=== PATIENT | female | born 1950 | race African-American/Black ===

== ENCOUNTER 2019-10-05 16:01 | Inpatient (IN) | payer OTHER ==
--- NOTE | 2019-10-05 16:32 | PDOC ---
Attending Attestation - Resident Resident Name: Alfreda Pan - HPI HPI: 10/05/19 18:56 pt presents to the ED complaining of a three day history of blood streaked stool. Denies lightheadness, chest pain or shortness of breath, nausea vomiting or abodminal pain. Patient is on ASA and eliquis--last dose was last night. - Physicial Exam PE: 10/05/19 18:58 Agree with resident exam. PAtient is alert and oriented and in no acute distress. Lungs + scattered wheezes b/l. Abdomen soft, non tender,non distended without guarding or rebound. - Medical Decision Making 10/05/19 18:59 Pt presents to the ED complaining of blood streaked stool. Guiac positive on rectal exam. Hgb is 9.5 with unknown baseline. Will admit to medicine for serial hgb.
--- NOTE | 2019-10-05 16:48 | PDOC ---
History of Present Illness - General Chief Complaint: Bleeding from Anus Stated Complaint: HEMATOCHEZIA Time Seen by Provider: 10/05/19 16:47 - History of Present Illness Initial Comments: HPI: 69yo F with PMH of GERD, hypothyroidism, DM, HTN, DVT of RLE on eliquis, COPD on 2L O2 as needed, GERD coming from [facility] presenting with melena and hematochezia x 1 day. Patient states this has never happened before. She had two or three loose bowel movements today that were black mixed with bright red clots. Last colonoscopy was about two years ago which showed polyps. Denies eating anything red. Reports a cough productive of yellow sputum and congestion. No fevers, chills, chest pain, or shortness of breath. PCP: Dr. Triplett ROS: Constitutional: no fever, no chills HEENT: no throat pain, no dysphagia Cardiovascular: no chest pain, no palpitations Respiratory: +cough, no shortness of breath Gastrointestinal: no abdominal pain, +melena Genitourinary: no dysuria, no hematuria Musculoskeletal: no myalgia, no arthralgia Skin: no rash, no itching Neurologic: no headache, no weakness PE: General: Awake, alert, and fully oriented, in no acute distress Head: No signs of trauma Eyes: EOMI, sclera anicteric ENT: Moist mucus membranes Neck: Normal ROM, supple Lungs: Lungs with rales that cleared with coughing, Normal breath sounds Cardio: Regular rhythm, S1 and S2 present Abdomen: Soft, nontender. No guarding, no rebound, no masses. Healed vertical surgical scar present. Extremities: Normal range of motion, Distal pulses present SKIN: Warm, Dry, normal turgor Neurologic: Cranial nerves II through XII grossly intact. Normal speech Rectal: Black stool mixed with blood is on patient's diaper. The skin is without erythema or induration. No external hemorrhoids, fissures, skin tags, warts, or discharge. Sphincter tone normal. There are no masses palpated on digital exam. ED Course/MDM: DDX including but not limited to GI bleed (upper vs lower), epistaxis, iron supplements, beets VS significant for tachycardia Labs, EKG, CXR NPO 10/05/19 16:48 Per [facility] paperwork: GERD, hypothyroidism, HTN, DVT of RLE on on Eliquis/ASA, COPD on 2L O2 as needed , DM BP 121/64m HR 83, RR 18, Temp 97.5, Sat 98 Anaya Chavez, niece, Who to call at the [facility] to get Questions answered: Lidia Shelton, RN [phone] 10/05/19 16:55 CBC WBC 8.7 K/mm3 (4.0-10.0) 10/05/19 17:29 RBC 3.61 M/mm3 (3.60-5.2) 10/05/19 17:29 Hgb 9.5 GM/dL (10.7-15.3) L 10/05/19 17:29 Hct 29.7 % (32.4-45.2) L 10/05/19 17:29 MCV 82.2 fl (80-96) 10/05/19 17:29 MCH 26.2 pg (25.7-33.7) 10/05/19 17:29 MCHC 31.9 g/dl (32.0-36.0) L 10/05/19 17:29 RDW 15.2 % (11.6-15.6) 10/05/19 17:29 Plt Count 261 K/MM3 (134-434) 10/05/19 17:29 MPV 9.5 fl (7.5-11.1) 10/05/19 17:29 Absolute Neuts (auto) 5.8 K/mm3 (1.5-8.0) 10/05/19 17:29 Neutrophils % 66.5 % (42.8-82.8) 10/05/19 17:29 Lymphocytes % 19.2 % (8-40) 10/05/19 17:29 Monocytes % 10.3 % (3.8-10.2) H 10/05/19 17:29 Eosinophils % 2.8 % (0-4.5) 10/05/19 17:29 Basophils % 1.2 % (0-2.0) 10/05/19 17:29 Nucleated RBC % 0 % (0-0) 10/05/19 17:29 No leukocytosis Hgb low at 9.5, unknown baseline CMP Sodium 140 mmol/L (136-145) 10/05/19 17:29 Potassium 4.7 mmol/L (3.5-5.1) 10/05/19 17:29 Chloride 103 mmol/L (98-107) 10/05/19 17:29 Carbon Dioxide 30 mmol/L (21-32) 10/05/19 17:29 Anion Gap 7 MMOL/L (8-16) L 10/05/19 17:29 BUN 51.5 mg/dL (7-18) H 10/05/19 17:29 Creatinine 1.4 mg/dL (0.55-1.3) H 10/05/19 17:29 Est GFR (CKD-EPI)AfAm 44.01 10/05/19 17:29 Est GFR (CKD-EPI)NonAf 37.97 10/05/19 17:29 Random Glucose 150 mg/dL (74-106) H 10/05/19 17:29 Calcium 8.2 mg/dL (8.5-10.1) L 10/05/19 17:29 Total Bilirubin 0.2 mg/dL (0.2-1) 10/05/19 17:29 AST 16 U/L (15-37) 10/05/19 17:29 ALT 20 U/L (13-61) 10/05/19 17:29 Alkaline Phosphatase 49 U/L (45-117) 10/05/19 17:29 Total Protein 6.7 g/dl (6.4-8.2) 10/05/19 17:29 Albumin 2.9 g/dl (3.4-5.0) L 10/05/19 17:29 BUN elevated Cr elevated No transaminitis FOBT positive EKG: rate 100, QTc 420, NSR Pending CXR 10/05/19 18:26 Patient signed out to Dr. Beatty 10/05/19 19:20 Past History - Past Medical History Allergies/Adverse Reactions: Allergies Allergy/AdvReac Type Severity Reaction Status Date / Time No Known Allergies Allergy Verified 10/05/19 16:22 Home Medications: Ambulatory Orders Amlodipine Besylate [Norvasc -] 5 mg PO DAILY 10/05/19 Apixaban [Eliquis -] 5 mg PO BID 10/05/19 Aspirin 81 mg PO DAILY 10/05/19 Bisacodyl [Dulcolax -] 5 mg PO HS 10/05/19 Clotrimazole/Betamet Diprop [Lotrisone Cream (Large Tube) -] 1 applic TP DAILY 10/05/19 Docusate Sodium [Colace -] 100 mg PO BID 10/05/19 Ergocalciferol [Vitamin D2] 50,000 unit PO Q7D@1000 10/05/19 Ferrous Sulfate [Feosol] 325 mg PO DAILY 10/05/19 Ipratropium/Albuterol Sulfate [Iprat-Albut 0.5-3(2.5) mg/3 ml] 3 ml IH QID PRN 10/05/19 Levothyroxine [Synthroid -] 125 mcg PO DAILY 10/05/19 Methocarbamol [Robaxin -] 500 mg PO DAILY 10/05/19 Multivitamin [Multiple Vitamins] 1 each PO DAILY 10/05/19 Naloxegol Oxalate [Movantik] 25 mg PO DAILY 10/05/19 Omeprazole 20 mg PO DAILY 10/05/19 Pantoprazole Sodium [Protonix -] 40 mg PO BID 10/05/19 metFORMIN HCL [Metformin HCl] 500 mg PO BID 10/05/19 - Psycho Social/Smoking Cessation Hx Smoking History: Unknown if ever smoked *Physical Exam - Vital Signs Last Vital Signs Temp Pulse Resp BP Pulse Ox 97.5 F L 99 H 16 113/61 95 10/05/19 16:20 10/05/19 16:20 10/05/19 16:20 10/05/19 16:20 10/05/19 16:20 ED Treatment Course - LABORATORY CBC & Chemistry Diagram: 10/05/19 17:29 10/05/19 17:29 Discharge - Discharge Information Problems reviewed: Yes Clinical Impression/Diagnosis: GI bleed Qualifiers: GI bleed type/associated pathology: melena Qualified Code(s): K92.1 - Melena Condition: Guarded - Admission Yes - Follow up/Referral Referrals: Pam Triplett MD [Primary Care Provider] - - Patient Discharge Instructions - Post Discharge Activity
[2019-10-05 17:48] LABS: BASO % 1.2 % (0-2.0); EOS % 2.8 % (0-4.5); HEMATOCRIT 29.7 % (32.4-45.2); HEMOGLOBIN 9.5 GM/dL (10.7-15.3); LYMPH % 19.2 % (8-40); MCH 26.2 pg (25.7-33.7); MCHC 31.9 g/dl (32.0-36.0); MEAN CELL VOLUME 82.2 fl (80-96); MEAN PLT VOLUME 9.5 fl (7.5-11.1); MONO % 10.3 % (3.8-10.2); NEUT % 66.5 % (42.8-82.8); PLATELET COUNT 261 K/MM3 (134-434); RBC 3.61 M/mm3 (3.60-5.2); RDW 15.2 % (11.6-15.6); WHITE BLOOD COUNT 8.7 K/mm3 (4.0-10.0)
[2019-10-05 18:01] LABS: INR 1.26 (0.83-1.09); PROTHROMBIN TIME (PATIENT) 14.9 SEC (9.7-13.0)
[2019-10-05 18:04] LABS: ACTIVATED PTT 34.9 SECONDS (25.2-36.5)
[2019-10-05 18:20] LABS: ALBUMIN 2.9 g/dl (3.4-5.0); BILIRUBIN,TOTAL 0.2 mg/dL (0.2-1); BLOOD UREA NITROGEN 51.5 mg/dL (7-18); CALCIUM 8.2 mg/dL (8.5-10.1); CREATININE 1.4 mg/dL (0.55-1.3); POTASSIUM 4.7 mmol/L (3.5-5.1); TOT PROT 6.7 g/dl (6.4-8.2)
[2019-10-05] MEDS ORDERED: LACTATED RINGERS SOLUTION 1000 ML INFUS.BAG IV ONE (19:36)
[2019-10-05] MEDS ORDERED: PANTOPRAZOLE SODIUM 40 MG VIAL IVPUSH ONE (19:36)
[2019-10-05] MEDS ORDERED: PANTOPRAZOLE SODIUM 40 MG/100 ML BAG IVPB ONE (19:58)
--- NOTE | 2019-10-05 23:03 | HP ---
Admitting History and Physical - Primary Care Physician PCP: Dr. haas - Admission Chief Complaint: three days of bloody streaked stool History of Present Illness: 69 yo F with PMH of GERD, hypothyroidism, DM, HTN, DVT of RLE on eliquis, COPD on 2L O2 as needed coming from [facility] with melena and hematochezia x 1 day. Patient states this has never happened before. She had two or three loose bowel movements today that were black mixed with bright red clots. Last colonoscopy was about two years ago which showed polyps. Denies eating anything red. Reports a cough productive of yellow sputum and congestion. No fevers, chills, chest pain, or shortness of breath. History Source: Patient Limitations to Obtaining History: No Limitations - Past Medical History Cardiovascular: Yes: Deep Vein Thrombosis, HTN Pulmonary: Yes: COPD Gastrointestinal: Yes: GERD Endocrine: Yes: Diabetes Mellitus, Hypothyroidism - Past Surgical History Past Surgical History: Yes: None - Smoking History Smoking history: Former smoker Have you smoked in the past 12 months: Yes If you are a former smoker, when did you quit?: 1 year - Alcohol/Substance Use Hx Alcohol Use: No History of Substance Use: reports: None - Social History Usual Living Arrangement: Yes: Alone ADL: Support Services History of Recent Travel: No Home Medications - Allergies Allergies/Adverse Reactions: Allergies Allergy/AdvReac Type Severity Reaction Status Date / Time No Known Allergies Allergy Verified 10/05/19 16:22 - Home Medications Home Medications: Ambulatory Orders Amlodipine Besylate [Norvasc -] 5 mg PO DAILY 10/05/19 Apixaban [Eliquis -] 5 mg PO BID 10/05/19 Aspirin 81 mg PO DAILY 10/05/19 Bisacodyl [Dulcolax -] 5 mg PO HS 10/05/19 Clotrimazole/Betamet Diprop [Lotrisone Cream (Large Tube) -] 1 applic TP DAILY 10/05/19 Docusate Sodium [Colace -] 100 mg PO BID 10/05/19 Ergocalciferol [Vitamin D2] 50,000 unit PO Q7D@1000 10/05/19 Ferrous Sulfate [Feosol] 325 mg PO DAILY 10/05/19 Ipratropium/Albuterol Sulfate [Iprat-Albut 0.5-3(2.5) mg/3 ml] 3 ml IH QID PRN 10/05/19 Levothyroxine [Synthroid -] 125 mcg PO DAILY 10/05/19 Methocarbamol [Robaxin -] 500 mg PO DAILY 10/05/19 Multivitamin [Multiple Vitamins] 1 each PO DAILY 10/05/19 Naloxegol Oxalate [Movantik] 25 mg PO DAILY 10/05/19 Omeprazole 20 mg PO DAILY 10/05/19 Pantoprazole Sodium [Protonix -] 40 mg PO BID 10/05/19 metFORMIN HCL [Metformin HCl] 500 mg PO BID 10/05/19 Family Medical History Family Hx Diabetes: Mother Review of Systems - Review of Systems Constitutional: reports: No Symptoms Eyes: reports: No Symptoms, Floaters HENT: reports: No Symptoms Neck: reports: No Symptoms Cardiovascular: reports: No Symptoms Respiratory: reports: Cough Gastrointestinal: reports: Melena, Rectal Bleeding Genitourinary: reports: No Symptoms Musculoskeletal: reports: No Symptoms Integumentary: reports: No Symptoms Neurological: reports: No Symptoms Endocrine: reports: No Symptoms Hematology/Lymphatic: reports: No Symptoms Psychiatric: reports: No Symptoms Physical Examination Vital Signs: Vital Signs Temperature 99.2 F 10/05/19 20:13 Pulse Rate 97 H 10/05/19 20:13 Respiratory Rate 25 H 10/05/19 20:13 Blood Pressure 136/56 L 10/05/19 20:13 O2 Sat by Pulse Oximetry (%) 96 10/05/19 20:13 Constitutional: Yes: No Distress, Calm Eyes: Yes: Conjunctiva Clear, EOM Intact HENT: Yes: Atraumatic, Normocephalic Neck: Yes: Supple, Trachea Midline Cardiovascular: Yes: Regular Rate and Rhythm Respiratory: Yes: Regular, CTA Bilaterally Gastrointestinal: Yes: Normal Bowel Sounds, Soft, Other (slight blood on patient diaper) Musculoskeletal: Yes: WNL Edema: No Peripheral Pulses WNL: Yes Integumentary: Yes: WNL Neurological: Yes: Alert, Oriented Labs: CBC, BMP 10/05/19 17:29 10/05/19 17:29 Imaging - Results Chest X-ray: Report Reviewed (no acute infiltrate) EKG: Report Reviewed ( EKG: rate 100, QTc 420, NSR) Other: Report Reviewed (occult blood positive) Problem List - Problems (1) GI bleed Code(s): K92.2 - GASTROINTESTINAL HEMORRHAGE, UNSPECIFIED Qualifiers: GI bleed type/associated pathology: melena Qualified Code(s): K92.1 - Melena (2) HTN (hypertension) Code(s): I10 - ESSENTIAL (PRIMARY) HYPERTENSION (3) Diabetes Code(s): E11.9 - TYPE 2 DIABETES MELLITUS WITHOUT COMPLICATIONS (4) GERD (gastroesophageal reflux disease) Code(s): K21.9 - GASTRO-ESOPHAGEAL REFLUX DISEASE WITHOUT ESOPHAGITIS (5) Hypothyroidism Code(s): E03.9 - HYPOTHYROIDISM, UNSPECIFIED (6) DVT (deep venous thrombosis) Code(s): I82.409 - ACUTE EMBOLISM AND THOMBOS UNSP DEEP VN UNSP LOWER EXTREMITY (7) COPD (chronic obstructive pulmonary disease) Code(s): J44.9 - CHRONIC OBSTRUCTIVE PULMONARY DISEASE, UNSPECIFIED (8) Constipation Code(s): K59.00 - CONSTIPATION, UNSPECIFIED Assessment/Plan 69 yo F with PMH of GERD, hypothyroidism, DM, HTN, DVT of RLE on eliquis, COPD on 2L O2 as needed coming from [facility] with melena and hematochezia x 1 day. Patient states this has never happened before. # R/O GI bleed - hgb: 9.5, baseline not known - occult positive - In ED: given 40 IV push protonix - follow up cbc series, H/H trend - NPO - continue with PPI IV push daily - follow up GI - transfuse is hgb less than 7 #ELIZABETH - Bun/cr: 51.1/1.4 - in ED given : 1 LR - monitor renal function - avoid nephro toxins #HTN -Amlodipine Besylate 5 mg PO DAILY - monitor BP # H/o DVT - HOLD AC - place SCDs # DM - monitor FSBS BID AC - coverage with novolog sliding scale BID AC - follow up hgA1c # COPD - continue with home nebs # Hypothyroidism - Levothyroxine 125 mcg PO DAILY # constipation - cont with home meds FEN: NPO, monitor lytes VTE: SCDs, hold AC Dispo: Med-surg Visit type - Emergency Visit Emergency Visit: Yes ED Registration Date: 10/05/19 Care time: The patient presented to the Emergency Department on the above date and was hospitalized for further evaluation of their emergent condition. - New Patient This patient is new to me today: Yes Date on this admission: 10/05/19 - Critical Care Critical Care patient: No
[2019-10-05] MEDS ORDERED: ALBUTEROL SO4 2.5/IPRATROPIUM 0.5 INH SOL 3 ML VIAL.NEB. NEB PRN (23:16)
[2019-10-06] MEDS ORDERED: LEVOTHYROXINE NA 125 MCG TABLET (FP) PO SCH (07:00)
[2019-10-06 08:41] LABS: ALBUMIN 2.8 g/dl (3.4-5.0); BILIRUBIN,TOTAL 0.2 mg/dL (0.2-1); BLOOD UREA NITROGEN 51.8 mg/dL (7-18); CALCIUM 8.2 mg/dL (8.5-10.1); CREATININE 1.2 mg/dL (0.55-1.3); POTASSIUM 4.3 mmol/L (3.5-5.1); TOT PROT 6.6 g/dl (6.4-8.2)
--- NOTE | 2019-10-06 09:45 | EKG ---
Test Reason : Blood Pressure : / mmHG Vent. Rate : 100 BPM Atrial Rate : 100 BPM P-R Int : 142 ms QRS Dur : 080 ms QT Int : 326 ms P-R-T Axes : 039 029 062 degrees QTc Int : 420 ms NORMAL SINUS RHYTHM NONSPECIFIC ST ABNORMALITY ABNORMAL ECG NO PREVIOUS ECGS AVAILABLE Confirmed by MD Bruce, Markus ([id number]) on 10/06/2019 9:45:06 AM Referred By: Confirmed By:Markus Barrera MD
[2019-10-06] MEDS ORDERED: amLODIPine BESYLATE 5 MG TABLET (FP) PO SCH (10:00)
[2019-10-06] MEDS ORDERED: PANTOPRAZOLE SODIUM 40 MG VIAL IVPUSH SCH (10:00)
[2019-10-06] MEDS ORDERED: PATIENT'S OWN MEDICATION (NON-FORMULARY) (Naloxegol Oxalate [Movantik] 25 MG) PO SCH (10:00)
[2019-10-06] MEDS: INSULIN (NOVOLOG) ASPART 100 UNITS/ML 10ML VIAL SQ SCH ×2 (11:07→21:33)
--- NOTE | 2019-10-06 11:23 | PN ---
Progress Note, Physician Chief Complaint: GI Bleed History of Present Illness: NAD in bed denies any N/V/D/or further bleeding - Current Medication List Current Medications: Active Medications Albuterol/Ipratropium (Duoneb -) 1 amp NEB RQID PRN PRN Reason: SHORT OF BREATH/WHEEZING Amlodipine Besylate (Norvasc -) 5 mg PO DAILY [facility] Last Admin: 10/06/19 10:57 Dose: 5 mg Bisacodyl (Dulcolax -) 5 mg PO HS [facility] Insulin Aspart (Novolog Vial) 1 units SQ BID [facility]; Protocol Last Admin: 10/06/19 11:07 Dose: Not Given Levothyroxine Sodium (Synthroid -) 125 mcg PO DAILY@0700 [facility] Last Admin: 10/06/19 06:22 Dose: 125 mcg Non-Formulary Medication (Naloxegol Oxalate [Movantik]) 25 mg PO DAILY [facility] Pantoprazole Sodium (Protonix Iv) 40 mg IVPUSH DAILY [facility] Last Admin: 10/06/19 10:57 Dose: 40 mg - Objective Vital Signs: Vital Signs Temperature 98.6 F 10/06/19 06:00 Pulse Rate 107 H 10/06/19 06:00 Respiratory Rate 20 10/06/19 06:00 Blood Pressure 131/72 10/06/19 06:00 O2 Sat by Pulse Oximetry (%) 98 10/05/19 21:50 Constitutional: Yes: Well Nourished, No Distress, Calm, Obese Cardiovascular: Yes: Regular Rate and Rhythm Respiratory: Yes: Regular Gastrointestinal: Yes: Normal Bowel Sounds, Soft, Abdomen, Obese Genitourinary: Yes: WNL Musculoskeletal: Yes: WNL Extremities: Yes: WNL Edema: No Peripheral Pulses WNL: Yes Neurological: Yes: Alert, Oriented Psychiatric: Yes: Alert, Oriented Labs: CBC, BMP 10/05/19 17:29 10/06/19 07:12 INR, PTT INR 1.26 (0.83-1.09) H 10/05/19 17:29 Problem List - Problems (1) Anemia Assessment/Plan: -GI consult -Guaiac positive -PPI -Resume diet for now until further eval by GI -Trend CBC -Hold eliquis Problems reviewed: Yes Code(s): D64.9 - ANEMIA, UNSPECIFIED (2) Diabetes Assessment/Plan: -A1c at 6.5 -BGM AC HS -ISS -Diabetic/low sodium diet Problems reviewed: Yes Code(s): E11.9 - TYPE 2 DIABETES MELLITUS WITHOUT COMPLICATIONS (3) GI bleed Assessment/Plan: -GI consult -Guaiac positive -PPI -Resume diet for now until further eval by GI -Monitor trend -repeat CBC today -Hold Eliquis Problems reviewed: Yes Code(s): K92.2 - GASTROINTESTINAL HEMORRHAGE, UNSPECIFIED Qualifiers: GI bleed type/associated pathology: melena Qualified Code(s): K92.1 - Melena Assessment/Plan see problem list
[2019-10-06] MEDS ORDERED: MULTIVITAMINS (DAILY MVI) TABLET (FP) PO SCH (11:30)
[2019-10-06] MEDS ORDERED: METHOCARBAMOL 500 MG TABLET PO SCH (11:30)
[2019-10-06 12:46] LABS: BASO % 0.6 % (0-2.0); HEMATOCRIT 28.8 % (32.4-45.2); HEMOGLOBIN 9.1 GM/dL (10.7-15.3); LYMPH % 16.3 % (8-40); MCH 26.3 pg (25.7-33.7); MCHC 31.6 g/dl (32.0-36.0); MEAN CELL VOLUME 83.3 fl (80-96); MEAN PLT VOLUME 8.9 fl (7.5-11.1); MONO % 8.5 % (3.8-10.2); NEUT % 72.6 % (42.8-82.8); PLATELET COUNT 230 K/MM3 (134-434); RBC 3.45 M/mm3 (3.60-5.2)
[2019-10-06 13:24] LABS: IRON SERUM 18 ug/dL (50-175); TOTAL IRON BINDING CAPACITY 209 ug/dL (250-450)
[2019-10-06] MEDS ORDERED: metFORMIN HCL 500 MG TABLET (FP) PO SCH (16:30)
[2019-10-06] MEDS ORDERED: IRON SUCROSE INJECTION 300 MG in SODIUM CHLORIDE 235 ML IVPB ONE ×2 (18:17→22:55)
[2019-10-06] MEDS ORDERED: PANTOPRAZOLE SODIUM 40 MG VIAL IVPUSH ONE ×2 (19:19→22:55)
[2019-10-06] MEDS ORDERED: PANTOPRAZOLE SODIUM 80 MG in SODIUM CHLORIDE 100 ML IVPB SCH (19:30)
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
[2019-10-06] MEDS ORDERED: PIPERACILLIN/TAZOB 2.25 GM 2.25 GM in DEXTROSE 5%-WATER - 50 ML IVPB SCH (21:00)
[2019-10-06 21:41] LABS: HEMATOCRIT 26.7 % (32.4-45.2); HEMOGLOBIN 8.4 GM/dL (10.7-15.3); MCH 26.3 pg (25.7-33.7); MCHC 31.5 g/dl (32.0-36.0); MEAN CELL VOLUME 83.4 fl (80-96); MEAN PLT VOLUME 8.6 fl (7.5-11.1); PLATELET COUNT 216 K/MM3 (134-434); RDW 14.9 % (11.6-15.6); WHITE BLOOD COUNT 9.2 K/mm3 (4.0-10.0)
[2019-10-06] MEDS ORDERED: BISACODYL 5 MG TABLET.DR (FP) PO SCH (22:00)
[2019-10-06] MEDS ORDERED: DOCUSATE SODIUM 100 MG CAPSULE (FP) PO SCH (22:00)
[2019-10-06] MEDS ORDERED: ALBUTEROL SO4 2.5/IPRATROPIUM 0.5 INH SOL 3 ML VIAL.NEB. NEB PRN (22:55)
[2019-10-07] MEDS: PANTOPRAZOLE SODIUM 80 MG in SODIUM CHLORIDE 100 ML IVPB SCH ×3 (00:21→15:56)
[2019-10-07] MEDS ORDERED: PIPERACILLIN/TAZOBACTAM 2.25 GM VIAL IVPB ONE ×3 (02:30→14:58)
[2019-10-07] MEDS ORDERED: DEXTROSE 5%-WATER - 50 ML IVPB ONE ×3 (02:31→14:59)
[2019-10-07] MEDS: PIPERACILLIN/TAZOB 2.25 GM 2.25 GM in DEXTROSE 5%-WATER - 50 ML IVPB SCH ×4 (02:40→16:22)
[2019-10-07] MEDS ORDERED: TRIMETHOBENZAMIDE HCL 200MG/2ML INJ IM ONE (06:09)
[2019-10-07 06:58] LABS: BASO % 0.4 % (0-2.0); EOS % 3.8 % (0-4.5); HEMATOCRIT 25.4 % (32.4-45.2); HEMOGLOBIN 8.1 GM/dL (10.7-15.3); MCH 26.5 pg (25.7-33.7); MCHC 31.9 g/dl (32.0-36.0); MEAN CELL VOLUME 83.1 fl (80-96); MEAN PLT VOLUME 8.9 fl (7.5-11.1); MONO % 8.8 % (3.8-10.2); PLATELET COUNT 213 K/MM3 (134-434); RBC 3.06 M/mm3 (3.60-5.2); RDW 14.8 % (11.6-15.6); WHITE BLOOD COUNT 9.6 K/mm3 (4.0-10.0)
[2019-10-07] MEDS: LEVOTHYROXINE NA 125 MCG TABLET (FP) PO SCH (07:00)
[2019-10-07] MEDS: metFORMIN HCL 500 MG TABLET (FP) PO SCH ×2 (07:00→16:44)
[2019-10-07] MEDS: INSULIN SLIDING SCALE (NOVOLOG) 1 VIAL SQ SCH ×2 (07:00→16:49)
[2019-10-07] MEDS: DOCUSATE SODIUM 100 MG CAPSULE (FP) PO SCH ×2 (09:42→21:27)
[2019-10-07] MEDS: MULTIVITAMINS (DAILY MVI) TABLET (FP) PO SCH (09:43)
[2019-10-07] MEDS: IRON POLYSACCHARIDES 150 MG CAPSULE PO SCH (09:44)
[2019-10-07] MEDS ORDERED: IRON POLYSACCHARIDES 150 MG CAPSULE PO SCH (10:00)
[2019-10-07] MEDS ORDERED: FERROUS SO4 325 MG TABLET (FP) PO SCH (10:00)
[2019-10-07] MEDS ORDERED: METHOCARBAMOL 500 MG TABLET PO SCH (10:00)
--- NOTE | 2019-10-07 10:33 | PN ---
Progress Note, Physician Chief Complaint: AWAKE ALERT EVENTS AND NOTES REVIEWED PATIENT WITH LOW GRADE FEVER AND CXR LLQ INFILTRATE - Current Medication List Current Medications: Active Medications Albuterol/Ipratropium (Duoneb -) 1 amp NEB RQID PRN PRN Reason: SHORT OF BREATH/WHEEZING Amlodipine Besylate (Norvasc -) 5 mg PO DAILY [facility] Bisacodyl (Dulcolax -) 5 mg PO HS [facility] Docusate Sodium (Colace -) 100 mg PO BID [facility] Last Admin: 10/07/19 09:42 Dose: Not Given Piperacillin Sod/Tazobactam (Sod 2.25 gm/ Dextrose) 50 mls @ 100 mls/hr IVPB Q6H-IV [facility] Stop: 10/07/19 15:29 Last Admin: 10/07/19 08:33 Dose: 100 mls/hr Pantoprazole Sodium 80 mg/ (Sodium Chloride) 100 mls @ 10 mls/hr IVPB Q10H [facility] Last Admin: 10/07/19 06:51 Dose: Not Given Piperacillin Sod/Tazobactam (Sod 2.25 gm/ Dextrose) 50 mls @ 100 mls/hr IVPB Q6H-IV [facility]; Protocol Iron Sucrose 300 mg/ Sodium (Chloride) 250 mls @ 250 mls/hr IVPB ONCE ONE Stop: 10/07/19 11:31 Insulin Aspart (Novolog Vial Sliding Scale -) 1 vial SQ BIDAC [facility]; Protocol Last Admin: 10/07/19 07:00 Dose: Not Given Levothyroxine Sodium (Synthroid -) 125 mcg PO DAILY@0700 [facility] Last Admin: 10/07/19 07:00 Dose: 125 mcg Metformin HCl (Glucophage -) 500 mg PO BIDAC [facility] Last Admin: 10/07/19 07:00 Dose: Not Given Methocarbamol (Robaxin -) 500 mg PO DAILY [facility] Multivitamins/Minerals/Vitamin C (Tab-A-Vit -) 1 tab PO DAILY [facility] Last Admin: 10/07/19 09:43 Dose: Not Given Polysaccharide Iron Complex (Niferex-150 -) 150 mg PO DAILY [facility] Last Admin: 10/07/19 09:44 Dose: Not Given - Objective Vital Signs: Vital Signs Temperature 99.5 F 10/07/19 08:30 Pulse Rate 104 H 10/07/19 08:30 Respiratory Rate 18 10/07/19 08:30 Blood Pressure 127/58 L 10/07/19 08:30 O2 Sat by Pulse Oximetry (%) 100 10/06/19 21:00 Constitutional: Yes: Mild Distress Cardiovascular: Yes: Pulse Irregular Respiratory: Yes: Diminished Gastrointestinal: Yes: Soft Genitourinary: Yes: Incontinence Edema: Yes Edema: LLE: Trace, RLE: Trace Peripheral Pulses WNL: Yes Neurological: Yes: Pre-Existing Deficit Psychiatric: Yes: WNL Labs: CBC, BMP 10/07/19 05:45 10/06/19 07:12 INR, PTT INR 1.26 (0.83-1.09) H 10/05/19 17:29 Problem List - Problems (1) Pulmonary infiltrate in left lung on chest x-ray Code(s): R91.8 - OTHER NONSPECIFIC ABNORMAL FINDING OF LUNG FIELD (2) ELIZABETH (acute kidney injury) Code(s): N17.9 - ACUTE KIDNEY FAILURE, UNSPECIFIED (3) Anemia Code(s): D64.9 - ANEMIA, UNSPECIFIED (4) COPD (chronic obstructive pulmonary disease) Code(s): J44.9 - CHRONIC OBSTRUCTIVE PULMONARY DISEASE, UNSPECIFIED (5) Diabetes Code(s): E11.9 - TYPE 2 DIABETES MELLITUS WITHOUT COMPLICATIONS (6) GERD (gastroesophageal reflux disease) Code(s): K21.9 - GASTRO-ESOPHAGEAL REFLUX DISEASE WITHOUT ESOPHAGITIS (7) GI bleed Code(s): K92.2 - GASTROINTESTINAL HEMORRHAGE, UNSPECIFIED Qualifiers: GI bleed type/associated pathology: melena Qualified Code(s): K92.1 - Melena (8) Melena Code(s): K92.1 - MELENA Assessment/Plan EGD FOR GI BLEED MEDICALLY CLEARED PPI/TRANSFUSE NEEDED PULMONARY/ID WORKUP CHECK CULTURES LABS REVIEWED NPO DVT PROPHYLAXIS
[2019-10-07] MEDS: amLODIPine BESYLATE 5 MG TABLET (FP) PO SCH (10:51)
[2019-10-07] MEDS: IRON SUCROSE INJECTION 300 MG in SODIUM CHLORIDE 250 ML IVPB ONE ×2 (11:42→16:40)
[2019-10-07] MEDS ORDERED: TETRACAINE/BENZOCAINE/BUTAMBEN 20 GM SPR TP ONE (12:37)
[2019-10-07] MEDS ORDERED: MIDAZOLAM HCL 2 MG/2 ML SINGLE DOSE VIAL ONE (12:38)
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
--- NOTE | 2019-10-07 13:04 | PN ---
Progress Note (short form) - Note Progress Note: EGD performed today revealing patchy gastric erythema otherwise unremarkable. No obvious ulcers seen. No old or new blood. Due to tenuous respiratory status, gastric biopsies were not taken. See scanned endoscopy report for details. Recommendations: -Resume clear liquid diet -PPI daily -Would recommend colonoscopy to further evaluate as no obvious source of bleeding was found on this exam. Due to developing right sided pneumonia would recommend treatment and further optimization before pursuing -If a/c deemed indicated from cardiac/primary standpoint would recommend heparin gtt in the interim (that could be held 4-6 hours pre-procedure) in preparation for possible colonoscopy Please call GI if questions/concerns in the interim
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
[2019-10-07] MEDS: ACETAMINOPHEN 325 MG TABLET (FP) PO PRN ×2 (15:17→21:27)
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
--- NOTE | 2019-10-07 18:00 | PN ---
Progress Note (short form) - Note Progress Note: ID consult dictated imp/reccd pneumonia gi bleed zosyn/zith suspect pneumonia preceded the endoscopoy zosyn/zithromax cultures urinary antigen Problem List - Problems (1) Pneumonia Code(s): J18.9 - PNEUMONIA, UNSPECIFIED ORGANISM (2) GI bleed Code(s): K92.2 - GASTROINTESTINAL HEMORRHAGE, UNSPECIFIED Qualifiers: GI bleed type/associated pathology: melena Qualified Code(s): K92.1 - Melena
[2019-10-07] MEDS ORDERED: PIPERACILLIN/TAZOBACTAM 4.5 GM VIAL IVPB ONE (18:36)
[2019-10-07] MEDS ORDERED: DEXTROSE 5%-WATER 100 ML IVPB ONE (18:37)
[2019-10-07] MEDS: PIPERACILLIN/TAZOB 4.5 GM 4.5 GM in DEXTROSE 5%-WATER 100 ML IVPB SCH (18:40)
[2019-10-07] MEDS: AZITHROMYCIN IVPB 500 MG/250 ML BAG IVPB SCH (19:26)
[2019-10-07] MEDS: ALBUTEROL SO4 2.5/IPRATROPIUM 0.5 INH SOL 3 ML VIAL.NEB. NEB SCH (20:45)
[2019-10-07] MEDS: BISACODYL 5 MG TABLET.DR (FP) PO SCH (21:27)
[2019-10-08] MEDS ORDERED: PIPERACILLIN/TAZOBACTAM 4.5 GM VIAL IVPB ONE ×3 (01:03→17:10)
[2019-10-08] MEDS ORDERED: DEXTROSE 5%-WATER 100 ML IVPB ONE ×3 (01:03→17:10)
[2019-10-08] MEDS: PIPERACILLIN/TAZOB 4.5 GM 4.5 GM in DEXTROSE 5%-WATER 100 ML IVPB SCH ×3 (01:40→18:53)
[2019-10-08 02:28] LABS: EPI CELLS 2.7 /HPF (0-5/HPF); HYALINE CASTS 2 /lpf (0-8); URINE APPEARANCE CLOUDY; URINE BACTERIA 0.7 /hpf (NEGATIVE); URINE BILIRUBIN NEGATIVE (NEGATIVE); URINE COLOR YELLOW; URINE GLUCOSE (UA) NEGATIVE (NEGATIVE); URINE KETONE NEGATIVE (NEGATIVE); URINE LEUK ESTERASE NEGATIVE (NEGATIVE); URINE NITRITE NEGATIVE (NEGATIVE); URINE PROTEIN 1+ (NEGATIVE); URINE UROBILINOGEN 0.2 mg/dL (0.2-1.0); URINE WBC 8 /hpf (0-5)
[2019-10-08 03:27] LABS: URINE RBC 91 /hpf (0-4)
[2019-10-08] MEDS: metFORMIN HCL 500 MG TABLET (FP) PO SCH ×2 (06:47→17:34)
[2019-10-08] MEDS: LEVOTHYROXINE NA 125 MCG TABLET (FP) PO SCH (06:47)
[2019-10-08] MEDS: INSULIN SLIDING SCALE (NOVOLOG) 1 VIAL SQ SCH ×2 (06:47→17:40)
[2019-10-08] MEDS: ACETAMINOPHEN 325 MG TABLET (FP) PO PRN (06:47)
[2019-10-08 07:10] LABS: HEMATOCRIT 25.1 % (32.4-45.2); MCH 26.4 pg (25.7-33.7); MCHC 31.9 g/dl (32.0-36.0); MEAN CELL VOLUME 82.7 fl (80-96); MEAN PLT VOLUME 8.8 fl (7.5-11.1); PLATELET COUNT 226 K/MM3 (134-434); RBC 3.03 M/mm3 (3.60-5.2); RDW 14.7 % (11.6-15.6); WHITE BLOOD COUNT 9.9 K/mm3 (4.0-10.0)
[2019-10-08 07:36] LABS: ALBUMIN 2.8 g/dl (3.4-5.0); BILIRUBIN,TOTAL 0.2 mg/dL (0.2-1); BLOOD UREA NITROGEN 34.5 mg/dL (7-18); CALCIUM 8.1 mg/dL (8.5-10.1); CREATININE 1.4 mg/dL (0.55-1.3); TOT PROT 6.4 g/dl (6.4-8.2)
[2019-10-08] MEDS: ALBUTEROL SO4 2.5/IPRATROPIUM 0.5 INH SOL 3 ML VIAL.NEB. NEB SCH ×4 (08:23→21:25)
[2019-10-08] MEDS: MULTIVITAMINS (DAILY MVI) TABLET (FP) PO SCH (09:48)
[2019-10-08] MEDS: PANTOPRAZOLE SODIUM 40 MG VIAL IVPUSH SCH (09:48)
[2019-10-08] MEDS: DOCUSATE SODIUM 100 MG CAPSULE (FP) PO SCH ×2 (09:48→21:39)
[2019-10-08] MEDS: IRON POLYSACCHARIDES 150 MG CAPSULE PO SCH (09:50)
[2019-10-08] MEDS ORDERED: PT OWN MED DRAWER 7, Y5N ONE (09:50)
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
[2019-10-08] MEDS: amLODIPine BESYLATE 5 MG TABLET (FP) PO SCH (13:15)
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
--- NOTE | 2019-10-08 15:14 | PN ---
Progress Note, Physician History of Present Illness: Pt seen and examined at bedside. She is awake and alert. She denies shortness of breath. - Current Medication List Current Medications: Active Medications Acetaminophen (Tylenol -) 650 mg PO Q6H PRN PRN Reason: FEVER Last Admin: 10/08/19 06:47 Dose: 650 mg Albuterol/Ipratropium (Duoneb -) 1 amp NEB RQID [facility] Last Admin: 10/08/19 12:33 Dose: 1 amp Amlodipine Besylate (Norvasc -) 5 mg PO DAILY [facility] Last Admin: 10/08/19 13:15 Dose: Not Given Bisacodyl (Dulcolax -) 5 mg PO HS [facility] Last Admin: 10/07/19 21:27 Dose: 5 mg Docusate Sodium (Colace -) 100 mg PO BID [facility] Last Admin: 10/08/19 09:48 Dose: 100 mg Piperacillin Sod/Tazobactam (Sod 4.5 gm/ Dextrose) 100 mls @ 200 mls/hr IVPB Q8H-IV [facility]; Protocol Last Admin: 10/08/19 09:48 Dose: 200 mls/hr Azithromycin (Zithromax 500mg Ivpb (Pre-Docked)) 500 mg in 250 mls @ 250 mls/ hr IVPB Q24H [facility] Last Admin: 10/07/19 19:26 Dose: 250 mls/hr Insulin Aspart (Novolog Vial Sliding Scale -) 1 vial SQ BIDAC [facility]; Protocol Last Admin: 10/08/19 06:47 Dose: Not Given Levothyroxine Sodium (Synthroid -) 125 mcg PO DAILY@0700 [facility] Last Admin: 10/08/19 06:47 Dose: 125 mcg Metformin HCl (Glucophage -) 500 mg PO BIDAC [facility] Last Admin: 10/08/19 06:47 Dose: 500 mg Multivitamins/Minerals/Vitamin C (Tab-A-Vit -) 1 tab PO DAILY [facility] Last Admin: 10/08/19 09:48 Dose: 1 tab Pantoprazole Sodium (Protonix Iv) 40 mg IVPUSH DAILY [facility] Last Admin: 10/08/19 09:48 Dose: 40 mg Polysaccharide Iron Complex (Niferex-150 -) 150 mg PO DAILY [facility] Last Admin: 10/08/19 09:50 Dose: 150 mg - Objective Vital Signs: Vital Signs Temperature 99.2 F 10/08/19 13:00 Pulse Rate 91 H 10/08/19 13:00 Respiratory Rate 18 10/08/19 13:00 Blood Pressure 116/50 L 10/08/19 13:00 O2 Sat by Pulse Oximetry (%) 94 L 10/08/19 10:00 Constitutional: Yes: Calm Eyes: Yes: Conjunctiva Clear HENT: Yes: Atraumatic Cardiovascular: Yes: S1, S2 Respiratory: Yes: CTA Bilaterally Gastrointestinal: Yes: Soft Genitourinary: Yes: WNL Musculoskeletal: Yes: WNL Extremities: Yes: WNL Edema: Yes Edema: LLE: Trace, RLE: Trace Integumentary: Yes: WNL Neurological: Yes: Oriented Psychiatric: Yes: Oriented Labs: CBC, BMP 10/08/19 05:47 10/08/19 05:47 INR, PTT INR 1.26 (0.83-1.09) H 10/05/19 17:29 Problem List - Problems (1) Azotemia Code(s): R79.89 - OTHER SPECIFIED ABNORMAL FINDINGS OF BLOOD CHEMISTRY (2) Anemia Code(s): D64.9 - ANEMIA, UNSPECIFIED (3) COPD (chronic obstructive pulmonary disease) Code(s): J44.9 - CHRONIC OBSTRUCTIVE PULMONARY DISEASE, UNSPECIFIED Assessment/Plan Current Medications Generic Name Dose Route Start Last Admin Trade Name Freq PRN Reason Stop Dose Admin Acetaminophen 650 mg 10/07/19 15:04 10/08/19 06:47 Tylenol - PO 650 mg Q6H PRN Administration FEVER Albuterol/Ipratropium 1 amp 10/07/19 20:00 10/08/19 12:33 Duoneb - NEB 1 amp RQID EVELYN Administration Amlodipine Besylate 5 mg 10/07/19 10:00 10/08/19 13:15 Norvasc - PO Not Given DAILY [facility]N Bisacodyl 5 mg 10/07/19 22:00 10/07/19 21:27 Dulcolax - PO 5 mg HS EVELNY Administration Docusate Sodium 100 mg 10/07/19 10:00 10/08/19 09:48 Colace - PO 100 mg BID EVELYN Administration Piperacillin Sod/Tazobactam 100 mls @ 200 mls/hr 10/07/19 18:00 10/08/19 09: 48 Sod 4.5 gm/ Dextrose IVPB 200 mls/hr Q8H-IV [facility]N Administration Protocol Azithromycin 500 mg in 250 mls @ 250 mls/hr 10/07/19 16:15 10/07/19 19:26 Zithromax 500mg Ivpb (Pre-Docked) IVPB 250 mls/hr Q24H [facility] Administration Insulin Aspart 1 vial 10/07/19 07:00 10/08/19 06:47 Novolog Vial Sliding Scale - SQ Not Given BIDAC [facility] Protocol Levothyroxine Sodium 125 mcg 10/07/19 07:00 10/08/19 06:47 Synthroid - PO 125 mcg DAILY@0700 EVELYN Administration Metformin HCl 500 mg 10/07/19 07:00 10/08/19 06:47 Glucophage - PO 500 mg BIDAC EVELYN Administration Multivitamins/Minerals/Vitamin C 1 tab 10/07/19 10:00 10/08/19 09:48 Tab-A-Vit - PO 1 tab DAILY [facility] Administration Pantoprazole Sodium 40 mg 10/08/19 10:00 10/08/19 09:48 Protonix Iv IVPUSH 40 mg DAILY [facility]N Administration Polysaccharide Iron Complex 150 mg 10/07/19 10:00 10/08/19 09:50 Niferex-150 - PO 150 mg DAILY [facility]N Administration Impression 1. azotemia 2. 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 gi bleed with melena 4. dvt on eliquis 5. dm 6. 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
[2019-10-08] MEDS: AZITHROMYCIN IVPB 500 MG/250 ML BAG IVPB SCH (17:34)
--- NOTE | 2019-10-08 17:46 | PN ---
Progress Note (short form) - Note Progress Note: feels improved oob in chair less cough no fever black stools Vital Signs Period Temp Pulse Resp BP Sys/Mendez Pulse Ox Last 24 Hr 98.1 F-100.0 F 88-100 16-18 104-139/50-79 92-94 cor-rrr lungs decreased bs at bases abd soft,nt ext no edema CBC, BMP 10/08/19 05:47 10/08/19 05:47 Microbiology 10/07/19 14:30 Blood - Peripheral Venous Blood Culture - Preliminary NO GROWTH OBTAINED AFTER 24 HOURS, INCUBATION TO CONTINUE FOR 4 DAYS. 10/07/19 14:45 Blood - Peripheral Venous Blood Culture - Preliminary NO GROWTH OBTAINED AFTER 24 HOURS, INCUBATION TO CONTINUE FOR 4 DAYS. 10/08/19 06:10 Sputum - Expectorated Gram Stain - Final 10/08/19 06:10 Urine - Urine Clean Catch Legionella Antigen - Final 10/08/19 06:10 Urine - Urine Clean Catch Streptococcus pneumoniae Antigen ( M - Final chest ct with bibasilar pneumonia a/p suspect pneumonia preceded the endoscopy zosyn/zithromax to continue cultures urinary antigen
[2019-10-08] MEDS: BISACODYL 5 MG TABLET.DR (FP) PO SCH (21:39)
[2019-10-09] MEDS ORDERED: DEXTROSE 5%-WATER 100 ML IVPB ONE ×3 (01:08→16:46)
[2019-10-09] MEDS ORDERED: PIPERACILLIN/TAZOBACTAM 4.5 GM VIAL IVPB ONE ×3 (01:08→16:46)
[2019-10-09] MEDS: PIPERACILLIN/TAZOB 4.5 GM 4.5 GM in DEXTROSE 5%-WATER 100 ML IVPB SCH ×3 (01:21→17:12)
[2019-10-09] MEDS: LEVOTHYROXINE NA 125 MCG TABLET (FP) PO SCH (06:21)
[2019-10-09] MEDS: metFORMIN HCL 500 MG TABLET (FP) PO SCH ×2 (06:21→15:40)
[2019-10-09] MEDS: INSULIN SLIDING SCALE (NOVOLOG) 1 VIAL SQ SCH ×2 (06:21→16:40)
--- NOTE | 2019-10-09 08:23 | PN ---
Progress Note, Physician Chief Complaint: ASLEEP COMFORTABLE NO EVENTS OVERNIGHT - Current Medication List Current Medications: Active Medications Acetaminophen (Tylenol -) 650 mg PO Q6H PRN PRN Reason: FEVER Last Admin: 10/08/19 06:47 Dose: 650 mg Albuterol/Ipratropium (Duoneb -) 1 amp NEB RQID [facility] Last Admin: 10/08/19 21:25 Dose: 1 amp Bisacodyl (Dulcolax -) 5 mg PO HS [facility] Last Admin: 10/08/19 21:39 Dose: 5 mg Docusate Sodium (Colace -) 100 mg PO BID [facility] Last Admin: 10/08/19 21:39 Dose: 100 mg Piperacillin Sod/Tazobactam (Sod 4.5 gm/ Dextrose) 100 mls @ 200 mls/hr IVPB Q8H-IV [facility]; Protocol Last Admin: 10/09/19 01:21 Dose: 200 mls/hr Azithromycin (Zithromax 500mg Ivpb (Pre-Docked)) 500 mg in 250 mls @ 250 mls/ hr IVPB Q24H [facility] Last Admin: 10/08/19 17:34 Dose: 250 mls/hr Insulin Aspart (Novolog Vial Sliding Scale -) 1 vial SQ BIDAC [facility]; Protocol Last Admin: 10/09/19 06:21 Dose: Not Given Levothyroxine Sodium (Synthroid -) 125 mcg PO DAILY@0700 [facility] Last Admin: 10/09/19 06:21 Dose: 125 mcg Metformin HCl (Glucophage -) 500 mg PO BIDAC [facility] Last Admin: 10/09/19 06:21 Dose: 500 mg Multivitamins/Minerals/Vitamin C (Tab-A-Vit -) 1 tab PO DAILY [facility] Last Admin: 10/08/19 09:48 Dose: 1 tab Pantoprazole Sodium (Protonix Iv) 40 mg IVPUSH DAILY [facility] Last Admin: 10/08/19 09:48 Dose: 40 mg Polysaccharide Iron Complex (Niferex-150 -) 150 mg PO DAILY [facility] Last Admin: 10/08/19 09:50 Dose: 150 mg - Objective Vital Signs: Vital Signs Temperature 98.8 F 10/09/19 06:00 Pulse Rate 92 H 10/09/19 06:00 Respiratory Rate 18 10/09/19 06:00 Blood Pressure 132/75 10/09/19 06:00 O2 Sat by Pulse Oximetry (%) 94 L 10/08/19 21:00 Constitutional: Yes: No Distress Cardiovascular: Yes: Regular Rate and Rhythm Respiratory: Yes: Diminished, On Nasal O2 Gastrointestinal: Yes: Soft, Abdomen, Obese Genitourinary: Yes: Incontinence Musculoskeletal: Yes: Muscle Weakness Edema: No Labs: CBC, BMP 10/08/19 05:47 10/08/19 05:47 INR, PTT INR 1.26 (0.83-1.09) H 10/05/19 17:29 Problem List - Problems (1) Pulmonary infiltrate in left lung on chest x-ray Code(s): R91.8 - OTHER NONSPECIFIC ABNORMAL FINDING OF LUNG FIELD (2) ELIZABETH (acute kidney injury) Code(s): N17.9 - ACUTE KIDNEY FAILURE, UNSPECIFIED (3) Anemia Code(s): D64.9 - ANEMIA, UNSPECIFIED (4) COPD (chronic obstructive pulmonary disease) Code(s): J44.9 - CHRONIC OBSTRUCTIVE PULMONARY DISEASE, UNSPECIFIED (5) Diabetes Code(s): E11.9 - TYPE 2 DIABETES MELLITUS WITHOUT COMPLICATIONS (6) GERD (gastroesophageal reflux disease) Code(s): K21.9 - GASTRO-ESOPHAGEAL REFLUX DISEASE WITHOUT ESOPHAGITIS (7) GI bleed Code(s): K92.2 - GASTROINTESTINAL HEMORRHAGE, UNSPECIFIED Qualifiers: GI bleed type/associated pathology: melena Qualified Code(s): K92.1 - Melena (8) Melena Code(s): K92.1 - MELENA Assessment/Plan COLONOSCOPY FOR GI BLEED MEDICALLY CLEARED PPI/TRANSFUSE NEEDED PULMONARY/ID WORKUP PULMONARY INFILTRATE NEBS/02 SUPPORT CHECK CULTURES CHECK CULTURES LABS REVIEWED START DIET TOLERATED LOVENOX STARTED 100MG BID FOR DVT TREATMENT MONITOR CBC IN MORNING STOP LOVENOX IF GI BLEED RETURNS 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
[2019-10-09] MEDS: ALBUTEROL SO4 2.5/IPRATROPIUM 0.5 INH SOL 3 ML VIAL.NEB. NEB SCH ×4 (08:31→21:10)
[2019-10-09] MEDS ORDERED: PT OWN MED DRAWER 7, Y5N ONE (09:52)
[2019-10-09] MEDS: PANTOPRAZOLE SODIUM 40 MG VIAL IVPUSH SCH (10:00)
[2019-10-09] MEDS: IRON POLYSACCHARIDES 150 MG CAPSULE PO SCH (10:00)
[2019-10-09] MEDS: MULTIVITAMINS (DAILY MVI) TABLET (FP) PO SCH (10:00)
[2019-10-09] MEDS: DOCUSATE SODIUM 100 MG CAPSULE (FP) PO SCH ×2 (10:00→21:07)
--- NOTE | 2019-10-09 10:29 | PN.GI ---
GI Progress Note Subjective: No overt bleeding reported Being treated for bilateral PNA R>L fevers improved - Objective Vital Signs: Vital Signs Temperature 98.8 F 10/09/19 06:00 Pulse Rate 92 H 10/09/19 06:00 Respiratory Rate 18 10/09/19 06:00 Blood Pressure 132/75 10/09/19 06:00 O2 Sat by Pulse Oximetry (%) 94 L 10/08/19 21:00 Constitutional: Calm Eyes: No: Sclera Icterus Cardiovascular: Yes: Regular Rate and Rhythm Respiratory: Yes: Rhonchi (bases bilaterally R>L) ...Auscultate: Yes: Normoactive Bowel Sounds ...Palpate: Yes: Soft. No: Hepatomegaly, Splenomegaly, Tenderness Edema: No (No LE edema) Neurological: Yes: Alert Labs: CBC, BMP 10/08/19 05:47 10/08/19 05:47 INR, PTT INR 1.26 (0.83-1.09) H 10/05/19 17:29 Problem List - Problems (1) Melena Assessment/Plan: No overt bleeding today Colonoscopy once PNA treated and medically optimized If needs A/C given h/o DVT, would anticoagulate and monitor for bleeding/ decrease in H/H Code(s): K92.1 - MELENA
[2019-10-09] MEDS: ENOXAPARIN NA (PORCINE) 100 MG/1 ML DISP.SYRIN SQ SCH ×2 (11:55→21:07)
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
--- NOTE | 2019-10-09 15:25 | PN ---
Progress Note, Physician History of Present Illness: Pt seen and examined at bedside. She is awake and appears comfortable. - Current Medication List Current Medications: Active Medications Acetaminophen (Tylenol -) 650 mg PO Q6H PRN PRN Reason: FEVER Last Admin: 10/08/19 06:47 Dose: 650 mg Albuterol/Ipratropium (Duoneb -) 1 amp NEB RQID [facility] Last Admin: 10/09/19 11:36 Dose: 1 amp Bisacodyl (Dulcolax -) 5 mg PO HS [facility] Last Admin: 10/08/19 21:39 Dose: 5 mg Docusate Sodium (Colace -) 100 mg PO BID [facility] Last Admin: 10/09/19 10:00 Dose: 100 mg Enoxaparin Sodium (Lovenox -) 100 mg SQ BID [facility] Last Admin: 10/09/19 11:55 Dose: 100 mg Piperacillin Sod/Tazobactam (Sod 4.5 gm/ Dextrose) 100 mls @ 200 mls/hr IVPB Q8H-IV [facility]; Protocol Last Admin: 10/09/19 09:59 Dose: 200 mls/hr Azithromycin (Zithromax 500mg Ivpb (Pre-Docked)) 500 mg in 250 mls @ 250 mls/ hr IVPB Q24H [facility] Last Admin: 10/08/19 17:34 Dose: 250 mls/hr Insulin Aspart (Novolog Vial Sliding Scale -) 1 vial SQ BIDAC [facility]; Protocol Last Admin: 10/09/19 06:21 Dose: Not Given Levothyroxine Sodium (Synthroid -) 125 mcg PO DAILY@0700 [facility] Last Admin: 10/09/19 06:21 Dose: 125 mcg Metformin HCl (Glucophage -) 500 mg PO BIDAC [facility] Last Admin: 10/09/19 06:21 Dose: 500 mg Multivitamins/Minerals/Vitamin C (Tab-A-Vit -) 1 tab PO DAILY [facility] Last Admin: 10/09/19 10:00 Dose: 1 tab Pantoprazole Sodium (Protonix Iv) 40 mg IVPUSH DAILY [facility] Last Admin: 10/09/19 10:00 Dose: 40 mg Polysaccharide Iron Complex (Niferex-150 -) 150 mg PO DAILY [facility] Last Admin: 10/09/19 10:00 Dose: 150 mg - Objective Vital Signs: Vital Signs Temperature 99.2 F 10/09/19 13:45 Pulse Rate 93 H 10/09/19 13:45 Respiratory Rate 18 10/09/19 13:45 Blood Pressure 126/59 L 10/09/19 13:45 O2 Sat by Pulse Oximetry (%) 100 10/09/19 09:00 Constitutional: Yes: Calm Eyes: Yes: Conjunctiva Clear HENT: Yes: Atraumatic Neck: Yes: Supple Cardiovascular: Yes: S1, S2 Gastrointestinal: Yes: Soft Genitourinary: Yes: WNL Musculoskeletal: Yes: WNL Edema: No Neurological: Yes: Oriented Psychiatric: Yes: Oriented Labs: CBC, BMP 10/08/19 05:47 10/08/19 05:47 INR, PTT INR 1.26 (0.83-1.09) H 10/05/19 17:29 Problem List - Problems (1) Azotemia Code(s): R79.89 - OTHER SPECIFIED ABNORMAL FINDINGS OF BLOOD CHEMISTRY (2) Anemia Code(s): D64.9 - ANEMIA, UNSPECIFIED (3) COPD (chronic obstructive pulmonary disease) Code(s): J44.9 - CHRONIC OBSTRUCTIVE PULMONARY DISEASE, UNSPECIFIED Assessment/Plan Current Medications Generic Name Dose Route Start Last Admin Trade Name Freq PRN Reason Stop Dose Admin Acetaminophen 650 mg 10/07/19 15:04 10/08/19 06:47 Tylenol - PO 650 mg Q6H PRN Administration FEVER Albuterol/Ipratropium 1 amp 10/07/19 20:00 10/09/19 11:36 Duoneb - NEB 1 amp RQID [facility] Administration Bisacodyl 5 mg 10/07/19 22:00 10/08/19 21:39 Dulcolax - PO 5 mg HS [facility] Administration Docusate Sodium 100 mg 10/07/19 10:00 10/09/19 10:00 Colace - PO 100 mg BID [facility] Administration Enoxaparin Sodium 100 mg 10/09/19 11:45 10/09/19 11:55 Lovenox - SQ 100 mg BID [facility] Administration Piperacillin Sod/Tazobactam 100 mls @ 200 mls/hr 10/07/19 18:00 10/09/19 09: 59 Sod 4.5 gm/ Dextrose IVPB 200 mls/hr Q8H-IV [facility] Administration Protocol Azithromycin 500 mg in 250 mls @ 250 mls/hr 10/07/19 16:15 10/08/19 17:34 Zithromax 500mg Ivpb (Pre-Docked) IVPB 250 mls/hr Q24H [facility] Administration Insulin Aspart 1 vial 10/07/19 07:00 10/09/19 06:21 Novolog Vial Sliding Scale - SQ Not Given BIDAC [facility] Protocol Levothyroxine Sodium 125 mcg 10/07/19 07:00 10/09/19 06:21 Synthroid - PO 125 mcg DAILY@0700 [facility] Administration Metformin HCl 500 mg 10/07/19 07:00 10/09/19 06:21 Glucophage - PO 500 mg BIDAC [facility] Administration Multivitamins/Minerals/Vitamin C 1 tab 10/07/19 10:00 10/09/19 10:00 Tab-A-Vit - PO 1 tab DAILY [facility] Administration Pantoprazole Sodium 40 mg 10/08/19 10:00 10/09/19 10:00 Protonix Iv IVPUSH 40 mg DAILY [facility] Administration Polysaccharide Iron Complex 150 mg 10/07/19 10:00 10/09/19 10:00 Niferex-150 - PO 150 mg DAILY [facility] Administration Impression 1. azotemia 2. larissa unclear baseline [employer] 3. gi bleed with melena 4. dvt on eliquis 5. dm 6. htn Plan - bp is improving - repeat labs in am - keep amlodipine on hold for now - follow renal ultrasound - ua reviewed, there is some proteinuria - avoid nsaids - will need to check baseline [facility] [employer]
[2019-10-09] MEDS: AZITHROMYCIN IVPB 500 MG/250 ML BAG IVPB SCH (15:40)
[2019-10-09] MEDS: BISACODYL 5 MG TABLET.DR (FP) PO SCH (21:07)
[2019-10-10] MEDS ORDERED: PIPERACILLIN/TAZOBACTAM 4.5 GM VIAL IVPB ONE ×3 (02:04→16:41)
[2019-10-10] MEDS ORDERED: DEXTROSE 5%-WATER 100 ML IVPB ONE ×3 (02:04→16:41)
[2019-10-10] MEDS: PIPERACILLIN/TAZOB 4.5 GM 4.5 GM in DEXTROSE 5%-WATER 100 ML IVPB SCH ×3 (02:09→18:41)
[2019-10-10] MEDS: ACETAMINOPHEN 325 MG TABLET (FP) PO PRN (02:10)
[2019-10-10] MEDS: INSULIN SLIDING SCALE (NOVOLOG) 1 VIAL SQ SCH ×2 (06:12→16:36)
[2019-10-10 06:24] LABS: MCH 26.5 pg (25.7-33.7); MCHC 31.9 g/dl (32.0-36.0); MEAN PLT VOLUME 8.6 fl (7.5-11.1); PLATELET COUNT 257 K/MM3 (134-434); RBC 3.01 M/mm3 (3.60-5.2); RDW 14.2 % (11.6-15.6); WHITE BLOOD COUNT 8.3 K/mm3 (4.0-10.0)
[2019-10-10] MEDS: LEVOTHYROXINE NA 125 MCG TABLET (FP) PO SCH (06:36)
[2019-10-10] MEDS: metFORMIN HCL 500 MG TABLET (FP) PO SCH ×2 (06:36→16:26)
[2019-10-10 06:45] LABS: BLOOD UREA NITROGEN 13.8 mg/dL (7-18); CALCIUM 8.5 mg/dL (8.5-10.1); CREATININE 1.3 mg/dL (0.55-1.3); POTASSIUM 3.9 mmol/L (3.5-5.1)
[2019-10-10] MEDS: ALBUTEROL SO4 2.5/IPRATROPIUM 0.5 INH SOL 3 ML VIAL.NEB. NEB SCH ×4 (07:47→20:35)
[2019-10-10] MEDS ORDERED: PT OWN MED DRAWER 7, Y5N ONE (10:00)
[2019-10-10] MEDS: DOCUSATE SODIUM 100 MG CAPSULE (FP) PO SCH ×2 (10:06→21:52)
[2019-10-10] MEDS: PANTOPRAZOLE SODIUM 40 MG VIAL IVPUSH SCH (10:06)
[2019-10-10] MEDS: MULTIVITAMINS (DAILY MVI) TABLET (FP) PO SCH (10:06)
[2019-10-10] MEDS: IRON POLYSACCHARIDES 150 MG CAPSULE PO SCH (10:06)
[2019-10-10] MEDS: ENOXAPARIN NA (PORCINE) 100 MG/1 ML DISP.SYRIN SQ SCH ×2 (10:07→21:54)
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
--- NOTE | 2019-10-10 13:10 | PN ---
Progress Note, Physician Chief Complaint: GI Bleed History of Present Illness: NAD in bed denies any N/V/D/or further bleeding Being treated for Pneumonia EGD-showed patchy gastric erythema otherwise unremarkable - Current Medication List Current Medications: Active Medications Acetaminophen (Tylenol -) 650 mg PO Q6H PRN PRN Reason: FEVER Last Admin: 10/10/19 02:10 Dose: 650 mg Albuterol/Ipratropium (Duoneb -) 1 amp NEB RQID [facility] Last Admin: 10/10/19 11:45 Dose: 1 amp Bisacodyl (Dulcolax -) 5 mg PO HS [facility] Last Admin: 10/09/19 21:07 Dose: 5 mg Docusate Sodium (Colace -) 100 mg PO BID [facility] Last Admin: 10/10/19 10:06 Dose: 100 mg Enoxaparin Sodium (Lovenox -) 100 mg SQ BID [facility] Last Admin: 10/10/19 10:07 Dose: 100 mg Piperacillin Sod/Tazobactam (Sod 4.5 gm/ Dextrose) 100 mls @ 200 mls/hr IVPB Q8H-IV [facility]; Protocol Last Admin: 10/10/19 10:07 Dose: 200 mls/hr Azithromycin (Zithromax 500mg Ivpb (Pre-Docked)) 500 mg in 250 mls @ 250 mls/ hr IVPB Q24H [facility] Last Admin: 10/09/19 15:40 Dose: 250 mls/hr Insulin Aspart (Novolog Vial Sliding Scale -) 1 vial SQ BIDAC [facility]; Protocol Last Admin: 10/10/19 06:12 Dose: Not Given Levothyroxine Sodium (Synthroid -) 125 mcg PO DAILY@0700 [facility] Last Admin: 10/10/19 06:36 Dose: 125 mcg Metformin HCl (Glucophage -) 500 mg PO BIDAC [facility] Last Admin: 10/10/19 06:36 Dose: 500 mg Multivitamins/Minerals/Vitamin C (Tab-A-Vit -) 1 tab PO DAILY [facility] Last Admin: 10/10/19 10:06 Dose: 1 tab Pantoprazole Sodium (Protonix Iv) 40 mg IVPUSH DAILY [facility] Last Admin: 10/10/19 10:06 Dose: 40 mg Polysaccharide Iron Complex (Niferex-150 -) 150 mg PO DAILY [facility] Last Admin: 10/10/19 10:06 Dose: 150 mg - Objective Vital Signs: Vital Signs Temperature 98.8 F 10/10/19 08:54 Pulse Rate 85 10/10/19 08:54 Respiratory Rate 18 10/10/19 08:54 Blood Pressure 128/62 10/10/19 08:54 O2 Sat by Pulse Oximetry (%) 99 10/10/19 09:00 Constitutional: Yes: Well Nourished, No Distress, Calm Cardiovascular: Yes: Regular Rate and Rhythm Respiratory: Yes: On Nasal O2, Wheezes (inspiratory, diffuse) Gastrointestinal: Yes: Normal Bowel Sounds, Soft, Abdomen, Obese Genitourinary: Yes: WNL Musculoskeletal: Yes: Muscle Weakness Extremities: Yes: WNL Edema: No Peripheral Pulses WNL: Yes Neurological: Yes: Alert, Oriented Psychiatric: Yes: Alert, Oriented Labs: CBC, BMP 10/10/19 05:50 10/10/19 05:50 INR, PTT INR 1.26 (0.83-1.09) H 10/05/19 17:29 Problem List - Problems (1) Anemia Assessment/Plan: -GI consult -Guaiac positive -PPI -Resume diet for now until further eval by GI -H/H stable -Hold eliquis Problems reviewed: Yes Code(s): D64.9 - ANEMIA, UNSPECIFIED (2) Diabetes Assessment/Plan: -A1c at 6.5 -BGM AC HS -ISS -Diabetic/low sodium diet Problems reviewed: Yes Code(s): E11.9 - TYPE 2 DIABETES MELLITUS WITHOUT COMPLICATIONS (3) GI bleed Assessment/Plan: -GI consult -Guaiac positive -PPI -Resume diet for now until further eval by GI -Monitor trend -s/p EGD-patchy gastric erythema otherwise unremarkable -Hold Eliquis Problems reviewed: Yes Code(s): K92.2 - GASTROINTESTINAL HEMORRHAGE, UNSPECIFIED Qualifiers: GI bleed type/associated pathology: melena Qualified Code(s): K92.1 - Melena Assessment/Plan see problem list
[2019-10-10] MEDS: AZITHROMYCIN IVPB 500 MG/250 ML BAG IVPB SCH (16:26)
--- NOTE | 2019-10-10 20:57 | PN ---
Progress Note (short form) - Note Progress Note: 1. 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 gi bleed with melena 4. dvt on eliquis 5. dm 6. htn Current Medications Acetaminophen (Tylenol -) 650 mg PO Q6H PRN PRN Reason: FEVER Last Admin: 10/10/19 02:10 Dose: 650 mg Albuterol/Ipratropium (Duoneb -) 1 amp NEB RQID [facility] Last Admin: 10/10/19 15:40 Dose: 1 amp Bisacodyl (Dulcolax -) 5 mg PO HS [facility] Last Admin: 10/09/19 21:07 Dose: 5 mg Docusate Sodium (Colace -) 100 mg PO BID [facility] Last Admin: 10/10/19 10:06 Dose: 100 mg Enoxaparin Sodium (Lovenox -) 100 mg SQ BID [facility] Last Admin: 10/10/19 10:07 Dose: 100 mg Piperacillin Sod/Tazobactam (Sod 4.5 gm/ Dextrose) 100 mls @ 200 mls/hr IVPB Q8H-IV [facility]; Protocol Last Admin: 10/10/19 18:41 Dose: 200 mls/hr Azithromycin (Zithromax 500mg Ivpb (Pre-Docked)) 500 mg in 250 mls @ 250 mls/ hr IVPB Q24H [facility] Last Admin: 10/10/19 16:26 Dose: 250 mls/hr Insulin Aspart (Novolog Vial Sliding Scale -) 1 vial SQ BIDAC [facility]; Protocol Last Admin: 10/10/19 16:36 Dose: Not Given Levothyroxine Sodium (Synthroid -) 125 mcg PO DAILY@0700 [facility] Last Admin: 10/10/19 06:36 Dose: 125 mcg Metformin HCl (Glucophage -) 500 mg PO BIDAC [facility] Last Admin: 10/10/19 16:26 Dose: 500 mg Multivitamins/Minerals/Vitamin C (Tab-A-Vit -) 1 tab PO DAILY [facility] Last Admin: 10/10/19 10:06 Dose: 1 tab Pantoprazole Sodium (Protonix Iv) 40 mg IVPUSH DAILY [facility] Last Admin: 10/10/19 10:06 Dose: 40 mg Polysaccharide Iron Complex (Niferex-150 -) 150 mg PO DAILY [facility] Last Admin: 10/10/19 10:06 Dose: 150 mg Last Vital Signs Temp Pulse Resp BP Pulse Ox 98.2 F 90 18 126/54 L 99 10/10/19 18:00 10/10/19 18:00 10/10/19 18:00 10/10/19 18:00 10/10/19 09:00 Lungs clear Heart reg Abd soft CBC, BMP 10/10/19 05:50 10/10/19 05:50
[2019-10-10] MEDS: BISACODYL 5 MG TABLET.DR (FP) PO SCH (21:52)
[2019-10-11] MEDS ORDERED: PIPERACILLIN/TAZOBACTAM 4.5 GM VIAL IVPB ONE ×3 (01:42→17:41)
[2019-10-11] MEDS ORDERED: DEXTROSE 5%-WATER 100 ML IVPB ONE ×3 (01:42→17:41)
[2019-10-11] MEDS: PIPERACILLIN/TAZOB 4.5 GM 4.5 GM in DEXTROSE 5%-WATER 100 ML IVPB SCH ×3 (01:57→17:53)
[2019-10-11] MEDS: metFORMIN HCL 500 MG TABLET (FP) PO SCH ×2 (06:41→17:57)
[2019-10-11] MEDS: LEVOTHYROXINE NA 125 MCG TABLET (FP) PO SCH (06:41)
[2019-10-11] MEDS: INSULIN SLIDING SCALE (NOVOLOG) 1 VIAL SQ SCH ×2 (06:42→17:57)
[2019-10-11] MEDS: ALBUTEROL SO4 2.5/IPRATROPIUM 0.5 INH SOL 3 ML VIAL.NEB. NEB SCH ×4 (07:40→20:02)
--- NOTE | 2019-10-11 09:42 | PN ---
Progress Note, Physician Chief Complaint: GI Bleed History of Present Illness: NAD in bed denies any N/V/D/or further bleeding Being treated for Pneumonia EGD-showed patchy gastric erythema otherwise unremarkable Episode of melena/hematochezia overnight On lovenox BID - Current Medication List Current Medications: Active Medications Acetaminophen (Tylenol -) 650 mg PO Q6H PRN PRN Reason: FEVER Last Admin: 10/10/19 02:10 Dose: 650 mg Albuterol/Ipratropium (Duoneb -) 1 amp NEB RQID [facility] Last Admin: 10/11/19 07:40 Dose: 1 amp Bisacodyl (Dulcolax -) 5 mg PO HS [facility] Last Admin: 10/10/19 21:52 Dose: 5 mg Docusate Sodium (Colace -) 100 mg PO BID [facility] Last Admin: 10/10/19 21:52 Dose: 100 mg Enoxaparin Sodium (Lovenox -) 100 mg SQ BID [facility] Last Admin: 10/10/19 21:54 Dose: 100 mg Piperacillin Sod/Tazobactam (Sod 4.5 gm/ Dextrose) 100 mls @ 200 mls/hr IVPB Q8H-IV [facility]; Protocol Last Admin: 10/11/19 01:57 Dose: 200 mls/hr Azithromycin (Zithromax 500mg Ivpb (Pre-Docked)) 500 mg in 250 mls @ 250 mls/ hr IVPB Q24H [facility] Last Admin: 10/10/19 16:26 Dose: 250 mls/hr Insulin Aspart (Novolog Vial Sliding Scale -) 1 vial SQ BIDAC [facility]; Protocol Last Admin: 10/11/19 06:42 Dose: Not Given Levothyroxine Sodium (Synthroid -) 125 mcg PO DAILY@0700 [facility] Last Admin: 10/11/19 06:41 Dose: 125 mcg Metformin HCl (Glucophage -) 500 mg PO BIDAC [facility] Last Admin: 10/11/19 06:41 Dose: Not Given Multivitamins/Minerals/Vitamin C (Tab-A-Vit -) 1 tab PO DAILY [facility] Last Admin: 10/10/19 10:06 Dose: 1 tab Pantoprazole Sodium (Protonix Iv) 40 mg IVPUSH DAILY [facility] Last Admin: 10/10/19 10:06 Dose: 40 mg Polysaccharide Iron Complex (Niferex-150 -) 150 mg PO DAILY [facility] Last Admin: 10/10/19 10:06 Dose: 150 mg - Objective Vital Signs: Vital Signs Temperature 98.1 F 10/11/19 06:00 Pulse Rate 94 H 10/11/19 06:00 Respiratory Rate 18 10/11/19 06:00 Blood Pressure 149/67 10/11/19 06:00 O2 Sat by Pulse Oximetry (%) 97 10/10/19 21:00 Constitutional: Yes: Well Nourished, No Distress, Calm Cardiovascular: Yes: Regular Rate and Rhythm Respiratory: Yes: Regular Gastrointestinal: Yes: Normal Bowel Sounds, Soft, Abdomen, Obese Genitourinary: Yes: WNL Musculoskeletal: Yes: Muscle Weakness Extremities: Yes: WNL Edema: No Peripheral Pulses WNL: Yes Neurological: Yes: Alert, Oriented Psychiatric: Yes: Alert, Oriented Labs: CBC, BMP 10/10/19 05:50 10/10/19 05:50 INR, PTT INR 1.26 (0.83-1.09) H 10/05/19 17:29 Problem List - Problems (1) Anemia Assessment/Plan: -GI consult -Guaiac positive -PPI drip -Repeat CBC -Eliquis on hold -d/c Lovenox Problems reviewed: Yes Code(s): D64.9 - ANEMIA, UNSPECIFIED (2) Diabetes Assessment/Plan: -A1c at 6.5 -BGM AC HS -ISS -Diabetic/low sodium diet Problems reviewed: Yes Code(s): E11.9 - TYPE 2 DIABETES MELLITUS WITHOUT COMPLICATIONS (3) GI bleed Assessment/Plan: -GI consult -Guaiac positive -PPI drip -Monitor trend -s/p EGD-patchy gastric erythema otherwise unremarkable -Hold Eliquis -D/C Lovenox -Repeat CBC Problems reviewed: Yes Code(s): K92.2 - GASTROINTESTINAL HEMORRHAGE, UNSPECIFIED Qualifiers: GI bleed type/associated pathology: melena Qualified Code(s): K92.1 - Melena Assessment/Plan see problem list
[2019-10-11] MEDS: PANTOPRAZOLE SODIUM 40 MG VIAL IVPUSH SCH (10:15)
[2019-10-11] MEDS: ENOXAPARIN NA (PORCINE) 100 MG/1 ML DISP.SYRIN SQ SCH (10:17)
[2019-10-11] MEDS: IRON POLYSACCHARIDES 150 MG CAPSULE PO SCH (10:18)
[2019-10-11] MEDS: DOCUSATE SODIUM 100 MG CAPSULE (FP) PO SCH ×2 (10:18→22:44)
[2019-10-11] MEDS: MULTIVITAMINS (DAILY MVI) TABLET (FP) PO SCH (10:18)
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
--- NOTE | 2019-10-11 16:39 | PN.GI ---
GI Progress Note Subjective: GI Note ( covering Dr Matamoros) ; Just a few minutes ago Maggy had a large burgundy colored BM. She denies pain. She is receiving lovenox. Recent EGD revealed no source of melena. - Objective Vital Signs: Vital Signs Temperature 98.8 F 10/11/19 16:36 Pulse Rate 89 10/11/19 16:36 Respiratory Rate 18 10/11/19 16:36 Blood Pressure 120/61 10/11/19 16:36 O2 Sat by Pulse Oximetry (%) 98 10/11/19 09:00 Constitutional: Calm ...Auscultate: Yes: Normoactive Bowel Sounds ...Palpate: Yes: Soft, Other (nontender) Labs: CBC, BMP 10/10/19 05:50 10/10/19 05:50 INR, PTT INR 1.26 (0.83-1.09) H 10/05/19 17:29 Assessment/Plan Assessment: - Given hematochezia and the recent negative EGD the bleeding is lower GI in origin. A colonoscopy was planned when her pulmonary status would allow. Suspect a diverticular hemorrhage but this could be bleeding vascular ectasias, ischemic colitis, stercoral ulcer ...... Plan: -- Stat CBC and T&C -- NPO -- NS -- Stat CTA -- Transfuse as needed -- Will ultimately need colonoscopy -- General surgery consult advised - communicated with Melvi Goldberg NP -- Lovenox stopped Problem List - Problems (1) Hematochezia Code(s): K92.1 - MELENA (2) COPD (chronic obstructive pulmonary disease) Code(s): J44.9 - CHRONIC OBSTRUCTIVE PULMONARY DISEASE, UNSPECIFIED (3) Diabetes Code(s): E11.9 - TYPE 2 DIABETES MELLITUS WITHOUT COMPLICATIONS (4) GI bleed Code(s): K92.2 - GASTROINTESTINAL HEMORRHAGE, UNSPECIFIED Qualifiers: GI bleed type/associated pathology: melena Qualified Code(s): K92.1 - Melena (5) HTN (hypertension) Code(s): I10 - ESSENTIAL (PRIMARY) HYPERTENSION (6) Hypothyroidism Code(s): E03.9 - HYPOTHYROIDISM, UNSPECIFIED (7) Melena Code(s): K92.1 - MELENA
[2019-10-11] MEDS ORDERED: PHYTONADIONE 10 MG/1 ML AMP IVPB ONE (16:51)
[2019-10-11] MEDS: SODIUM CHLORIDE 1,000 ML IV SCH (17:52)
[2019-10-11 18:11] LABS: EOS % 3.4 % (0-4.5); HEMATOCRIT 22.6 % (32.4-45.2); LYMPH % 18.9 % (8-40); MCH 25.6 pg (25.7-33.7); MCHC 30.8 g/dl (32.0-36.0); MEAN CELL VOLUME 83.2 fl (80-96); MEAN PLT VOLUME 7.9 fl (7.5-11.1); MONO % 6.6 % (3.8-10.2); NEUT % 70.1 % (42.8-82.8); PLATELET COUNT 318 K/MM3 (134-434); RBC 2.71 M/mm3 (3.60-5.2); RDW 14.5 % (11.6-15.6); WHITE BLOOD COUNT 9.4 K/mm3 (4.0-10.0)
[2019-10-11 18:13] LABS: HEMOGLOBIN 6.9 GM/dL (10.7-15.3)
[2019-10-11] MEDS: AZITHROMYCIN IVPB 500 MG/250 ML BAG IVPB SCH (19:03)
[2019-10-11] MEDS ORDERED: ACETAMINOPHEN 1000 MG/100 ML VIAL (NON FORMULARY) IVPB PRN (20:53)
--- NOTE | 2019-10-11 20:58 | PN ---
Progress Note (short form) - Note Progress Note: 1. azotemia 2. larissa unclear baseline [employer] 3. gi bleed with melena 4. dvt on eliquis 5. dm 6. htn Current Medications Acetaminophen (Tylenol -) 650 mg PO Q6H PRN PRN Reason: FEVER Last Admin: 10/10/19 02:10 Dose: 650 mg Acetaminophen (Ofirmev Injection -) 1,000 mg IVPB Q6H PRN PRN Reason: PAIN Bisacodyl (Dulcolax -) 5 mg PO HS [facility] Last Admin: 10/10/19 21:52 Dose: 5 mg Docusate Sodium (Colace -) 100 mg PO BID [facility] Last Admin: 10/11/19 10:18 Dose: 100 mg Piperacillin Sod/Tazobactam (Sod 4.5 gm/ Dextrose) 100 mls @ 200 mls/hr IVPB Q8H-IV [facility]; Protocol Last Admin: 10/11/19 17:53 Dose: 200 mls/hr Azithromycin (Zithromax 500mg Ivpb (Pre-Docked)) 500 mg in 250 mls @ 250 mls/ hr IVPB Q24H [facility] Last Admin: 10/11/19 19:03 Dose: 250 mls/hr Sodium Chloride (Normal Saline -) 1,000 mls @ 100 mls/hr IV [facility] Last Admin: 10/11/19 17:52 Dose: 100 mls/hr Pantoprazole Sodium 80 mg/ (Sodium Chloride) 100 mls @ 10 mls/hr IVPB Q10H [facility] Insulin Aspart (Novolog Vial Sliding Scale -) 1 vial SQ BIDAC [facility]; Protocol Last Admin: 10/11/19 17:57 Dose: Not Given Levothyroxine Sodium (Synthroid -) 125 mcg PO DAILY@0700 [facility] Last Admin: 10/11/19 06:41 Dose: 125 mcg Levothyroxine Sodium (Synthroid Injection -) 90 mcg IVPUSH DAILY [facility] Metformin HCl (Glucophage -) 500 mg PO BIDAC [facility] Last Admin: 10/11/19 17:57 Dose: Not Given Multivitamins/Minerals/Vitamin C (Tab-A-Vit -) 1 tab PO DAILY [facility] Last Admin: 10/11/19 10:18 Dose: 1 tab Protamine Sulfate (Protamine Sulfate) 50 mg IVPB ONCE ONE Stop: 10/11/19 20:42 Last Vital Signs Temp Pulse Resp BP Pulse Ox 98.8 F 87 18 124/73 98 10/11/19 19:27 10/11/19 19:27 10/11/19 19:27 10/11/19 19:27 10/11/19 09:00 Lungs clear Heart reg Abd soft CBC, BMP 10/11/19 17:54 10/10/19 05:50 CBC, BMP 10/10/19 05:50 10/10/19 05:50 s/p azotemia anemia met alkalosis Plan- w/u anemia follow bmp
[2019-10-11] MEDS ORDERED: PROTAMINE SULFATE 50 MG/5 ML VIAL IVPB ONE (22:15)
[2019-10-11] MEDS: PANTOPRAZOLE SODIUM 80 MG in SODIUM CHLORIDE 100 ML IVPB SCH (23:39)
[2019-10-12] MEDS ORDERED: PIPERACILLIN/TAZOBACTAM 4.5 GM VIAL IVPB ONE ×3 (02:08→18:37)
[2019-10-12] MEDS ORDERED: DEXTROSE 5%-WATER 100 ML IVPB ONE ×3 (02:09→18:37)
[2019-10-12] MEDS: PIPERACILLIN/TAZOB 4.5 GM 4.5 GM in DEXTROSE 5%-WATER 100 ML IVPB SCH ×3 (02:22→18:43)
[2019-10-12] MEDS ORDERED: PT OWN MED DRAWER 7, Y5N ONE ×3 (05:58→09:39)
[2019-10-12] MEDS: INSULIN SLIDING SCALE (NOVOLOG) 1 VIAL SQ SCH ×2 (06:02→16:35)
[2019-10-12 06:24] LABS: BASO % 0.8 % (0-2.0); EOS % 3.6 % (0-4.5); HEMATOCRIT 25.4 % (32.4-45.2); HEMOGLOBIN 8.2 GM/dL (10.7-15.3); LYMPH % 15.7 % (8-40); MCH 26.9 pg (25.7-33.7); MCHC 32.4 g/dl (32.0-36.0); MEAN PLT VOLUME 8.1 fl (7.5-11.1); MONO % 7.3 % (3.8-10.2); NEUT % 72.6 % (42.8-82.8); PLATELET COUNT 321 K/MM3 (134-434); RBC 3.06 M/mm3 (3.60-5.2); RDW 14.6 % (11.6-15.6); WHITE BLOOD COUNT 10.6 K/mm3 (4.0-10.0)
[2019-10-12 06:49] LABS: INR 1.14 (0.83-1.09); PROTHROMBIN TIME (PATIENT) 13.5 SEC (9.7-13.0)
[2019-10-12 06:52] LABS: ALBUMIN 2.6 g/dl (3.4-5.0); BILIRUBIN,TOTAL 0.3 mg/dL (0.2-1); BLOOD UREA NITROGEN 11.1 mg/dL (7-18); CALCIUM 7.8 mg/dL (8.5-10.1); CREATININE 1.2 mg/dL (0.55-1.3); POTASSIUM 4.1 mmol/L (3.5-5.1); TOT PROT 6.1 g/dl (6.4-8.2)
--- NOTE | 2019-10-12 08:37 | PN ---
Progress Note, Physician Chief Complaint: AWAKE ALERT AWAITING FOR ABD CTA RESULTS DENIES FEVER OR PAIN - Current Medication List Current Medications: Active Medications Acetaminophen (Tylenol -) 650 mg PO Q6H PRN PRN Reason: FEVER Last Admin: 10/10/19 02:10 Dose: 650 mg Acetaminophen (Ofirmev Injection -) 1,000 mg IVPB Q6H PRN PRN Reason: FEVER/PAIN Bisacodyl (Dulcolax -) 5 mg PO HS [facility] Last Admin: 10/10/19 21:52 Dose: 5 mg Docusate Sodium (Colace -) 100 mg PO BID [facility] Last Admin: 10/11/19 22:44 Dose: 100 mg Piperacillin Sod/Tazobactam (Sod 4.5 gm/ Dextrose) 100 mls @ 200 mls/hr IVPB Q8H-IV [facility]; Protocol Last Admin: 10/12/19 02:22 Dose: 200 mls/hr Azithromycin (Zithromax 500mg Ivpb (Pre-Docked)) 500 mg in 250 mls @ 250 mls/ hr IVPB Q24H [facility] Last Admin: 10/11/19 19:03 Dose: 250 mls/hr Sodium Chloride (Normal Saline -) 1,000 mls @ 100 mls/hr [facility] Last Admin: 10/11/19 17:52 Dose: 100 mls/hr Pantoprazole Sodium 80 mg/ (Sodium Chloride) 100 mls @ 10 mls/hr IVPB Q10H [facility] Last Admin: 10/11/19 23:39 Dose: 10 mls/hr Insulin Aspart (Novolog Vial Sliding Scale -) 1 vial SQ BIDAC [facility]; Protocol Last Admin: 10/12/19 06:02 Dose: Not Given Levothyroxine Sodium (Synthroid -) 125 mcg PO DAILY@0700 [facility] Last Admin: 10/11/19 06:41 Dose: 125 mcg Levothyroxine Sodium (Synthroid Injection -) 90 mcg IVPUSH DAILY [facility] Metformin HCl (Glucophage -) 500 mg PO BIDAC [facility] Last Admin: 10/11/19 17:57 Dose: Not Given Multivitamins/Minerals/Vitamin C (Tab-A-Vit -) 1 tab PO DAILY [facility] Last Admin: 10/11/19 10:18 Dose: 1 tab - Objective Vital Signs: Vital Signs Temperature 98.2 F 10/12/19 06:13 Pulse Rate 86 10/12/19 06:13 Respiratory Rate 18 10/12/19 06:13 Blood Pressure 148/69 10/12/19 06:13 O2 Sat by Pulse Oximetry (%) 98 10/12/19 01:07 Constitutional: Yes: Mild Distress Cardiovascular: Yes: Regular Rate and Rhythm Respiratory: Yes: Diminished Gastrointestinal: Yes: Soft, Abdomen, Obese Genitourinary: Yes: Incontinence Musculoskeletal: Yes: Muscle Weakness Edema: No Neurological: Yes: Pre-Existing Deficit Labs: CBC, BMP 10/12/19 05:40 10/12/19 05:40 INR, PTT INR 1.14 (0.83-1.09) H 10/12/19 05:40 Problem List - Problems (1) Pulmonary infiltrate in left lung on chest x-ray Code(s): R91.8 - OTHER NONSPECIFIC ABNORMAL FINDING OF LUNG FIELD (2) ELIZABETH (acute kidney injury) Code(s): N17.9 - ACUTE KIDNEY FAILURE, UNSPECIFIED (3) Anemia Code(s): D64.9 - ANEMIA, UNSPECIFIED (4) COPD (chronic obstructive pulmonary disease) Code(s): J44.9 - CHRONIC OBSTRUCTIVE PULMONARY DISEASE, UNSPECIFIED (5) Diabetes Code(s): E11.9 - TYPE 2 DIABETES MELLITUS WITHOUT COMPLICATIONS (6) GERD (gastroesophageal reflux disease) Code(s): K21.9 - GASTRO-ESOPHAGEAL REFLUX DISEASE WITHOUT ESOPHAGITIS (7) GI bleed Code(s): K92.2 - GASTROINTESTINAL HEMORRHAGE, UNSPECIFIED Qualifiers: GI bleed type/associated pathology: melena Qualified Code(s): K92.1 - Melena (8) Melena Code(s): K92.1 - MELENA Assessment/Plan COMPLETED 9 MONTHS DVT TX, STOP AC CHECK DUPLEX VENOUS LOWER EXTREMITY TODAY TREAT PNA IV ABX/NEB/INCENTIVE NELLA/02NC COLONOSCOPY END OF THE WEEK WHEN MEDICALLY STABLE PT EVAL OOB TO CHAIR
[2019-10-12] MEDS: LEVOTHYROXINE SODIUM 100 MCG VIAL IVPUSH SCH (09:53)
[2019-10-12] MEDS: DOCUSATE SODIUM 100 MG CAPSULE (FP) PO SCH ×2 (09:53→21:40)
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
--- NOTE | 2019-10-12 13:35 | PN ---
Progress Note, Physician History of Present Illness: Pt seen and examined at bedside. She is awake and alert. She denies shortness of breath. - Current Medication List Current Medications: Active Medications Acetaminophen (Tylenol -) 650 mg PO Q6H PRN PRN Reason: FEVER Last Admin: 10/10/19 02:10 Dose: 650 mg Acetaminophen (Ofirmev Injection -) 1,000 mg IVPB Q6H PRN PRN Reason: FEVER/PAIN Bisacodyl (Dulcolax -) 5 mg PO HS [facility] Last Admin: 10/10/19 21:52 Dose: 5 mg Docusate Sodium (Colace -) 100 mg PO BID [facility] Last Admin: 10/12/19 09:53 Dose: 100 mg Piperacillin Sod/Tazobactam (Sod 4.5 gm/ Dextrose) 100 mls @ 200 mls/hr IVPB Q8H-IV [facility]; Protocol Last Admin: 10/12/19 09:52 Dose: 200 mls/hr Azithromycin (Zithromax 500mg Ivpb (Pre-Docked)) 500 mg in 250 mls @ 250 mls/ hr IVPB Q24H [facility] Last Admin: 10/11/19 19:03 Dose: 250 mls/hr Sodium Chloride (Normal Saline -) 1,000 mls @ 100 mls/hr IV ASDIR [facility] Last Admin: 10/11/19 17:52 Dose: 100 mls/hr Pantoprazole Sodium 80 mg/ (Sodium Chloride) 100 mls @ 10 mls/hr IVPB Q10H [facility] Last Admin: 10/11/19 23:39 Dose: 10 mls/hr Insulin Aspart (Novolog Vial Sliding Scale -) 1 vial SQ BIDAC [facility]; Protocol Last Admin: 10/12/19 06:02 Dose: Not Given Levothyroxine Sodium (Synthroid -) 125 mcg PO DAILY@0700 [facility] Last Admin: 10/11/19 06:41 Dose: 125 mcg Levothyroxine Sodium (Synthroid Injection -) 90 mcg IVPUSH DAILY [facility] Last Admin: 10/12/19 09:53 Dose: 90 mcg Metformin HCl (Glucophage -) 500 mg PO BIDAC [facility] Last Admin: 10/11/19 17:57 Dose: Not Given Multivitamins/Minerals/Vitamin C (Tab-A-Vit -) 1 tab PO DAILY [facility] Last Admin: 10/11/19 10:18 Dose: 1 tab - Objective Vital Signs: Vital Signs Temperature 98.2 F 10/12/19 06:13 Pulse Rate 86 10/12/19 06:13 Respiratory Rate 18 10/12/19 06:13 Blood Pressure 148/69 10/12/19 06:13 O2 Sat by Pulse Oximetry (%) 98 10/12/19 01:07 Constitutional: Yes: Calm Eyes: Yes: Conjunctiva Clear HENT: Yes: Atraumatic Neck: Yes: Supple Cardiovascular: Yes: S1, S2 Respiratory: Yes: CTA Bilaterally Gastrointestinal: Yes: Soft, Abdomen, Obese Genitourinary: Yes: WNL Musculoskeletal: Yes: WNL Edema: No Neurological: Yes: Oriented Psychiatric: Yes: Oriented Labs: CBC, BMP 10/12/19 05:40 10/12/19 05:40 INR, PTT INR 1.14 (0.83-1.09) H 10/12/19 05:40 Problem List - Problems (1) Azotemia Code(s): R79.89 - OTHER SPECIFIED ABNORMAL FINDINGS OF BLOOD CHEMISTRY (2) Anemia Code(s): D64.9 - ANEMIA, UNSPECIFIED (3) COPD (chronic obstructive pulmonary disease) Code(s): J44.9 - CHRONIC OBSTRUCTIVE PULMONARY DISEASE, UNSPECIFIED Assessment/Plan Current Medications Generic Name Dose Route Start Last Admin Trade Name Freq PRN Reason Stop Dose Admin Acetaminophen 650 mg 10/07/19 15:04 10/10/19 02:10 Tylenol - PO 650 mg Q6H PRN Administration FEVER Acetaminophen 1,000 mg 10/11/19 20:53 Ofirmev Injection - IVPB Q6H PRN FEVER/PAIN Bisacodyl 5 mg 10/07/19 22:00 10/10/19 21:52 Dulcolax - PO 5 mg HS EVELYN Administration Docusate Sodium 100 mg 10/07/19 10:00 10/12/19 09:53 Colace - PO 100 mg BID EVELYN Administration Piperacillin Sod/Tazobactam 100 mls @ 200 mls/hr 10/07/19 18:00 10/12/19 09: 52 Sod 4.5 gm/ Dextrose IVPB 200 mls/hr Q8H-IV EVELYN Administration Protocol Azithromycin 500 mg in 250 mls @ 250 mls/hr 10/07/19 16:15 10/11/19 19:03 Zithromax 500mg Ivpb (Pre-Docked) IVPB 250 mls/hr Q24H EVELYN Administration Sodium Chloride 1,000 mls @ 100 mls/hr 10/11/19 16:45 10/11/19 17:52 Normal Saline - IV 100 mls/hr ASDIR EVELYN Administration Pantoprazole Sodium 80 mg/ 100 mls @ 10 mls/hr 10/11/19 20:30 10/11/19 23:39 Sodium Chloride IVPB 10 mls/hr Q10H EVELYN Administration 8 MG/HR Insulin Aspart 1 vial 10/07/19 07:00 10/12/19 06:02 Novolog Vial Sliding Scale - SQ Not Given BIDAC EVELYN Protocol Levothyroxine Sodium 125 mcg 10/07/19 07:00 10/11/19 06:41 Synthroid - PO 125 mcg DAILY@0700 EVELYN Administration Levothyroxine Sodium 90 mcg 10/12/19 10:00 10/12/19 09:53 Synthroid Injection - IVPUSH 90 mcg DAILY EVELYN Administration Metformin HCl 500 mg 10/07/19 07:00 10/11/19 17:57 Glucophage - PO Not Given BIDAC EVELYN Multivitamins/Minerals/Vitamin C 1 tab 10/07/19 10:00 10/11/19 10:18 Tab-A-Vit - PO 1 tab DAILY EVELYN Administration Impression 1. 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 gi bleed with melena 4. dvt on eliquis 5. dm 6. htn Plan - renal function had improved - follow cta - cont fluids for now - repeat labs in am - follow renal ultrasound - ua reviewed, there is some proteinuria, will need outpt workup and follow up - avoid nsaids
--- NOTE | 2019-10-12 14:01 | PN ---
Progress Note (short form) - Note Progress Note: GI follow up Per RN, no bleeding overnight or today. Patient also denies bm overnight or today. Discussed CTA w Dr. Gallegos, no evidence of active bleeding Received PRBC overnight Denies abdominal pain Vital Signs Temp 98.2 F 10/12/19 06:13 Pulse 86 10/12/19 06:13 Resp 18 10/12/19 06:13 BP 148/69 10/12/19 06:13 Pulse Ox 98 10/12/19 01:07 NAD Soft NT ND obese CBC, BMP 10/12/19 05:40 10/12/19 05:40 Impression - likely lower GI bleeding. CTA negative. Defer to primary team re risk/benefit of resuming heparin gtt - no absolute GI contraindication but would closely monitor PTTs and CBC. Will need colonoscopy - timing TBD
[2019-10-12] MEDS: AZITHROMYCIN IVPB 500 MG/250 ML BAG IVPB SCH (16:27)
--- NOTE | 2019-10-12 16:28 | CONSULT ---
- Consultation REQUESTING PROVIDER: CONSULT REQUEST: We have been asked to surgically evaluate this patient for LGIB. PCP:Pam Triplett HISTORY OF PRESENT ILLNESS: ROSA who is a 69 y/o A/A female w/ LGI bleeding which developed while a inpatient. She has been seen end evaluated by GI; she currently has no c/o's and has not had any more bloody BM's. PMHx: HTN/AF/COPD/thyroid disease/NIDDM/GERD PSHx: Home Medications Medication Instructions Recorded Amlodipine Besylate [Norvasc -] 5 mg PO DAILY 10/05/19 Apixaban [Eliquis -] 5 mg PO BID 10/05/19 Aspirin 81 mg PO DAILY 10/05/19 Bisacodyl [Dulcolax -] 5 mg PO HS 10/05/19 Clotrimazole/Betamet Diprop 1 applic TP DAILY 10/05/19 [Lotrisone Cream (Large Tube) -] Docusate Sodium [Colace -] 100 mg PO BID 10/05/19 Ergocalciferol [Vitamin D2] 50,000 unit PO Q7D@1000 10/05/19 Ferrous Sulfate [Feosol] 325 mg PO DAILY 10/05/19 Ipratropium/Albuterol Sulfate 3 ml IH QID PRN 10/05/19 [Iprat-Albut 0.5-3(2.5) mg/3 ml] Levothyroxine [Synthroid -] 125 mcg PO DAILY 10/05/19 Methocarbamol [Robaxin -] 500 mg PO DAILY 10/05/19 Multivitamin [Multiple Vitamins] 1 each PO DAILY 10/05/19 Naloxegol Oxalate [Movantik] 25 mg PO DAILY 10/05/19 Omeprazole 20 mg PO DAILY 10/05/19 Pantoprazole Sodium [Protonix -] 40 mg PO BID 10/05/19 metFORMIN HCL [Metformin HCl] 500 mg PO BID 10/05/19 Allergies Allergy/AdvReac Type Severity Reaction Status Date / Time No Known Allergies Allergy Verified 10/05/19 16:22 REVIEW OF SYSTEMS: CONSTITUTIONAL: Absent: fever, chills, diaphoresis, generalized weakness, malaise, loss of appetite, weight change CARDIOVASCULAR: Absent: chest pain, syncope, palpitations, irregular heart rate, lightheadedness , peripheral edema RESPIRATORY: Absent: cough, shortness of breath, dyspnea with exertion, wheezing, stridor, hemoptysis GASTROINTESTINAL: Present: abdominal pain, abdominal distension, nausea, vomiting, diarrhea, constipation, melena, hematochezia GENITOURINARY: Absent: dysuria, frequency, urgency, hesitancy, hematuria, flank pain, genital pain MUSCULOSKELETAL: Absent: myalgia, arthralgia, joint swelling, back pain, neck pain SKIN: Absent: rash, itching, pallor HEMATOLOGIC/IMMUNOLOGIC: Absent: easy bleeding, easy bruising, lymphadenopathy NEUROLOGIC: Absent: headache, focal weakness, paresthesias, dizziness, unsteady gait, seizure, mental status changes, bladder or bowel incontinence PSYCHIATRIC: Absent: anxiety, depression, suicidal or homicidal ideation, hallucinations. PHYSICAL EXAM: GENERAL: Awake, alert, and fully oriented, in no acute distress. HEAD: Normal with no signs of trauma. EYES: PERRL, sclera anicteric, conjunctiva clear. NECK: Normal ROM, supple without lymphadenopathy, JVD, or masses. ABDOMEN: Soft, nontender, not distended, normoactive bowel sounds, no guarding, no rebound, no masses. No organomegaly. MUSCULOSKELETAL: Normal ROM at all joints. No bony deformities or tenderness. No CVA tenderness. UPPER EXTREMITIES: 2+ pulses, warm, well-perfused. No cyanosis. Cap refill <2 seconds. No peripheral edema. LOWER EXTREMITIES: 2+ pulses, warm, well-perfused. No calf tenderness. No peripheral edema. NEUROLOGICAL: Normal speech, gait not observed. PSYCH: Cooperative. Good eye contact. Appropriate mood and affect. SKIN: Warm, dry, normal turgor, no rashes or lesions noted. Vital Signs Temperature 9.3 F L 10/12/19 14:07 Pulse Rate 98 H 10/12/19 14:07 Respiratory Rate 18 10/12/19 14:07 Blood Pressure 136/77 10/12/19 14:07 O2 Sat by Pulse Oximetry (%) 97 10/12/19 09:00 Lab Results WBC 10.6 K/mm3 (4.0-10.0) H 10/12/19 05:40 RBC 3.06 M/mm3 (3.60-5.2) L 10/12/19 05:40 Hgb 8.2 GM/dL (10.7-15.3) L 10/12/19 05:40 Hct 25.4 % (32.4-45.2) L 10/12/19 05:40 MCV 83.0 fl (80-96) 10/12/19 05:40 MCHC 32.4 g/dl (32.0-36.0) 10/12/19 05:40 RDW 14.6 % (11.6-15.6) 10/12/19 05:40 Plt Count 321 K/MM3 (134-434) 10/12/19 05:40 Sodium 142 mmol/L (136-145) 10/12/19 05:40 Potassium 4.1 mmol/L (3.5-5.1) 10/12/19 05:40 Chloride 106 mmol/L (98-107) 10/12/19 05:40 Carbon Dioxide 33 mmol/L (21-32) H 10/12/19 05:40 Anion Gap 4 MMOL/L (8-16) L 10/12/19 05:40 BUN 11.1 mg/dL (7-18) 10/12/19 05:40 Creatinine 1.2 mg/dL (0.55-1.3) 10/12/19 05:40 Random Glucose 92 mg/dL (74-106) 10/12/19 05:40 Calcium 7.8 mg/dL (8.5-10.1) L 10/12/19 05:40 Blood Type A POSITIVE 10/11/19 17:54 Antibody Screen Negative 10/11/19 17:54 INR 1.14 (0.83-1.09) H 10/12/19 05:40 W/U to date reviewed including all imaging and Consultants. IMP: NO evidence of active GI bleeding at this time PLAN: As per GI and primary care team; surgical f/u as needed. Mario Mi MD FACS
[2019-10-12] MEDS: SODIUM CHLORIDE 1,000 ML IV SCH (16:34)
[2019-10-12] MEDS: PANTOPRAZOLE SODIUM 80 MG in SODIUM CHLORIDE 100 ML IVPB SCH ×2 (20:53)
[2019-10-13] MEDS ORDERED: PIPERACILLIN/TAZOBACTAM 4.5 GM VIAL IVPB ONE ×3 (01:11→17:19)
[2019-10-13] MEDS ORDERED: DEXTROSE 5%-WATER 100 ML IVPB ONE ×3 (01:11→17:19)
[2019-10-13] MEDS: PIPERACILLIN/TAZOB 4.5 GM 4.5 GM in DEXTROSE 5%-WATER 100 ML IVPB SCH ×3 (01:16→17:21)
[2019-10-13] MEDS: PANTOPRAZOLE SODIUM 80 MG in SODIUM CHLORIDE 100 ML IVPB SCH ×3 (04:55→22:06)
[2019-10-13] MEDS: INSULIN SLIDING SCALE (NOVOLOG) 1 VIAL SQ SCH ×2 (06:03→16:53)
[2019-10-13] MEDS: SODIUM CHLORIDE 1,000 ML IV SCH (06:43)
[2019-10-13 06:46] LABS: HEMATOCRIT 23.9 % (32.4-45.2); HEMOGLOBIN 7.9 GM/dL (10.7-15.3); MCH 27.4 pg (25.7-33.7); MCHC 32.8 g/dl (32.0-36.0); MEAN CELL VOLUME 83.4 fl (80-96); MEAN PLT VOLUME 8.1 fl (7.5-11.1); PLATELET COUNT 327 K/MM3 (134-434); RBC 2.87 M/mm3 (3.60-5.2); WHITE BLOOD COUNT 10.2 K/mm3 (4.0-10.0)
[2019-10-13 07:11] LABS: CALCIUM 8.3 mg/dL (8.5-10.1); CREATININE 1.1 mg/dL (0.55-1.3); POTASSIUM 3.9 mmol/L (3.5-5.1)
--- NOTE | 2019-10-13 08:39 | PN ---
Progress Note, Physician Chief Complaint: IN BED AWAKE, OFFERS NO COMPLAINTS - Current Medication List Current Medications: Active Medications Acetaminophen (Tylenol -) 650 mg PO Q6H PRN PRN Reason: FEVER Last Admin: 10/10/19 02:10 Dose: 650 mg Acetaminophen (Ofirmev Injection -) 1,000 mg IVPB Q6H PRN PRN Reason: FEVER/PAIN Bisacodyl (Dulcolax -) 5 mg PO HS [facility] Last Admin: 10/10/19 21:52 Dose: 5 mg Docusate Sodium (Colace -) 100 mg PO BID [facility] Last Admin: 10/12/19 21:40 Dose: 100 mg Piperacillin Sod/Tazobactam (Sod 4.5 gm/ Dextrose) 100 mls @ 200 mls/hr IVPB Q8H-IV [facility]; Protocol Last Admin: 10/13/19 01:16 Dose: 200 mls/hr Azithromycin (Zithromax 500mg Ivpb (Pre-Docked)) 500 mg in 250 mls @ 250 mls/ hr IVPB Q24H [facility] Last Admin: 10/12/19 16:27 Dose: 250 mls/hr Sodium Chloride (Normal Saline -) 1,000 mls @ 100 mls/hr IV ASDIR [facility] Last Admin: 10/13/19 06:43 Dose: 100 mls/hr Pantoprazole Sodium 80 mg/ (Sodium Chloride) 100 mls @ 10 mls/hr IVPB Q10H [facility] Last Admin: 10/13/19 04:55 Dose: 10 mls/hr Insulin Aspart (Novolog Vial Sliding Scale -) 1 vial SQ BIDAC [facility]; Protocol Last Admin: 10/13/19 06:03 Dose: Not Given Levothyroxine Sodium (Synthroid -) 125 mcg PO DAILY@0700 [facility] Last Admin: 10/11/19 06:41 Dose: 125 mcg Levothyroxine Sodium (Synthroid Injection -) 90 mcg IVPUSH DAILY [facility] Last Admin: 10/12/19 09:53 Dose: 90 mcg Metformin HCl (Glucophage -) 500 mg PO BIDAC [facility] Last Admin: 10/11/19 17:57 Dose: Not Given Multivitamins/Minerals/Vitamin C (Tab-A-Vit -) 1 tab PO DAILY [facility] Last Admin: 10/11/19 10:18 Dose: 1 tab - Objective Vital Signs: Vital Signs Temperature 98.5 F 10/13/19 06:00 Pulse Rate 80 10/13/19 06:00 Respiratory Rate 18 10/13/19 06:00 Blood Pressure 109/59 L 10/13/19 06:00 O2 Sat by Pulse Oximetry (%) 98 10/12/19 21:00 Constitutional: Yes: No Distress Cardiovascular: Yes: WNL Respiratory: Yes: Diminished Gastrointestinal: Yes: Soft, Abdomen, Obese Genitourinary: Yes: Incontinence Edema: No Neurological: Yes: WNL ...Motor Strength: LLE, RLE Labs: CBC, BMP 10/13/19 05:30 10/13/19 05:30 INR, PTT INR 1.14 (0.83-1.09) H 10/12/19 05:40 Problem List - Problems (1) Pulmonary infiltrate in left lung on chest x-ray Code(s): R91.8 - OTHER NONSPECIFIC ABNORMAL FINDING OF LUNG FIELD (2) ELIZABETH (acute kidney injury) Code(s): N17.9 - ACUTE KIDNEY FAILURE, UNSPECIFIED (3) Anemia Code(s): D64.9 - ANEMIA, UNSPECIFIED (4) COPD (chronic obstructive pulmonary disease) Code(s): J44.9 - CHRONIC OBSTRUCTIVE PULMONARY DISEASE, UNSPECIFIED (5) Diabetes Code(s): E11.9 - TYPE 2 DIABETES MELLITUS WITHOUT COMPLICATIONS (6) GERD (gastroesophageal reflux disease) Code(s): K21.9 - GASTRO-ESOPHAGEAL REFLUX DISEASE WITHOUT ESOPHAGITIS (7) GI bleed Code(s): K92.2 - GASTROINTESTINAL HEMORRHAGE, UNSPECIFIED Qualifiers: GI bleed type/associated pathology: melena Qualified Code(s): K92.1 - Melena (8) Melena Code(s): K92.1 - MELENA Assessment/Plan TRANSFUSE PRBC X 2 UNITS OFF OF ANTICOAGULATION AND DOES NEED TO RESTART. PNEUMONIA TX WITH NEBS/IV ABX/02 SUPPORT INCENTIVE SPIROMETRY OOB TO CHAIR COLONOSCOPY SATURDAY, MEDICALLY CLEARED FROM MEDICAL SIDE.
[2019-10-13] MEDS ORDERED: PT OWN MED DRAWER 7, Y5N ONE (09:03)
[2019-10-13] MEDS: DOCUSATE SODIUM 100 MG CAPSULE (FP) PO SCH ×2 (09:12→22:07)
[2019-10-13] MEDS: LEVOTHYROXINE SODIUM 100 MCG VIAL IVPUSH SCH (09:15)
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
--- NOTE | 2019-10-13 12:50 | PN.GI ---
GI Progress Note Subjective: No overt bleeding No abdominal pain Cleared medically for colonoscopy - Objective Vital Signs: Vital Signs Temperature 98.2 F 10/13/19 11:26 Pulse Rate 76 10/13/19 11:26 Respiratory Rate 18 10/13/19 11:26 Blood Pressure 132/66 10/13/19 11:26 O2 Sat by Pulse Oximetry (%) 98 10/12/19 21:00 Constitutional: Calm Eyes: No: Sclera Icterus Cardiovascular: Yes: Regular Rate and Rhythm Respiratory: Yes: Diminished (at bases bilaterally with poor inspiratory effort) Gastrointestinal Inspection: Yes: Scars ...Auscultate: Yes: Normoactive Bowel Sounds ...Palpate: Yes: Soft. No: Tenderness ...Percussion: No: Tympanitic Neurological: Yes: Alert Labs: CBC, BMP 10/13/19 05:30 10/13/19 05:30 INR, PTT INR 1.14 (0.83-1.09) H 10/12/19 05:40 Problem List - Problems (1) Melena Assessment/Plan: For further evaluation of melena / rectal bleeding, plan for colonoscopy 10/15, sooner if necessary. Discussed potential risks of the procedure with Ms. Rutledge. Discussed potential risks of the procedure like but not limited to bleeding, perforation requiring surgery to repair, infection, sedation medication effects all of which could be potentially life threatening. She has agreed to the procedure Monitor for overt bleeding. if active bleeding, worsened hemodynamics, transfer to ICU and notify GI Code(s): K92.1 - MELENA
--- NOTE | 2019-10-13 14:50 | PN ---
Progress Note, Physician History of Present Illness: Pt seen and examined at bedside. She is awake and alert. She denies shortness of breath. - Current Medication List Current Medications: Active Medications Acetaminophen (Tylenol -) 650 mg PO Q6H PRN PRN Reason: FEVER Last Admin: 10/10/19 02:10 Dose: 650 mg Acetaminophen (Ofirmev Injection -) 1,000 mg IVPB Q6H PRN PRN Reason: FEVER/PAIN Bisacodyl (Dulcolax -) 5 mg PO HS [facility] Last Admin: 10/10/19 21:52 Dose: 5 mg Bisacodyl (Dulcolax -) 20 mg PO ONCE ONE Stop: 10/14/19 12:01 Docusate Sodium (Colace -) 100 mg PO BID [facility] Last Admin: 10/13/19 09:12 Dose: 100 mg Piperacillin Sod/Tazobactam (Sod 4.5 gm/ Dextrose) 100 mls @ 200 mls/hr IVPB Q8H-IV [facility]; Protocol Last Admin: 10/13/19 09:12 Dose: 200 mls/hr Azithromycin (Zithromax 500mg Ivpb (Pre-Docked)) 500 mg in 250 mls @ 250 mls/ hr IVPB Q24H [facility] Last Admin: 10/12/19 16:27 Dose: 250 mls/hr Pantoprazole Sodium 80 mg/ (Sodium Chloride) 100 mls @ 10 mls/hr IVPB Q10H [facility] Last Admin: 10/13/19 04:55 Dose: 10 mls/hr Insulin Aspart (Novolog Vial Sliding Scale -) 1 vial SQ BIDAC [facility]; Protocol Last Admin: 10/13/19 06:03 Dose: Not Given Levothyroxine Sodium (Synthroid -) 125 mcg PO DAILY@0700 [facility] Last Admin: 10/11/19 06:41 Dose: 125 mcg Levothyroxine Sodium (Synthroid Injection -) 90 mcg IVPUSH DAILY [facility] Last Admin: 10/13/19 09:15 Dose: 90 mcg Metformin HCl (Glucophage -) 500 mg PO BIDAC [facility] Last Admin: 10/11/19 17:57 Dose: Not Given Multivitamins/Minerals/Vitamin C (Tab-A-Vit -) 1 tab PO DAILY [facility] Last Admin: 10/11/19 10:18 Dose: 1 tab Polyethylene Glycol/Electrolytes (Golytely Solution -) 4,000 ml PO ONCE ONE Stop: 10/14/19 14:01 - Objective Vital Signs: Vital Signs Temperature 98.1 F 10/13/19 14:00 Pulse Rate 81 10/13/19 14:00 Respiratory Rate 16 10/13/19 14:00 Blood Pressure 150/79 10/13/19 14:00 O2 Sat by Pulse Oximetry (%) 99 10/13/19 09:00 Constitutional: Yes: Calm Eyes: Yes: Conjunctiva Clear HENT: Yes: Atraumatic Neck: Yes: Supple Cardiovascular: Yes: S1, S2 Respiratory: Yes: CTA Bilaterally Gastrointestinal: Yes: Normal Bowel Sounds, Soft Genitourinary: Yes: WNL Musculoskeletal: Yes: WNL Edema: No Neurological: Yes: Oriented Psychiatric: Yes: Oriented Labs: CBC, BMP 10/13/19 05:30 10/13/19 05:30 INR, PTT INR 1.14 (0.83-1.09) H 10/12/19 05:40 Problem List - Problems (1) Azotemia Code(s): R79.89 - OTHER SPECIFIED ABNORMAL FINDINGS OF BLOOD CHEMISTRY (2) Anemia Code(s): D64.9 - ANEMIA, UNSPECIFIED (3) COPD (chronic obstructive pulmonary disease) Code(s): J44.9 - CHRONIC OBSTRUCTIVE PULMONARY DISEASE, UNSPECIFIED Assessment/Plan Current Medications Generic Name Dose Route Start Last Admin Trade Name Freq PRN Reason Stop Dose Admin Acetaminophen 650 mg 10/07/19 15:04 10/10/19 02:10 Tylenol - PO 650 mg Q6H PRN Administration FEVER Acetaminophen 1,000 mg 10/11/19 20:53 Ofirmev Injection - IVPB Q6H PRN FEVER/PAIN Bisacodyl 5 mg 10/07/19 22:00 10/10/19 21:52 Dulcolax - PO 5 mg HS [facility] Administration Bisacodyl 20 mg 10/14/19 12:00 Dulcolax - PO 10/14/19 12:01 ONCE ONE Docusate Sodium 100 mg 10/07/19 10:00 10/13/19 09:12 Colace - PO 100 mg BID [facility] Administration Piperacillin Sod/Tazobactam 100 mls @ 200 mls/hr 10/07/19 18:00 10/13/19 09: 12 Sod 4.5 gm/ Dextrose IVPB 200 mls/hr Q8H-IV [facility] Administration Protocol Azithromycin 500 mg in 250 mls @ 250 mls/hr 10/07/19 16:15 10/12/19 16:27 Zithromax 500mg Ivpb (Pre-Docked) IVPB 250 mls/hr Q24H [facility] Administration Pantoprazole Sodium 80 mg/ 100 mls @ 10 mls/hr 10/11/19 20:30 10/13/19 04:55 Sodium Chloride IVPB 10 mls/hr Q10H [facility] Administration 8 MG/HR Insulin Aspart 1 vial 10/07/19 07:00 10/13/19 06:03 Novolog Vial Sliding Scale - SQ Not Given BIDAC [facility] Protocol Levothyroxine Sodium 125 mcg 10/07/19 07:00 10/11/19 06:41 Synthroid - PO 125 mcg DAILY@0700 [facility] Administration Levothyroxine Sodium 90 mcg 10/12/19 10:00 10/13/19 09:15 Synthroid Injection - IVPUSH 90 mcg DAILY [facility] Administration Metformin HCl 500 mg 10/07/19 07:00 10/11/19 17:57 Glucophage - PO Not Given BIDAC [facility] Multivitamins/Minerals/Vitamin C 1 tab 10/07/19 10:00 10/11/19 10:18 Tab-A-Vit - PO 1 tab DAILY [facility] Administration Polyethylene Glycol/Electrolytes 4,000 ml 10/14/19 14:00 Golytely Solution - PO 10/14/19 14:01 ONCE ONE Impression 1. azotemia 2. larissa unclear baseline [employer] 3. gi bleed with melena 4. dvt on eliquis 5. dm 6. htn Plan - renal function stable - pt tolerating diet - sheep farm worker remains stable - outpt follow up for proteinuria - avoid nsaids
[2019-10-13] MEDS: AZITHROMYCIN IVPB 500 MG/250 ML BAG IVPB SCH (16:09)
[2019-10-14] MEDS: PANTOPRAZOLE SODIUM 80 MG in SODIUM CHLORIDE 100 ML IVPB SCH ×4 (02:10→23:52)
[2019-10-14] MEDS ORDERED: PIPERACILLIN/TAZOBACTAM 4.5 GM VIAL IVPB ONE ×2 (02:28→09:11)
[2019-10-14] MEDS ORDERED: DEXTROSE 5%-WATER 100 ML IVPB ONE ×2 (02:28→09:11)
[2019-10-14] MEDS: PIPERACILLIN/TAZOB 4.5 GM 4.5 GM in DEXTROSE 5%-WATER 100 ML IVPB SCH ×3 (02:43→18:19)
[2019-10-14] MEDS: INSULIN SLIDING SCALE (NOVOLOG) 1 VIAL SQ SCH ×2 (06:03→16:59)
[2019-10-14 07:02] LABS: BASO % 1.3 % (0-2.0); EOS % 3.2 % (0-4.5); HEMOGLOBIN 10.1 GM/dL (10.7-15.3); LYMPH % 12.8 % (8-40); MCH 27.5 pg (25.7-33.7); MCHC 32.6 g/dl (32.0-36.0); MEAN CELL VOLUME 84.3 fl (80-96); MEAN PLT VOLUME 8.1 fl (7.5-11.1); MONO % 6.9 % (3.8-10.2); NEUT % 75.8 % (42.8-82.8); PLATELET COUNT 334 K/MM3 (134-434); RBC 3.68 M/mm3 (3.60-5.2); RDW 15.4 % (11.6-15.6); WHITE BLOOD COUNT 10.7 K/mm3 (4.0-10.0)
[2019-10-14 07:37] LABS: BLOOD UREA NITROGEN 10.8 mg/dL (7-18); CREATININE 1.2 mg/dL (0.55-1.3); POTASSIUM 3.8 mmol/L (3.5-5.1)
[2019-10-14] MEDS ORDERED: PT OWN MED DRAWER 7, Y5N ONE ×2 (09:11→13:14)
--- NOTE | 2019-10-14 09:19 | PN ---
Progress Note, Physician Chief Complaint: GI Bleed History of Present Illness: NAD in bed denies any N/V/D/or further bleeding Being treated for Pneumonia EGD-showed patchy gastric erythema otherwise unremarkable No more episodes of melena/hematochezia overnight Received 2 units of PRBC yesterday H/H improved Colonoscopy planned for tomorrow - Current Medication List Current Medications: Active Medications Acetaminophen (Tylenol -) 650 mg PO Q6H PRN PRN Reason: FEVER Last Admin: 10/10/19 02:10 Dose: 650 mg Acetaminophen (Ofirmev Injection -) 1,000 mg IVPB Q6H PRN PRN Reason: FEVER/PAIN Bisacodyl (Dulcolax -) 5 mg PO HS [facility] Last Admin: 10/10/19 21:52 Dose: 5 mg Bisacodyl (Dulcolax -) 20 mg PO ONCE ONE Stop: 10/14/19 12:01 Docusate Sodium (Colace -) 100 mg PO BID [facility] Last Admin: 10/13/19 22:07 Dose: 100 mg Piperacillin Sod/Tazobactam (Sod 4.5 gm/ Dextrose) 100 mls @ 200 mls/hr IVPB Q8H-IV [facility]; Protocol Last Admin: 10/14/19 02:43 Dose: 200 mls/hr Azithromycin (Zithromax 500mg Ivpb (Pre-Docked)) 500 mg in 250 mls @ 250 mls/ hr IVPB Q24H [facility] Last Admin: 10/13/19 16:09 Dose: 250 mls/hr Pantoprazole Sodium 80 mg/ (Sodium Chloride) 100 mls @ 10 mls/hr IVPB Q10H [facility] Last Admin: 10/14/19 02:10 Dose: 10 mls/hr Insulin Aspart (Novolog Vial Sliding Scale -) 1 vial SQ BIDAC [facility]; Protocol Last Admin: 10/14/19 06:03 Dose: Not Given Levothyroxine Sodium (Synthroid -) 125 mcg PO DAILY@0700 [facility] Last Admin: 10/11/19 06:41 Dose: 125 mcg Levothyroxine Sodium (Synthroid Injection -) 90 mcg IVPUSH DAILY [facility] Last Admin: 10/13/19 09:15 Dose: 90 mcg Metformin HCl (Glucophage -) 500 mg PO BIDAC [facility] Last Admin: 10/11/19 17:57 Dose: Not Given Multivitamins/Minerals/Vitamin C (Tab-A-Vit -) 1 tab PO DAILY [facility] Last Admin: 10/11/19 10:18 Dose: 1 tab Polyethylene Glycol/Electrolytes (Golytely Solution -) 4,000 ml PO ONCE ONE Stop: 10/14/19 14:01 - Objective Vital Signs: Vital Signs Temperature 98.3 F 10/14/19 05:49 Pulse Rate 68 10/14/19 05:49 Respiratory Rate 18 10/14/19 05:49 Blood Pressure 146/74 10/14/19 05:49 O2 Sat by Pulse Oximetry (%) 100 10/13/19 20:57 Constitutional: Yes: Well Nourished, No Distress, Calm, Obese Cardiovascular: Yes: Regular Rate and Rhythm Respiratory: Yes: Regular Gastrointestinal: Yes: WNL, Normal Bowel Sounds, Soft, Abdomen, Obese Genitourinary: Yes: Incontinence Musculoskeletal: Yes: Muscle Weakness Extremities: Yes: WNL Edema: No Peripheral Pulses WNL: Yes Neurological: Yes: Alert, Oriented Psychiatric: Yes: Alert, Oriented Labs: CBC, BMP 10/14/19 06:00 10/14/19 06:00 INR, PTT INR 1.14 (0.83-1.09) H 10/12/19 05:40 Problem List - Problems (1) Anemia Assessment/Plan: -GI consult -Guaiac positive -PPI drip -monitor H/H -AC on hold -Medically cleared for colonoscopy in AM Problems reviewed: Yes Code(s): D64.9 - ANEMIA, UNSPECIFIED (2) Diabetes Assessment/Plan: -A1c at 6.5 -BGM AC HS -ISS -Diabetic/low sodium diet Problems reviewed: Yes Code(s): E11.9 - TYPE 2 DIABETES MELLITUS WITHOUT COMPLICATIONS (3) GI bleed Assessment/Plan: -GI consult -Guaiac positive -PPI drip -Monitor trend -s/p EGD-patchy gastric erythema otherwise unremarkable -Hold AC -colonoscopy in AM Problems reviewed: Yes Code(s): K92.2 - GASTROINTESTINAL HEMORRHAGE, UNSPECIFIED Qualifiers: GI bleed type/associated pathology: melena Qualified Code(s): K92.1 - Melena Assessment/Plan see problem list
[2019-10-14] MEDS: DOCUSATE SODIUM 100 MG CAPSULE (FP) PO SCH ×2 (09:20→21:16)
[2019-10-14] MEDS: LEVOTHYROXINE SODIUM 100 MCG VIAL IVPUSH SCH (09:20)
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
[2019-10-14 11:43] LABS: ARTERIAL BLD GAS O2 SATURATION 93.3 % (95-98); ARTERIAL BLOOD GAS BASE EXCESS 5.7 meq/l (-2-2); ARTERIAL BLOOD GAS PCO2 58.6 mmHg (35-45); ARTERIAL BLOOD GAS pH 7.36 (7.35-7.45)
[2019-10-14 11:45] LABS: ALLENS TEST POSITIVE
[2019-10-14] MEDS ORDERED: BISACODYL 5 MG TABLET.DR (FP) PO ONE (12:00)
--- NOTE | 2019-10-14 13:13 | PN ---
Progress Note, Physician History of Present Illness: Pt seen and examined at bedside. She is awake and alert. She denies shortness of breath. - Current Medication List Current Medications: Active Medications Acetaminophen (Tylenol -) 650 mg PO Q6H PRN PRN Reason: FEVER Last Admin: 10/10/19 02:10 Dose: 650 mg Acetaminophen (Ofirmev Injection -) 1,000 mg IVPB Q6H PRN PRN Reason: FEVER/PAIN Bisacodyl (Dulcolax -) 5 mg PO HS [facility] Last Admin: 10/10/19 21:52 Dose: 5 mg Docusate Sodium (Colace -) 100 mg PO BID [facility] Last Admin: 10/14/19 09:20 Dose: 100 mg Piperacillin Sod/Tazobactam (Sod 4.5 gm/ Dextrose) 100 mls @ 200 mls/hr IVPB Q8H-IV [facility]; Protocol Last Admin: 10/14/19 09:23 Dose: 200 mls/hr Azithromycin (Zithromax 500mg Ivpb (Pre-Docked)) 500 mg in 250 mls @ 250 mls/ hr IVPB Q24H [facility] Last Admin: 10/13/19 16:09 Dose: 250 mls/hr Pantoprazole Sodium 80 mg/ (Sodium Chloride) 100 mls @ 10 mls/hr IVPB Q10H [facility] Last Admin: 10/14/19 12:09 Dose: 10 mls/hr Insulin Aspart (Novolog Vial Sliding Scale -) 1 vial SQ BIDAC [facility]; Protocol Last Admin: 10/14/19 06:03 Dose: Not Given Levothyroxine Sodium (Synthroid -) 125 mcg PO DAILY@0700 [facility] Last Admin: 10/11/19 06:41 Dose: 125 mcg Levothyroxine Sodium (Synthroid Injection -) 90 mcg IVPUSH DAILY [facility] Last Admin: 10/14/19 09:20 Dose: 90 mcg Metformin HCl (Glucophage -) 500 mg PO BIDAC [facility] Last Admin: 10/11/19 17:57 Dose: Not Given Multivitamins/Minerals/Vitamin C (Tab-A-Vit -) 1 tab PO DAILY [facility] Last Admin: 10/11/19 10:18 Dose: 1 tab Polyethylene Glycol/Electrolytes (Golytely Solution -) 4,000 ml PO ONCE ONE Stop: 10/14/19 14:01 - Objective Vital Signs: Vital Signs Temperature 98.1 F 10/14/19 09:19 Pulse Rate 79 10/14/19 09:19 Respiratory Rate 19 10/14/19 09:19 Blood Pressure 152/73 10/14/19 09:19 O2 Sat by Pulse Oximetry (%) 100 10/13/19 20:57 Constitutional: Yes: Calm Eyes: Yes: Conjunctiva Clear HENT: Yes: Atraumatic Neck: Yes: Supple Cardiovascular: Yes: S1, S2 Respiratory: Yes: CTA Bilaterally Gastrointestinal: Yes: Normal Bowel Sounds, Soft Genitourinary: Yes: WNL Musculoskeletal: Yes: WNL Edema: No Integumentary: Yes: WNL Neurological: Yes: Oriented Psychiatric: Yes: Oriented Labs: CBC, BMP 10/14/19 06:00 10/14/19 06:00 INR, PTT INR 1.14 (0.83-1.09) H 10/12/19 05:40 Problem List - Problems (1) Azotemia Code(s): R79.89 - OTHER SPECIFIED ABNORMAL FINDINGS OF BLOOD CHEMISTRY (2) Anemia Code(s): D64.9 - ANEMIA, UNSPECIFIED (3) COPD (chronic obstructive pulmonary disease) Code(s): J44.9 - CHRONIC OBSTRUCTIVE PULMONARY DISEASE, UNSPECIFIED Assessment/Plan Current Medications Generic Name Dose Route Start Last Admin Trade Name Freq PRN Reason Stop Dose Admin Acetaminophen 650 mg 10/07/19 15:04 10/10/19 02:10 Tylenol - PO 650 mg Q6H PRN Administration FEVER Acetaminophen 1,000 mg 10/11/19 20:53 Ofirmev Injection - IVPB Q6H PRN FEVER/PAIN Bisacodyl 5 mg 10/07/19 22:00 10/10/19 21:52 Dulcolax - PO 5 mg HS [facility] Administration Docusate Sodium 100 mg 10/07/19 10:00 10/14/19 09:20 Colace - PO 100 mg BID [facility] Administration Piperacillin Sod/Tazobactam 100 mls @ 200 mls/hr 10/07/19 18:00 10/14/19 09: 23 Sod 4.5 gm/ Dextrose IVPB 200 mls/hr Q8H-IV [facility] Administration Protocol Azithromycin 500 mg in 250 mls @ 250 mls/hr 10/07/19 16:15 10/13/19 16:09 Zithromax 500mg Ivpb (Pre-Docked) IVPB 250 mls/hr Q24H [facility] Administration Pantoprazole Sodium 80 mg/ 100 mls @ 10 mls/hr 10/11/19 20:30 10/14/19 12:09 Sodium Chloride IVPB 10 mls/hr Q10H [facility] Administration 8 MG/HR Insulin Aspart 1 vial 10/07/19 07:00 10/14/19 06:03 Novolog Vial Sliding Scale - SQ Not Given BIDAC [facility] Protocol Levothyroxine Sodium 125 mcg 10/07/19 07:00 10/11/19 06:41 Synthroid - PO 125 mcg DAILY@0700 [facility] Administration Levothyroxine Sodium 90 mcg 10/12/19 10:00 10/14/19 09:20 Synthroid Injection - IVPUSH 90 mcg DAILY [facility] Administration Metformin HCl 500 mg 10/07/19 07:00 10/11/19 17:57 Glucophage - PO Not Given BIDAC [facility] Multivitamins/Minerals/Vitamin C 1 tab 10/07/19 10:00 10/11/19 10:18 Tab-A-Vit - PO 1 tab DAILY [facility] Administration Polyethylene Glycol/Electrolytes 4,000 ml 10/14/19 14:00 Golytely Solution - PO 10/14/19 14:01 ONCE ONE Impression 1. azotemia 2. larissa unclear baseline rehabilitation coordinator 3. gi bleed with melena 4. dvt on eliquis 5. dm 6. htn Plan - avoid nephrotoxins - rehabilitation coordinator is stable - GI workup in progress - outpt follow up for proteinuria - avoid nsaids
--- NOTE | 2019-10-14 13:31 | PN.GI ---
GI Progress Note Subjective: GI NOte: No bleeding since Saturday night. Will be doing bowel prep for colonoscopy tomorrow with Dr Matamoros - Objective Vital Signs: Vital Signs Temperature 98.1 F 10/14/19 09:19 Pulse Rate 79 10/14/19 09:19 Respiratory Rate 19 10/14/19 09:19 Blood Pressure 152/73 10/14/19 09:19 O2 Sat by Pulse Oximetry (%) 100 10/13/19 20:57 Laboratory Tests 10/05/19 10/05/19 10/06/19 17:29 17:29 11:50 Hgb 9.5 L 9.1 L Plt Count PT with INR 14.90 H 10/06/19 10/07/19 10/08/19 21:15 05:45 05:47 Hgb 8.4 L 8.1 L 8.0 L Plt Count PT with INR 10/10/19 10/11/19 10/13/19 05:50 17:54 05:30 Hgb 8.0 L 6.9 L* 7.9 L Plt Count 257 PT with INR 10/14/19 06:00 Hgb 10.1 L Plt Count PT with INR Labs: CBC, BMP 10/14/19 06:00 10/14/19 06:00 INR, PTT INR 1.14 (0.83-1.09) H 10/12/19 05:40 Assessment/Plan Assessment: - Hematochezia and recent negative EGD suggests the bleeding is lower GI in origin. Suspect a diverticular hemorrhage but this could be bleeding vascular ectasias, ischemic colitis, stercoral ulcer ...... Plan: -- Bowel prep today for -- colonoscopy tomorrow Problem List - Problems (1) Hematochezia Code(s): K92.1 - MELENA (2) COPD (chronic obstructive pulmonary disease) Code(s): J44.9 - CHRONIC OBSTRUCTIVE PULMONARY DISEASE, UNSPECIFIED (3) Diabetes Code(s): E11.9 - TYPE 2 DIABETES MELLITUS WITHOUT COMPLICATIONS (4) GI bleed Code(s): K92.2 - GASTROINTESTINAL HEMORRHAGE, UNSPECIFIED Qualifiers: GI bleed type/associated pathology: melena Qualified Code(s): K92.1 - Melena (5) HTN (hypertension) Code(s): I10 - ESSENTIAL (PRIMARY) HYPERTENSION (6) Hypothyroidism Code(s): E03.9 - HYPOTHYROIDISM, UNSPECIFIED (7) Melena Code(s): K92.1 - MELENA
[2019-10-14] MEDS ORDERED: PEG 3350/NA SULF BICARB CL/KCL 4000 ML SOLN.RECON PO ONE (14:00)
[2019-10-14 14:15] VITALS: BMI 39.5
[2019-10-14] MEDS: AZITHROMYCIN IVPB 500 MG/250 ML BAG IVPB SCH (17:07)
[2019-10-14] MEDS: BISACODYL 5 MG TABLET.DR (FP) PO SCH (21:16)
[2019-10-15] MEDS ORDERED: DEXTROSE 5%-WATER 100 ML IVPB ONE ×3 (01:13→15:52)
[2019-10-15] MEDS ORDERED: PIPERACILLIN/TAZOBACTAM 4.5 GM VIAL IVPB ONE ×3 (01:13→15:52)
[2019-10-15] MEDS: PIPERACILLIN/TAZOB 4.5 GM 4.5 GM in DEXTROSE 5%-WATER 100 ML IVPB SCH ×2 (02:54→13:20)
[2019-10-15] MEDS: PANTOPRAZOLE SODIUM 80 MG in SODIUM CHLORIDE 100 ML IVPB SCH ×4 (05:39→21:25)
[2019-10-15] MEDS: metFORMIN HCL 500 MG TABLET (FP) PO SCH ×2 (06:06→16:01)
[2019-10-15] MEDS: INSULIN SLIDING SCALE (NOVOLOG) 1 VIAL SQ SCH ×2 (06:06→16:11)
[2019-10-15] MEDS: LEVOTHYROXINE NA 125 MCG TABLET (FP) PO SCH (06:09)
[2019-10-15 06:38] LABS: BASO % 0.9 % (0-2.0); EOS % 3.8 % (0-4.5); HEMATOCRIT 30.9 % (32.4-45.2); LYMPH % 12.5 % (8-40); MCH 27.1 pg (25.7-33.7); MCHC 32.3 g/dl (32.0-36.0); MEAN CELL VOLUME 83.9 fl (80-96); MONO % 6.5 % (3.8-10.2); NEUT % 76.3 % (42.8-82.8); PLATELET COUNT 344 K/MM3 (134-434); RBC 3.68 M/mm3 (3.60-5.2); RDW 15.8 % (11.6-15.6); WHITE BLOOD COUNT 9.9 K/mm3 (4.0-10.0)
[2019-10-15 07:08] LABS: ALBUMIN 2.7 g/dl (3.4-5.0); BILIRUBIN,TOTAL 0.3 mg/dL (0.2-1); BLOOD UREA NITROGEN 8.6 mg/dL (7-18); CALCIUM 8.4 mg/dL (8.5-10.1); CREATININE 1.1 mg/dL (0.55-1.3); POTASSIUM 3.6 mmol/L (3.5-5.1); TOT PROT 6.4 g/dl (6.4-8.2)
--- NOTE | 2019-10-15 08:49 | PN ---
Progress Note, Physician Chief Complaint: AWAKE ALERT COLONOSCOPY TODAY - Current Medication List Current Medications: Active Medications Acetaminophen (Tylenol -) 650 mg PO Q6H PRN PRN Reason: FEVER Last Admin: 10/10/19 02:10 Dose: 650 mg Acetaminophen (Ofirmev Injection -) 1,000 mg IVPB Q6H PRN PRN Reason: FEVER/PAIN Bisacodyl (Dulcolax -) 5 mg PO HS [facility] Last Admin: 10/14/19 21:16 Dose: 5 mg Docusate Sodium (Colace -) 100 mg PO BID [facility] Last Admin: 10/14/19 21:16 Dose: 100 mg Piperacillin Sod/Tazobactam (Sod 4.5 gm/ Dextrose) 100 mls @ 200 mls/hr IVPB Q8H-IV [facility]; Protocol Last Admin: 10/15/19 02:54 Dose: 200 mls/hr Azithromycin (Zithromax 500mg Ivpb (Pre-Docked)) 500 mg in 250 mls @ 250 mls/ hr IVPB Q24H [facility] Last Admin: 10/14/19 17:07 Dose: 250 mls/hr Pantoprazole Sodium 80 mg/ (Sodium Chloride) 100 mls @ 10 mls/hr IVPB Q10H [facility] Last Admin: 10/15/19 05:39 Dose: Not Given Insulin Aspart (Novolog Vial Sliding Scale -) 1 vial SQ BIDAC [facility]; Protocol Last Admin: 10/15/19 06:06 Dose: Not Given Levothyroxine Sodium (Synthroid -) 125 mcg PO DAILY@0700 [facility] Last Admin: 10/15/19 06:09 Dose: 125 mcg Levothyroxine Sodium (Synthroid Injection -) 90 mcg IVPUSH DAILY [facility] Last Admin: 10/14/19 09:20 Dose: 90 mcg Metformin HCl (Glucophage -) 500 mg PO BIDAC [facility] Last Admin: 10/15/19 06:06 Dose: Not Given Multivitamins/Minerals/Vitamin C (Tab-A-Vit -) 1 tab PO DAILY [facility] Last Admin: 10/11/19 10:18 Dose: 1 tab - Objective Vital Signs: Vital Signs Temperature 97.9 F 10/15/19 05:58 Pulse Rate 69 10/15/19 05:58 Respiratory Rate 18 10/15/19 05:58 Blood Pressure 147/74 10/15/19 05:58 O2 Sat by Pulse Oximetry (%) 100 10/14/19 20:28 Constitutional: Yes: No Distress Cardiovascular: Yes: Regular Rate and Rhythm Respiratory: Yes: WNL Gastrointestinal: Yes: Soft, Abdomen, Obese Genitourinary: Yes: Incontinence Musculoskeletal: Yes: Muscle Weakness Labs: CBC, BMP 10/15/19 05:25 10/15/19 05:25 INR, PTT INR 1.14 (0.83-1.09) H 10/12/19 05:40 Problem List - Problems (1) Pulmonary infiltrate in left lung on chest x-ray Code(s): R91.8 - OTHER NONSPECIFIC ABNORMAL FINDING OF LUNG FIELD (2) ELIZABETH (acute kidney injury) Code(s): N17.9 - ACUTE KIDNEY FAILURE, UNSPECIFIED (3) Anemia Code(s): D64.9 - ANEMIA, UNSPECIFIED (4) COPD (chronic obstructive pulmonary disease) Code(s): J44.9 - CHRONIC OBSTRUCTIVE PULMONARY DISEASE, UNSPECIFIED (5) Diabetes Code(s): E11.9 - TYPE 2 DIABETES MELLITUS WITHOUT COMPLICATIONS (6) GERD (gastroesophageal reflux disease) Code(s): K21.9 - GASTRO-ESOPHAGEAL REFLUX DISEASE WITHOUT ESOPHAGITIS (7) GI bleed Code(s): K92.2 - GASTROINTESTINAL HEMORRHAGE, UNSPECIFIED Qualifiers: GI bleed type/associated pathology: melena Qualified Code(s): K92.1 - Melena (8) Melena Code(s): K92.1 - MELENA Assessment/Plan MEDICALLY OPTIMIZED FOR COLONOSCOPY IV ABX FOR PNA CAN BE CHANGED TO PO AFTER COLONOSCOPY PT EVAL/OOB TO CHAIR DVT PROPHLAXIS, NO NEED FOR DVT ANTICOAG TREATMENT COMPLETED 9 MONTHS ALREADY. LABS IN A.M. DC BACK TO [facility] TOMORROW
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
--- NOTE | 2019-10-15 12:25 | PN ---
Progress Note (short form) - Note Progress Note: Colonoscopy complete. Report left in procedural section of the physical chart and will be scanned into [employer] Problem List - Problems (1) Chelsea Code(s): K92.1 - CHELSEA
[2019-10-15] MEDS: MULTIVITAMINS (DAILY MVI) TABLET (FP) PO SCH (13:21)
[2019-10-15] MEDS: DOCUSATE SODIUM 100 MG CAPSULE (FP) PO SCH ×2 (13:22→21:24)
[2019-10-15] MEDS: LEVOTHYROXINE SODIUM 100 MCG VIAL IVPUSH SCH (13:22)
--- NOTE | 2019-10-15 15:12 | PN ---
Progress Note, Physician History of Present Illness: Pt seen and examined at bedside. She is awake and alert. She denies shortness of breath. - Current Medication List Current Medications: Active Medications Acetaminophen (Tylenol -) 650 mg PO Q6H PRN PRN Reason: FEVER Last Admin: 10/10/19 02:10 Dose: 650 mg Acetaminophen (Ofirmev Injection -) 1,000 mg IVPB Q6H PRN PRN Reason: FEVER/PAIN Bisacodyl (Dulcolax -) 5 mg PO HS [facility] Last Admin: 10/14/19 21:16 Dose: 5 mg Docusate Sodium (Colace -) 100 mg PO BID [facility] Last Admin: 10/15/19 13:22 Dose: 100 mg Piperacillin Sod/Tazobactam (Sod 4.5 gm/ Dextrose) 100 mls @ 200 mls/hr IVPB Q8H-IV [facility]; Protocol Last Admin: 10/15/19 13:20 Dose: 200 mls/hr Azithromycin (Zithromax 500mg Ivpb (Pre-Docked)) 500 mg in 250 mls @ 250 mls/ hr IVPB Q24H [facility] Last Admin: 10/14/19 17:07 Dose: 250 mls/hr Pantoprazole Sodium 80 mg/ (Sodium Chloride) 100 mls @ 10 mls/hr IVPB Q10H [facility] Last Admin: 10/15/19 13:57 Dose: Not Given Insulin Aspart (Novolog Vial Sliding Scale -) 1 vial SQ BIDAC [facility]; Protocol Last Admin: 10/15/19 06:06 Dose: Not Given Levothyroxine Sodium (Synthroid -) 125 mcg PO DAILY@0700 [facility] Last Admin: 10/15/19 06:09 Dose: 125 mcg Levothyroxine Sodium (Synthroid Injection -) 90 mcg IVPUSH DAILY [facility] Last Admin: 10/15/19 13:22 Dose: 90 mcg Metformin HCl (Glucophage -) 500 mg PO BIDAC [facility] Last Admin: 10/15/19 06:06 Dose: Not Given Multivitamins/Minerals/Vitamin C (Tab-A-Vit -) 1 tab PO DAILY [facility] Last Admin: 10/15/19 13:21 Dose: 1 tab - Objective Vital Signs: Vital Signs Temperature 98.8 F 10/15/19 13:12 Pulse Rate 71 10/15/19 13:12 Respiratory Rate 18 10/15/19 13:12 Blood Pressure 152/74 10/15/19 13:12 O2 Sat by Pulse Oximetry (%) 100 10/15/19 12:40 Constitutional: Yes: Calm Eyes: Yes: Conjunctiva Clear HENT: Yes: Atraumatic Cardiovascular: Yes: S1, S2 Respiratory: Yes: CTA Bilaterally Gastrointestinal: Yes: Soft, Abdomen, Obese Genitourinary: Yes: WNL Musculoskeletal: Yes: WNL Edema: LLE: Trace, RLE: Trace Neurological: Yes: Oriented Psychiatric: Yes: Oriented Labs: CBC, BMP 10/15/19 05:25 10/15/19 05:25 INR, PTT INR 1.14 (0.83-1.09) H 10/12/19 05:40 Problem List - Problems (1) Azotemia Code(s): R79.89 - OTHER SPECIFIED ABNORMAL FINDINGS OF BLOOD CHEMISTRY (2) Anemia Code(s): D64.9 - ANEMIA, UNSPECIFIED (3) COPD (chronic obstructive pulmonary disease) Code(s): J44.9 - CHRONIC OBSTRUCTIVE PULMONARY DISEASE, UNSPECIFIED Assessment/Plan Current Medications Generic Name Dose Route Start Last Admin Trade Name Freq PRN Reason Stop Dose Admin Acetaminophen 650 mg 10/07/19 15:04 10/10/19 02:10 Tylenol - PO 650 mg Q6H PRN Administration FEVER Acetaminophen 1,000 mg 10/11/19 20:53 Ofirmev Injection - IVPB Q6H PRN FEVER/PAIN Bisacodyl 5 mg 10/07/19 22:00 10/14/19 21:16 Dulcolax - PO 5 mg HS [facility] Administration Docusate Sodium 100 mg 10/07/19 10:00 10/15/19 13:22 Colace - PO 100 mg BID [facility] Administration Piperacillin Sod/Tazobactam 100 mls @ 200 mls/hr 10/07/19 18:00 10/15/19 13: 20 Sod 4.5 gm/ Dextrose IVPB 200 mls/hr Q8H-IV [facility] Administration Protocol Azithromycin 500 mg in 250 mls @ 250 mls/hr 10/07/19 16:15 10/14/19 17:07 Zithromax 500mg Ivpb (Pre-Docked) IVPB 250 mls/hr Q24H [facility] Administration Pantoprazole Sodium 80 mg/ 100 mls @ 10 mls/hr 10/11/19 20:30 10/15/19 13:57 Sodium Chloride IVPB Not Given Q10H [facility] 8 MG/HR Insulin Aspart 1 vial 10/07/19 07:00 10/15/19 06:06 Novolog Vial Sliding Scale - SQ Not Given BIDAC [facility] Protocol Levothyroxine Sodium 125 mcg 10/07/19 07:00 10/15/19 06:09 Synthroid - PO 125 mcg DAILY@0700 [facility] Administration Levothyroxine Sodium 90 mcg 10/12/19 10:00 10/15/19 13:22 Synthroid Injection - IVPUSH 90 mcg DAILY [facility] Administration Metformin HCl 500 mg 10/07/19 07:00 10/15/19 06:06 Glucophage - PO Not Given BIDAC [facility] Multivitamins/Minerals/Vitamin C 1 tab 10/07/19 10:00 10/15/19 13:21 Tab-A-Vit - PO 1 tab DAILY [facility] Administration Impression 1. azotemia 2. larissa unclear baseline hand packager 3. gi bleed with melena 4. dvt on eliquis 5. dm 6. htn Plan - renal function is stable - pt getting colonoscopy - outpt follow up for proteinuria - avoid nsaids
[2019-10-15] MEDS: AZITHROMYCIN IVPB 500 MG/250 ML BAG IVPB SCH (16:00)
--- NOTE | 2019-10-15 16:48 | PN ---
Progress Note (short form) - Note Progress Note: doing well s/p colonoscopy today day #8 antibiotics no fevers no cough Vital Signs Period Temp Pulse Resp BP Sys/Mendez Pulse Ox Last 24 Hr 97.9 F-98.8 F 18-75 18-78 131-163/54-92 98-100 cor-rrr lungs clear abd soft,nt ext no edema CBC, BMP 10/15/19 05:25 10/15/19 05:25 Microbiology 10/07/19 14:30 Blood - Peripheral Venous Blood Culture - Final NO GROWTH AFTER 5 DAYS INCUBATION 10/07/19 14:45 Blood - Peripheral Venous Blood Culture - Final NO GROWTH AFTER 5 DAYS INCUBATION 10/08/19 06:10 Sputum - Expectorated Gram Stain - Final 10/08/19 06:10 Sputum - Expectorated Sputum Culture - Final NORMAL RESPIRATORY JESSICA 10/08/19 06:10 Urine - Urine Clean Catch Urine Culture - Final NO GROWTH OBTAINED 10/08/19 06:10 Urine - Urine Clean Catch Legionella Antigen - Final 10/08/19 06:10 Urine - Urine Clean Catch Streptococcus pneumoniae Antigen ( M - Final a/p pneumonia- day #8 antibioitics- will d/c gi bleed- s/p endoscoopy, per gi Problem List - Problems (1) Pneumonia Code(s): J18.9 - PNEUMONIA, UNSPECIFIED ORGANISM (2) GI bleed Code(s): K92.2 - GASTROINTESTINAL HEMORRHAGE, UNSPECIFIED Qualifiers: GI bleed type/associated pathology: melena Qualified Code(s): K92.1 - Melena
[2019-10-15] MEDS: BISACODYL 5 MG TABLET.DR (FP) PO SCH (21:24)
[2019-10-16] MEDS: PANTOPRAZOLE SODIUM 80 MG in SODIUM CHLORIDE 100 ML IVPB SCH (00:34)
[2019-10-16] MEDS: LEVOTHYROXINE NA 125 MCG TABLET (FP) PO SCH (06:14)
[2019-10-16] MEDS: metFORMIN HCL 500 MG TABLET (FP) PO SCH ×2 (06:14→17:49)
[2019-10-16] MEDS: INSULIN SLIDING SCALE (NOVOLOG) 1 VIAL SQ SCH ×2 (06:15→16:19)
[2019-10-16 08:07] LABS: BASO % 1.3 % (0-2.0); EOS % 2.2 % (0-4.5); HEMATOCRIT 31.6 % (32.4-45.2); HEMOGLOBIN 10.1 GM/dL (10.7-15.3); LYMPH % 14.4 % (8-40); MCH 27.2 pg (25.7-33.7); MEAN PLT VOLUME 8.3 fl (7.5-11.1); MONO % 6.2 % (3.8-10.2); NEUT % 75.9 % (42.8-82.8); PLATELET COUNT 334 K/MM3 (134-434); RBC 3.72 M/mm3 (3.60-5.2); RDW 16.1 % (11.6-15.6); WHITE BLOOD COUNT 10.9 K/mm3 (4.0-10.0)
--- NOTE | 2019-10-16 08:21 | DS ---
Physical Examination Vital Signs: Vital Signs Temperature 98.5 F 10/16/19 06:00 Pulse Rate 89 10/16/19 06:00 Respiratory Rate 18 10/16/19 06:00 Blood Pressure 158/73 10/16/19 06:00 O2 Sat by Pulse Oximetry (%) 98 10/15/19 21:00 Findings/Remarks: AWAKE ALERT TOLERATING MEALS Constitutional: Yes: No Distress Cardiovascular: Yes: Regular Rate and Rhythm Respiratory: Yes: WNL Gastrointestinal: Yes: WNL Discharge Summary Problems reviewed: Yes Reason For Visit: GASTROINTESTINAL HEMORRHAGE,MELENA Current Active Problems ELIZABETH (acute kidney injury) (Acute) Anemia (Acute) Azotemia (Acute) COPD (chronic obstructive pulmonary disease) (Acute) Constipation (Acute) DVT (deep venous thrombosis) (Acute) Diabetes (Acute) GERD (gastroesophageal reflux disease) (Acute) GI bleed (Acute) HTN (hypertension) (Acute) Hematochezia (Acute) Hypothyroidism (Acute) Melena (Acute) Pneumonia (Acute) Pulmonary infiltrate in left lung on chest x-ray (Acute) Procedures: Principal: COLONOSCOPY/EGD AND CT SCAN Hospital Course: ADMITTED GI BLEED, ANEMIA, AND TRANSFUSED PRBC OVER PAST WEEK. PATIENT OFF OF ANTICOAGULATION NOW, AND MONITOR LABS OUTPATIENT. Plan of Treatment: NO NEED FOR ELIQUIS OR ANY ANTICOAGULATION Condition: Improved - Instructions Diet, Activity, Other Instructions: CBC AND BMP Q WEEKLY UNTIL JETT Referrals: Pam Triplett MD [Primary Care Provider] - Disposition: LONGTERM FACILITY - Home Medications Comprehensive Discharge Medication List: Ambulatory Orders Amlodipine Besylate [Norvasc -] 5 mg PO DAILY 10/05/19 Bisacodyl [Bisacodyl -] 5 mg PO HS 10/05/19 Clotrimazole/Betamet Diprop [Lotrisone -] 1 applic TP DAILY 10/05/19 Ergocalciferol [Vitamin D2] 50,000 unit PO Q7D@1000 10/05/19 Ferrous Sulfate [Feosol] 325 mg PO DAILY 10/05/19 Ipratropium/Albuterol Sulfate [Iprat-Albut 0.5-3(2.5) mg/3 ml] 3 ml IH QID PRN 10/05/19 Levothyroxine [Synthroid -] 125 mcg PO DAILY 10/05/19 Multivitamin [Multiple Vitamins] 1 each PO DAILY 10/05/19 metFORMIN HCL [Metformin HCl] 500 mg PO BID 10/05/19 Acetaminophen [Tylenol .Regular Strength -] 650 mg PO Q6H PRN tablet 10/16/19 Insulin Sliding Scale [Novolog Vial Sliding Scale -] 1 vial SQ BIDAC units Pantoprazole Sodium [Protonix -] 40 mg PO DAILY 30 Days #0 tablet 10/16/19 Prescription Drug Monitoring Program (I-STOP) results: I-STOP not reviewed
[2019-10-16 08:46] LABS: ALBUMIN 2.6 g/dl (3.4-5.0); BILIRUBIN,TOTAL 0.2 mg/dL (0.2-1); BLOOD UREA NITROGEN 14.5 mg/dL (7-18); CALCIUM 8.4 mg/dL (8.5-10.1); CREATININE 1.2 mg/dL (0.55-1.3); MAGNESIUM 1.8 mg/dL (1.8-2.4); POTASSIUM 3.6 mmol/L (3.5-5.1); TOT PROT 6.3 g/dl (6.4-8.2)
[2019-10-16] MEDS: LEVOTHYROXINE SODIUM 100 MCG VIAL IVPUSH SCH (10:44)
[2019-10-16] MEDS: DOCUSATE SODIUM 100 MG CAPSULE (FP) PO SCH (10:45)
[2019-10-16] MEDS: MULTIVITAMINS (DAILY MVI) TABLET (FP) PO SCH (10:45)
[2019-10-16 13:55] VITALS: BP 139/67; PULSE 87; TEMP 98.2
--- NOTE | 2019-10-16 14:46 | PN ---
Progress Note, Physician History of Present Illness: Pt seen and examined at bedside. She is awake and alert. SHe denies shortness of breath. - Current Medication List Current Medications: Active Medications Acetaminophen (Tylenol -) 650 mg PO Q6H PRN PRN Reason: FEVER Last Admin: 10/10/19 02:10 Dose: 650 mg Acetaminophen (Ofirmev Injection -) 1,000 mg IVPB Q6H PRN PRN Reason: FEVER/PAIN Bisacodyl (Dulcolax -) 5 mg PO HS [facility] Last Admin: 10/15/19 21:24 Dose: 5 mg Docusate Sodium (Colace -) 100 mg PO BID [facility] Last Admin: 10/16/19 10:45 Dose: 100 mg Pantoprazole Sodium 80 mg/ (Sodium Chloride) 100 mls @ 10 mls/hr IVPB Q10H [facility] Last Admin: 10/16/19 00:34 Dose: Not Given Insulin Aspart (Novolog Vial Sliding Scale -) 1 vial SQ BIDAC [facility]; Protocol Last Admin: 10/16/19 06:15 Dose: Not Given Levothyroxine Sodium (Synthroid -) 125 mcg PO DAILY@0700 [facility] Last Admin: 10/16/19 06:14 Dose: 125 mcg Levothyroxine Sodium (Synthroid Injection -) 90 mcg IVPUSH DAILY [facility] Last Admin: 10/16/19 10:44 Dose: 90 mcg Metformin HCl (Glucophage -) 500 mg PO BIDAC [facility] Last Admin: 10/16/19 06:14 Dose: 500 mg Multivitamins/Minerals/Vitamin C (Tab-A-Vit -) 1 tab PO DAILY [facility] Last Admin: 10/16/19 10:45 Dose: 1 tab - Objective Vital Signs: Vital Signs Temperature 98.2 F 10/16/19 13:53 Pulse Rate 87 10/16/19 13:53 Respiratory Rate 18 10/16/19 13:53 Blood Pressure 139/67 10/16/19 13:53 O2 Sat by Pulse Oximetry (%) 98 10/16/19 09:00 Constitutional: Yes: Calm Eyes: Yes: Conjunctiva Clear HENT: Yes: Atraumatic Cardiovascular: Yes: S1, S2 Respiratory: Yes: CTA Bilaterally Gastrointestinal: Yes: Normal Bowel Sounds, Soft Genitourinary: Yes: WNL Musculoskeletal: Yes: WNL Extremities: Yes: WNL Edema: No Neurological: Yes: Oriented Psychiatric: Yes: Oriented Labs: CBC, BMP 10/16/19 06:37 10/16/19 06:37 INR, PTT INR 1.14 (0.83-1.09) H 10/12/19 05:40 Problem List - Problems (1) Azotemia Code(s): R79.89 - OTHER SPECIFIED ABNORMAL FINDINGS OF BLOOD CHEMISTRY (2) Anemia Code(s): D64.9 - ANEMIA, UNSPECIFIED (3) COPD (chronic obstructive pulmonary disease) Code(s): J44.9 - CHRONIC OBSTRUCTIVE PULMONARY DISEASE, UNSPECIFIED Assessment/Plan Current Medications Generic Name Dose Route Start Last Admin Trade Name Freq PRN Reason Stop Dose Admin Acetaminophen 650 mg 10/07/19 15:04 10/10/19 02:10 Tylenol - PO 650 mg Q6H PRN Administration FEVER Acetaminophen 1,000 mg 10/11/19 20:53 Ofirmev Injection - IVPB Q6H PRN FEVER/PAIN Bisacodyl 5 mg 10/07/19 22:00 10/15/19 21:24 Dulcolax - PO 5 mg HS EVELYN Administration Docusate Sodium 100 mg 10/07/19 10:00 10/16/19 10:45 Colace - PO 100 mg BID EVELYN Administration Pantoprazole Sodium 80 mg/ 100 mls @ 10 mls/hr 10/11/19 20:30 10/16/19 00:34 Sodium Chloride IVPB Not Given Q10H EVELYN 8 MG/HR Insulin Aspart 1 vial 10/07/19 07:00 10/16/19 06:15 Novolog Vial Sliding Scale - SQ Not Given BIDAC [facility] Protocol Levothyroxine Sodium 125 mcg 10/07/19 07:00 10/16/19 06:14 Synthroid - PO 125 mcg DAILY@0700 EVELYN Administration Levothyroxine Sodium 90 mcg 10/12/19 10:00 10/16/19 10:44 Synthroid Injection - IVPUSH 90 mcg DAILY EVELYN Administration Metformin HCl 500 mg 10/07/19 07:00 10/16/19 06:14 Glucophage - PO 500 mg BIDAC EVELYN Administration Multivitamins/Minerals/Vitamin C 1 tab 10/07/19 10:00 10/16/19 10:45 Tab-A-Vit - PO 1 tab DAILY EVELYN Administration Impression 1. 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 gi bleed with melena 4. dvt on eliquis 5. dm 6. htn Plan - avoid nsaids - GI follow up - renal function stable - outpt follow up for proteinuria - will follow prn
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
== END 2019-10-16 17:57 | DRG 377 ==
LOC: JER 16:01 → JERBED 19:20 → J6S 21:00 → J4S 10-06 22:44
PROVIDERS: ADMIT Internal Medicine; ATTEND Family Medicine
PROC: 0DJ08ZZ Inspection of Upper Intestinal Tract, Via Natural or Artificial Opening Endoscopic (ICD-10-PCS; 2019-10-07)
PROC: 30233N1 Transfusion of Nonautologous Red Blood Cells into Peripheral Vein, Percutaneous Approach (ICD-10-PCS; 2019-10-11)
PROC: 0DJD8ZZ Inspection of Lower Intestinal Tract, Via Natural or Artificial Opening Endoscopic (ICD-10-PCS; principal; 2019-10-15 09:45)
DX: K92.2 Gastrointestinal hemorrhage, unspecified (principal); J18.9 Pneumonia, unspecified organism; N17.9 Acute kidney failure, unspecified; J96.11 Chronic respiratory failure with hypoxia; E87.3 Alkalosis; J44.9 Chronic obstructive pulmonary disease, unspecified; I10 Essential (primary) hypertension; K21.9 Gastro-esophageal reflux disease without esophagitis; E03.9 Hypothyroidism, unspecified; K44.9 Diaphragmatic hernia without obstruction or gangrene; K57.90 Diverticulosis of intestine, part unspecified, without perforation or abscess without bleeding; E11.9 Type 2 diabetes mellitus without complications; K59.09 Other constipation; D64.9 Anemia, unspecified; K29.70 Gastritis, unspecified, without bleeding; K29.90 Gastroduodenitis, unspecified, without bleeding; Z99.81 Dependence on supplemental oxygen
CPT/HCPCS: 36415; 36430; 36511; 36600; 71045-TC-FY; 71250-TC; 74175-TC; 80048; 80053; 81003; 82272; 82728; 82803; 82962; 83036; 83540; 83550; 83735; 85025; 85027; 85610; 85730; 86850; 86900; 86901; 86922; 87040; 87070; 87086; 87205; 87899; 93005; 93010; 93970-TC; 94640; 97116-GP; 97162-GP; 99283-25; J1756; J7030; P9038; P9058; Q9967

== ENCOUNTER 2020-05-28 13:48 | Inpatient (IN) | payer OTHER ==
--- NOTE | 2020-05-28 14:02 | PDOC ---
History of Present Illness - General Chief Complaint: Shortness of Breath Stated Complaint: SOB Time Seen by Provider: 05/28/20 14:01 - History of Present Illness Initial Comments: 05/28/20 15:25 69yo F p/w SOB and desat at home. Patient states She has a home nurse due to steadily decreasing ability to complete ADLs. Today the nurse noted pt desatted and sent her here. She was BIBEMS on a NRB, with SpO2>95%. Upon room-air chal lenge, she desatted to 85% before she was put back on NRB, which brought her O2 back to SpO2>95%. Pt also c/o new-onset swollen legs. Past History - Travel History Traveled outside of the country in the last 30 days: No Close contact w/someone who was outside of country & ill: No - Medical History Allergies/Adverse Reactions: Allergies Allergy/AdvReac Type Severity Reaction Status Date / Time No Known Allergies Allergy Verified 05/28/20 14:02 Home Medications: Ambulatory Orders Amlodipine Besylate [Norvasc -] 5 mg PO DAILY 10/05/19 Ergocalciferol [Vitamin D2] 50,000 unit PO Q7D@1000 10/05/19 Ferrous Sulfate [Feosol] 325 mg PO DAILY 10/05/19 Ipratropium/Albuterol Sulfate [Iprat-Albut 0.5-3(2.5) mg/3 ml] 3 ml IH QID PRN 10/05/19 Levothyroxine [Synthroid -] 125 mcg PO DAILY 10/05/19 Multivitamin [Multiple Vitamins] 1 each PO DAILY 10/05/19 metFORMIN HCL [Metformin HCl] 500 mg PO BID 10/05/19 Anemia: Yes COPD: Yes CHF: No Diabetes: Yes HTN: Yes Thyroid Disease: Yes - Surgical History Abdominal Surgery: Yes - Immunization History Immunization Up to Date: Yes - Psycho-Social/Smoking History Smoking History: Never smoked Have you smoked in the past 12 months: Yes If you are a former smoker, when did you quit?: 1 year Review of Systems - Review of Systems Able to Perform ROS?: Yes Is the patient limited Sami proficient: No Constitutional: Yes: Malaise, Weakness HEENTM: No: Symptoms Reported Respiratory: Yes: Orthopnea, Shortness of Breath. No: Cough, SOB with Exertion, SOB at Rest, Hemoptysis Cardiac (ROS): No: Symptoms Reported, Chest Pain, Lightheadedness, Palpitations ABD/GI: No: Symptoms Reported, Abdominal Distended, Abd. Pain w/ defecation, Diarrhea, Nausea, Vomiting : No: Symptoms Reported, Burning, Dysuria, Hematuria Musculoskeletal: Yes: Muscle Weakness Integumentary: Yes: Other Neurological: No: Headache, Numbness, Seizure, Dizziness *Physical Exam - Physical Exam General Appearance: Yes: Mild Distress, Obese HEENT: positive: EOMI, HEBERT, Normal Voice Neck: positive: Supple Respiratory/Chest: positive: Accessory Muscle Use, Labored Respiration, Rapid RR, Other. negative: Rhonchi, Stridor, Wheezing, Hyperresonant Cardiovascular: positive: Regular Rhythm, Regular Rate Gastrointestinal/Abdominal: positive: Protuberent Rectal Exam: positive: deferred Extremity: positive: Pedal Edema, Swelling. negative: Calf Tenderness Integumentary: positive: Warm, Moist Neurologic: positive: Fully Oriented, Alert, Normal Response ED Treatment Course - LABORATORY CBC & Chemistry Diagram: 05/28/20 14:45 05/28/20 14:45 Discharge - Discharge Information Problems reviewed: Yes Clinical Impression/Diagnosis: Hypoxia, Hyponatremia, Elevated C-reactive protein (CRP), Hypercarbia, Elevated LDH Condition: Fair - Admission Yes - Follow up/Referral Referrals: Pam Triplett MD [Primary Care Provider] - - Patient Discharge Instructions - Post Discharge Activity
[2020-05-28 14:57] LABS: BASO % 0.8 % (0-2.0); EOS % 0.7 % (0-4.5); HEMATOCRIT 44.1 % (32.4-45.2); HEMOGLOBIN 13.7 GM/dL (10.7-15.3); MCH 26.1 pg (25.7-33.7); MCHC 31.1 g/dl (32.0-36.0); MEAN CELL VOLUME 83.7 fl (80-96); MEAN PLT VOLUME 8.3 fl (7.5-11.1); MONO % 5.4 % (3.8-10.2); NEUT % 84.1 % (42.8-82.8); PLATELET COUNT 267 K/MM3 (134-434); RBC 5.27 M/mm3 (3.60-5.2); RDW 17.3 % (11.6-15.6); WHITE BLOOD COUNT 10.2 K/mm3 (4.0-10.0)
[2020-05-28 15:04] LABS: ARTERIAL BLD GAS O2 SATURATION 94.4 mmHg (95-98); ARTERIAL BLOOD GAS BASE EXCESS 3.2 mmol/L (-2-2); ARTERIAL BLOOD GAS PO2 77.8 mmHg (80-100)
[2020-05-28 15:05] LABS: INR 1.06 (0.83-1.09); PROTHROMBIN TIME (PATIENT) 12.5 SEC (9.7-13.0)
[2020-05-28 15:08] LABS: ACTIVATED PTT 30.8 SECONDS (25.2-36.5)
[2020-05-28 15:23] LABS: LDH 310 U/L (84-246)
[2020-05-28 15:25] LABS: ALBUMIN 3.4 g/dl (3.4-5.0); ALK PHOS 68 U/L (45-117); ANION GAP 8 MMOL/L (8-16); BILIRUBIN,TOTAL 0.4 mg/dL (0.2-1); BLOOD UREA NITROGEN 15.3 mg/dL (7-18); CALCIUM 8.7 mg/dL (8.5-10.1); CHLORIDE 87 mmol/L (98-107); CO2 31 mmol/L (21-32); CREATININE 1.3 mg/dL (0.55-1.3); GLUCOSE,RANDOM 126 mg/dL (74-106); POTASSIUM 5.2 mmol/L (3.5-5.1); SGOT/AST 20 U/L (15-37); SGPT/ALT 20 U/L (13-61); SODIUM 126 mmol/L (136-145); TOT PROT 7.9 g/dl (6.4-8.2)
[2020-05-28] MEDS ORDERED: DEXAMETHASONE SOD PHOSPHATE 10 MG/1 ML VIAL IVPUSH ONE (15:34)
[2020-05-28 15:38] LABS: BILIRUBIN,DIRECT 0.2 mg/dL (0.0-0.2)
[2020-05-28 15:41] LABS: N-TERMINAL BNP 692.2 pg/ml (5-125)
[2020-05-28] MEDS ORDERED: DEXAMETHASONE SOD PHOSPHATE 10 MG/1 ML VIAL ONE (15:42)
--- NOTE | 2020-05-28 16:43 | PDOC ---
Documentation entered by Toñito Epps SCRIBE, acting as scribe for Carri Rinaldi MD. Carri Rinaldi MD: This documentation has been prepared by the chaneleMich Aaron, SCRIBE, under my direction and personally reviewed by me in its entirety. I confirm that the documentation accurately reflects all work, treatment, procedures, and medical decision making performed by me. Attending Attestation - Resident Resident Name: Markus Herndon Wander - HPI HPI: 05/28/20 15:42 The patient is a 69 year old female with a significant PMH of anemia, COPD, HTN, and thyroid disease who presents to the emergency department BIBA for SOB. Patient reports that her home nurse noticed she was desaturating so called EMS. Upon arrival was SpO2>95% on NRB. On room air she desaturated to 85% before being put back on NRB and returning to >95%. Patient also noted recent LE swelling. The patient denies any other symptoms. Allergies: NKDA Past surgical history: abdominal surgery PCP: Pam Triplett MD - Physicial Exam PE: 05/28/20 16:37 Agree with resident exam. PAtient is mildly drowsy but easily arousable. Pulm: distant breath sounds b/l. + tachypnea, + accessory muscle use. CV+ rrr no m/r/g ext: + pitting edema b/l/. - Critical Care Time Total Critical Care Time: 30 Critical Care Statement: The care of this patient involved high complexity decision making to prevent further life threatening deterioration of the patient's condition and/or to evaluate & treat vital organ system(s) failure or risk of failure. - Medical Decision Making 05/28/20 16:40 Pt presents to the ED complaining of shortness of breath. Hypoxic to 85% on RA on arrival to the ED, 95% on 6L nasal cannula. initial differential included COVID, CHF, PNA, less likely PTX, COPD exacerbation. CXR and inflammatory markers are consistent with COVID. Will start on decadron, place on isolation, admit to medicine for continued monitoring and treatment. 05/29/20 11:05 05/29/20 11:14 Discharge - Discharge Information Problems reviewed: Yes Clinical Impression/Diagnosis: Hypoxia, Hyponatremia, Elevated C-reactive protein (CRP), Hypercarbia, Elevated LDH Condition: Fair - Follow up/Referral - Patient Discharge Instructions - Post Discharge Activity
--- NOTE | 2020-05-28 17:55 | HP ---
CHIEF COMPLAINT: Hypoxic PCP: Ioana HISTORY OF PRESENT ILLNESS: 69yo F with h/o COPD (2L home) , T2DM, HTN, RLE DVT, Hypothyroidism who presented to the ER via EMS due to hypoxia of 85%. Patient was placed on NRB returning to 95% SpO2 and ABG performed showed hypercarbic retention. At this time patient was slightly somnolent and she was placed on BiPap. Pt at time of my exam is more awake and off of BiPap currently. She is a poor medical staffing coordinator, but notes she first had symptoms around 2 weeks ago. She developed a low-grade temperature and general malaise at that time. She has been trying to drink water and eat chicken soup. She was not improving throughout the two weeks and started to have some difficulty breathing. Pt denies any cough, chest pain, palpitations, abdominal pain. She does endorse some recent increase in lower extremity edema, however it has fluctuated in the recent history. PMHx: As above PSHx: None SoHx: Former smoker; quit 2 years prior, no alcohol, no drugs, lives alone FamHx: Noncontributory Allergies No Known Allergies Allergy (Verified 05/28/20 14:02) HOME MEDICATIONS: Home Medications Medication Instructions Recorded Amlodipine Besylate [Norvasc -] 5 mg PO DAILY 10/05/19 Ergocalciferol [Vitamin D2] 50,000 unit PO Q7D@1000 10/05/19 Ferrous Sulfate [Feosol] 325 mg PO DAILY 10/05/19 Ipratropium/Albuterol Sulfate 3 ml IH QID PRN 10/05/19 [Iprat-Albut 0.5-3(2.5) mg/3 ml] Levothyroxine [Synthroid -] 125 mcg PO DAILY 10/05/19 Multivitamin [Multiple Vitamins] 1 each PO DAILY 10/05/19 metFORMIN HCL [Metformin HCl] 500 mg PO BID 10/05/19 REVIEW OF SYSTEMS As per HPi PHYSICAL EXAMINATION Vital Signs - 24 hr 05/28/20 05/28/20 05/28/20 13:59 14:00 14:39 Temperature 97.7 F Pulse Rate 86 83 Pulse Rate [ Apical] Respiratory 16 Rate Blood Pressure 172/96 H Blood Pressure [Right Arm] O2 Sat by Pulse 97 92 L 98 Oximetry (%) 05/28/20 05/28/2005/28/20 14:47 14:51 17:47 Temperature 98.4 F Pulse Rate Pulse Rate [ 75 81 Apical] Respiratory 26 H 18 Rate Blood Pressure Blood Pressure 164/67 165/89 [Right Arm] O2 Sat by Pulse 94 L 94 L 96 Oximetry (%) GENERAL: Awake, alert, and fully oriented,on 6LNC, NAD HEENT: Nc/AT, EOMI, CRISTEL, mild dry mucosa NECK: JVD could not be assessed LUNGS: Breath sounds equal, clear to auscultation bilaterally. No wheezes, and no crackles. No accessory muscle use. HEART: Regular rate and rhythm, normal S1 and S2 without murmur, rub or gallop. ABDOMEN: Soft, NT/ND, hypoactive bowel sounds, no guarding, Mild hepatojugular reflux EXTREMITIES: 2+ pulses, warm, well-perfused. No calf tenderness.1+ pitting edema to the ankles PSYCHIATRIC: Cooperative. Good eye contact. Appropriate mood and affect. SKIN: Warm, dry, venous stasis changes with dry skin on b/l lower extremities. no areas of erythema noted Laboratory Results - last 24 hr 05/28/20 05/28/20 05/28/20 14:25 14:45 14:45 WBC 10.2 H RBC 5.27 H Hgb 13.7 Hct 44.1 D MCV 83.7 MCH 26.1 MCHC 31.1 L RDW 17.3 H Plt Count 267 D MPV 8.3 Absolute Neuts (auto) 8.6 H Neutrophils % 84.1 H Lymphocytes % 9.0 D Monocytes % 5.4 Eosinophils % 0.7 Basophils % 0.8 Nucleated RBC % 0 PT with INR INR PTT (Actin FS) Anticoagulation Therapy No Result Required. Puncture Site No Result Required. Patient Temperature No Result Required. ABG pH 7.330 L ABG pCO2 60.00 H ABG pO2 77.8 L ABG HCO3 30.9 H ABG O2 Sat (Measured) 94.4 L ABG O2 Content No Result Required. ABG Base Excess 3.2 H Aashish Test No Result Required. Patient On Oxygen No Result Required. O2 Delivery Device No Result Required. Oxygen Flow Rate No Result Required. Vent Mode No Result Required. Vent Rate No Result Required. Mechanical Rate Mp PEEP No Result Required. Pressure Support Vent No Result Required. Sodium Potassium Chloride Carbon Dioxide Anion Gap BUN Creatinine Est GFR (CKD-EPI)AfAm Est GFR (CKD-EPI)NonAf Random Glucose Lactic Acid 0.7 Calcium Ferritin Total Bilirubin Direct Bilirubin AST ALT Alkaline Phosphatase LD Total Creatine Kinase Troponin I C-Reactive Protein B-Natriuretic Peptide Total Protein Albumin 05/28/20 05/28/20 05/28/20 14:45 14:45 14:45 WBC RBC Hgb Hct MCV MCH MCHC RDW Plt Count MPV Absolute Neuts (auto) Neutrophils % Lymphocytes % Monocytes % Eosinophils % Basophils % Nucleated RBC % PT with INR 12.50 INR 1.06 PTT (Actin FS) 30.8 Anticoagulation Therapy Puncture Site Patient Temperature ABG pH ABG pCO2 ABG pO2 ABG HCO3 ABG O2 Sat (Measured) ABG O2 Content ABG Base Excess Aashish Test Patient On Oxygen O2 Delivery Device Oxygen Flow Rate Vent Mode Vent Rate Mechanical Rate PEEP Pressure Support Vent Sodium 126 L Potassium 5.2 H Chloride 87 L Carbon Dioxide 31 Anion Gap 8 BUN 15.3 Creatinine 1.3 Est GFR (CKD-EPI)AfAm 48.13 Est GFR (CKD-EPI)NonAf 41.53 Random Glucose 126 H Lactic Acid Calcium 8.7 Ferritin 60.7 Total Bilirubin 0.4 Direct Bilirubin 0.2 AST 20 ALT 20 Alkaline Phosphatase 68 LD Total 310 H Creatine Kinase 67 Troponin I < 0.02 C-Reactive Protein 7.3 H B-Natriuretic Peptide 692.2 H Total Protein 7.9 Albumin 3.4 ASSESSMENT/PLAN: Acute hypoxic hypercarbic distress Hyponatremia Hyperkalemia History of COPD Type 2 DM HTN Hypothyroidism History of RLE DVT --CXR reviewed with R>L opacifications --F/u COVID PCR --Decadron 6mg daily --Trend inflammatory markers --Duoneb nebulizer PRN given COPD --Recheck ABG if pt becomes somnolent --BiPap on standby PRN --CXR in AM --Monitor hyponatremia; likely hypervolemic hyponatremia requiring fluid restriction (would avoid using IVP diuretics at this juncture) --Serum/urine osm sent --TSH for tomorrow --Renal consulted --Monitor for rise >8-10mEq --BGM and ISS for glucose monitoring --Holding Metformin in acute care setting While off biPap: Diabetic diet Dispo: Admit Joshua Zelaya, DO - IM Visit type - Medication Review Med list reviewed for High Risk Meds patients 65 and older: Yes - Emergency Visit Emergency Visit: Yes ED Registration Date: 05/28/20 Care time: The patient presented to the Emergency Department on the above date a nd was hospitalized for further evaluation of their emergent condition. - New Patient This patient is new to me today: Yes Date on this admission: 05/28/20 - Critical Care Critical Care patient: No
[2020-05-28] MEDS ORDERED: AZITHROMYCIN IVPB 500 MG/250 ML BAG IVPB ONE ×2 (18:14→18:46)
[2020-05-28] MEDS ORDERED: ALBUTEROL SO4 HFA INHALER IH PRN (19:23)
[2020-05-28] MEDS ORDERED: ALBUTEROL SO4 2.5/IPRATROPIUM 0.5 INH SOL 3 ML VIAL.NEB. NEB SCH (20:00)
[2020-05-28] MEDS: APIXABAN 5 MG TABLET PO SCH (23:03)
[2020-05-28] MEDS: INSULIN SLIDING SCALE (NOVOLOG) 1 VIAL SQ SCH (23:03)
[2020-05-29 01:52] LABS: ARTERIAL BLD GAS O2 SATURATION 89.4 mmHg (95-98); ARTERIAL BLOOD GAS BASE EXCESS 1.3 mmol/L (-2-2); ARTERIAL BLOOD GAS pH 7.221 (7.350-7.450)
[2020-05-29 01:54] LABS: ALLENS TEST POSITIVE
[2020-05-29 01:55] LABS: VENT MODE S/T; VENT RATE 14
[2020-05-29 04:18] LABS: ARTERIAL BLD GAS O2 SATURATION 91.3 mmHg (95-98); ARTERIAL BLOOD GAS BASE EXCESS 1.5 mmol/L (-2-2); ARTERIAL BLOOD GAS PO2 72.7 mmHg (80-100); ARTERIAL BLOOD GAS pH 7.241 (7.350-7.450)
[2020-05-29 04:21] LABS: ALLENS TEST POSITIVE
[2020-05-29 04:22] LABS: VENT MODE S/T
[2020-05-29 04:23] LABS: VENT RATE 16
[2020-05-29] MEDS: LEVOTHYROXINE NA 125 MCG TABLET (FP) PO SCH (06:20)
[2020-05-29 06:57] LABS: ARTERIAL BLD GAS O2 SATURATION 91.9 mmHg (95-98); ARTERIAL BLOOD GAS pH 7.236 (7.350-7.450)
[2020-05-29] MEDS: INSULIN SLIDING SCALE (NOVOLOG) 1 VIAL SQ SCH ×4 (06:58→21:21)
[2020-05-29 06:59] LABS: ALLENS TEST POSITIVE
[2020-05-29 07:00] LABS: VENT MODE S/T; VENT RATE 16
--- NOTE | 2020-05-29 07:02 | PN ---
Progress Note (short form) - Note Progress Note: PULMONARY CONSULTATION DICTATED 05/29/20 IMP ACUTE HYPOXEMIC/HYPERCAPNEIC RESPIRATORY FAILURE SUSPECTED COVID-19 PNEUMONIA COPD O2 DEPENDENT H/O RLE DVT ? CHF HYPOTHYROID HYPONATREMIA PLAN SUPPLEMENTAL O2 NIPPV NEEDED INHALED BRONCHODILATORS STEROIDS ABX IVF AC MONITOR INFLAMMATORY MARKERS MONITOR LYTES,NA,RENAL FUNCTION CHEST CT WHEN STABLE F/U CHEST X-RAYS F/U ABGs ECHO COVID PCR PENDING DR LOPEZ Problem List - Problems (1) Acute respiratory failure with hypoxia and hypercarbia Code(s): J96.01 - ACUTE RESPIRATORY FAILURE WITH HYPOXIA; J96.02 - ACUTE RESPIRATORY FAILURE WITH HYPERCAPNIA (2) Elevated C-reactive protein (CRP) Code(s): R79.82 - ELEVATED C-REACTIVE PROTEIN (CRP) (3) DVT (deep venous thrombosis) Code(s): I82.409 - ACUTE EMBOLISM AND THOMBOS UNSP DEEP VN UNSP LOWER EXTREMITY Qualifiers: DVT location: lower extremity Chronicity: unspecified Laterality: right (4) Diabetes Code(s): E11.9 - TYPE 2 DIABETES MELLITUS WITHOUT COMPLICATIONS (5) HTN (hypertension) Code(s): I10 - ESSENTIAL (PRIMARY) HYPERTENSION (6) Suspected 2019-nCoV infection Code(s): Z20.828 - CONTACT W AND EXPOSURE TO OTH VIRAL COMMUNICABLE DISEASES (7) Pneumonia Code(s): J18.9 - PNEUMONIA, UNSPECIFIED ORGANISM (8) COPD (chronic obstructive pulmonary disease) Code(s): J44.9 - CHRONIC OBSTRUCTIVE PULMONARY DISEASE, UNSPECIFIED (9) Hyponatremia Code(s): E87.1 - HYPO-OSMOLALITY AND HYPONATREMIA
[2020-05-29 08:52] LABS: HEMATOCRIT 43.5 % (32.4-45.2); HEMOGLOBIN 13.3 GM/dL (10.7-15.3); MCH 26.2 pg (25.7-33.7); MCHC 30.7 g/dl (32.0-36.0); MEAN CELL VOLUME 85.4 fl (80-96); MEAN PLT VOLUME 8.3 fl (7.5-11.1); PLATELET COUNT 260 K/MM3 (134-434); RBC 5.09 M/mm3 (3.60-5.2); RDW 17.2 % (11.6-15.6)
--- NOTE | 2020-05-29 08:59 | EKG ---
Test Reason : Blood Pressure : / mmHG Vent. Rate : 084 BPM Atrial Rate : 084 BPM P-R Int : 158 ms QRS Dur : 082 ms QT Int : 342 ms P-R-T Axes : 064 018 074 degrees QTc Int : 404 ms POOR DATA QUALITY, INTERPRETATION MAY BE ADVERSELY AFFECTED NORMAL SINUS RHYTHM POSSIBLE LEFT ATRIAL ENLARGEMENT ABNORMAL ECG WHEN COMPARED WITH ECG OF 05-OCT-2019 17:36, NO SIGNIFICANT CHANGE WAS FOUND Confirmed by Dia Leyva ([id number]) on 05/29/2020 8:59:26 AM Referred By: Confirmed By:Dia Leyva
[2020-05-29 09:20] LABS: ALBUMIN 3.2 g/dl (3.4-5.0); BILIRUBIN,TOTAL 0.3 mg/dL (0.2-1); BLOOD UREA NITROGEN 19.8 mg/dL (7-18); CALCIUM 8.7 mg/dL (8.5-10.1); CREATININE 1.5 mg/dL (0.55-1.3); MAGNESIUM 2.1 mg/dL (1.8-2.4); POTASSIUM 5.8 mmol/L (3.5-5.1); TOT PROT 7.6 g/dl (6.4-8.2)
[2020-05-29] MEDS: APIXABAN 5 MG TABLET PO SCH ×2 (09:26→21:17)
[2020-05-29] MEDS: amLODIPine BESYLATE 5 MG TABLET (FP) PO SCH (09:26)
[2020-05-29] MEDS ORDERED: DEXAMETHASONE SOD PHOSPHATE 4 MG/1 ML VIAL IVPUSH SCH (10:00)
[2020-05-29] MEDS: TIOTROPIUM BROMIDE 2.5 MCG (SPIRIVA) RESPIMAT INHALER IH SCH (11:37)
--- NOTE | 2020-05-29 11:42 | PN ---
Progress Note (short form) - Note Progress Note: PULMONARY PULMONARY CONSULTATION DICTATED 05/29/20 IMP ACUTE HYPOXEMIC/HYPERCAPNEIC RESPIRATORY FAILURE COPD O2 DEPENDENT PNEUMONIA ? CHF HTN DM RLE DVT HYPOTHYROID HYPERKALEMIA HYPONATREMIA SUSPECTED OSAS ELIZABETH PLAN O2 NIPPV ABX INHALED BRONCHODILATORS STEROIDS MONITOR LYTES,NA,K,RENAL FUNCTION AC F/U ABGS CHEST CT WHEN STABLE F/U CHEST X-RAYS ECHO CONSIDER CARDIOLOGY EVAL DR LOPEZ Problem List - Problems (1) Acute respiratory failure with hypoxia and hypercarbia Code(s): J96.01 - ACUTE RESPIRATORY FAILURE WITH HYPOXIA; J96.02 - ACUTE RESPIRATORY FAILURE WITH HYPERCAPNIA (2) Elevated C-reactive protein (CRP) Code(s): R79.82 - ELEVATED C-REACTIVE PROTEIN (CRP) (3) DVT (deep venous thrombosis) Code(s): I82.409 - ACUTE EMBOLISM AND THOMBOS UNSP DEEP VN UNSP LOWER EXTREMITY Qualifiers: DVT location: lower extremity Chronicity: unspecified Laterality: right (4) Diabetes Code(s): E11.9 - TYPE 2 DIABETES MELLITUS WITHOUT COMPLICATIONS (5) HTN (hypertension) Code(s): I10 - ESSENTIAL (PRIMARY) HYPERTENSION (6) Suspected 2019-nCoV infection Code(s): Z20.828 - CONTACT W AND EXPOSURE TO OTH VIRAL COMMUNICABLE DISEASES (7) Pneumonia Code(s): J18.9 - PNEUMONIA, UNSPECIFIED ORGANISM (8) COPD (chronic obstructive pulmonary disease) Code(s): J44.9 - CHRONIC OBSTRUCTIVE PULMONARY DISEASE, UNSPECIFIED (9) Hyponatremia Code(s): E87.1 - HYPO-OSMOLALITY AND HYPONATREMIA (10) Hypercarbia Code(s): R06.89 - OTHER ABNORMALITIES OF BREATHING (11) Hypothyroidism Code(s): E03.9 - HYPOTHYROIDISM, UNSPECIFIED (12) Pulmonary infiltrate in left lung on chest x-ray Code(s): R91.8 - OTHER NONSPECIFIC ABNORMAL FINDING OF LUNG FIELD
[2020-05-29 12:01] LABS: ARTERIAL BLD GAS O2 SATURATION 91.9 mmHg (95-98); ARTERIAL BLOOD GAS BASE EXCESS 2.8 mmol/L (-2-2); ARTERIAL BLOOD GAS PO2 75.3 mmHg (80-100); ARTERIAL BLOOD GAS pH 7.235 (7.350-7.450)
[2020-05-29 12:02] LABS: ALLENS TEST POSITIVE
[2020-05-29 12:03] LABS: VENT MODE ST
[2020-05-29 12:04] LABS: VENT RATE 24
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
[2020-05-29] MEDS ORDERED: FUROSEMIDE 40 MG/4 ML INJECTABLE VIAL IVPUSH ONE ×2 (13:30→17:50)
--- NOTE | 2020-05-29 13:31 | PN ---
Physical Exam: SUBJECTIVE: Patient seen and examined Patient is obtunded on BiPAP opens her eye with a deep pain. OBJECTIVE: Vital Signs Period Temp Pulse Resp BP Sys/Mendez Pulse Ox Last 24 Hr 97.7 F-99.2 F 72-98 16-26 122-172/57-96 77-98 GENERAL: Awake, but obtunded HEENT: Nc/AT, EOMI, CRISTEL, mild dry mucosa NECK: JVD could not be assessed LUNGS: Breath sounds equal, clear to auscultation bilaterally. No wheezes, and no crackles. No accessory muscle use. HEART: Regular rate and rhythm, normal S1 and S2 without murmur, rub or gallop. ABDOMEN: Soft, NT/ND, hypoactive bowel sounds, no guarding, Mild hepatojugular reflux EXTREMITIES: 2+ pulses, warm, well-perfused. No calf tenderness.1+ pitting edema to the ankles PSYCHIATRIC: Cooperative. Good eye contact. Appropriate mood and affect. SKIN: Warm, dry, venous stasis changes with dry skin on b/l lower extremities. no areas of erythema noted Laboratory Results - last 24 hr 05/28/20 05/28/20 05/28/20 14:25 14:45 14:45 WBC 10.2 H RBC 5.27 H Hgb 13.7 Hct 44.1 D MCV 83.7 MCH 26.1 MCHC 31.1 L RDW 17.3 H Plt Count 267 D MPV 8.3 Absolute Neuts (auto) 8.6 H Neutrophils % 84.1 H Lymphocytes % 9.0 D Monocytes % 5.4 Eosinophils % 0.7 Basophils % 0.8 Nucleated RBC % 0 PT with INR INR PTT (Actin FS) D-Dimer Anticoagulation Therapy No Result Required. Puncture Site No Result Required. Patient Temperature No Result Required. ABG pH 7.330 L ABG pCO2 60.00 H ABG pO2 77.8 L ABG HCO3 30.9 H ABG O2 Sat (Measured) 94.4 L ABG O2 Content No Result Required. ABG Base Excess 3.2 H Aashish Test No Result Required. Patient On Oxygen No Result Required. O2 Delivery Device No Result Required. Oxygen Flow Rate No Result Required. Vent Mode No Result Required. Vent Rate No Result Required. Mechanical Rate Mp PEEP No Result Required. Pressure Support Vent No Result Required. Sodium Potassium Chloride Carbon Dioxide Anion Gap BUN Creatinine Est GFR (CKD-EPI)AfAm Est GFR (CKD-EPI)NonAf POC Glucometer Random Glucose Serum Osmolality Lactic Acid 0.7 Calcium Phosphorus Magnesium Ferritin Total Bilirubin Direct Bilirubin AST ALT Alkaline Phosphatase LD Total Creatine Kinase Troponin I C-Reactive Protein B-Natriuretic Peptide Total Protein Albumin [facility] COVID-19 ([facility]) 05/28/20 05/28/20 05/28/20 14:45 14:45 14:45 WBC RBC Hgb Hct MCV MCH MCHC RDW Plt Count MPV Absolute Neuts (auto) Neutrophils % Lymphocytes % Monocytes % Eosinophils % Basophils % Nucleated RBC % PT with INR 12.50 INR 1.06 PTT (Actin FS) 30.8 D-Dimer Anticoagulation Therapy Puncture Site Patient Temperature ABG pH ABG pCO2 ABG pO2 ABG HCO3 ABG O2 Sat (Measured) ABG O2 Content ABG Base Excess Aashish Test Patient On Oxygen O2 Delivery Device Oxygen Flow Rate Vent Mode Vent Rate Mechanical Rate PEEP Pressure Support Vent Sodium 126 L Potassium 5.2 H Chloride 87 L Carbon Dioxide 31 Anion Gap 8 BUN 15.3 Creatinine 1.3 Est GFR (CKD-EPI)AfAm 48.13 Est GFR (CKD-EPI)NonAf 41.53 POC Glucometer Random Glucose 126 H Serum Osmolality Lactic Acid Calcium 8.7 Phosphorus Magnesium Ferritin 60.7 Total Bilirubin 0.4 Direct Bilirubin 0.2 AST 20 ALT 20 Alkaline Phosphatase 68 LD Total 310 H Creatine Kinase 67 Troponin I < 0.02 C-Reactive Protein 7.3 H B-Natriuretic Peptide 692.2 H Total Protein 7.9 Albumin 3.4 [facility] COVID-19 ([facility]) 05/28/20 05/28/20 05/29/20 14:45 23:02 01:40 WBC RBC Hgb Hct MCV MCH MCHC RDW Plt Count MPV Absolute Neuts (auto) Neutrophils % Lymphocytes % Monocytes % Eosinophils % Basophils % Nucleated RBC % PT with INR INR PTT (Actin FS) D-Dimer Anticoagulation Therapy No Result Required. Puncture Site Right radial Patient Temperature No Result Required. ABG pH 7.221 L ABG pCO2 78.60 H* ABG pO2 69.0 L ABG HCO3 31.5 H ABG O2 Sat (Measured) 89.4 L ABG O2 Content No Result Required. ABG Base Excess 1.3 Aashish Test Positive Patient On Oxygen Yes O2 Delivery Device Bipap Oxygen Flow Rate 40% Vent Mode S/t Vent Rate 14 Mechanical Rate Bipap PEEP No Result Required. Pressure Support Vent 12/6 Sodium Potassium Chloride Carbon Dioxide Anion Gap BUN Creatinine Est GFR (CKD-EPI)AfAm Est GFR (CKD-EPI)NonAf POC Glucometer 207 Random Glucose Serum Osmolality Lactic Acid Calcium Phosphorus Magnesium Ferritin Total Bilirubin Direct Bilirubin AST ALT Alkaline Phosphatase LD Total Creatine Kinase Troponin I C-Reactive Protein B-Natriuretic Peptide Total Protein Albumin TSH COVID-19 (HOMER) Not detected 05/29/20 05/29/20 05/29/20 04:00 05:44 06:30 WBC RBC Hgb Hct MCV MCH MCHC RDW Plt Count MPV Absolute Neuts (auto) Neutrophils % Lymphocytes % Monocytes % Eosinophils % Basophils % Nucleated RBC % PT with INR INR PTT (Actin FS) D-Dimer Anticoagulation Therapy No Result Required. No Result Required. Puncture Site Right radial Right radial Patient Temperature No Result Required. No Result Required. ABG pH 7.241 L 7.236 L ABG pCO2 74.00 H* 74.00 H* ABG pO2 72.7 L 75.0 L ABG HCO3 31.1 H 30.7 H ABG O2 Sat (Measured) 91.3 L 91.9 L ABG O2 Content No Result Required. No Result Required. ABG Base Excess 1.5 1.0 Aashish Test Positive Positive Patient On Oxygen Yes Yes O2 Delivery Device Bipap Bipap Oxygen Flow Rate 40% 40% Vent Mode S/t S/t Vent Rate 16 16 Mechanical Rate Bipap Bipap PEEP No Result Required. No Result Required. Pressure Support Vent 18/4 20/4 Sodium Potassium Chloride Carbon Dioxide Anion Gap BUN Creatinine Est GFR (CKD-EPI)AfAm Est GFR (CKD-EPI)NonAf POC Glucometer 180 Random Glucose Serum Osmolality Lactic Acid Calcium Phosphorus Magnesium Ferritin Total Bilirubin Direct Bilirubin AST ALT Alkaline Phosphatase LD Total Creatine Kinase Troponin I C-Reactive Protein B-Natriuretic Peptide Total Protein Albumin TSH COVID-19 ([facility]) 05/29/20 05/29/20 05/29/20 08:13 08:13 08:13 WBC 11.0 H RBC 5.09 Hgb 13.3 Hct 43.5 MCV 85.4 MCH 26.2 MCHC 30.7 L RDW 17.2 H Plt Count 260 MPV 8.3 Absolute Neuts (auto) Neutrophils % Lymphocytes % Monocytes % Eosinophils % Basophils % Nucleated RBC % PT with INR INR PTT (Actin FS) D-Dimer Anticoagulation Therapy Puncture Site Patient Temperature ABG pH ABG pCO2 ABG pO2 ABG HCO3 ABG O2 Sat (Measured) ABG O2 Content ABG Base Excess Aashish Test Patient On Oxygen O2 Delivery Device Oxygen Flow Rate Vent Mode Vent Rate Mechanical Rate PEEP Pressure Support Vent Sodium 125 L Potassium 5.8 H Chloride 88 L Carbon Dioxide 33 H Anion Gap 5 L BUN 19.8 H Creatinine 1.5 H Est GFR (CKD-EPI)AfAm 40.49 Est GFR (CKD-EPI)NonAf 34.93 POC Glucometer Random Glucose 113 H Serum Osmolality 273 L Lactic Acid Calcium 8.7 Phosphorus 6.0 H Magnesium 2.1 Ferritin 60.1 Total Bilirubin 0.3 Direct Bilirubin AST 14 L ALT 25 Alkaline Phosphatase 69 LD Total 185 Creatine Kinase Troponin I C-Reactive Protein B-Natriuretic Peptide Total Protein 7.6 Albumin 3.2 L TSH 1.08 COVID-19 ([facility]) 05/29/20 05/29/20 05/29/20 08:13 11:21 11:46 WBC RBC Hgb Hct MCV MCH MCHC RDW Plt Count MPV Absolute Neuts (auto) Neutrophils % Lymphocytes % Monocytes % Eosinophils % Basophils % Nucleated RBC % PT with INR INR PTT (Actin FS) D-Dimer 503 H Anticoagulation Therapy No Result Required. Puncture Site Right radial Patient Temperature No Result Required. ABG pH 7.235 L ABG pCO2 79.50 H* ABG pO2 75.3 L ABG HCO3 32.9 H ABG O2 Sat (Measured) 91.9 L ABG O2 Content No Result Required. ABG Base Excess 2.8 H Aashish Test Positive Patient On Oxygen Yes O2 Delivery Device Bipap Oxygen Flow Rate [address] Vent Rate 24 Mechanical Rate No Result Required. PEEP 0.0 Pressure Support Vent 24/8 Sodium Potassium Chloride Carbon Dioxide Anion Gap BUN Creatinine Est GFR (CKD-EPI)AfAm Est GFR (CKD-EPI)NonAf POC Glucometer 113 Random Glucose Serum Osmolality Lactic Acid Calcium Phosphorus Magnesium Ferritin Total Bilirubin Direct Bilirubin AST ALT Alkaline Phosphatase LD Total Creatine Kinase Troponin I C-Reactive Protein B-Natriuretic Peptide Total Protein Albumin TSH COVID-19 ([facility]) Active Medications Generic Name Dose Route Start Last Admin Trade Name Freq PRN Reason Stop Dose Admin Albuterol Sulfate 2 puff 05/28/20 19:23 Ventolin Hfa Inhaler - IH Q4H PRN SHORT OF BREATH/WHEEZING Amlodipine Besylate 5 mg 05/29/20 10:00 05/29/20 09:26 Norvasc - PO 5 mg DAILY EVELYN Administration Apixaban 5 mg 05/28/20 22:00 05/29/20 09:26 Eliquis - PO 5 mg BID EVELYN Administration Dexamethasone Sodium Phosphate 6 mg 05/29/20 10:00 05/29/20 09:26 Decadron Injection - IVPUSH 6 mg DAILY EVELYN Administration Furosemide 40 mg 05/29/20 13:30 Lasix Injection - IVPUSH 05/29/20 13:31 ONCE ONE Insulin Aspart 1 vial 05/28/20 22:00 05/29/20 11:37 Novolog Vial Sliding Scale - SQ Not Given ACHS COUNTS INCLUDE 234 BEDS AT THE [facility] Protocol Levothyroxine Sodium 125 mcg 05/29/20 07:00 05/29/20 06:20 Synthroid - PO Not Given DAILY@0700 COUNTS INCLUDE 234 BEDS AT THE [facility] Tiotropium [place] 2 puff 05/29/20 10:00 05/29/20 11:37 Spiriva Respimat IH Not Given DAILY COUNTS INCLUDE 234 BEDS AT THE [facility] Chest x-ray today shows a poor inspiration congestive changes in both sides Blood gas result noted PCO2 80 COVID-19 test negative ASSESSMENT/PLAN: Acute hypoxic hypercarbic distress Patient has a very high PCO2 will transfer to ICU and will readjust the setting and repeat ABG in 2 hours. Continue nebulizers and steroids Hyponatremia Place sodium and seen by family day carer. Given Lasix by 1 dose Hyperkalemia Low potassium diet History of COPD She is going to need intensive management of COPD once he comes out of the respiratory failure Type 2 DM Start sliding scale HTN Continue home medications Hypothyroidism New home medications History of DVT will continue Eliquis 5 mg twice a day Visit type - Emergency Visit Emergency Visit: Yes ED Registration Date: 05/28/20 Care time: The patient presented to the Emergency Department on the above date and was hospitalized for further evaluation of their emergent condition. - New Patient This patient is new to me today: Yes Date on this admission: 05/29/20 - Critical Care Critical Care patient: No - Discharge Referral Referred to [facility] Med [facility] No - Medication Review Med list reviewed for High Risk Meds patients 65 and older: Yes
[2020-05-29 14:04] LABS: ARTERIAL BLD GAS O2 SATURATION 91.8 mmHg (95-98); ARTERIAL BLOOD GAS BASE EXCESS 1.9 mmol/L (-2-2); ARTERIAL BLOOD GAS PO2 72.6 mmHg (80-100)
[2020-05-29 14:07] LABS: ALLENS TEST POSITIVE; VENT MODE S/T; VENT RATE 24
[2020-05-29 14:09] LABS: URINE UREA NITROGEN 380 mg/dL (350-1000)
--- NOTE | 2020-05-29 14:59 | CONS ---
PULMONARY CONSULTATION DATE OF CONSULTATION: 05/29/2020 REFERRING PHYSICIAN: Pam Triplett MD HISTORY: History is obtained from medical records. Patient is a 69-year-old female, past medical history of COPD on home O2 at 2 L, type 2 diabetes mellitus, hypertension, right lower extremity edema on Eliquis, hypothyroidism, a longstanding history of tobacco use, quit 2 years ago, admitted to [facility] secondary to shortness of breath and hypoxemia. In the ER the patient was placed on 100% nonrebreather with improvement in saturations. ABG performed which revealed hypercapnic respiratory failure. She was subsequently placed on BiPAP and transferred to medical floor for further management. Apparently the patient had symptoms approximately 2 weeks ago. At that time she developed a low grade temp and generalized malaise. Apparently she has been trying to drink water and eat chicken soup. Throughout the 2 weeks her symptoms progressed with increasing shortness of breath. There were no chest pains or palpitations. There was increasing lower extremity edema. Patient was placed on BiPAP and has continued to remain hypercapnic. PAST MEDICAL HISTORY: Again includes COPD on home O2 at 2 L, type 2 diabetes mellitus, hypertension, right lower extremity DVT, hypothyroidism. SOCIAL HISTORY: Tobacco use, quit 2 years ago. No occupational exposures. REVIEW OF SYSTEMS: Unable to obtain because patient is currently lethargic. CURRENT MEDICATIONS: Include Decadron, Eliquis, Spiriva, albuterol, Norvasc, NovoLog and Synthroid. PHYSICAL EXAMINATION: General: Patient is an obese female, lethargic but arousable on BiPAP. Vital Signs: She is currently afebrile, blood pressure 159/70. Respiratory rate is 18. O2 saturation is 96% on BiPAP. HEENT: Normocephalic, atraumatic. Neck: Supple. Heart: Regular, S1 and S2. Chest: Diminished breath sounds bilaterally. Abdomen: Soft, bowel sounds positive. Extremities: Bilateral lower extremity edema. LABORATORIES: Sodium is 125, potassium 5.8, BUN 19, creatinine 1.5, WBCs 11, hemoglobin 13.3, hematocrit 43.5 with a platelet count of 260,000. INR is 1.06. Blood gas 7.23, pCO2 of 74, pO2 of 75, bicarbonate of 30 and saturation of 91. That is on IPAP of 20, EPAP of 4, rate of 16 on 40% O2. Chest x-ray: Cardiomegaly with mild pulmonary vascular congestion, cannot rule out infiltrates. COVID PCR is negative. IMPRESSION: 1. Acute hypoxemic hypercapnic respiratory failure secondary to multiple factors. 2. Rule out possible chronic obstructive pulmonary disease O2 dependent with exacerbation. 3. Rule out pneumonia. 4. Questionable mild congestive heart failure. 5. Hypertension. 6. Diabetes. 7. Right lower extremity deep vein thrombosis on Eliquis. 8. Hypothyroidism. 9. Hyperkalemia. 10. Hyponatremia. 11. Acute kidney injury. 12. Suspect obstructive sleep apnea. PLAN: Supplemental O2 to maintain O2 saturations 98% or greater. NIPPV as needed. Antibiotics, inhaled bronchodilators, steroids. Monitor electrolytes sodium, potassium, renal function. Continue anticoagulation. Follow up ABGs. CT scan of chest when stable. Follow up chest x-rays. Obtain echo. Consider Cardiology evaluation. Also will transfer the patient to the ICU. Patient may require intubation if no improvement with ventilatory status with noninvasive positive pressure ventilation. ANGELINE LOPEZ M.D. KEON/[id number]
[2020-05-29 17:41] LABS: BLOOD UREA NITROGEN 23.8 mg/dL (7-18); CALCIUM 8.9 mg/dL (8.5-10.1); CREATININE 1.5 mg/dL (0.55-1.3); POTASSIUM 5.6 mmol/L (3.5-5.1)
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
[2020-05-29 20:35] LABS: URINE APPEARANCE CLEAR; URINE BILIRUBIN NEGATIVE (NEGATIVE); URINE COLOR YELLOW; URINE GLUCOSE (UA) NEGATIVE (NEGATIVE); URINE KETONE NEGATIVE (NEGATIVE); URINE LEUK ESTERASE NEGATIVE (NEGATIVE); URINE NITRITE NEGATIVE (NEGATIVE); URINE PROTEIN NEGATIVE (NEGATIVE); URINE UROBILINOGEN 0.2 mg/dL (0.2-1.0)
[2020-05-29] MEDS ORDERED: SODIUM ZIRCONIUM CYCLOSILICATE (LOKELMA) 5 GM PACKET PO SCH (20:45)
[2020-05-30 01:30] LABS: ALBUMIN 3.2 g/dl (3.4-5.0); BILIRUBIN,TOTAL 0.4 mg/dL (0.2-1); BLOOD UREA NITROGEN 26.7 mg/dL (7-18); CALCIUM 8.9 mg/dL (8.5-10.1); CREATININE 1.5 mg/dL (0.55-1.3); POTASSIUM 5.3 mmol/L (3.5-5.1); TOT PROT 7.6 g/dl (6.4-8.2)
[2020-05-30 05:59] LABS: ARTERIAL BLD GAS O2 SATURATION 94.9 mmHg (95-98); ARTERIAL BLOOD GAS BASE EXCESS 6.1 mmol/L (-2-2); ARTERIAL BLOOD GAS PO2 84.6 mmHg (80-100); ARTERIAL BLOOD GAS pH 7.294 (7.350-7.450)
[2020-05-30] MEDS: LEVOTHYROXINE NA 125 MCG TABLET (FP) PO SCH (06:04)
[2020-05-30 06:14] LABS: ALLENS TEST POSITIVE
[2020-05-30 06:15] LABS: VENT MODE S/T; VENT RATE 24
[2020-05-30] MEDS: INSULIN SLIDING SCALE (NOVOLOG) 1 VIAL SQ SCH ×4 (06:21→22:32)
[2020-05-30 07:36] LABS: BASO % 0.1 % (0-2.0); HEMATOCRIT 41.6 % (32.4-45.2); HEMOGLOBIN 12.9 GM/dL (10.7-15.3); LYMPH % 6.2 % (8-40); MCHC 31.1 g/dl (32.0-36.0); MEAN CELL VOLUME 83.5 fl (80-96); MEAN PLT VOLUME 8.2 fl (7.5-11.1); MONO % 7.5 % (3.8-10.2); NEUT % 86.2 % (42.8-82.8); PLATELET COUNT 257 K/MM3 (134-434); RBC 4.98 M/mm3 (3.60-5.2); RDW 17.3 % (11.6-15.6); WHITE BLOOD COUNT 8.3 K/mm3 (4.0-10.0)
[2020-05-30 07:46] LABS: ALBUMIN 3.1 g/dl (3.4-5.0); BILIRUBIN,TOTAL 0.4 mg/dL (0.2-1); BLOOD UREA NITROGEN 29.1 mg/dL (7-18); CALCIUM 8.9 mg/dL (8.5-10.1); CREATININE 1.5 mg/dL (0.55-1.3); MAGNESIUM 2.1 mg/dL (1.8-2.4); PHOSPHOROUS 6.2 mg/dL (2.5-4.9); POTASSIUM 5.1 mmol/L (3.5-5.1); TOT PROT 7.3 g/dl (6.4-8.2)
--- NOTE | 2020-05-30 08:48 | PN ---
Progress Note, Physician - Current Medication List Current Medications: Active Medications Albuterol Sulfate (Ventolin Hfa Inhaler -) 2 puff IH Q4H PRN PRN Reason: SHORT OF BREATH/WHEEZING Amlodipine Besylate (Norvasc -) 5 mg PO DAILY [facility] Last Admin: 05/29/20 09:26 Dose: 5 mg Documented by: Apixaban (Eliquis -) 5 mg PO BID [facility] Last Admin: 05/29/20 21:17 Dose: 5 mg Documented by: Dexamethasone Sodium Phosphate (Decadron Injection -) 6 mg IVPUSH DAILY [facility] Last Admin: 05/29/20 09:26 Dose: 6 mg Documented by: Insulin Aspart (Novolog Vial Sliding Scale -) 1 vial SQ ACHS [facility]; Protocol Last Admin: 05/30/20 06:21 Dose: Not Given Documented by: Levothyroxine Sodium (Synthroid -) 125 mcg PO DAILY@0700 [facility] Last Admin: 05/30/20 06:04 Dose: 125 mcg Documented by: Sodium Zirconium Cyclosilicate (Lokelma) 5 gm PO 1400 [facility] Tiotropium [place] (Spiriva Respimat) 2 puff IH DAILY [facility] Last Admin: 05/29/20 11:37 Dose: Not Given Documented by: - Objective Vital Signs: Vital Signs Temperature 97.7 F 05/30/20 06:22 Pulse Rate 62 05/30/20 08:00 Respiratory Rate 20 05/30/20 08:00 Blood Pressure 125/76 05/30/20 08:00 O2 Sat by Pulse Oximetry (%) 96 05/30/20 08:00 Cardiovascular: Yes: S1, S2 Respiratory: Yes: On BiPap Gastrointestinal: Yes: Normal Bowel Sounds, Soft Neurological: Yes: Lethargy, Weakness Labs: CBC, BMP 05/30/20 06:00 INR, PTT INR 1.06 (0.83-1.09) 05/28/20 14:45 Problem List - Problems (1) Acute respiratory failure with hypoxia and hypercarbia Assessment/Plan: due to copd-chf increase decadron 6 qid lasix 80 iv echo bipap icu care Code(s): J96.01 - ACUTE RESPIRATORY FAILURE WITH HYPOXIA; J96.02 - ACUTE RESPI RATORY FAILURE WITH HYPERCAPNIA (2) Hyperkalemia Assessment/Plan: monitor renal on board Code(s): E87.5 - HYPERKALEMIA (3) ELIZABETH (acute kidney injury) Assessment/Plan: as above Code(s): N17.9 - ACUTE KIDNEY FAILURE, UNSPECIFIED (4) COPD (chronic obstructive pulmonary disease) Assessment/Plan: on steroids Code(s): J44.9 - CHRONIC OBSTRUCTIVE PULMONARY DISEASE, UNSPECIFIED (5) DVT (deep venous thrombosis) Assessment/Plan: on eliquis Code(s): I82.409 - ACUTE EMBOLISM AND THOMBOS UNSP DEEP VN UNSP LOWER EXTREMITY Qualifiers: DVT location: lower extremity Chronicity: unspecified Laterality: right (6) Diabetes Assessment/Plan: bgm Laboratory Tests 05/29/20 05/30/20 05/30/20 17:08 00:15 06:00 POC Glucometer Random Glucose 132 H 109 H 97 05/30/20 06:07 POC Glucometer 106 Random Glucose Code(s): E11.9 - TYPE 2 DIABETES MELLITUS WITHOUT COMPLICATIONS
[2020-05-30] MEDS: DEXAMETHASONE SOD PHOSPHATE 4 MG/1 ML VIAL IVPUSH SCH ×4 (10:00→22:32)
[2020-05-30] MEDS: FUROSEMIDE 100 MG/10 ML INJECTABLE VIAL IVPB SCH (10:03)
[2020-05-30] MEDS: APIXABAN 5 MG TABLET PO SCH ×2 (10:15→22:32)
[2020-05-30] MEDS: amLODIPine BESYLATE 5 MG TABLET (FP) PO SCH (10:15)
[2020-05-30] MEDS ORDERED: PT OWN MED DRAWER 7, Y5N ONE (10:26)
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
--- NOTE | 2020-05-30 14:02 | PN ---
Teaching Attending Note Name of Resident: Kimberly Gonzalez ATTENDING PHYSICIAN STATEMENT I saw and evaluated the patient. I reviewed the resident's note and discussed the case with the resident. I agree with the resident's findings and plan as documented. SUBJECTIVE: Patient seen and examined in the ICU. Awake and alert on NIPPV support. ABG improving. No pressors. Despite large intermittent leak, ABG is improving. Intake & Output 05/27/20 05/28/20 05/29/20 05/30/20 23:59 23:59 23:59 23:59 Intake Total 60 20 Output Total 2100 1000 Balance 60 -2080 -1000 Weight 244 lb 15.995 oz 244 lb 15.995 oz 270 lb Last Vital Signs Temp Pulse Resp BP Pulse Ox 97.7 F 65 15 133/78 96 05/30/20 06:22 05/30/20 10:00 05/30/20 10:00 05/30/20 10:00 05/30/20 10:00 Active Medications Albuterol Sulfate (Ventolin Hfa Inhaler -) 2 puff IH Q4H PRN PRN Reason: SHORT OF BREATH/WHEEZING Amlodipine Besylate (Norvasc -) 5 mg PO DAILY [facility] Last Admin: 05/30/20 10:15 Dose: 5 mg Documented by: Apixaban (Eliquis -) 5 mg PO BID [facility] Last Admin: 05/30/20 10:15 Dose: 5 mg Documented by: Dexamethasone Sodium Phosphate (Decadron Injection -) 6 mg IVPUSH QID [facility] Last Admin: 05/30/20 10:00 Dose: 6 mg Documented by: Furosemide (Lasix Injection -) 80 mg IVPB DAILY [facility] Last Admin: 05/30/20 10:03 Dose: 80 mg Documented by: Insulin Aspart (Novolog Vial Sliding Scale -) 1 vial SQ ACHS [facility]; Protocol Last Admin: 05/30/20 10:23 Dose: Not Given Documented by: Levothyroxine Sodium (Synthroid -) 125 mcg PO DAILY@0700 [facility] Last Admin: 05/30/20 06:04 Dose: 125 mcg Documented by: Sodium Zirconium Cyclosilicate (Lokelma) 5 gm PO 1400 [facility] Tiotropium [place] (Spiriva Respimat) 2 puff IH DAILY [facility] Last Admin: 05/29/20 11:37 Dose: Not Given Documented by: Constitutional: Yes: Awake and alert on NIPPV Eyes: Yes: WNL, Conjunctiva Clear, EOM Intact HENT: Yes: WNL, Atraumatic, Normocephalic Neck: Yes: WNL Cardiovascular: Yes: WNL, Regular Rate and Rhythm, S1, S2 Respiratory: Yes: Diminished, On BiPap, SOB on Exertion ...Rectal Exam: Yes: Deferred Renal/: Yes: Other (Millan inserted for accurate I/O) Breast(s): Yes: WNL Musculoskeletal: Yes: Muscle Weakness Extremities: Yes: WNL Edema: LUE: 2+, RUE: 2+, LLE: 2+, RLE: 2+ Integumentary: Yes: WNL Neurological: Yes: Confusion ...Motor Strength: WNL Labs: Laboratory Results - last 24 hr 05/29/20 05/29/20 05/29/20 07:30 13:25 13:25 WBC RBC Hgb Hct MCV MCH MCHC RDW Plt Count MPV Absolute Neuts (auto) Neutrophils % Lymphocytes % Monocytes % Eosinophils % Basophils % Nucleated RBC % Anticoagulation Therapy Puncture Site Patient Temperature ABG pH ABG pCO2 ABG pO2 ABG HCO3 ABG O2 Sat (Measured) ABG O2 Content ABG Base Excess Aashish Test Patient On Oxygen O2 Delivery Device Oxygen Flow Rate Vent Mode Vent Rate Mechanical Rate PEEP Pressure Support Vent Sodium Potassium Chloride Carbon Dioxide Anion Gap BUN Creatinine Est GFR (CKD-EPI)AfAm Est GFR (CKD-EPI)NonAf POC Glucometer Random Glucose Calcium Phosphorus Magnesium Total Bilirubin AST ALT Alkaline Phosphatase Total Protein Albumin Urine Color Yellow Urine Appearance Clear Urine pH 5.0 Ur Specific [place] 1.005 L Urine Protein Negative Urine Glucose (UA) Negative Urine Ketones Negative Urine Blood Negative Urine Nitrite Negative Urine Bilirubin Negative Urine Urobilinogen 0.2 Ur Leukocyte Esterase Negative Urine Osmolality 281 L Ur Random Creatinine 101.0 U Random Total Protein 72.3 H Ur Random Sodium < 18 L Ur Random Urea Nitrogn 380 05/29/20 05/29/20 05/29/20 13:45 16:27 17:08 WBC RBC Hgb Hct MCV MCH MCHC RDW Plt Count MPV Absolute Neuts (auto) Neutrophils % Lymphocytes % Monocytes % Eosinophils % Basophils % Nucleated RBC % Anticoagulation Therapy No Result Required. Puncture Site Right radial Patient Temperature No Result Required. ABG pH 7.260 L ABG pCO2 70.90 H* ABG pO2 72.6 L ABG HCO3 31.1 H ABG O2 Sat (Measured) 91.8 L ABG O2 Content No Result Required. ABG Base Excess 1.9 Aashish Test Positive Patient On Oxygen Yes O2 Delivery Device Bipap Oxygen Flow Rate 40% Vent Mode S/t Vent Rate 24 Mechanical Rate Bipap PEEP No Result Required. Pressure Support Vent 24/8 Sodium 127 L Potassium 5.6 H Chloride 88 L Carbon Dioxide 34 H Anion Gap 5 L BUN 23.8 H Creatinine 1.5 H Est GFR (CKD-EPI)AfAm 40.49 Est GFR (CKD-EPI)NonAf 34.93 POC Glucometer 140 Random Glucose 132 H Calcium 8.9 Phosphorus Magnesium Total Bilirubin AST ALT Alkaline Phosphatase Total Protein Albumin Urine Color Urine Appearance Urine pH Ur Specific [place] Urine Protein Urine Glucose (UA) Urine Ketones Urine Blood Urine Nitrite Urine Bilirubin Urine Urobilinogen Ur Leukocyte Esterase Urine Osmolality Ur Random Creatinine U Random Total Protein Ur Random Sodium Ur Random Urea Nitrogn 05/29/20 05/30/20 05/30/20 21:20 00:15 05:40 WBC RBC Hgb Hct MCV MCH MCHC RDW Plt Count MPV Absolute Neuts (auto) Neutrophils % Lymphocytes % Monocytes % Eosinophils % Basophils % Nucleated RBC % Anticoagulation Therapy No Result Required. Puncture Site Right radial Patient Temperature No Result Required. ABG pH 7.294 L ABG pCO2 74.60 H* ABG pO2 84.6 ABG HCO3 35.4 H ABG O2 Sat (Measured) 94.9 L ABG O2 Content No Result Required. ABG Base Excess 6.1 H Aashish Test Positive Patient On Oxygen Yes O2 Delivery Device Bipap Oxygen Flow Rate 40% Vent Mode S/t Vent Rate 24 Mechanical Rate Bipap PEEP No Result Required. Pressure Support Vent 24/8 Sodium 130 L Potassium 5.3 H Chloride 88 L Carbon Dioxide 36 H Anion Gap 6 L BUN 26.7 H Creatinine 1.5 H Est GFR (CKD-EPI)AfAm 40.49 Est GFR (CKD-EPI)NonAf 34.93 POC Glucometer 130 Random Glucose 109 H Calcium 8.9 Phosphorus Magnesium Total Bilirubin 0.4 AST 13 L ALT 24 Alkaline Phosphatase 67 Total Protein 7.6 Albumin 3.2 L Urine Color Urine Appearance Urine pH Ur Specific [place] Urine Protein Urine Glucose (UA) Urine Ketones Urine Blood Urine Nitrite Urine Bilirubin Urine Urobilinogen Ur Leukocyte Esterase Urine Osmolality Ur Random Creatinine U Random Total Protein Ur Random Sodium Ur Random Urea Nitrogn 05/30/20 05/30/20 05/30/20 06:00 06:07 06:18 WBC 8.3 RBC 4.98 Hgb 12.9 Hct 41.6 MCV 83.5 MCH 26.0 MCHC 31.1 L RDW 17.3 H Plt Count 257 MPV 8.2 Absolute Neuts (auto) 7.2 Neutrophils % 86.2 H Lymphocytes % 6.2 L D Monocytes % 7.5 Eosinophils % 0.0 D Basophils % 0.1 Nucleated RBC % 0 Anticoagulation Therapy Puncture Site Patient Temperature ABG pH ABG pCO2 ABG pO2 ABG HCO3 ABG O2 Sat (Measured) ABG O2 Content ABG Base Excess Aashish Test Patient On Oxygen O2 Delivery Device Oxygen Flow Rate Vent Mode Vent Rate Mechanical Rate PEEP Pressure Support Vent Sodium 132 L Potassium 5.1 Chloride 89 L Carbon Dioxide 37 H Anion Gap 6 L BUN 29.1 H Creatinine 1.5 H Est GFR (CKD-EPI)AfAm 40.49 Est GFR (CKD-EPI)NonAf 34.93 POC Glucometer 106 Random Glucose 97 Calcium 8.9 Phosphorus 6.2 H Magnesium 2.1 Total Bilirubin 0.4 AST 10 L ALT 21 Alkaline Phosphatase 64 Total Protein 7.3 Albumin 3.1 L Urine Color Urine Appearance Urine pH Ur Specific [place] Urine Protein Urine Glucose (UA) Urine Ketones Urine Blood Urine Nitrite Urine Bilirubin Urine Urobilinogen Ur Leukocyte Esterase Urine Osmolality Ur Random Creatinine U Random Total Protein Ur Random Sodium Ur Random Urea Nitrogn 05/30/20 10:19 WBC RBC Hgb Hct MCV MCH MCHC RDW Plt Count MPV Absolute Neuts (auto) Neutrophils % Lymphocytes % Monocytes % Eosinophils % Basophils % Nucleated RBC % Anticoagulation Therapy Puncture Site Patient Temperature ABG pH ABG pCO2 ABG pO2 ABG HCO3 ABG O2 Sat (Measured) ABG O2 Content ABG Base Excess Aashish Test Patient On Oxygen O2 Delivery Device Oxygen Flow Rate Vent Mode Vent Rate Mechanical Rate PEEP Pressure Support Vent Sodium Potassium Chloride Carbon Dioxide Anion Gap BUN Creatinine Est GFR (CKD-EPI)AfAm Est GFR (CKD-EPI)NonAf POC Glucometer 95 Random Glucose Calcium Phosphorus Magnesium Total Bilirubin AST ALT Alkaline Phosphatase Total Protein Albumin Urine Color Urine Appearance Urine pH Ur Specific [place] Urine Protein Urine Glucose (UA) Urine Ketones Urine Blood Urine Nitrite Urine Bilirubin Urine Urobilinogen Ur Leukocyte Esterase Urine Osmolality Ur Random Creatinine U Random Total Protein Ur Random Sodium Ur Random Urea Nitrogn Imaging - Results Chest X-ray: Report Reviewed (Weak inspiration with resultant large heart, sclerotic knob and there are still congestive changes.), Image Reviewed Problem List - Problems (1) Hyponatremia Code(s): E87.1 - HYPO-OSMOLALITY AND HYPONATREMIA (2) Hyperkalemia Code(s): E87.5 - HYPERKALEMIA (3) Acute respiratory insufficiency Code(s): R06.89 - OTHER ABNORMALITIES OF BREATHING (4) Hypercarbia Code(s): R06.89 - OTHER ABNORMALITIES OF BREATHING (5) ELIZABETH (acute kidney injury) Code(s): N17.9 - ACUTE KIDNEY FAILURE, UNSPECIFIED (6) HTN (hypertension) Code(s): I10 - ESSENTIAL (PRIMARY) HYPERTENSION (7) Hypothyroidism Code(s): E03.9 - HYPOTHYROIDISM, UNSPECIFIED (8) Diabetes Code(s): E11.9 - TYPE 2 DIABETES MELLITUS WITHOUT COMPLICATIONS (9) COPD (chronic obstructive pulmonary disease) Code(s): J44.9 - CHRONIC OBSTRUCTIVE PULMONARY DISEASE, UNSPECIFIED (10) DVT (deep venous thrombosis) Code(s): I82.409 - ACUTE EMBOLISM AND THOMBOS UNSP DEEP VN UNSP LOWER EXTREMITY Qualifiers: DVT location: lower extremity Chronicity: unspecified Laterality: right Assessment/Plan - Continue NIPPV support - BD TX - Steroids - Trend and replete electrolytes, Keep Mg>2, K>4 - Lasix - Anticoagulation - Abx - Requires ICU monitoring for tenuous status Dr Penaloza
[2020-05-30] MEDS: TIOTROPIUM BROMIDE 2.5 MCG (SPIRIVA) RESPIMAT INHALER IH SCH (14:47)
[2020-05-30] MEDS: SODIUM ZIRCONIUM CYCLOSILICATE (LOKELMA) 5 GM PACKET PO SCH (14:58)
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
--- NOTE | 2020-05-30 15:37 | PN ---
Progress Note, Physician History of Present Illness: Pt seen and examined at bedside. She is awake and alert. She feels that her breathing is improved. - Current Medication List Current Medications: Active Medications Albuterol Sulfate (Ventolin Hfa Inhaler -) 2 puff IH Q4H PRN PRN Reason: SHORT OF BREATH/WHEEZING Amlodipine Besylate (Norvasc -) 5 mg PO DAILY [facility] Last Admin: 05/30/20 10:15 Dose: 5 mg Documented by: Apixaban (Eliquis -) 5 mg PO BID [facility] Last Admin: 05/30/20 10:15 Dose: 5 mg Documented by: Dexamethasone Sodium Phosphate (Decadron Injection -) 6 mg IVPUSH QID [facility] Last Admin: 05/30/20 14:58 Dose: 6 mg Documented by: Furosemide (Lasix Injection -) 80 mg IVPB DAILY [facility] Last Admin: 05/30/20 10:03 Dose: 80 mg Documented by: Insulin Aspart (Novolog Vial Sliding Scale -) 1 vial SQ ACHS [facility]; Protocol Last Admin: 05/30/20 10:23 Dose: Not Given Documented by: Levothyroxine Sodium (Synthroid -) 125 mcg PO DAILY@0700 [facility] Last Admin: 05/30/20 06:04 Dose: 125 mcg Documented by: Sodium Zirconium Cyclosilicate (Lokelma) 5 gm PO 1400 [facility] Last Admin: 05/30/20 14:58 Dose: 5 gm Documented by: Tiotropium [place] (Spiriva Respimat) 2 puff IH DAILY [facility] Last Admin: 05/30/20 14:47 Dose: Not Given Documented by: - Objective Vital Signs: Vital Signs Temperature 99.0 F 05/30/20 15:00 Pulse Rate 74 05/30/20 15:00 Respiratory Rate 17 05/30/20 15:00 Blood Pressure 146/74 05/30/20 15:00 O2 Sat by Pulse Oximetry (%) 98 05/30/20 12:30 Constitutional: Yes: Calm Eyes: Yes: Conjunctiva Clear HENT: Yes: Atraumatic Neck: Yes: Supple Cardiovascular: Yes: S1, S2 Respiratory: Yes: On BiPap Gastrointestinal: Yes: Soft Genitourinary: Yes: Millan Present Musculoskeletal: Yes: WNL Edema: Yes Edema: LLE: 1+, RLE: 1+ Neurological: Yes: Oriented Psychiatric: Yes: Oriented Labs: CBC, BMP 08/10/20 06:18 05/30/20 06:00 INR, PTT INR 1.06 (0.83-1.09) 05/28/20 14:45 - ....Imaging Chest X-ray: Report Reviewed Assessment/Plan Current Medications Generic Name Dose Route Start Last Admin Trade Name Freq PRN Reason Stop Dose Admin Albuterol Sulfate 2 puff 05/28/20 19:23 Ventolin Hfa Inhaler - IH Q4H PRN SHORT OF BREATH/WHEEZING Amlodipine Besylate 5 mg 05/29/20 10:00 05/30/20 10:15 Norvasc - PO 5 mg DAILY EVELYN Administration Apixaban 5 mg 05/28/20 22:00 05/30/20 10:15 Eliquis - PO 5 mg BID EVELYN Administration Dexamethasone Sodium Phosphate 6 mg 05/30/20 10:00 05/30/20 14:58 Decadron Injection - IVPUSH 6 mg QID EVELYN Administration Furosemide 80 mg 05/30/20 10:00 05/30/20 10:03 Lasix Injection - IVPB 80 mg DAILY EVELYN Administration Insulin Aspart 1 vial 05/28/20 22:00 05/30/20 10:23 Novolog Vial Sliding Scale - SQ Not Given ACHS [facility] Protocol Levothyroxine Sodium 125 mcg 05/29/20 07:00 05/30/20 06:04 Synthroid - PO 125 mcg DAILY@0700 EVELYN Administration Sodium Zirconium Cyclosilicate 5 gm 05/30/20 14:00 05/30/20 14:58 Lokelma PO 5 gm 1400 EV[facility]N Administration Tiotropium [place] 2 puff 05/29/20 10:00 05/30/20 14:47 Spiriva Respimat IH Not Given DAILY [facility] Laboratory Tests 05/29/20 05/29/20 05/29/20 13:25 13:25 17:08 Sodium 127 L Potassium 5.6 H Creatinine 1.5 H Urine Osmolality 281 L Ur Random Sodium < 18 L 05/30/20 05/30/20 00:15 06:00 Sodium 130 L 132 L Potassium 5.3 H 5.1 Creatinine 1.5 H 1.5 H Urine Osmolality Ur Random Sodium 1. hypervolemic hyponatremia 2. Hypoxic respiratory failure 3. Hyperkalemia 4. ELIZABETH 5. COPD 6 DM 7. RLE DVT Plan - sodium improving - potassium improving - cont lasix - reviewed urine studies - repeat cxr in am - fluid restriction x 1 L today
[2020-05-31 05:59] LABS: ARTERIAL BLD GAS O2 SATURATION 95.1 mmHg (95-98); ARTERIAL BLOOD GAS BASE EXCESS 7.9 mmol/L (-2-2); ARTERIAL BLOOD GAS PO2 84.1 mmHg (80-100); ARTERIAL BLOOD GAS pH 7.322 (7.350-7.450)
[2020-05-31 06:10] LABS: ALLENS TEST POSITIVE
[2020-05-31 06:14] LABS: VENT RATE 24
[2020-05-31] MEDS: INSULIN SLIDING SCALE (NOVOLOG) 1 VIAL SQ SCH ×4 (06:31→21:06)
[2020-05-31] MEDS: LEVOTHYROXINE NA 125 MCG TABLET (FP) PO SCH (06:32)
[2020-05-31 06:59] LABS: BASO % 0.2 % (0-2.0); HEMATOCRIT 45.1 % (32.4-45.2); HEMOGLOBIN 13.8 GM/dL (10.7-15.3); LYMPH % 4.9 % (8-40); MCH 25.7 pg (25.7-33.7); MCHC 30.7 g/dl (32.0-36.0); MEAN CELL VOLUME 83.8 fl (80-96); MEAN PLT VOLUME 8.2 fl (7.5-11.1); MONO % 1.3 % (3.8-10.2); NEUT % 93.6 % (42.8-82.8); PLATELET COUNT 252 K/MM3 (134-434); RBC 5.38 M/mm3 (3.60-5.2); RDW 17.4 % (11.6-15.6); WHITE BLOOD COUNT 7.1 K/mm3 (4.0-10.0)
[2020-05-31 07:31] LABS: ALBUMIN 3.2 g/dl (3.4-5.0); BILIRUBIN,TOTAL 0.5 mg/dL (0.2-1); BLOOD UREA NITROGEN 36.5 mg/dL (7-18); CREATININE 1.3 mg/dL (0.55-1.3); MAGNESIUM 2.3 mg/dL (1.8-2.4); POTASSIUM 5.5 mmol/L (3.5-5.1); TOT PROT 7.5 g/dl (6.4-8.2)
[2020-05-31] MEDS ORDERED: INSULIN REGULAR HUMAN 100 UNITS/ML *VIAL IVPUSH ONE (07:56)
[2020-05-31] MEDS ORDERED: CALCIUM GLUCONATE 10% - 1,000 MG/10 ML VIAL IVPUSH ONE (07:57)
[2020-05-31] MEDS ORDERED: DEXTROSE 50%-WATER - 25 GM/50 ML VIAL IVPUSH ONE (07:57)
--- NOTE | 2020-05-31 09:47 | PN ---
Progress Note, Physician - Current Medication List Current Medications: Active Medications Albuterol Sulfate (Ventolin Hfa Inhaler -) 2 puff IH Q4H PRN PRN Reason: SHORT OF BREATH/WHEEZING Amlodipine Besylate (Norvasc -) 5 mg PO DAILY [facility] Last Admin: 05/30/20 10:15 Dose: 5 mg Documented by: Apixaban (Eliquis -) 5 mg PO BID [facility] Last Admin: 05/30/20 22:32 Dose: 5 mg Documented by: Dexamethasone Sodium Phosphate (Decadron Injection -) 6 mg IVPUSH QID [facility] Last Admin: 05/30/20 22:32 Dose: 6 mg Documented by: Furosemide (Lasix Injection -) 80 mg IVPB DAILY [facility] Last Admin: 05/30/20 10:03 Dose: 80 mg Documented by: Insulin Aspart (Novolog Vial Sliding Scale -) 1 vial SQ ACHS [facility]; Protocol Last Admin: 05/31/20 06:31 Dose: Not Given Documented by: Levothyroxine Sodium (Synthroid -) 125 mcg PO DAILY@0700 [facility] Last Admin: 05/31/20 06:32 Dose: 125 mcg Documented by: Sodium Zirconium Cyclosilicate (Lokelma) 5 gm PO 1400 [facility] Last Admin: 05/30/20 14:58 Dose: 5 gm Documented by: Tiotropium [place] (Spiriva Respimat) 2 puff IH DAILY [facility] Last Admin: 05/30/20 14:47 Dose: Not Given Documented by: - Objective Vital Signs: Vital Signs Temperature 97.6 F 05/31/20 09:24 Pulse Rate 61 05/31/20 09:24 Respiratory Rate 12 05/31/20 09:24 Blood Pressure 130/72 05/31/20 09:24 O2 Sat by Pulse Oximetry (%) 96 05/31/20 09:24 Cardiovascular: Yes: S1, S2 Respiratory: Yes: On BiPap, Other (improved aeration) Gastrointestinal: Yes: Normal Bowel Sounds, Soft Labs: CBC, BMP 05/31/20 05:40 05/31/20 05:40 INR, PTT INR 1.06 (0.83-1.09) 05/28/20 14:45 Problem List - Problems (1) Acute respiratory failure with hypoxia and hypercarbia Assessment/Plan: due to copd-chf increase decadron 6 qid lasix 80 iv echo bipap icu care ABG Results ABG pH 7.322 (7.350-7.450) L 05/31/20 05:50 ABG HCO3 36.9 mmol/L (22-27) H 05/31/20 05:50 ABG O2 Sat (Measured) 95.1 mmHg (95-98) 05/31/20 05:50 ABG O2 Content No Result Required. 05/31/20 05:50 ABG Base Excess 7.9 mmol/L (-2-2) H 05/31/20 05:50 Code(s): J96.01 - ACUTE RESPIRATORY FAILURE WITH HYPOXIA; J96.02 - ACUTE RESPIRATORY FAILURE WITH HYPERCAPNIA (2) Hyperkalemia Assessment/Plan: Treat and monitor Laboratory Tests 05/29/20 05/29/20 05/30/20 08:13 17:08 00:15 Potassium 5.8 H 5.6 H 5.3 H 05/30/20 05/31/20 06:00 05:40 Potassium 5.1 5.5 H Code(s): E87.5 - HYPERKALEMIA (3) ELIZABETH (acute kidney injury) Assessment/Plan: Improving Laboratory Tests 05/29/20 05/30/20 05/31/20 08:13 00:15 05:40 BUN 19.8 H 26.7 H 36.5 H Creatinine 1.5 H 1.5 H 1.3 Code(s): N17.9 - ACUTE KIDNEY FAILURE, UNSPECIFIED (4) COPD (chronic obstructive pulmonary disease) Assessment/Plan: on steroids Code(s): J44.9 - CHRONIC OBSTRUCTIVE PULMONARY DISEASE, UNSPECIFIED (5) DVT (deep venous thrombosis) Assessment/Plan: on eliquis Code(s): I82.409 - ACUTE EMBOLISM AND THOMBOS UNSP DEEP VN UNSP LOWER EXTREMITY Qualifiers: DVT location: lower extremity Chronicity: unspecified Laterality: right (6) Diabetes Assessment/Plan: bgm Laboratory Tests 05/29/20 05/30/20 05/30/20 17:08 00:15 06:00 POC Glucometer Random Glucose 132 H 109 H 97 05/30/20 06:07 POC Glucometer 106 Random Glucose Code(s): E11.9 - TYPE 2 DIABETES MELLITUS WITHOUT COMPLICATIONS
[2020-05-31] MEDS ORDERED: DEXTROSE 50%-WATER 25 GM/50 ML DISP.SYRIN ONE (09:51)
[2020-05-31 09:54] LABS: ANISOCYTOSIS 1+; MACROCYTOSIS 1+; PLATELET ESTIMATE NORMAL
[2020-05-31] MEDS: FUROSEMIDE 100 MG/10 ML INJECTABLE VIAL IVPB SCH (09:54)
[2020-05-31] MEDS: amLODIPine BESYLATE 5 MG TABLET (FP) PO SCH (09:54)
[2020-05-31] MEDS: APIXABAN 5 MG TABLET PO SCH ×2 (09:54→21:06)
[2020-05-31] MEDS: DEXAMETHASONE SOD PHOSPHATE 4 MG/1 ML VIAL IVPUSH SCH (09:54)
--- NOTE | 2020-05-31 12:41 | PN ---
Progress Note, Physician Chief Complaint: Seen on bipap but says her breathing has improved Sinus on tele with no events -3 liters output yesterday History of Present Illness: 69 year old female with a pmhx of copd on home O2, dm, htn, h/o rle dvt on apixaban, and hypothyroidism admitted with sob and hypoxia. Hypercapnic and placed on bipap. Reports some sob for 2 weeks and mild temperature and malaise last week. No chest pain or palpitations. No le edema - Current Medication List Current Medications: Active Medications Albuterol Sulfate (Ventolin Hfa Inhaler -) 2 puff IH Q4H PRN PRN Reason: SHORT OF BREATH/WHEEZING Amlodipine Besylate (Norvasc -) 5 mg PO DAILY [facility] Last Admin: 05/31/20 09:54 Dose: 5 mg Documented by: Apixaban (Eliquis -) 5 mg PO BID [facility] Last Admin: 05/31/20 09:54 Dose: 5 mg Documented by: Dexamethasone Sodium Phosphate (Decadron Injection -) 6 mg IVPUSH QID [facility] Last Admin: 05/31/20 09:54 Dose: 6 mg Documented by: Furosemide (Lasix Injection -) 80 mg IVPB DAILY [facility] Last Admin: 05/31/20 09:54 Dose: 80 mg Documented by: Insulin Aspart (Novolog Vial Sliding Scale -) 1 vial SQ [facility]; Protocol Last Admin: 05/31/20 06:31 Dose: Not Given Documented by: Levothyroxine Sodium (Synthroid -) 125 mcg PO DAILY@0700 [facility] Last Admin: 05/31/20 06:32 Dose: 125 mcg Documented by: Sodium Zirconium Cyclosilicate (Lokelma) 5 gm PO 1400 [facility] Last Admin: 05/30/20 14:58 Dose: 5 gm Documented by: Tiotropium [place] (Spiriva Respimat) 2 puff IH DAILY [facility] Last Admin: 05/30/20 14:47 Dose: Not Given Documented by: - Objective Vital Signs: Vital Signs Temperature 98.0 F 05/31/20 10:00 Pulse Rate 70 05/31/20 10:00 Respiratory Rate 13 05/31/20 10:00 Blood Pressure 122/71 05/31/20 10:00 O2 Sat by Pulse Oximetry (%) 96 05/31/20 09:24 Constitutional: Yes: No Distress Neck: Yes: Supple Cardiovascular: Yes: Regular Rate and Rhythm, S1, S2. No: Murmur Respiratory: Yes: Wheezes Gastrointestinal: Yes: Soft Edema: No Labs: CBC, BMP 05/31/20 05:40 05/31/20 05:40 INR, PTT INR 1.06 (0.83-1.09) 05/28/20 14:45 Problem List - Problems (1) Acute respiratory failure with hypoxia and hypercarbia Code(s): J96.01 - ACUTE RESPIRATORY FAILURE WITH HYPOXIA; J96.02 - ACUTE RESPIRATORY FAILURE WITH HYPERCAPNIA Assessment/Plan 69 year old female with a pmhx of copd on home O2, dm, htn, h/o rle dvt on apixaban, and hypothyroidism admitted with sob and hypoxia. Hypercapnic and enoc dereje on bipap. Reports some sob for 2 weeks and mild temperature and malaise last week. No chest pain or palpitations. No le edema 1) Hypercapnic hypoxia -Mild chf on cxr and elevated bnp Can continue daily furosemide IV. With good urine output. Monitor daily lytes and treat as needed. -Plan for echocardiogram Telemetry unremarkable Consider R/o PE. -Elevated crp, ldh, and ddimer. Covid negative but would consider repeating covid test
--- NOTE | 2020-05-31 13:04 | ECHO ---
Version: 1 Name: CM JAMES Exam: Adult Echocardiogram Study Date: 05/31/2020, 10:27 AM Age: 69 Years MMode/2D Measurements & Calculations IVSd: 1.31 cm LVIDs: 3.5 cm LVIDd: 4.8 cm LVPWd: 1.28 cm ACS: 1.70 cm Ao root diam: 2.7 cm LVOT diam: 2.26 cm LA dimension: 3.3 cm Doppler Measurements & Calculations MV E max mehdi: 95.0 cm/sec Med E/e': 17.4 MV A max mehdi: 114.8 cm/sec Med Peak E' Mehdi: 5.5 cm/sec MV E/A: 0.83 Lat E/e': 16.8 Lat Peak E' Mehdi: 5.7 cm/sec MR max P.2 mmHg Ao max P.7 mmHg SAMEER(I,D): 3.0 cm Ao mean P.6 mmHg LV V1 mean: 72.2 cm/sec Ao V2 max: 163.7 cm/sec LV V1 mean P.5 mmHg AI P1/2t: 486.6 msec PI end-d mehdi: 81.9 cm/sec TR max mehdi: 339.4 cm/sec TR max P.2 mmHg Procedure The study was technically difficult with many images being suboptimal in quality. Left Ventricle There is mild concentric left ventricular hypertrophy. Left ventricular systolic function is normal. Ejection Fraction = 65%. The transmitral spectral Doppler flow pattern is suggestive of impaired LV relaxatio n. Right Ventricle The right ventricle is not well visualized. The right ventricle is mildly dilated. Right ventricular function cannot be assessed due to poor image quality. Atria The left atrium is mildly dilated. Right atrium not well visualized. Mitral Valve There is mild to moderate mitral annular calcification. There is trace to mild mitral regurgitation. Tricuspid Valve The tricuspid valve is not well visualized. There is mild tricuspid regurgitation. There is moderate pulmonary hypertension. Right ventricular systolic pressure is elevated at 56 mmhg. Assuming the RA pressure is 15 mmHg. Aortic Valve There is mild to moderate aortic sclerosis.;. No hemodynamically significant valvular aortic stenosi s. Pulmonic Valve The pulmonic valve is not well visualized. Great Vessels The aortic root is normal size. Pericardium/Pleura There is no pericardial effusion. Tech Comments TDS due to body habitus. Patient scanned sitting up on BiPap. Summary Statements The study was technically difficult with many images being suboptimal in quality. There is mild concentric left ventricular hypertrophy. Left ventricular systolic function is normal. Ejection Fraction = 65%. The right ventricle is not well visualized. The right ventricle is mildly dilated. There is mild to moderate mitral annular calcification. There is trace to mild mitral regurgitation. There is mild to moderate aortic sclerosis.; There is moderate pulmonary hypertension. Right ventricular systolic pressure is elevated at 56 mmhg . 05/31/2020, 1:04 MD Susannah Ferrell PM Ordering Physician: Kimberly Gonzalez Referring Physician: KIMBERLY GONZALEZ Performed By: Francia Aparicio
[2020-05-31] MEDS: SODIUM ZIRCONIUM CYCLOSILICATE (LOKELMA) 5 GM PACKET PO SCH (13:36)
--- NOTE | 2020-05-31 13:39 | EKG ---
Test Reason : Blood Pressure : / mmHG Vent. Rate : 065 BPM Atrial Rate : 065 BPM P-R Int : 138 ms QRS Dur : 084 ms QT Int : 376 ms P-R-T Axes : 062 011 041 degrees QTc Int : 391 ms NORMAL SINUS RHYTHM POSSIBLE LEFT ATRIAL ENLARGEMENT BORDERLINE ECG Confirmed by MD Leola, Prashanth ([id number]) on 05/31/2020 1:38:48 PM Referred By: Henry LAWTON Confirmed By:Prashanth Bhagat MD
--- NOTE | 2020-05-31 14:19 | PN ---
Physical Exam: SUBJECTIVE: Patient seen and examined at bedside. she states her sob is improving but she still feels tired. OBJECTIVE: Vital Signs Period Temp Pulse Resp BP Sys/Mendez Pulse Ox Last 24 Hr 97.6 F-99.0 F 58-76 12-20 122-154/63-88 93-100 GENERAL: The patient is awake, alert, and fully oriented, in no acute distress. on bipap HEAD: Normal with no signs of trauma. LUNGS: Breath sounds equal, clear to auscultation bilaterally, no accessory muscle use. HEART: Regular rate and rhythm, S1, S2 without murmur. ABDOMEN: Soft, nontender, nondistended, normoactive bowel sounds, no guarding EXTREMITIES: 2+ pulses, warm, well-perfused, no edema. NEUROLOGICAL: Cranial nerves II through XII grossly intact. Normal speech SKIN: Warm, dry, normal turgor, no rashes or lesions noted CBC, BMP 05/31/20 05:40 05/31/20 05:40 Active Medications Generic Name Dose Route Start Last Admin Trade Name Freq PRN Reason Stop Dose Admin Albuterol Sulfate 2 puff 05/28/20 19:23 Ventolin Hfa Inhaler - IH Q4H PRN SHORT OF BREATH/WHEEZING Amlodipine Besylate 5 mg 05/29/20 10:00 05/31/20 09:54 Norvasc - PO 5 mg DAILY [facility] Administration Apixaban 5 mg 05/28/20 22:00 05/31/20 09:54 Eliquis - PO 5 mg BID [facility] Administration Furosemide 80 mg 05/30/20 10:00 05/31/20 09:54 Lasix Injection - IVPB 80 mg DAILY [facility] Administration Insulin Aspart 1 vial 05/28/20 22:00 05/31/20 12:30 Novolog Vial Sliding Scale - SQ Not Given ACHS [facility] Protocol Levothyroxine Sodium 125 mcg 05/29/20 07:00 05/31/20 06:32 Synthroid - PO 125 mcg DAILY@0700 [facility] Administration Sodium Zirconium Cyclosilicate 5 gm 05/30/20 14:00 05/31/20 13:36 Lokelma PO 5 gm 1400 [facility] Administration Tiotropium [place] 2 puff 05/29/20 10:00 05/30/20 14:47 Spiriva Respimat IH Not Given DAILY [facility] ASSESSMENT/PLAN: 69yo F with h/o COPD (not on home O2) , DM, HTN, RLE DVT, Hypothyroidism who presented to the ER via EMS due to hypoxia of 85%. pt is admitted to ICU for acute hypercarbic respiratory failure Neuro: AOx3, no acute events cont to monitor MS Cardio mild CHF? hx of DVT, c/w eliquis c/w norvasc c/w lasix BNP 692, pending echo trop neg cardio recs appreciated cxr reviewed rpt EKG today, reviewed Pulm acute hypercarbic hypoxic respiratory failure, COPD ABG reviewed, pH improving. will cont to trend cont BiPAP IPAP 24, EPAP 8 RR 24. will try NC O2 today during the day. will dc decadron c/w spiriva, ventolin Endo c/w synthroid c/w ISS, BGM hold metformin Renal Cr 1.5 , cont to monitor c/w lokelma c/w lasix both lokelma and lasix should help hyperK monitor I/Os fluid restriction 1L DVT ppx: eliquis 5 bid dispo: cont icu monitoring ATTENDING PHYSICIAN STATEMENT I saw and evaluated the patient. I reviewed the resident's note and discussed the case with the resident. I agree with the resident's findings and plan as documented. SUBJECTIVE: OBJECTIVE: ASSESSMENT AND PLAN:
--- NOTE | 2020-05-31 15:46 | PN ---
Teaching Attending Note Name of Resident: Kimberly Gonzalez ATTENDING PHYSICIAN STATEMENT I saw and evaluated the patient. I reviewed the resident's note and discussed the case with the resident. I agree with the resident's findings and plan as documented. SUBJECTIVE: Patient seen and examined in the ICU. Awake and alert on NIPPV support. ABG improving. No pressors. Intake & Output 05/28/20 05/29/20 05/30/20 05/31/20 23:59 23:59 23:59 23:59 Intake Total 60 20 175 110 Output Total 2100 3250 300 Balance 60 -2080 -3075 -190 Weight 244 lb 15.995 oz 244 lb 15.995 oz 270 lb 258 lb 9.6 oz Last Vital Signs Temp Pulse Resp BP Pulse Ox 99.1 F 80 15 161/83 96 05/31/20 14:00 05/31/20 14:00 05/31/20 14:00 05/31/20 14:00 05/31/20 14:00 Active Medications Albuterol Sulfate (Ventolin Hfa Inhaler -) 2 puff IH Q4H PRN PRN Reason: SHORT OF BREATH/WHEEZING Amlodipine Besylate (Norvasc -) 5 mg PO DAILY [facility] Last Admin: 05/31/20 09:54 Dose: 5 mg Documented by: Apixaban (Eliquis -) 5 mg PO BID [facility] Last Admin: 05/31/20 09:54 Dose: 5 mg Documented by: Furosemide (Lasix Injection -) 80 mg IVPB DAILY [facility] Last Admin: 05/31/20 09:54 Dose: 80 mg Documented by: Insulin Aspart (Novolog Vial Sliding Scale -) 1 vial SQ [facility]; Protocol Last Admin: 05/31/20 12:30 Dose: Not Given Documented by: Levothyroxine Sodium (Synthroid -) 125 mcg PO DAILY@0700 [facility] Last Admin: 05/31/20 06:32 Dose: 125 mcg Documented by: Sodium Zirconium Cyclosilicate (Lokelma) 5 gm PO 1400 [facility] Last Admin: 05/31/20 13:36 Dose: 5 gm Documented by: Tiotropium [place] (Spiriva Respimat) 2 puff IH DAILY [facility] Last Admin: 05/30/20 14:47 Dose: Not Given Documented by: Constitutional: Yes: Awake and alert on NIPPV Eyes: Yes: WNL, Conjunctiva Clear, EOM Intact HENT: Yes: WNL, Atraumatic, Normocephalic Neck: Yes: WNL Cardiovascular: Yes: WNL, Regular Rate and Rhythm, S1, S2 Respiratory: Yes: Diminished, On BiPap, SOB on Exertion ...Rectal Exam: Yes: Deferred Renal/: Yes: Other (Millan inserted for accurate I/O) Breast(s): Yes: WNL Musculoskeletal: Yes: Muscle Weakness Extremities: Yes: WNL Edema: LUE: 2+, RUE: 2+, LLE: 2+, RLE: 2+ Integumentary: Yes: WNL Neurological: Yes: Confusion ...Motor Strength: WNL Labs: Laboratory Results - last 24 hr 05/30/20 05/30/20 05/31/20 17:55 22:31 05:40 WBC 7.1 RBC 5.38 H Hgb 13.8 Hct 45.1 MCV 83.8 MCH 25.7 MCHC 30.7 L RDW 17.4 H Plt Count 252 MPV 8.2 Absolute Neuts (auto) 6.7 Neutrophils % 93.6 H Neutrophils % (Manual) 91.0 H Band Neutrophils % 0.0 Lymphocytes % 4.9 L D Lymphocytes % (Manual) 7.0 L Monocytes % 1.3 L D Monocytes % (Manual) 2 L Eosinophils % 0.0 Eosinophils % (Manual) 0.0 Basophils % 0.2 Basophils % (Manual) 0.0 Myelocytes % (Man) 0 Promyelocytes % (Man) 0 Blast Cells % (Manual) 0 Nucleated RBC % 0 Metamyelocytes 0 Hypochromia 0 Platelet Estimate Normal Polychromasia 1+ Poikilocytosis 0 Anisocytosis 1+ Microcytosis 0 Macrocytosis 1+ Anticoagulation Therapy Puncture Site Patient Temperature ABG pH ABG pCO2 ABG pO2 ABG HCO3 ABG O2 Sat (Measured) ABG O2 Content ABG Base Excess Aashish Test Patient On Oxygen O2 Delivery Device Oxygen Flow Rate Vent Mode Vent Rate Mechanical Rate PEEP Pressure Support Vent Sodium Potassium Chloride Carbon Dioxide Anion Gap BUN Creatinine Est GFR (CKD-EPI)AfAm Est GFR (CKD-EPI)NonAf POC Glucometer 132 129 Random Glucose Calcium Phosphorus Magnesium Total Bilirubin AST ALT Alkaline Phosphatase Total Protein Albumin 05/31/20 05/31/20 05/31/20 05:40 05:50 06:30 WBC RBC Hgb Hct MCV MCH MCHC RDW Plt Count MPV Absolute Neuts (auto) Neutrophils % Neutrophils % (Manual) Band Neutrophils % Lymphocytes % Lymphocytes % (Manual) Monocytes % Monocytes % (Manual) Eosinophils % Eosinophils % (Manual) Basophils % Basophils % (Manual) Myelocytes % (Man) Promyelocytes % (Man) Blast Cells % (Manual) Nucleated RBC % Metamyelocytes Hypochromia Platelet Estimate Polychromasia Poikilocytosis Anisocytosis Microcytosis Macrocytosis Anticoagulation Therapy No Result Required. Puncture Site Right brachial Patient Temperature No Result Required. ABG pH 7.322 L ABG pCO2 73.00 H* ABG pO2 84.1 ABG HCO3 36.9 H ABG O2 Sat (Measured) 95.1 ABG O2 Content No Result Required. ABG Base Excess 7.9 H Aashish Test Positive Patient On Oxygen Yes O2 Delivery Device Bipap Oxygen Flow Rate 40% Vent Mode No Result Required. Vent Rate 24 Mechanical Rate No Result Required. PEEP No Result Required. Pressure Support Vent 24/8 Sodium 134 L Potassium 5.5 H Chloride 88 L Carbon Dioxide 36 H Anion Gap 10 BUN 36.5 H Creatinine 1.3 Est GFR (CKD-EPI)AfAm 48.13 Est GFR (CKD-EPI)NonAf 41.53 POC Glucometer 140 Random Glucose 121 H Calcium 9.0 Phosphorus 6.0 H Magnesium 2.3 Total Bilirubin 0.5 AST 8 L ALT 20 Alkaline Phosphatase 58 Total Protein 7.5 Albumin 3.2 L 05/31/20 12:52 WBC RBC Hgb Hct MCV MCH MCHC RDW Plt Count MPV Absolute Neuts (auto) Neutrophils % Neutrophils % (Manual) Band Neutrophils % Lymphocytes % Lymphocytes % (Manual) Monocytes % Monocytes % (Manual) Eosinophils % Eosinophils % (Manual) Basophils % Basophils % (Manual) Myelocytes % (Man) Promyelocytes % (Man) Blast Cells % (Manual) Nucleated RBC % Metamyelocytes Hypochromia Platelet Estimate Polychromasia Poikilocytosis Anisocytosis Microcytosis Macrocytosis Anticoagulation Therapy Puncture Site Patient Temperature ABG pH ABG pCO2 ABG pO2 ABG HCO3 ABG O2 Sat (Measured) ABG O2 Content ABG Base Excess Aashish Test Patient On Oxygen O2 Delivery Device Oxygen Flow Rate Vent Mode Vent Rate Mechanical Rate PEEP Pressure Support Vent Sodium Potassium Chloride Carbon Dioxide Anion Gap BUN Creatinine Est GFR (CKD-EPI)AfAm Est GFR (CKD-EPI)NonAf POC Glucometer 132 Random Glucose Calcium Phosphorus Magnesium Total Bilirubin AST ALT Alkaline Phosphatase Total Protein Albumin Imaging - Results Chest X-ray: Report Reviewed (Weak inspiration with resultant large heart, sclerotic knob and there are still congestive changes.), Image Reviewed Problem List - Problems (1) Hyponatremia Code(s): E87.1 - HYPO-OSMOLALITY AND HYPONATREMIA (2) Hyperkalemia Code(s): E87.5 - HYPERKALEMIA (3) Acute respiratory insufficiency Code(s): R06.89 - OTHER ABNORMALITIES OF BREATHING (4) Hypercarbia Code(s): R06.89 - OTHER ABNORMALITIES OF BREATHING (5) ELIZABETH (acute kidney injury) Code(s): N17.9 - ACUTE KIDNEY FAILURE, UNSPECIFIED (6) HTN (hypertension) Code(s): I10 - ESSENTIAL (PRIMARY) HYPERTENSION (7) Hypothyroidism Code(s): E03.9 - HYPOTHYROIDISM, UNSPECIFIED (8) Diabetes Code(s): E11.9 - TYPE 2 DIABETES MELLITUS WITHOUT COMPLICATIONS (9) COPD (chronic obstructive pulmonary disease) Code(s): J44.9 - CHRONIC OBSTRUCTIVE PULMONARY DISEASE, UNSPECIFIED (10) DVT (deep venous thrombosis) Code(s): I82.409 - ACUTE EMBOLISM AND THOMBOS UNSP DEEP VN UNSP LOWER EXTREMITY Qualifiers: DVT location: lower extremity Chronicity: unspecified Laterality: right Assessment/Plan - Continue NIPPV support - BD TX - Steroids - Trend and replete electrolytes, Keep Mg>2, K>4 - Lasix - Anticoagulation - Abx - 4W / 4S Dr Penaloza
--- NOTE | 2020-05-31 16:50 | PN ---
Progress Note, Physician History of Present Illness: Pt seen and examined at bedside. She is awake and alert. She feels that her breathing is improved. - Current Medication List Current Medications: Active Medications Albuterol Sulfate (Ventolin Hfa Inhaler -) 2 puff IH Q4H PRN PRN Reason: SHORT OF BREATH/WHEEZING Amlodipine Besylate (Norvasc -) 5 mg PO DAILY [facility] Last Admin: 05/31/20 09:54 Dose: 5 mg Documented by: Apixaban (Eliquis -) 5 mg PO BID [facility] Last Admin: 05/31/20 09:54 Dose: 5 mg Documented by: Furosemide (Lasix Injection -) 80 mg IVPB DAILY [facility] Last Admin: 05/31/20 09:54 Dose: 80 mg Documented by: Insulin Aspart (Novolog Vial Sliding Scale -) 1 vial SQ ACHS [facility]; Protocol Last Admin: 05/31/20 12:30 Dose: Not Given Documented by: Levothyroxine Sodium (Synthroid -) 125 mcg PO DAILY@0700 [facility] Last Admin: 05/31/20 06:32 Dose: 125 mcg Documented by: Sodium Zirconium Cyclosilicate (Lokelma) 5 gm PO 1400 [facility] Last Admin: 05/31/20 13:36 Dose: 5 gm Documented by: Tiotropium [place] (Spiriva Respimat) 2 puff IH DAILY [facility] Last Admin: 05/30/20 14:47 Dose: Not Given Documented by: - Objective Vital Signs: Vital Signs Temperature 99.1 F 05/31/20 14:00 Pulse Rate 75 05/31/20 16:00 Respiratory Rate 24 H 05/31/20 16:00 Blood Pressure 159/80 05/31/20 16:00 O2 Sat by Pulse Oximetry (%) 95 05/31/20 16:00 Constitutional: Yes: Calm Eyes: Yes: Conjunctiva Clear HENT: Yes: Atraumatic Neck: Yes: Supple Cardiovascular: Yes: S1, S2 Respiratory: Yes: On BiPap Gastrointestinal: Yes: Normal Bowel Sounds, Soft Genitourinary: Yes: Incontinence Musculoskeletal: Yes: WNL Edema: Yes Edema: LLE: Trace, RLE: Trace Neurological: Yes: Oriented Psychiatric: Yes: Oriented Labs: CBC, BMP 05/31/20 05:40 05/31/20 05:40 INR, PTT INR 1.06 (0.83-1.09) 05/28/20 14:45 - ....Imaging Chest X-ray: Report Reviewed Assessment/Plan Current Medications Generic Name Dose Route Start Last Admin Trade Name Hafsa PRN Reason Stop Dose Admin Albuterol Sulfate 2 puff 05/28/20 19:23 Ventolin Hfa Inhaler - IH Q4H PRN SHORT OF BREATH/WHEEZING Amlodipine Besylate 5 mg 05/29/20 10:00 05/31/20 09:54 Norvasc - PO 5 mg DAILY [facility] Administration Apixaban 5 mg 05/28/20 22:00 05/31/20 09:54 Eliquis - PO 5 mg BID [facility] Administration Furosemide 80 mg 05/30/20 10:00 05/31/20 09:54 Lasix Injection - IVPB 80 mg DAILY [facility] Administration Insulin Aspart 1 vial 05/28/20 22:00 05/31/20 12:30 Novolog Vial Sliding Scale - SQ Not Given ACHS [facility] Protocol Levothyroxine Sodium 125 mcg 05/29/20 07:00 05/31/20 06:32 Synthroid - PO 125 mcg DAILY@0700 [facility] Administration Sodium Zirconium Cyclosilicate 5 gm 05/30/20 14:00 05/31/20 13:36 Lokelma PO 5 gm 1400 [facility] Administration Tiotropium [place] 2 puff 05/29/20 10:00 05/30/20 14:47 Spiriva Respimat IH Not Given DAILY [facility] 1. hypervolemic hyponatremia 2. Hypoxic respiratory failure 3. Hyperkalemia 4. ELIZABETH 5. COPD 6 DM 7. RLE DVT Plan - sodium continues to improve - renal function improving - potassium elevated, treat medically - cont bipap - echo report reviewed - cont lasix - cont bipap
[2020-05-31] MEDS ORDERED: PT OWN MED DRAWER 7, Y5N ONE (17:36)
[2020-05-31] MEDS: TIOTROPIUM BROMIDE 2.5 MCG (SPIRIVA) RESPIMAT INHALER IH SCH (17:42)
[2020-05-31 19:46] LABS: BLOOD UREA NITROGEN 42.4 mg/dL (7-18); CREATININE 1.5 mg/dL (0.55-1.3); POTASSIUM 4.5 mmol/L (3.5-5.1)
[2020-06-01] MEDS: LEVOTHYROXINE NA 125 MCG TABLET (FP) PO SCH (06:21)
[2020-06-01 06:52] LABS: HEMATOCRIT 45.6 % (32.4-45.2); MCH 25.6 pg (25.7-33.7); MCHC 30.7 g/dl (32.0-36.0); MEAN CELL VOLUME 83.5 fl (80-96); MEAN PLT VOLUME 8.2 fl (7.5-11.1); PLATELET COUNT 250 K/MM3 (134-434); RBC 5.46 M/mm3 (3.60-5.2); RDW 17.5 % (11.6-15.6); WHITE BLOOD COUNT 7.7 K/mm3 (4.0-10.0)
[2020-06-01] MEDS: INSULIN SLIDING SCALE (NOVOLOG) 1 VIAL SQ SCH ×4 (06:53→20:59)
[2020-06-01 07:17] LABS: BLOOD UREA NITROGEN 48.5 mg/dL (7-18); CREATININE 1.4 mg/dL (0.55-1.3); MAGNESIUM 2.4 mg/dL (1.8-2.4); PHOSPHOROUS 4.6 mg/dL (2.5-4.9); POTASSIUM 4.9 mmol/L (3.5-5.1); TOT PROT 6.9 g/dl (6.4-8.2)
--- NOTE | 2020-06-01 08:36 | PN ---
Physical Exam: SUBJECTIVE: Patient seen and examined at bedside. pt seen sitting up in bed eating breakfast. she states she is feeling much better, although she does have her baseline sob. denies cp OBJECTIVE: Vital Signs Period Temp Pulse Resp BP Sys/Mendez Pulse Ox Last 24 Hr 97.6 F-99.1 F 51-80 12-24 120-161/61-88 95-100 GENERAL: The patient is awake, alert, and fully oriented, in no acute distress. HEAD: Normal with no signs of trauma. LUNGS: Breath sounds equal, scattered wheezes, no accessory muscle use. HEART: Regular rate and rhythm, S1, S2 ABDOMEN: Soft, nontender, nondistended, normoactive bowel sounds, no guarding EXTREMITIES: 2+ pulses, warm, well-perfused, no edema. NEUROLOGICAL: Cranial nerves II through XII grossly intact CBC, BMP 06/01/20 05:20 06/01/20 05:20 Active Medications Generic Name Dose Route Start Last Admin Trade Name Freq PRN Reason Stop Dose Admin Albuterol Sulfate 2 puff 05/28/20 19:23 Ventolin Hfa Inhaler - IH Q4H PRN SHORT OF BREATH/WHEEZING Amlodipine Besylate 5 mg 05/29/20 10:00 05/31/20 09:54 Norvasc - PO 5 mg DAILY EVELYN Administration Apixaban 5 mg 05/28/20 22:00 05/31/20 21:06 Eliquis - PO 5 mg BID EVELYN Administration Furosemide 80 mg 05/30/20 10:00 05/31/20 09:54 Lasix Injection - IVPB 80 mg DAILY EVELYN Administration Insulin Aspart 1 vial 05/28/20 22:00 06/01/20 06:53 Novolog Vial Sliding Scale - SQ Not Given ACHS [facility] Protocol Levothyroxine Sodium 125 mcg 05/29/20 07:00 06/01/20 06:21 Synthroid - PO 125 mcg DAILY@0700 EVELYN Administration Sodium Zirconium Cyclosilicate 5 gm 05/30/20 14:00 05/31/20 13:36 Lokelma PO 5 gm 1400 EVELYN Administration Tiotropium [place] 2 puff 05/29/20 10:00 05/31/20 17:42 Spiriva Respimat IH 2 puff DAILY EVELYN Administration ASSESSMENT/PLAN: 69yo F with h/o COPD (not on home O2) , DM, HTN, RLE DVT, Hypothyroidism who presented to the ER via EMS due to hypoxia of 85%. pt is admitted to ICU for acute hypercarbic respiratory failure Neuro: AOx3, no acute events cont to monitor MS Cardio mild CHF? hx of DVT, c/w eliquis c/w norvasc c/w lasix echo reviewed, sub optimal EF 65% cardio recs appreciated Pulm acute hypercarbic hypoxic respiratory failure, COPD ABG reviewed, pH improved cont BiPAP IPAP 24, EPAP 8 RR 24. at night and when sleeping. tolerated NC O2, titrate as tolerated c/w spiriva, ventolin Endo c/w synthroid c/w ISS, BGM hold metformin Renal Cr 1.5 , cont to monitor c/w lokelma c/w lasix hyperkalemia improving, 4.9 today monitor I/Os fluid restriction 1L DVT ppx: eliquis 5 bid dispo: stable for transfer to medicine Visit type - Emergency Visit Emergency Visit: No - New Patient This patient is new to me today: No - Critical Care Critical Care patient: Yes Total Critical Care Time (in minutes): 36 Critical Care Statement: The care of this patient involved high complexity decision making to prevent further life threatening deterioration of the patient's condition and/or to evaluate & treat vital organ system(s) failure or risk of failure. - Discharge Referral Referred to [facility] No - Medication Review Med list reviewed for High Risk Meds patients 65 and older: Yes ATTENDING PHYSICIAN STATEMENT I saw and evaluated the patient. I reviewed the resident's note and discussed the case with the resident. I agree with the resident's findings and plan as documented. SUBJECTIVE: OBJECTIVE: ASSESSMENT AND PLAN:
--- NOTE | 2020-06-01 09:01 | PN ---
Progress Note, Physician - Current Medication List Current Medications: Active Medications Albuterol Sulfate (Ventolin Hfa Inhaler -) 2 puff IH Q4H PRN PRN Reason: SHORT OF BREATH/WHEEZING Amlodipine Besylate (Norvasc -) 5 mg PO DAILY [facility] Last Admin: 05/31/20 09:54 Dose: 5 mg Documented by: Apixaban (Eliquis -) 5 mg PO BID [facility] Last Admin: 05/31/20 21:06 Dose: 5 mg Documented by: Furosemide (Lasix Injection -) 80 mg IVPB DAILY [facility] Last Admin: 05/31/20 09:54 Dose: 80 mg Documented by: Insulin Aspart (Novolog Vial Sliding Scale -) 1 vial SQ ACHS [facility]; Protocol Last Admin: 06/01/20 06:53 Dose: Not Given Documented by: Levothyroxine Sodium (Synthroid -) 125 mcg PO DAILY@0700 [facility] Last Admin: 06/01/20 06:21 Dose: 125 mcg Documented by: Sodium Zirconium Cyclosilicate (Lokelma) 5 gm PO 1400 [facility] Last Admin: 05/31/20 13:36 Dose: 5 gm Documented by: Tiotropium [place] (Spiriva Respimat) 2 puff IH DAILY [facility] Last Admin: 05/31/20 17:42 Dose: 2 puff Documented by: - Objective Vital Signs: Vital Signs Temperature 98.1 F 06/01/20 06:00 Pulse Rate 56 L 06/01/20 07:32 Respiratory Rate 20 06/01/20 07:33 Blood Pressure 157/67 06/01/20 07:32 O2 Sat by Pulse Oximetry (%) 97 06/01/20 07:33 Cardiovascular: Yes: Regular Rate and Rhythm Respiratory: Yes: Regular, CTA Bilaterally, On Nasal O2 Gastrointestinal: Yes: Normal Bowel Sounds, Soft Labs: CBC, BMP 06/01/20 05:20 06/01/20 05:20 INR, PTT INR 1.06 (0.83-1.09) 05/28/20 14:45 Problem List - Problems (1) Acute respiratory failure with hypoxia and hypercarbia Assessment/Plan: due to copd-chf increase decadron 6 qid lasix 80 iv--may need to increase cxr echo bipap icu care ABG Results ABG pH 7.322 (7.350-7.450) L 05/31/20 05:50 ABG HCO3 36.9 mmol/L (22-27) H 05/31/20 05:50 ABG O2 Sat (Measured) 95.1 mmHg (95-98) 05/31/20 05:50 ABG O2 Content No Result Required. 05/31/20 05:50 ABG Base Excess 7.9 mmol/L (-2-2) H 05/31/20 05:50 Code(s): J96.01 - ACUTE RESPIRATORY FAILURE WITH HYPOXIA; J96.02 - ACUTE RESPIRATORY FAILURE WITH HYPERCAPNIA (2) Hyperkalemia Assessment/Plan: Treat and monitor Laboratory Tests 05/29/20 05/29/20 05/30/20 08:13 17:08 00:15 Potassium 5.8 H 5.6 H 5.3 H 05/30/20 05/31/20 06:00 05:40 Potassium 5.1 5.5 H Laboratory Tests 05/31/20 06/01/20 19:05 05:20 Potassium 4.5 4.9 Code(s): E87.5 - HYPERKALEMIA (3) ELIZABETH (acute kidney injury) Assessment/Plan: Improving Laboratory Tests 05/29/20 05/30/20 05/31/20 08:13 00:15 05:40 BUN 19.8 H 26.7 H 36.5 H Creatinine 1.5 H 1.5 H 1.3 Abnormal Lab Results 05/31/20 06/01/20 06/01/20 19:05 05:20 05:20 RBC 5.46 H Hct 45.6 H MCH 25.6 L MCHC 30.7 L RDW 17.5 H Sodium 134 L 134 L Chloride 89 L 88 L Carbon Dioxide 39 H 43 H Anion Gap 7 L 3 L BUN 42.4 H 48.5 H Creatinine 1.5 H 1.4 H Random Glucose 179 H 131 H AST 6 L Albumin 3.0 L Code(s): N17.9 - ACUTE KIDNEY FAILURE, UNSPECIFIED (4) COPD (chronic obstructive pulmonary disease) Assessment/Plan: on steroids bipap per pulm Code(s): J44.9 - CHRONIC OBSTRUCTIVE PULMONARY DISEASE, UNSPECIFIED (5) DVT (deep venous thrombosis) Assessment/Plan: on eliquis Code(s): I82.409 - ACUTE EMBOLISM AND THOMBOS UNSP DEEP VN UNSP LOWER EXTREMITY Qualifiers: DVT location: lower extremity Chronicity: unspecified Laterality: right (6) Diabetes Assessment/Plan: bgm Laboratory Tests 05/29/20 05/30/20 05/30/20 17:08 00:15 06:00 POC Glucometer Random Glucose 132 H 109 H 97 05/30/20 06:07 POC Glucometer 106 Random Glucose Code(s): E11.9 - TYPE 2 DIABETES MELLITUS WITHOUT COMPLICATIONS
[2020-06-01] MEDS ORDERED: PT OWN MED DRAWER 7, Y5N ONE (09:13)
[2020-06-01] MEDS: FUROSEMIDE 100 MG/10 ML INJECTABLE VIAL IVPB SCH (09:26)
[2020-06-01] MEDS: APIXABAN 5 MG TABLET PO SCH ×2 (09:26→21:05)
[2020-06-01] MEDS: amLODIPine BESYLATE 5 MG TABLET (FP) PO SCH (09:27)
[2020-06-01] MEDS: TIOTROPIUM BROMIDE 2.5 MCG (SPIRIVA) RESPIMAT INHALER IH SCH (09:28)
--- NOTE | 2020-06-01 11:30 | PN ---
Teaching Attending Note Name of Resident: Kimberly Gonzalez ATTENDING PHYSICIAN STATEMENT I saw and evaluated the patient. I reviewed the resident's note and discussed the case with the resident. I agree with the resident's findings and plan as documented. SUBJECTIVE: Pt seen and examined in the ICU. Off BiPAP, states breathing is improving. OBJECTIVE: Vital Signs Period Temp Pulse Resp BP Sys/Mendez Pulse Ox Last 24 Hr 98.1 F-99.1 F 51-80 10-24 120-161/61-88 95-100 Intake & Output 05/29/20 05/30/20 05/31/20 06/01/20 23:59 23:59 23:59 23:59 Intake Total 20 175 660 100 Output Total 2100 3250 700 300 Balance -2080 -3075 -40 -200 Weight 111.13 kg 122.47 kg 117.299 kg 116.528 kg Gen: NAD at rest Heart: RRR Lung: decreased breath sounds at the bases Abd: soft, nontender Ext: no edema CBC, BMP 06/01/20 05:20 06/01/20 05:20 Active Medications Albuterol Sulfate (Ventolin Hfa Inhaler -) 2 puff IH Q4H PRN PRN Reason: SHORT OF BREATH/WHEEZING Amlodipine Besylate (Norvasc -) 5 mg PO DAILY [facility] Last Admin: 06/01/20 09:27 Dose: 5 mg Documented by: Apixaban (Eliquis -) 5 mg PO BID [facility] Last Admin: 06/01/20 09:26 Dose: 5 mg Documented by: Furosemide (Lasix Injection -) 80 mg IVPB DAILY [facility] Last Admin: 06/01/20 09:26 Dose: 80 mg Documented by: Insulin Aspart (Novolog Vial Sliding Scale -) 1 vial SQ [facility]; Protocol Last Admin: 06/01/20 06:53 Dose: Not Given Documented by: Levothyroxine Sodium (Synthroid -) 125 mcg PO DAILY@0700 [facility] Last Admin: 06/01/20 06:21 Dose: 125 mcg Documented by: Sodium Zirconium Cyclosilicate (Lokelma) 5 gm PO 1400 [facility] Last Admin: 05/31/20 13:36 Dose: 5 gm Documented by: Tiotropium [place] (Spiriva Respimat) 2 puff IH DAILY [facility] Last Admin: 06/01/20 09:28 Dose: 2 puff Documented by: ASSESSMENT AND PLAN: Acute on Chronic Hypoxic and Hypercapneic Respiratory Failure Acute COPD Exacerbation Acute on Chronic Diastolic Heart Failure Pulmonary HTN Acute Kidney Injury HTN DM h/o DVT - continue lasix - monitor urine output, creatinine - daily weights - O2 to keep SpO2 >90% - s/p steroids - inhaled bronchodilators - BiPAP at night and PRN during day - rehab/PT - continue anticoagulation - can monitor on floor
--- NOTE | 2020-06-01 11:39 | PN ---
Progress Note, Physician Chief Complaint: Off bipap SOB improving Sinus on tele History of Present Illness: 69 year old female with a pmhx of copd on home O2, dm, htn, h/o rle dvt on apixaban, and hypothyroidism admitted with sob and hypoxia. Hypercapnic and placed on bipap. Reports some sob for 2 weeks and mild temperature and malaise last week. No chest pain or palpitations. No le edema - Current Medication List Current Medications: Active Medications Albuterol Sulfate (Ventolin Hfa Inhaler -) 2 puff IH Q4H PRN PRN Reason: SHORT OF BREATH/WHEEZING Amlodipine Besylate (Norvasc -) 5 mg PO DAILY [facility] Last Admin: 06/01/20 09:27 Dose: 5 mg Documented by: Apixaban (Eliquis -) 5 mg PO BID [facility] Last Admin: 06/01/20 09:26 Dose: 5 mg Documented by: Furosemide (Lasix Injection -) 80 mg IVPB DAILY [facility] Last Admin: 06/01/20 09:26 Dose: 80 mg Documented by: Insulin Aspart (Novolog Vial Sliding Scale -) 1 vial SQ ACHS [facility]; Protocol Last Admin: 06/01/20 06:53 Dose: Not Given Documented by: Levothyroxine Sodium (Synthroid -) 125 mcg PO DAILY@0700 [facility] Last Admin: 06/01/20 06:21 Dose: 125 mcg Documented by: Sodium Zirconium Cyclosilicate (Lokelma) 5 gm PO 1400 [facility] Last Admin: 05/31/20 13:36 Dose: 5 gm Documented by: Tiotropium [place] (Spiriva Respimat) 2 puff IH DAILY [facility] Last Admin: 06/01/20 09:28 Dose: 2 puff Documented by: - Objective Vital Signs: Vital Signs Temperature 98.8 F 06/01/20 10:00 Pulse Rate 61 06/01/20 10:00 Respiratory Rate 10 06/01/20 10:00 Blood Pressure 136/69 06/01/20 10:00 O2 Sat by Pulse Oximetry (%) 97 06/01/20 08:00 Constitutional: Yes: Well Nourished Neck: Yes: Supple Cardiovascular: Yes: Regular Rate and Rhythm, S1, S2. No: JVD, Murmur Respiratory: Yes: Diminished Gastrointestinal: Yes: Soft Edema: No Labs: CBC, BMP 06/01/20 05:20 06/01/20 05:20 INR, PTT INR 1.06 (0.83-1.09) 05/28/20 14:45 Problem List - Problems (1) Acute respiratory failure with hypoxia and hypercarbia Code(s): J96.01 - ACUTE RESPIRATORY FAILURE WITH HYPOXIA; J96.02 - ACUTE RESPIRATORY FAILURE WITH HYPERCAPNIA Assessment/Plan 69 year old female with a pmhx of copd on home O2, dm, htn, h/o rle dvt on apixaban, and hypothyroidism admitted with sob and hypoxia. Hypercapnic and placed on bipap. Reports some sob for 2 weeks and mild temperature and malaise last week. No chest pain or palpitations. No le edema 1) Hypercapnic hypoxia -Mild chf on cxr and elevated bnp Can continue daily furosemide IV. Monitor bun/cr. Monitor daily lytes and treat as needed. Telemetry unremarkable -Echocardiogram with normal LVEF and no significant valve disease. RV mildly dilated and with at least moderate pulmonary htn. Would consider ruling out PE. Patient on AC. -Elevated crp, ldh, and ddimer. Covid negative but would consider repeating covid test.
--- NOTE | 2020-06-01 13:10 | PN ---
Progress Note, Physician History of Present Illness: Pt seen and examined at bedside. She is awake and alert. SHe feels that her breathing is improved. - Current Medication List Current Medications: Active Medications Albuterol Sulfate (Ventolin Hfa Inhaler -) 2 puff IH Q4H PRN PRN Reason: SHORT OF BREATH/WHEEZING Amlodipine Besylate (Norvasc -) 5 mg PO DAILY [facility] Last Admin: 06/01/20 09:27 Dose: 5 mg Documented by: Apixaban (Eliquis -) 5 mg PO BID [facility] Last Admin: 06/01/20 09:26 Dose: 5 mg Documented by: Furosemide (Lasix Injection -) 80 mg IVPB DAILY [facility] Last Admin: 06/01/20 09:26 Dose: 80 mg Documented by: Insulin Aspart (Novolog Vial Sliding Scale -) 1 vial SQ ACH[facility]; Protocol Last Admin: 06/01/20 06:53 Dose: Not Given Documented by: Levothyroxine Sodium (Synthroid -) 125 mcg PO DAILY@0700 [facility] Last Admin: 06/01/20 06:21 Dose: 125 mcg Documented by: Sodium Zirconium Cyclosilicate (Lokelma) 5 gm PO 1400 [facility] Last Admin: 05/31/20 13:36 Dose: 5 gm Documented by: Tiotropium [place] (Spiriva Respimat) 2 puff IH DAILY [facility] Last Admin: 06/01/20 09:28 Dose: 2 puff Documented by: - Objective Vital Signs: Vital Signs Temperature 98.8 F 06/01/20 10:00 Pulse Rate 61 06/01/20 10:00 Respiratory Rate 10 06/01/20 10:00 Blood Pressure 136/69 06/01/20 10:00 O2 Sat by Pulse Oximetry (%) 98 06/01/20 10:41 Constitutional: Yes: Calm Eyes: Yes: Conjunctiva Clear HENT: Yes: Atraumatic Neck: Yes: Supple Cardiovascular: Yes: S1, S2 Respiratory: Yes: CTA Bilaterally Gastrointestinal: Yes: Soft Genitourinary: Yes: Incontinence Musculoskeletal: Yes: Muscle Weakness Edema: No Neurological: Yes: Oriented Psychiatric: Yes: Oriented Labs: CBC, BMP 06/01/20 05:20 06/01/20 05:20 INR, PTT INR 1.06 (0.83-1.09) 05/28/20 14:45 Assessment/Plan Current Medications Generic Name Dose Route Start Last Admin Trade Name Hafsa PRN Reason Stop Dose Admin Albuterol Sulfate 2 puff 05/28/20 19:23 Ventolin Hfa Inhaler - IH Q4H PRN SHORT OF BREATH/WHEEZING Amlodipine Besylate 5 mg 05/29/20 10:00 06/01/20 09:27 Norvasc - PO 5 mg DAILY EVELYN Administration Apixaban 5 mg 05/28/20 22:00 06/01/20 09:26 Eliquis - PO 5 mg BID EVELYN Administration Furosemide 80 mg 05/30/20 10:00 06/01/20 09:26 Lasix Injection - IVPB 80 mg DAILY EVELYN Administration Insulin Aspart 1 vial 05/28/20 22:00 06/01/20 06:53 Novolog Vial Sliding Scale - SQ Not Given ACHS [facility] Protocol Levothyroxine Sodium 125 mcg 05/29/20 07:00 06/01/20 06:21 Synthroid - PO 125 mcg DAILY@0700 EVELYN Administration Sodium Zirconium Cyclosilicate 5 gm 05/30/20 14:00 05/31/20 13:36 Lokelma PO 5 gm 1400 EVELYN Administration Tiotropium [place] 2 puff 05/29/20 10:00 06/01/20 09:28 Spiriva Respimat IH 2 puff DAILY EVELYN Administration 1. hypervolemic hyponatremia 2. Hypoxic respiratory failure 3. Hyperkalemia 4. ELIZABETH 5. COPD 6 DM 7. RLE DVT Plan - renal function stabilizing - potassium improved - can transition to po lasix on next 24 to 48 hours, cont to monitor volume status - cont bipap - follow up cxr
[2020-06-01] MEDS: SODIUM ZIRCONIUM CYCLOSILICATE (LOKELMA) 5 GM PACKET PO SCH (14:01)
[2020-06-01] MEDS ORDERED: MELATONIN 5 MG TABLETS PO ONE (21:17)
[2020-06-02] MEDS: INSULIN SLIDING SCALE (NOVOLOG) 1 VIAL SQ SCH ×4 (06:16→21:10)
[2020-06-02] MEDS: LEVOTHYROXINE NA 125 MCG TABLET (FP) PO SCH (06:20)
[2020-06-02 07:17] LABS: ALBUMIN 3.2 g/dl (3.4-5.0); BILIRUBIN,TOTAL 0.7 mg/dL (0.2-1); BLOOD UREA NITROGEN 45.4 mg/dL (7-18); CALCIUM 8.7 mg/dL (8.5-10.1); CREATININE 1.4 mg/dL (0.55-1.3); MAGNESIUM 2.3 mg/dL (1.8-2.4); PHOSPHOROUS 3.4 mg/dL (2.5-4.9); POTASSIUM 4.6 mmol/L (3.5-5.1); TOT PROT 7.2 g/dl (6.4-8.2)
[2020-06-02 07:19] LABS: HEMATOCRIT 50.6 % (32.4-45.2); HEMOGLOBIN 15.3 GM/dL (10.7-15.3); MCH 25.4 pg (25.7-33.7); MCHC 30.2 g/dl (32.0-36.0); MEAN PLT VOLUME 8.2 fl (7.5-11.1); PLATELET COUNT 252 K/MM3 (134-434); RBC 6.03 M/mm3 (3.60-5.2); RDW 17.1 % (11.6-15.6); WHITE BLOOD COUNT 7.8 K/mm3 (4.0-10.0)
--- NOTE | 2020-06-02 09:36 | PN ---
Progress Note, Physician - Current Medication List Current Medications: Active Medications Albuterol Sulfate (Ventolin Hfa Inhaler -) 2 puff IH Q4H PRN PRN Reason: SHORT OF BREATH/WHEEZING Amlodipine Besylate (Norvasc -) 5 mg PO DAILY [facility] Last Admin: 06/01/20 09:27 Dose: 5 mg Documented by: Apixaban (Eliquis -) 5 mg PO BID [facility] Last Admin: 06/01/20 21:05 Dose: 5 mg Documented by: Furosemide (Lasix Injection -) 80 mg IVPB DAILY [facility] Last Admin: 06/01/20 09:26 Dose: 80 mg Documented by: Insulin Aspart (Novolog Vial Sliding Scale -) 1 vial SQ ACHS [facility]; Protocol Last Admin: 06/02/20 06:16 Dose: Not Given Documented by: Levothyroxine Sodium (Synthroid -) 125 mcg PO DAILY@0700 [facility] Last Admin: 06/02/20 06:20 Dose: 125 mcg Documented by: Sodium Zirconium Cyclosilicate (Lokelma) 5 gm PO 1400 [facility] Last Admin: 06/01/20 14:01 Dose: 5 gm Documented by: Tiotropium [place] (Spiriva Respimat) 2 puff IH DAILY [facility] Last Admin: 06/01/20 09:28 Dose: 2 puff Documented by: - Objective Vital Signs: Vital Signs Temperature 98.3 F 06/02/20 06:00 Pulse Rate 71 06/02/20 08:00 Respiratory Rate 13 06/02/20 08:00 Blood Pressure 125/60 06/02/20 08:00 O2 Sat by Pulse Oximetry (%) 96 06/02/20 08:00 Cardiovascular: Yes: S1, S2 Respiratory: Yes: CTA Bilaterally, On Nasal O2 Gastrointestinal: Yes: Normal Bowel Sounds, Soft Labs: CBC, BMP 06/02/20 05:40 06/02/20 05:40 INR, PTT INR 1.06 (0.83-1.09) 05/28/20 14:45 Problem List - Problems (1) Acute respiratory failure with hypoxia and hypercarbia Assessment/Plan: due to copd-chf increase decadron 6 qid lasix 80 iv--change to demadex 80 po cxr echo bipap icu care Code(s): J96.01 - ACUTE RESPIRATORY FAILURE WITH HYPOXIA; J96.02 - ACUTE RESPIRATORY FAILURE WITH HYPERCAPNIA (2) Hyperkalemia Assessment/Plan: Treat and monitor Laboratory Tests 05/29/20 05/29/20 05/30/20 08:13 17:08 00:15 Potassium 5.8 H 5.6 H 5.3 H 05/30/20 05/31/20 06:00 05:40 Potassium 5.1 5.5 H Laboratory Tests 05/31/20 06/01/20 19:05 05:20 Potassium 4.5 4.9 Code(s): E87.5 - HYPERKALEMIA (3) ELIZABETH (acute kidney injury) Assessment/Plan: Improving Laboratory Tests 05/29/20 05/30/20 05/31/20 08:13 00:15 05:40 BUN 19.8 H 26.7 H 36.5 H Creatinine 1.5 H 1.5 H 1.3 Abnormal Lab Results 05/31/20 06/01/20 06/01/20 19:05 05:20 05:20 RBC 5.46 H Hct 45.6 H MCH 25.6 L MCHC 30.7 L RDW 17.5 H Sodium 134 L 134 L Chloride 89 L 88 L Carbon Dioxide 39 H 43 H Anion Gap 7 L 3 L BUN 42.4 H 48.5 H Creatinine 1.5 H 1.4 H Random Glucose 179 H 131 H AST 6 L Albumin 3.0 L Code(s): N17.9 - ACUTE KIDNEY FAILURE, UNSPECIFIED (4) COPD (chronic obstructive pulmonary disease) Assessment/Plan: on steroids bipap per pulm Code(s): J44.9 - CHRONIC OBSTRUCTIVE PULMONARY DISEASE, UNSPECIFIED (5) DVT (deep venous thrombosis) Assessment/Plan: on eliquis Code(s): I82.409 - ACUTE EMBOLISM AND THOMBOS UNSP DEEP VN UNSP LOWER EXTREMITY Qualifiers: DVT location: lower extremity Chronicity: unspecified Laterality: right (6) Diabetes Assessment/Plan: bgm Laboratory Tests 05/29/20 05/30/20 05/30/20 17:08 00:15 06:00 POC Glucometer Random Glucose 132 H 109 H 97 05/30/20 06:07 POC Glucometer 106 Random Glucose Code(s): E11.9 - TYPE 2 DIABETES MELLITUS WITHOUT COMPLICATIONS (7) CHF (congestive heart failure) Assessment/Plan: lasix 80 iv--change to demadex 80 po Code(s): I50.9 - HEART FAILURE, UNSPECIFIED
[2020-06-02] MEDS: APIXABAN 5 MG TABLET PO SCH ×2 (09:39→21:10)
[2020-06-02] MEDS: FUROSEMIDE 100 MG/10 ML INJECTABLE VIAL IVPB SCH (09:39)
[2020-06-02] MEDS: amLODIPine BESYLATE 5 MG TABLET (FP) PO SCH (09:39)
[2020-06-02] MEDS: TIOTROPIUM BROMIDE 2.5 MCG (SPIRIVA) RESPIMAT INHALER IH SCH (09:41)
--- NOTE | 2020-06-02 11:32 | PN ---
Progress Note, Physician Chief Complaint: SOB improved Sinus on tele History of Present Illness: 69 year old female with a pmhx of copd on home O2, dm, htn, h/o rle dvt on apixaban, and hypothyroidism admitted with sob and hypoxia. Hypercapnic and placed on bipap. Reports some sob for 2 weeks and mild temperature and malaise last week. No chest pain or palpitations. No le edema - Current Medication List Current Medications: Active Medications Albuterol Sulfate (Ventolin Hfa Inhaler -) 2 puff IH Q4H PRN PRN Reason: SHORT OF BREATH/WHEEZING Amlodipine Besylate (Norvasc -) 5 mg PO DAILY [facility] Last Admin: 06/02/20 09:39 Dose: 5 mg Documented by: Apixaban (Eliquis -) 5 mg PO BID [facility] Last Admin: 06/02/20 09:39 Dose: 5 mg Documented by: Insulin Aspart (Novolog Vial Sliding Scale -) 1 vial SQ [facility]; Protocol Last Admin: 06/02/20 06:16 Dose: Not Given Documented by: Levothyroxine Sodium (Synthroid -) 125 mcg PO DAILY@0700 [facility] Last Admin: 06/02/20 06:20 Dose: 125 mcg Documented by: Sodium Zirconium Cyclosilicate (Lokelma) 5 gm PO 1400 [facility] Last Admin: 06/01/20 14:01 Dose: 5 gm Documented by: Tiotropium [place] (Spiriva Respimat) 2 puff IH DAILY [facility] Last Admin: 06/02/20 09:41 Dose: 2 puff Documented by: Torsemide (Demadex -) 80 mg PO DAILY [facility] - Objective Vital Signs: Vital Signs Temperature 98.5 F 06/02/20 10:00 Pulse Rate 67 06/02/20 10:00 Respiratory Rate 15 06/02/20 10:00 Blood Pressure 125/59 L 06/02/20 10:00 O2 Sat by Pulse Oximetry (%) 99 06/02/20 10:00 Constitutional: Yes: No Distress Neck: Yes: Supple Cardiovascular: Yes: Regular Rate and Rhythm, S1, S2. No: JVD, Murmur Respiratory: Yes: Diminished Gastrointestinal: Yes: Soft Edema: No Labs: CBC, BMP 06/02/20 05:40 06/02/20 05:40 INR, PTT INR 1.06 (0.83-1.09) 05/28/20 14:45 Problem List - Problems (1) Acute respiratory failure with hypoxia and hypercarbia Code(s): J96.01 - ACUTE RESPIRATORY FAILURE WITH HYPOXIA; J96.02 - ACUTE RESPIRATORY FAILURE WITH HYPERCAPNIA Assessment/Plan 69 year old female with a pmhx of copd on home O2, dm, htn, h/o rle dvt on apixaban, and hypothyroidism admitted with sob and hypoxia. Hypercapnic and placed on bipap. Reports some sob for 2 weeks and mild temperature and malaise last week. No chest pain or palpitations. No le edema 1) Hypercapnic hypoxia -Mild chf on cxr and elevated bnp Diuretic changed to PO torsemide Monitor bun/cr. Monitor daily lytes and treat as needed. Telemetry unremarkable -Echocardiogram with normal LVEF and no significant valve disease. RV mildly dilated and with at least moderate pulmonary htn. Please consider ruling out pulmonary embolus with further imaging given ddimer, RV dilated, pulmonary htn, and degree of sob/hypoxia on admission Patient on AC. -Elevated crp, ldh, and ddimer. Covid negative but would consider repeating covid test. Will sign off
--- NOTE | 2020-06-02 11:40 | PN ---
Physical Exam: SUBJECTIVE: Patient seen and examined at bedside. pt states that the Bipap is not comfortable . denies sob or cp OBJECTIVE: Vital Signs Period Temp Pulse Resp BP Sys/Mendez Pulse Ox Last 24 Hr 97.3 F-98.8 F 58-72 11-19 113-146/57-77 95-100 GENERAL: The patient is awake, alert, and fully oriented, in no acute distress. HEAD: Normal with no signs of trauma. LUNGS: Breath sounds equal, clear to auscultation bilaterally, decreased at bases, no accessory muscle use. HEART: Regular rate and rhythm, S1, S2 without murmur. ABDOMEN: Soft, nontender, nondistended, normoactive bowel sounds, no guarding EXTREMITIES: 2+ pulses, warm, well-perfused, no edema. CBC, BMP 06/02/20 05:40 06/02/20 05:40 Active Medications Generic Name Dose Route Start Last Admin Trade Name Freq PRN Reason Stop Dose Admin Albuterol Sulfate 2 puff 05/28/20 19:23 Ventolin Hfa Inhaler - IH Q4H PRN SHORT OF BREATH/WHEEZING Amlodipine Besylate 5 mg 05/29/20 10:00 06/02/20 09:39 Norvasc - PO 5 mg DAILY [facility]N Administration Apixaban 5 mg 05/28/20 22:00 06/02/20 09:39 Eliquis - PO 5 mg BID [facility]N Administration Insulin Aspart 1 vial 05/28/20 22:00 06/02/20 06:16 Novolog Vial Sliding Scale - SQ Not Given ACHS [facility] Protocol Levothyroxine Sodium 125 mcg 05/29/20 07:00 06/02/20 06:20 Synthroid - PO 125 mcg DAILY@0700 EV[facility]N Administration Sodium Zirconium Cyclosilicate 5 gm 05/30/20 14:00 06/01/20 14:01 Lokelma PO 5 gm 1400 [facility]N Administration Tiotropium [place] 2 puff 05/29/20 10:00 06/02/20 09:41 Spiriva Respimat IH 2 puff DAILY [facility]N Administration Torsemide 80 mg 06/02/20 10:00 Demadex - PO DAILY [facility]N ASSESSMENT/PLAN: 69yo F with h/o COPD (not on home O2) , DM, HTN, RLE DVT, Hypothyroidism who presented to the ER via EMS due to hypoxia of 85%. pt is admitted to ICU for acute hypercarbic respiratory failure Neuro: AOx3, no acute events cont to monitor MS Cardio mild CHF? hx of DVT, c/w eliquis c/w norvasc will dc lasix and start torsemide 80 echo reviewed, sub optimal EF 65% cardio recs appreciated Pulm acute hypercarbic hypoxic respiratory failure, COPD, NICK cont BiPAP IPAP 18, EPAP 10 RR 16. at night and when sleeping. tolerated NC O2, titrate as tolerated c/w spiriva, ventolin Endo c/w synthroid c/w ISS, BGM hold metformin Renal Cr 1.4 , cont to monitor c/w lokelma c/w lasix hyperkalemia improving, 4.6 today monitor I/Os fluid restriction 1L DVT ppx: eliquis 5 bid dispo: stable for transfer to medicine ATTENDING PHYSICIAN STATEMENT I saw and evaluated the patient. I reviewed the resident's note and discussed the case with the resident. I agree with the resident's findings and plan as documented. SUBJECTIVE: OBJECTIVE: ASSESSMENT AND PLAN:
[2020-06-02] MEDS: TORSEMIDE 20 MG TABLET (FP) PO SCH (11:44)
[2020-06-02] MEDS ORDERED: PT OWN MED DRAWER 7, Y5N ONE (12:25)
--- NOTE | 2020-06-02 13:11 | PN ---
Teaching Attending Note Name of Resident: Kimberly Gonzalez ATTENDING PHYSICIAN STATEMENT I saw and evaluated the patient. I reviewed the resident's note and discussed the case with the resident. I agree with the resident's findings and plan as documented. SUBJECTIVE: Pt seen and examined in the ICU. Off BiPAP, states breathing is improving. OBJECTIVE: Vital Signs Period Temp Pulse Resp BP Sys/Mendez Pulse Ox Last 24 Hr 98.1 F-99.1 F 51-80 10-24 120-161/61-88 95-100 Intake & Output 05/29/20 05/30/20 05/31/20 06/01/20 23:59 23:59 23:59 23:59 Intake Total 20 175 660 100 Output Total 2100 3250 700 300 Balance -2080 -3075 -40 -200 Weight 111.13 kg 122.47 kg 117.299 kg 116.528 kg Gen: NAD at rest Heart: RRR Lung: decreased breath sounds at the bases Abd: soft, nontender Ext: no edema CBC, BMP 06/01/20 05:20 06/01/20 05:20 Active Medications Albuterol Sulfate (Ventolin Hfa Inhaler -) 2 puff IH Q4H PRN PRN Reason: SHORT OF BREATH/WHEEZING Amlodipine Besylate (Norvasc -) 5 mg PO DAILY [facility] Last Admin: 06/01/20 09:27 Dose: 5 mg Documented by: Apixaban (Eliquis -) 5 mg PO BID [facility] Last Admin: 06/01/20 09:26 Dose: 5 mg Documented by: Furosemide (Lasix Injection -) 80 mg IVPB DAILY [facility] Last Admin: 06/01/20 09:26 Dose: 80 mg Documented by: Insulin Aspart (Novolog Vial Sliding Scale -) 1 vial SQ [facility]; Protocol Last Admin: 06/01/20 06:53 Dose: Not Given Documented by: Levothyroxine Sodium (Synthroid -) 125 mcg PO DAILY@0700 [facility] Last Admin: 06/01/20 06:21 Dose: 125 mcg Documented by: Sodium Zirconium Cyclosilicate (Lokelma) 5 gm PO 1400 [facility] Last Admin: 05/31/20 13:36 Dose: 5 gm Documented by: Tiotropium [place] (Spiriva Respimat) 2 puff IH DAILY [facility] Last Admin: 06/01/20 09:28 Dose: 2 puff Documented by: ASSESSMENT AND PLAN: Acute on Chronic Hypoxic and Hypercapneic Respiratory Failure Acute COPD Exacerbation Acute on Chronic Diastolic Heart Failure Pulmonary HTN Acute Kidney Injury HTN DM h/o DVT - continue lasix - monitor urine output, creatinine - daily weights - O2 to keep SpO2 >90% - s/p steroids - inhaled bronchodilators - BiPAP at night and PRN during day : Settings 18/10 : RR 16 - rehab/PT - continue anticoagulation - can monitor on floor Dr Penaloza
[2020-06-02] MEDS: SODIUM ZIRCONIUM CYCLOSILICATE (LOKELMA) 5 GM PACKET PO SCH (13:20)
[2020-06-02] MEDS ORDERED: ALBUTEROL SO4 HFA INHALER IH PRN (15:16)
--- NOTE | 2020-06-02 15:36 | PN ---
Progress Note, Physician History of Present Illness: Pt seen and examined at bedside. She is awake and alert. She feels that her breathing is improved. - Current Medication List Current Medications: Active Medications Albuterol Sulfate (Ventolin Hfa Inhaler -) 2 puff IH Q4H PRN PRN Reason: SHORT OF BREATH/WHEEZING Amlodipine Besylate (Norvasc -) 5 mg PO DAILY [facility] Apixaban (Eliquis -) 5 mg PO BID [facility] Insulin Aspart (Novolog Vial Sliding Scale -) 1 vial SQ ACHS [facility]; Protocol Levothyroxine Sodium (Synthroid -) 125 mcg PO DAILY@0700 [facility] Sodium Zirconium Cyclosilicate (Lokelma) 5 gm PO 1400 [facility] Tiotropium [place] (Spiriva Respimat) 2 puff IH DAILY [facility] Torsemide (Demadex -) 80 mg PO DAILY [facility] Last Admin: 06/02/20 11:44 Dose: Not Given Documented by: - Objective Vital Signs: Vital Signs Temperature 98.4 F 06/02/20 14:00 Pulse Rate 75 06/02/20 14:00 Respiratory Rate 13 06/02/20 14:00 Blood Pressure 119/67 06/02/20 14:00 O2 Sat by Pulse Oximetry (%) 96 06/02/20 14:00 Constitutional: Yes: Calm Eyes: Yes: Conjunctiva Clear HENT: Yes: Atraumatic Neck: Yes: Supple Cardiovascular: Yes: S1, S2 Respiratory: Yes: On Nasal O2 Gastrointestinal: Yes: Normal Bowel Sounds, Soft, Abdomen, Obese Genitourinary: Yes: WNL Musculoskeletal: Yes: WNL Edema: No Neurological: Yes: Oriented Psychiatric: Yes: Oriented Labs: CBC, BMP 06/02/20 05:40 06/02/20 05:40 INR, PTT INR 1.06 (0.83-1.09) 05/28/20 14:45 Assessment/Plan Current Medications Generic Name Dose Route Start Last Admin Trade Name Freq PRN Reason Stop Dose Admin Albuterol Sulfate 2 puff 06/02/20 15:16 Ventolin Hfa Inhaler - IH Q4H PRN SHORT OF BREATH/WHEEZING Amlodipine Besylate 5 mg 06/03/20 10:00 Norvasc - PO DAILY [facility] Apixaban 5 mg 06/02/20 22:00 Eliquis - PO BID [facility] Insulin Aspart 1 vial 06/02/20 16:30 Novolog Vial Sliding Scale - SQ ACHS [facility] Protocol Levothyroxine Sodium 125 mcg 06/03/20 07:00 Synthroid - PO DAILY@0700 [facility] Sodium Zirconium Cyclosilicate 5 gm 06/03/20 14:00 Lokelma PO 1400 EV[facility]N Tiotropium [place] 2 puff 06/03/20 10:00 Spiriva Respimat IH DAILY [facility] Torsemide 80 mg 06/02/20 10:00 06/02/20 11:44 Demadex - PO Not Given DAILY [facility] 1. hypervolemic hyponatremia 2. Hypoxic respiratory failure 3. Hyperkalemia 4. ELIZABETH 5. COPD 6 DM 7. RLE DVT 8. chf Plan - cont to monitor renal function - agree with torsemide - can d/c lokelma - repeat labs in am - discussed with ICU team - cont bipap as needed
[2020-06-02] MEDS ORDERED: INSULIN (NOVOLOG) ASPART 100 UNITS/ML 10ML VIAL ONE (21:04)
[2020-06-03] MEDS: INSULIN SLIDING SCALE (NOVOLOG) 1 VIAL SQ SCH ×4 (06:03→21:39)
[2020-06-03] MEDS: LEVOTHYROXINE NA 125 MCG TABLET (FP) PO SCH (06:04)
[2020-06-03] MEDS ORDERED: INSULIN (NOVOLOG) ASPART 100 UNITS/ML 10ML VIAL ONE ×2 (07:20→21:09)
[2020-06-03 08:45] LABS: ALBUMIN 3.3 g/dl (3.4-5.0); BILIRUBIN,TOTAL 0.8 mg/dL (0.2-1); BLOOD UREA NITROGEN 51.6 mg/dL (7-18); CREATININE 1.6 mg/dL (0.55-1.3); POTASSIUM 4.1 mmol/L (3.5-5.1); TOT PROT 7.1 g/dl (6.4-8.2)
--- NOTE | 2020-06-03 09:22 | DS ---
Physical Examination Vital Signs: Vital Signs Temperature 98.7 F 06/03/20 05:43 Pulse Rate 72 06/03/20 07:40 Respiratory Rate 18 06/03/20 05:43 Blood Pressure 144/84 06/03/20 05:43 O2 Sat by Pulse Oximetry (%) 96 06/03/20 07:40 Cardiovascular: Yes: Regular Rate and Rhythm Respiratory: Yes: Regular, CTA Bilaterally, On Nasal O2 Gastrointestinal: Yes: Normal Bowel Sounds, Soft Labs: CBC, BMP 06/02/20 05:40 06/03/20 07:30 Discharge Summary Problems reviewed: Yes Reason For Visit: HYPONATREMIA ELEVATED C-REACTIVE PROTEIN Current Active Problems Acute respiratory failure with hypoxia and hypercarbia (Acute) Acute respiratory insufficiency (Acute) CHF (congestive heart failure) (Acute) Elevated C-reactive protein (CRP) (Acute) Elevated LDH (Acute) Hypercarbia (Acute) Hyperkalemia (Acute) Hyponatremia (Acute) Hypoxia (Acute) Pneumonia (Acute) Suspected 2019-nCoV infection (Acute) Hospital Course: - Problems (1) Acute respiratory failure with hypoxia and hypercarbia Assessment/Plan: due to copd-chf increase decadron 6 qid lasix 80 iv--change to demadex 40 po bipap Code(s): J96.01 - ACUTE RESPIRATORY FAILURE WITH HYPOXIA; J96.02 - ACUTE RESP IRATORY FAILURE WITH HYPERCAPNIA (2) Hyperkalemia Assessment/Plan: Treat and monitor Laboratory Tests 05/29/20 05/29/20 05/30/20 08:13 17:08 00:15 Potassium 5.8 H 5.6 H 5.3 H 05/30/20 05/31/20 06:00 05:40 Potassium 5.1 5.5 H Laboratory Tests 05/31/20 06/01/20 19:05 05:20 Potassium 4.5 4.9 Code(s): E87.5 - HYPERKALEMIA (3) ELIZABETH (acute kidney injury) Assessment/Plan: Improving Laboratory Tests 05/29/20 05/30/20 05/31/20 08:13 00:15 05:40 BUN 19.8 H 26.7 H 36.5 H Creatinine 1.5 H 1.5 H 1.3 Abnormal Lab Results 05/31/20 06/01/20 06/01/20 19:05 05:20 05:20 RBC 5.46 H Hct 45.6 H MCH 25.6 L MCHC 30.7 L RDW 17.5 H Sodium 134 L 134 L Chloride 89 L 88 L Carbon Dioxide 39 H 43 H Anion Gap 7 L 3 L BUN 42.4 H 48.5 H Creatinine 1.5 H 1.4 H Random Glucose 179 H 131 H AST 6 L Albumin 3.0 L Code(s): N17.9 - ACUTE KIDNEY FAILURE, UNSPECIFIED (4) COPD (chronic obstructive pulmonary disease) Assessment/Plan: bipap per pulm Code(s): J44.9 - CHRONIC OBSTRUCTIVE PULMONARY DISEASE, UNSPECIFIED (5) DVT (deep venous thrombosis) Assessment/Plan: on eliquis Code(s): I82.409 - ACUTE EMBOLISM AND THOMBOS UNSP DEEP VN UNSP LOWER EXTREMITY Qualifiers: DVT location: lower extremity Chronicity: unspecified Laterality: right (6) Diabetes Assessment/Plan: bgm Laboratory Tests 05/29/20 05/30/20 05/30/20 17:08 00:15 06:00 POC Glucometer Random Glucose 132 H 109 H 97 05/30/20 06:07 POC Glucometer 106 Random Glucose Code(s): E11.9 - TYPE 2 DIABETES MELLITUS WITHOUT COMPLICATIONS (7) CHF (congestive heart failure) Assessment/Plan: lasix 80 iv--change to demadex 80 po Code(s): I50.9 - HEART FAILURE, UNSPECIFIED DC PLANNING--SNF PT AGREES WITH [facility] Condition: Improved - Instructions Diet, Activity, Other Instructions: BMP ON SATURDAY THEN TWICE A WEEK DEMADEX TO 40 Referrals: Pam Triplett MD [Primary Care Provider] - [facility]position: [facility] - Home Medications Comprehensive Discharge Medication List: Ambulatory Orders Amlodipine Besylate [Norvasc -] 5 mg PO DAILY 10/05/19 Ferrous Sulfate [Feosol] 325 mg PO DAILY 10/05/19 Ipratropium/Albuterol Sulfate [Iprat-Albut 0.5-3(2.5) mg/3 ml] 3 ml IH QID PRN 10/05/19 Levothyroxine [Synthroid -] 125 mcg PO DAILY 10/05/19 Multivitamin [Multiple Vitamins] 1 each PO DAILY 10/05/19 Apixaban [Eliquis -] 5 mg PO BID tablet 06/03/20 Insulin Sliding Scale [Novolog Vial Sliding Scale -] 1 vial SQ ACHS units 06/03/20 Tiotropium [place] [Spiriva Respimat] 2 puff IH DAILY inhaler 06/03/20 Torsemide [Demadex -] 40 mg PO DAILY tablet 06/03/20
[2020-06-03] MEDS: APIXABAN 5 MG TABLET PO SCH ×2 (10:32→21:39)
[2020-06-03] MEDS: amLODIPine BESYLATE 5 MG TABLET (FP) PO SCH (10:32)
[2020-06-03] MEDS: TORSEMIDE 20 MG TABLET (FP) PO SCH (10:33)
--- NOTE | 2020-06-03 11:15 | PN ---
Progress Note, Physician Chief Complaint: Comfortable No sob at rest History of Present Illness: 69 year old female with a pmhx of copd on home O2, dm, htn, h/o rle dvt on apixaban, and hypothyroidism admitted with sob and hypoxia. Hypercapnic and placed on bipap. Reports some sob for 2 weeks and mild temperature and malaise last week. No chest pain or palpitations. No le edema - Current Medication List Current Medications: Active Medications Albuterol Sulfate (Ventolin Hfa Inhaler -) 2 puff IH Q4H PRN PRN Reason: SHORT OF BREATH/WHEEZING Amlodipine Besylate (Norvasc -) 5 mg PO DAILY [facility] Last Admin: 06/03/20 10:32 Dose: 5 mg Documented by: Apixaban (Eliquis -) 5 mg PO BID [facility] Last Admin: 06/03/20 10:32 Dose: 5 mg Documented by: Insulin Aspart (Novolog Vial Sliding Scale -) 1 vial SQ [facility]; Protocol Last Admin: 06/03/20 10:33 Dose: 1 units Documented by: Levothyroxine Sodium (Synthroid -) 125 mcg PO DAILY@0700 [facility] Last Admin: 06/03/20 06:04 Dose: 125 mcg Documented by: Tiotropium [place] (Spiriva Respimat) 2 puff IH DAILY [facility] - Objective Vital Signs: Vital Signs Temperature 98.7 F 06/03/20 05:43 Pulse Rate 72 06/03/20 07:40 Respiratory Rate 18 06/03/20 05:43 Blood Pressure 144/84 06/03/20 05:43 O2 Sat by Pulse Oximetry (%) 96 06/03/20 07:40 Constitutional: Yes: No Distress Neck: Yes: Supple Cardiovascular: Yes: Regular Rate and Rhythm, S1, S2 Respiratory: Yes: Diminished Gastrointestinal: Yes: Soft Edema: No Labs: CBC, BMP 06/02/20 05:40 06/03/20 07:30 INR, PTT INR 1.06 (0.83-1.09) 05/28/20 14:45 Problem List - Problems (1) Acute respiratory failure with hypoxia and hypercarbia Code(s): J96.01 - ACUTE RESPIRATORY FAILURE WITH HYPOXIA; J96.02 - ACUTE RESPIRATORY FAILURE WITH HYPERCAPNIA Assessment/Plan 69 year old female with a pmhx of copd on home O2, dm, htn, h/o rle dvt on apixaban, and hypothyroidism admitted with sob and hypoxia. Hypercapnic and placed on bipap. Reports some sob for 2 weeks and mild temperature and malaise last week. No chest pain or palpitations. No le edema 1) Hypercapnic hypoxia -Mild chf on cxr and elevated bnp Diuretic changed to PO torsemide. Would lower dose to 40mg daily. Monitor bun/cr. Monitor daily lytes and treat as needed. -Echocardiogram with normal LVEF and no significant valve disease. RV mildly dilated and with at least moderate pulmonary htn. Please consider ruling out pulmonary embolus with further imaging given ddimer, RV dilated, pulmonary htn, and degree of sob/hypoxia on admission Patient on AC. -Elevated crp, ldh, and ddimer. Covid negative but would consider repeating covid test. Will sign off
[2020-06-03] MEDS ORDERED: SODIUM ZIRCONIUM CYCLOSILICATE (LOKELMA) 5 GM PACKET PO SCH (14:00)
[2020-06-03 14:09] VITALS: BMI 40.8
--- NOTE | 2020-06-03 15:30 | PN ---
Progress Note, Physician History of Present Illness: PULMONARY ALERT,COMFORTABLE ON NASAL O2,-SOB - Current Medication List Current Medications: Active Medications Albuterol Sulfate (Ventolin Hfa Inhaler -) 2 puff IH Q4H PRN PRN Reason: SHORT OF BREATH/WHEEZING Amlodipine Besylate (Norvasc -) 5 mg PO DAILY [facility] Last Admin: 06/03/20 10:32 Dose: 5 mg Documented by: Apixaban (Eliquis -) 5 mg PO BID [facility] Last Admin: 06/03/20 10:32 Dose: 5 mg Documented by: Insulin Aspart (Novolog Vial Sliding Scale -) 1 vial SQ ACH[facility]; Protocol Last Admin: 06/03/20 10:33 Dose: 1 units Documented by: Levothyroxine Sodium (Synthroid -) 125 mcg PO DAILY@0700 [facility] Last Admin: 06/03/20 06:04 Dose: 125 mcg Documented by: Tiotropium [place] (Spiriva Respimat) 2 puff IH DAILY [facility] Torsemide (Demadex -) 40 mg PO DAILY [facility] - Objective Vital Signs: Vital Signs Temperature 98.8 F 06/03/20 14:00 Pulse Rate 81 06/03/20 14:00 Respiratory Rate 20 06/03/20 14:00 Blood Pressure 115/51 L 06/03/20 14:00 O2 Sat by Pulse Oximetry (%) 96 06/03/20 14:00 Constitutional: Yes: Well Nourished, Calm, Obese Eyes: Yes: WNL HENT: Yes: WNL Neck: Yes: WNL Cardiovascular: Yes: Regular Rate and Rhythm, S1, S2 Respiratory: Yes: Diminished, Tachypnea Gastrointestinal: Yes: Normal Bowel Sounds, Soft Extremities: Yes: WNL Edema: Yes Labs: CBC, BMP 06/03/20 07:30 INR, PTT Problem List - Problems (1) Acute respiratory failure with hypoxia and hypercarbia Code(s): J96.01 - ACUTE RESPIRATORY FAILURE WITH HYPOXIA; J96.02 - ACUTE RESPIRATORY FAILURE WITH HYPERCAPNIA (2) Elevated C-reactive protein (CRP) Code(s): R79.82 - ELEVATED C-REACTIVE PROTEIN (CRP) (3) DVT (deep venous thrombosis) Code(s): I82.409 - ACUTE EMBOLISM AND THOMBOS UNSP DEEP VN UNSP LOWER EXTREMITY Qualifiers: DVT location: lower extremity Chronicity: unspecified Laterality: right (4) Diabetes Code(s): E11.9 - TYPE 2 DIABETES MELLITUS WITHOUT COMPLICATIONS (5) HTN (hypertension) Code(s): I10 - ESSENTIAL (PRIMARY) HYPERTENSION (6) Suspected 2019-nCoV infection Code(s): Z20.828 - CONTACT W AND EXPOSURE TO OTH VIRAL COMMUNICABLE DISEASES (7) Pneumonia Code(s): J18.9 - PNEUMONIA, UNSPECIFIED ORGANISM (8) COPD (chronic obstructive pulmonary disease) Code(s): J44.9 - CHRONIC OBSTRUCTIVE PULMONARY DISEASE, UNSPECIFIED (9) Hyponatremia Code(s): E87.1 - HYPO-OSMOLALITY AND HYPONATREMIA (10) Hypercarbia Code(s): R06.89 - OTHER ABNORMALITIES OF BREATHING (11) Hypothyroidism Code(s): E03.9 - HYPOTHYROIDISM, UNSPECIFIED (12) Pulmonary infiltrate in left lung on chest x-ray Code(s): R91.8 - OTHER NONSPECIFIC ABNORMAL FINDING OF LUNG FIELD Assessment/Plan ASSESSMENT AND PLAN: Acute on Chronic Hypoxic and Hypercapneic Respiratory Failure improved Acute COPD Exacerbation Acute on Chronic Diastolic Heart Failure Pulmonary HTN Acute Kidney Injury HTN DM h/o DVT - diuretics - monitor urine output, creatinine - daily weights - O2 to keep SpO2 >90% - s/p steroids - inhaled bronchodilators - BiPAP at night and PRN during day - rehab/PT DR LOPEZ
--- NOTE | 2020-06-03 15:46 | PN ---
Progress Note, Physician History of Present Illness: Pt seen and examined at bedside. She is awake and alert. She denies shortness of breath. - Current Medication List Current Medications: Active Medications Albuterol Sulfate (Ventolin Hfa Inhaler -) 2 puff IH Q4H PRN PRN Reason: SHORT OF BREATH/WHEEZING Amlodipine Besylate (Norvasc -) 5 mg PO DAILY [facility] Last Admin: 06/03/20 10:32 Dose: 5 mg Documented by: Apixaban (Eliquis -) 5 mg PO BID [facility] Last Admin: 06/03/20 10:32 Dose: 5 mg Documented by: Insulin Aspart (Novolog Vial Sliding Scale -) 1 vial SQ ACHS [facility]; Protocol Last Admin: 06/03/20 10:33 Dose: 1 units Documented by: Levothyroxine Sodium (Synthroid -) 125 mcg PO DAILY@0700 [facility] Last Admin: 06/03/20 06:04 Dose: 125 mcg Documented by: Tiotropium [place] (Spiriva Respimat) 2 puff IH DAILY [facility] Torsemide (Demadex -) 40 mg PO DAILY [facility] - Objective Vital Signs: Vital Signs Temperature 98.8 F 06/03/20 14:00 Pulse Rate 81 06/03/20 14:00 Respiratory Rate 20 06/03/20 14:00 Blood Pressure 115/51 L 06/03/20 14:00 O2 Sat by Pulse Oximetry (%) 96 06/03/20 14:00 Constitutional: Yes: Calm Eyes: Yes: Conjunctiva Clear HENT: Yes: Atraumatic Neck: Yes: Supple Cardiovascular: Yes: S1, S2 Respiratory: Yes: CTA Bilaterally Gastrointestinal: Yes: Normal Bowel Sounds, Soft, Abdomen, Obese Genitourinary: Yes: Incontinence Musculoskeletal: Yes: Muscle Weakness Edema: Yes Edema: LLE: Trace, RLE: Trace Neurological: Yes: Oriented Psychiatric: Yes: Oriented Labs: CBC, BMP 06/02/20 05:40 06/03/20 07:30 INR, PTT INR 1.06 (0.83-1.09) 05/28/20 14:45 Assessment/Plan Current Medications Generic Name Dose Route Start Last Admin Trade Name Freq PRN Reason Stop Dose Admin Albuterol Sulfate 2 puff 06/02/20 15:16 Ventolin Hfa Inhaler - IH Q4H PRN SHORT OF BREATH/WHEEZING Amlodipine Besylate 5 mg 06/03/20 10:00 06/03/20 10:32 Norvasc - PO 5 mg DAILY [facility] Administration Apixaban 5 mg 06/02/20 22:00 06/03/20 10:32 Eliquis - PO 5 mg BID [facility] Administration Insulin Aspart 1 vial 06/02/20 16:30 06/03/20 10:33 Novolog Vial Sliding Scale - SQ 1 units ACHS [facility] Administration Protocol Levothyroxine Sodium 125 mcg 06/03/20 07:00 06/03/20 06:04 Synthroid - PO 125 mcg DAILY@0700 [facility] Administration Tiotropium [place] 2 puff 06/03/20 10:00 Spiriva Respimat IH DAILY [facility] Torsemide 40 mg 06/04/20 10:00 Demadex - PO DAILY [facility] 1. hypervolemic hyponatremia 2. Hypoxic respiratory failure 3. Hyperkalemia 4. ELIZABETH 5. COPD 6 DM 7. RLE DVT 8. chf Plan - bicarb rising - agree with decreasing dose of torsemide to 40 mg - cont to monitor lytes - cardio input appreciated - will need outpt follow up - cont bipap as needed
[2020-06-03] MEDS: TIOTROPIUM BROMIDE 2.5 MCG (SPIRIVA) RESPIMAT INHALER IH SCH (15:51)
[2020-06-03] MEDS: DOCUSATE SODIUM 100 MG CAPSULE (FP) PO PRN (22:30)
[2020-06-03] MEDS: ACETAMINOPHEN 325 MG TABLET (FP) PO PRN (22:30)
[2020-06-04] MEDS: LEVOTHYROXINE NA 125 MCG TABLET (FP) PO SCH (06:03)
[2020-06-04] MEDS: INSULIN SLIDING SCALE (NOVOLOG) 1 VIAL SQ SCH ×4 (06:03→21:30)
--- NOTE | 2020-06-04 07:48 | PN ---
Progress Note, Physician Chief Complaint: Acute on Chronic Hypoxic and Hypercapneic Respiratory Failure Acute COPD Exacerbation Acute on Chronic Diastolic Heart Failure Pulmonary HTN Acute Kidney Injury HTN DM h/o DVT History of Present Illness: NAD c/o constipation Breathing improved awaiting SNF placement - Current Medication List Current Medications: Active Medications Acetaminophen (Tylenol -) 650 mg PO Q6H PRN PRN Reason: PAIN LEVEL 4 - 6 Last Admin: 06/03/20 22:30 Dose: 650 mg Documented by: Albuterol Sulfate (Ventolin Hfa Inhaler -) 2 puff IH Q4H PRN PRN Reason: SHORT OF BREATH/WHEEZING Amlodipine Besylate (Norvasc -) 5 mg PO DAILY [facility] Last Admin: 06/03/20 10:32 Dose: 5 mg Documented by: Apixaban (Eliquis -) 5 mg PO BID [facility] Last Admin: 06/03/20 21:39 Dose: 5 mg Documented by: Docusate Sodium (Colace -) 100 mg PO BID PRN PRN Reason: CONSTIPATION Last Admin: 06/03/20 22:30 Dose: 100 mg Documented by: Insulin Aspart (Novolog Vial Sliding Scale -) 1 vial SQ [facility]; Protocol Last Admin: 06/04/20 06:03 Dose: Not Given Documented by: Levothyroxine Sodium (Synthroid -) 125 mcg PO DAILY@0700 [facility] Last Admin: 06/04/20 06:03 Dose: 125 mcg Documented by: Tiotropium [place] (Spiriva Respimat) 2 puff IH DAILY [facility] Last Admin: 06/03/20 15:51 Dose: 2 puff Documented by: Torsemide (Demadex -) 40 mg PO DAILY [facility] - Objective Vital Signs: Vital Signs Temperature 98.7 F 06/03/20 22:36 Pulse Rate 70 06/04/20 04:39 Respiratory Rate 06/03/20 22:36 Blood Pressure 115/58 L 06/03/20 22:36 O2 Sat by Pulse Oximetry (%) 98 06/04/20 04:39 Constitutional: Yes: Well Nourished, No Distress, Calm Cardiovascular: Yes: Regular Rate and Rhythm Respiratory: Yes: Regular, CTA Bilaterally Gastrointestinal: Yes: Normal Bowel Sounds, Soft, Abdomen, Obese Genitourinary: Yes: Incontinence Musculoskeletal: Yes: Muscle Weakness Extremities: Yes: WNL Edema: No Peripheral Pulses WNL: Yes Neurological: Yes: Alert, Oriented Psychiatric: Yes: Alert, Oriented Labs: CBC, BMP 06/02/20 05:40 06/03/20 07:30 INR, PTT INR 1.06 (0.83-1.09) 05/28/20 14:45 Problem List - Problems (1) Acute respiratory failure with hypoxia and hypercarbia Assessment/Plan: -Pulmonary on board -Nasal O2 to keep SpO2>90% -BIPAP at bedside -bronchodilators Problems reviewed: Yes Code(s): J96.01 - ACUTE RESPIRATORY FAILURE WITH HYPOXIA; J96.02 - ACUTE RESPIRATORY FAILURE WITH HYPERCAPNIA (2) Pneumonia Assessment/Plan: -resolved -Finished IV abx -COVID 19 PCR negative -Rest as above Problems reviewed: Yes Code(s): J18.9 - PNEUMONIA, UNSPECIFIED ORGANISM (3) COPD (chronic obstructive pulmonary disease) Assessment/Plan: -as above Problems reviewed: Yes Code(s): J44.9 - CHRONIC OBSTRUCTIVE PULMONARY DISEASE, UNSPECIFIED (4) Constipation Assessment/Plan: -Miralax po daily Problems reviewed: Yes Code(s): K59.00 - CONSTIPATION, UNSPECIFIED (5) Diabetes Assessment/Plan: -Recheck A1c -BGM AC HS -Diabetic diet -ISS Problems reviewed: Yes Code(s): E11.9 - TYPE 2 DIABETES MELLITUS WITHOUT COMPLICATIONS (6) History of DVT (deep vein thrombosis) Assessment/Plan: -Unknown where -Last Vascular study in 09/2019-negative for DVT -Continue eliquis 5 mg po bid Problems reviewed: Yes Code(s): Z86.718 - PERSONAL HISTORY OF OTHER VENOUS THROMBOSIS AND EMBOLISM Assessment/Plan See problem list PT GI PPX SNF placement on saturday
[2020-06-04] MEDS ORDERED: PT OWN MED DRAWER 7, Y5N ONE (09:06)
[2020-06-04] MEDS: APIXABAN 5 MG TABLET PO SCH ×2 (09:08→21:30)
[2020-06-04] MEDS: TORSEMIDE 20 MG TABLET (FP) PO SCH (09:08)
[2020-06-04] MEDS: TIOTROPIUM BROMIDE 2.5 MCG (SPIRIVA) RESPIMAT INHALER IH SCH (09:09)
[2020-06-04] MEDS: amLODIPine BESYLATE 5 MG TABLET (FP) PO SCH (09:09)
[2020-06-04] MEDS: DOCUSATE SODIUM 100 MG CAPSULE (FP) PO PRN ×2 (09:09→21:29)
[2020-06-04] MEDS: POLYETHYLENE GLYCOL 3350 119 GM BTL PO SCH (09:44)
--- NOTE | 2020-06-04 15:06 | PN ---
Progress Note (short form) - Note Progress Note: OOB to chair. Did not use NIPPV support overnight. Reports breathing feels better. Intake & Output 06/01/20 06/02/20 06/03/20 06/04/20 23:59 23:59 23:59 23:59 Intake Total 640 660 540 620 Output Total 1600 400 Balance -960 260 540 620 Weight 256 lb 14.4 oz 255 lb 14.4 oz 253 lb 8 oz 252 lb 1.6 oz Last Vital Signs Temp Pulse Resp BP Pulse Ox 98.9 F 78 20 120/70 94 L 06/04/20 08:30 06/04/20 08:30 06/04/20 08:30 06/04/20 08:30 06/04/20 09:00 Laboratory Results - last 24 hr 06/02/20 06/03/20 06/03/20 23:05 10:31 16:27 POC Glucometer 184 126 COVID-19 (HOMER) Not detected 06/03/20 06/04/20 06/04/20 21:37 06:02 11:45 POC Glucometer 157 149 183 COVID-19 (HOMER) Constitutional: Yes: Well Nourished, Calm, Obese Eyes: Yes: WNL HENT: Yes: WNL Neck: Yes: WNL Cardiovascular: Yes: Regular Rate and Rhythm, S1, S2 Respiratory: Yes: Diminished, Tachypnea Gastrointestinal: Yes: Normal Bowel Sounds, Soft Extremities: Yes: WNL Edema: Yes Labs: Laboratory Results - last 24 hr 06/02/20 06/03/20 06/03/20 23:05 10:31 16:27 POC Glucometer 184 126 COVID-19 (HOMER) Not detected 06/03/20 06/04/20 06/04/20 21:37 06:02 11:45 POC Glucometer 157 149 183 COVID-19 (HOMER) Problem List - Problems (1) Acute respiratory failure with hypoxia and hypercarbia Code(s): J96.01 - ACUTE RESPIRATORY FAILURE WITH HYPOXIA; J96.02 - ACUTE RESPIRATORY FAILURE WITH HYPERCAPNIA (2) Elevated C-reactive protein (CRP) Code(s): R79.82 - ELEVATED C-REACTIVE PROTEIN (CRP) (3) DVT (deep venous thrombosis) Code(s): I82.409 - ACUTE EMBOLISM AND THOMBOS UNSP DEEP VN UNSP LOWER EXTREMITY Qualifiers: DVT location: lower extremity Chronicity: unspecified Laterality: right (4) Diabetes Code(s): E11.9 - TYPE 2 DIABETES MELLITUS WITHOUT COMPLICATIONS (5) HTN (hypertension) Code(s): I10 - ESSENTIAL (PRIMARY) HYPERTENSION (6) Suspected 2019-nCoV infection Code(s): Z20.828 - CONTACT W AND EXPOSURE TO OTH VIRAL COMMUNICABLE DISEASES (7) Pneumonia Code(s): J18.9 - PNEUMONIA, UNSPECIFIED ORGANISM (8) COPD (chronic obstructive pulmonary disease) Code(s): J44.9 - CHRONIC OBSTRUCTIVE PULMONARY DISEASE, UNSPECIFIED (9) Hyponatremia Code(s): E87.1 - HYPO-OSMOLALITY AND HYPONATREMIA (10) Hypercarbia Code(s): R06.89 - OTHER ABNORMALITIES OF BREATHING (11) Hypothyroidism Code(s): E03.9 - HYPOTHYROIDISM, UNSPECIFIED (12) Pulmonary infiltrate in left lung on chest x-ray Code(s): R91.8 - OTHER NONSPECIFIC ABNORMAL FINDING OF LUNG FIELD Assessment/Plan Acute on Chronic Hypoxic and Hypercapneic Respiratory Failure improved Acute COPD Exacerbation Acute on Chronic Diastolic Heart Failure Pulmonary HTN Acute Kidney Injury HTN DM h/o DVT - diuretics - monitor urine output, creatinine - daily weights - O2 to keep SpO2 >90% - s/p steroids - inhaled bronchodilators - BiPAP at night and PRN during day - rehab/PT Dr Penaloza
--- NOTE | 2020-06-04 15:35 | PN ---
Progress Note, Physician History of Present Illness: Pt seen and examined at bedside. She is awake and alert. She denies shortness of breath. - Current Medication List Current Medications: Active Medications Acetaminophen (Tylenol -) 650 mg PO Q6H PRN PRN Reason: PAIN LEVEL 4 - 6 Last Admin: 06/03/20 22:30 Dose: 650 mg Documented by: Albuterol Sulfate (Ventolin Hfa Inhaler -) 2 puff IH Q4H PRN PRN Reason: SHORT OF BREATH/WHEEZING Amlodipine Besylate (Norvasc -) 5 mg PO DAILY [facility] Last Admin: 06/04/20 09:09 Dose: 5 mg Documented by: Apixaban (Eliquis -) 5 mg PO BID [facility] Last Admin: 06/04/20 09:08 Dose: 5 mg Documented by: Docusate Sodium (Colace -) 100 mg PO BID PRN PRN Reason: CONSTIPATION Last Admin: 06/04/20 09:09 Dose: 100 mg Documented by: Insulin Aspart (Novolog Vial Sliding Scale -) 1 vial SQ [facility]; Protocol Last Admin: 06/04/20 11:47 Dose: 1 units Documented by: Levothyroxine Sodium (Synthroid -) 125 mcg PO DAILY@0700 [facility] Last Admin: 06/04/20 06:03 Dose: 125 mcg Documented by: Polyethylene Glycol (Miralax (For Daily Use) -) 17 gm PO DAILY [facility] Last Admin: 06/04/20 09:44 Dose: 17 gm Documented by: Tiotropium [place] (Spiriva Respimat) 2 puff IH DAILY [facility] Last Admin: 06/04/20 09:09 Dose: 2 puff Documented by: Torsemide (Demadex -) 40 mg PO DAILY [facility] Last Admin: 06/04/20 09:08 Dose: 40 mg Documented by: - Objective Vital Signs: Vital Signs Temperature 98.9 F 06/04/20 08:30 Pulse Rate 78 06/04/20 08:30 Respiratory Rate 20 06/04/20 08:30 Blood Pressure 120/70 06/04/20 08:30 O2 Sat by Pulse Oximetry (%) 94 L 06/04/20 09:00 Constitutional: Yes: Calm Eyes: Yes: Conjunctiva Clear HENT: Yes: Atraumatic Neck: Yes: Supple Cardiovascular: Yes: S1, S2 Respiratory: Yes: CTA Bilaterally Gastrointestinal: Yes: Normal Bowel Sounds, Soft Genitourinary: Yes: Incontinence Musculoskeletal: Yes: Muscle Weakness Edema: No Integumentary: Yes: WNL Neurological: Yes: Oriented Psychiatric: Yes: Oriented Labs: CBC, BMP 06/02/20 05:40 06/03/20 07:30 INR, PTT INR 1.06 (0.83-1.09) 05/28/20 14:45 Assessment/Plan Current Medications Generic Name Dose Route Start Last Admin Trade Name Freq PRN Reason Stop Dose Admin Acetaminophen 650 mg 06/03/20 22:07 06/03/20 22:30 Tylenol - PO 650 mg Q6H PRN Administration PAIN LEVEL 4 - 6 Albuterol Sulfate 2 puff 06/02/20 15:16 Ventolin Hfa Inhaler - IH Q4H PRN SHORT OF BREATH/WHEEZING Amlodipine Besylate 5 mg 06/03/20 10:00 06/04/20 09:09 Norvasc - PO 5 mg DAILY [facility] Administration Apixaban 5 mg 06/02/20 22:00 06/04/20 09:08 Eliquis - PO 5 mg BID [facility] Administration Docusate Sodium 100 mg 06/03/20 22:08 06/04/20 09:09 Colace - PO 100 mg BID PRN Administration CONSTIPATION Insulin Aspart 1 vial 06/02/20 16:30 06/04/20 11:47 Novolog Vial Sliding Scale - SQ 1 units ACHS [facility] Administration Protocol Levothyroxine Sodium 125 mcg 06/03/20 07:00 06/04/20 06:03 Synthroid - PO 125 mcg DAILY@0700 [facility] Administration Polyethylene Glycol 17 gm 06/04/20 10:00 06/04/20 09:44 Miralax (For Daily Use) - PO 17 gm DAILY [facility] Administration Tiotropium [place] 2 puff 06/03/20 10:00 06/04/20 09:09 Spiriva Respimat IH 2 puff DAILY [facility] Administration Torsemide 40 mg 06/04/20 10:00 06/04/20 09:08 Demadex - PO 40 mg DAILY [facility] Administration 1. hypervolemic hyponatremia 2. Hypoxic respiratory failure 3. Hyperkalemia 4. ELIZABETH 5. COPD 6 DM 7. RLE DVT 8. chf Plan - will order am cmp - monitor lytes and volume status on lower dose of torsemide (40 mg) - monitor bicarb - cont to monitor lytes - will need outpt follow up - cont bipap as needed
[2020-06-04] MEDS ORDERED: INSULIN (NOVOLOG) ASPART 100 UNITS/ML 10ML VIAL ONE (16:18)
[2020-06-05] MEDS: INSULIN SLIDING SCALE (NOVOLOG) 1 VIAL SQ SCH ×4 (06:29→21:52)
[2020-06-05] MEDS: LEVOTHYROXINE NA 125 MCG TABLET (FP) PO SCH (06:30)
[2020-06-05] MEDS ORDERED: INSULIN (LEVEMIR) 100 UNITS/ML UNITS SQ ONE (07:22)
--- NOTE | 2020-06-05 07:50 | PN ---
Progress Note, Physician Chief Complaint: Acute on Chronic Hypoxic and Hypercapneic Respiratory Failure Acute COPD Exacerbation Acute on Chronic Diastolic Heart Failure Pulmonary HTN Acute Kidney Injury HTN DM h/o DVT History of Present Illness: NAD c/o constipation, still no BM Breathing improved awaiting SNF placement - Current Medication List Current Medications: Active Medications Acetaminophen (Tylenol -) 650 mg PO Q6H PRN PRN Reason: PAIN LEVEL 4 - 6 Last Admin: 06/03/20 22:30 Dose: 650 mg Documented by: Albuterol Sulfate (Ventolin Hfa Inhaler -) 2 puff IH Q4H PRN PRN Reason: SHORT OF BREATH/WHEEZING Amlodipine Besylate (Norvasc -) 5 mg PO DAILY [facility] Last Admin: 06/04/20 09:09 Dose: 5 mg Documented by: Apixaban (Eliquis -) 5 mg PO BID [facility] Last Admin: 06/04/20 21:30 Dose: 5 mg Documented by: Docusate Sodium (Colace -) 100 mg PO BID PRN PRN Reason: CONSTIPATION Last Admin: 06/04/20 21:29 Dose: 100 mg Documented by: Insulin Aspart (Novolog Vial Sliding Scale -) 1 vial SQ [facility]; Protocol Last Admin: 06/05/20 06:29 Dose: 1 units Documented by: Levothyroxine Sodium (Synthroid -) 125 mcg PO DAILY@0700 [facility] Last Admin: 06/05/20 06:30 Dose: 125 mcg Documented by: Polyethylene Glycol (Miralax (For Daily Use) -) 17 gm PO DAILY [facility] Last Admin: 06/04/20 09:44 Dose: 17 gm Documented by: Tiotropium [place] (Spiriva Respimat) 2 puff IH DAILY [facility] Last Admin: 06/04/20 09:09 Dose: 2 puff Documented by: Torsemide (Demadex -) 40 mg PO DAILY [facility] Last Admin: 06/04/20 09:08 Dose: 40 mg Documented by: - Objective Vital Signs: Vital Signs Temperature 98.2 F 06/05/20 06:28 Pulse Rate 75 06/05/20 06:28 Respiratory Rate 20 06/05/20 06:28 Blood Pressure 120/67 06/05/20 06:28 O2 Sat by Pulse Oximetry (%) 97 06/05/20 06:28 Constitutional: Yes: Well Nourished, No Distress, Calm, Obese Cardiovascular: Yes: Regular Rate and Rhythm Respiratory: Yes: Regular, CTA Bilaterally Gastrointestinal: Yes: Normal Bowel Sounds, Soft, Abdomen, Obese Genitourinary: Yes: Incontinence Musculoskeletal: Yes: Muscle Weakness Extremities: Yes: WNL Edema: No Peripheral Pulses WNL: Yes Neurological: Yes: Alert, Oriented Psychiatric: Yes: Alert, Oriented Labs: CBC, BMP 06/02/20 05:40 06/03/20 07:30 INR, PTT INR 1.06 (0.83-1.09) 05/28/20 14:45 Problem List - Problems (1) Acute respiratory failure with hypoxia and hypercarbia Assessment/Plan: -Pulmonary on board -Nasal O2 to keep SpO2>90% -BIPAP at bedside -bronchodilators Problems reviewed: Yes Code(s): J96.01 - ACUTE RESPIRATORY FAILURE WITH HYPOXIA; J96.02 - ACUTE RESPIRATORY FAILURE WITH HYPERCAPNIA (2) Pneumonia Assessment/Plan: -resolved -Finished IV abx -COVID 19 PCR negative -Rest as above Problems reviewed: Yes Code(s): J18.9 - PNEUMONIA, UNSPECIFIED ORGANISM (3) COPD (chronic obstructive pulmonary disease) Assessment/Plan: -as above Problems reviewed: Yes Code(s): J44.9 - CHRONIC OBSTRUCTIVE PULMONARY DISEASE, UNSPECIFIED (4) Constipation Assessment/Plan: -Miralax po daily -Add senna 2 tabs po HS -Fleet Enema x 1 Problems reviewed: Yes Code(s): K59.00 - CONSTIPATION, UNSPECIFIED (5) Diabetes Assessment/Plan: -Recheck A1c -BGM AC HS -Diabetic diet -ISS Problems reviewed: Yes Code(s): E11.9 - TYPE 2 DIABETES MELLITUS WITHOUT COMPLICATIONS (6) History of DVT (deep vein thrombosis) Assessment/Plan: -Unknown where -Last Vascular study in 09/2019-negative for DVT -Continue eliquis 5 mg po bid Problems reviewed: Yes Code(s): Z86.718 - PERSONAL HISTORY OF OTHER VENOUS THROMBOSIS AND EMBOLISM (7) ELIZABETH (acute kidney injury) Assessment/Plan: -Nephrology on board -Cr at baseline -Monitor trend Problems reviewed: Yes Code(s): N17.9 - ACUTE KIDNEY FAILURE, UNSPECIFIED Assessment/Plan See problem list PT GI PPX SNF placement on saturday
[2020-06-05] MEDS ORDERED: PT OWN MED DRAWER 7, Y5N ONE (09:39)
[2020-06-05] MEDS ORDERED: INSULIN (NOVOLOG) ASPART 100 UNITS/ML 10ML VIAL ONE (09:39)
[2020-06-05] MEDS: POLYETHYLENE GLYCOL 3350 119 GM BTL PO SCH (10:26)
[2020-06-05] MEDS: APIXABAN 5 MG TABLET PO SCH ×2 (10:26→21:52)
[2020-06-05] MEDS: TORSEMIDE 20 MG TABLET (FP) PO SCH (10:26)
[2020-06-05] MEDS: amLODIPine BESYLATE 5 MG TABLET (FP) PO SCH (10:27)
[2020-06-05] MEDS: TIOTROPIUM BROMIDE 2.5 MCG (SPIRIVA) RESPIMAT INHALER IH SCH (10:27)
[2020-06-05 12:19] LABS: ALBUMIN 3.1 g/dl (3.4-5.0); BILIRUBIN,TOTAL 0.8 mg/dL (0.2-1); BLOOD UREA NITROGEN 48.2 mg/dL (7-18); CALCIUM 8.8 mg/dL (8.5-10.1); CREATININE 1.5 mg/dL (0.55-1.3); POTASSIUM 3.9 mmol/L (3.5-5.1); TOT PROT 6.6 g/dl (6.4-8.2)
[2020-06-05] MEDS: ACETAMINOPHEN 325 MG TABLET (FP) PO PRN (12:51)
--- NOTE | 2020-06-05 14:16 | PN ---
Progress Note (short form) - Note Progress Note: OOB to chair. Reports that she used NIPPV support most of the night. Pressure felt too high. Reports breathing feels better. Intake & Output 06/02/20 06/03/20 06/04/20 06/05/20 23:59 23:59 23:59 23:59 Intake Total 048 814 8463 0 Output Total 400 800 Balance 260 540 220 0 Weight 255 lb 14.4 oz 253 lb 8 oz 252 lb 1.6 oz 253 lb 9.6 oz Last Vital Signs Temp Pulse Resp BP Pulse Ox 99 F 78 20 103/49 L 94 L 06/05/20 08:30 06/05/20 08:30 06/05/20 08:30 06/05/20 08:30 06/05/20 09:00 Active Medications Acetaminophen (Tylenol -) 650 mg PO Q6H PRN PRN Reason: PAIN LEVEL 4 - 6 Last Admin: 06/05/20 12:51 Dose: 650 mg Documented by: Albuterol Sulfate (Ventolin Hfa Inhaler -) 2 puff IH Q4H PRN PRN Reason: SHORT OF BREATH/WHEEZING Amlodipine Besylate (Norvasc -) 5 mg PO DAILY [facility] Last Admin: 06/05/20 10:27 Dose: 5 mg Documented by: Apixaban (Eliquis -) 5 mg PO BID [facility] Last Admin: 06/05/20 10:26 Dose: 5 mg Documented by: Docusate Sodium (Colace -) 100 mg PO BID PRN PRN Reason: CONSTIPATION Last Admin: 06/04/20 21:29 Dose: 100 mg Documented by: Insulin Aspart (Novolog Vial Sliding Scale -) 1 vial SQ [facility]; Protocol Last Admin: 06/05/20 11:29 Dose: 1 units Documented by: Levothyroxine Sodium (Synthroid -) 125 mcg PO DAILY@0700 [facility] Last Admin: 06/05/20 06:30 Dose: 125 mcg Documented by: Polyethylene Glycol (Miralax (For Daily Use) -) 17 gm PO DAILY [facility] Last Admin: 06/05/20 10:26 Dose: 17 gm Documented by: Senna (Senna -) 2 tab PO HS PRN PRN Reason: CONSTIPATION Tiotropium [place] (Spiriva Respimat) 2 puff IH DAILY [facility] Last Admin: 08/16/20 10:27 Dose: 2 puff Documented by: Torsemide (Demadex -) 40 mg PO DAILY [facility] Last Admin: 06/05/20 10:26 Dose: 40 mg Documented by: Constitutional: Yes: Well Nourished, Calm, Obese Eyes: Yes: WNL HENT: Yes: WNL Neck: Yes: WNL Cardiovascular: Yes: Regular Rate and Rhythm, S1, S2 Respiratory: Yes: Diminished, Tachypnea Gastrointestinal: Yes: Normal Bowel Sounds, Soft Extremities: Yes: WNL Edema: Yes Labs: Laboratory Results - last 24 hr 06/04/20 06/04/20 06/05/20 16:24 21:29 06:25 Sodium Potassium Chloride Carbon Dioxide Anion Gap BUN Creatinine Est GFR (CKD-EPI)AfAm Est GFR (CKD-EPI)NonAf POC Glucometer 105 192 152 Random Glucose Hemoglobin A1c % Calcium Total Bilirubin AST ALT Alkaline Phosphatase Total Protein Albumin 06/05/20 06/05/20 06/05/20 09:00 09:09 11:27 Sodium 141 Potassium 3.9 Chloride 94 L Carbon Dioxide 33 H Anion Gap 14 BUN 48.2 H Creatinine 1.5 H Est GFR (CKD-EPI)AfAm 40.20 Est GFR (CKD-EPI)NonAf 34.69 POC Glucometer 169 Random Glucose 191 H Hemoglobin A1c % 6.9 H Calcium 8.8 Total Bilirubin 0.8 AST 10 L ALT 17 Alkaline Phosphatase 45 Total Protein 6.6 Albumin 3.1 L Problem List - Problems (1) Acute respiratory failure with hypoxia and hypercarbia Code(s): J96.01 - ACUTE RESPIRATORY FAILURE WITH HYPOXIA; J96.02 - ACUTE RESPIRATORY FAILURE WITH HYPERCAPNIA (2) Elevated C-reactive protein (CRP) Code(s): R79.82 - ELEVATED C-REACTIVE PROTEIN (CRP) (3) DVT (deep venous thrombosis) Code(s): I82.409 - ACUTE EMBOLISM AND THOMBOS UNSP DEEP VN UNSP LOWER EXTREMITY Qualifiers: DVT location: lower extremity Chronicity: unspecified Laterality: right (4) Diabetes Code(s): E11.9 - TYPE 2 DIABETES MELLITUS WITHOUT COMPLICATIONS (5) HTN (hypertension) Code(s): I10 - ESSENTIAL (PRIMARY) HYPERTENSION (6) Suspected 2019-nCoV infection Code(s): Z20.828 - CONTACT W AND EXPOSURE TO OTH VIRAL COMMUNICABLE DISEASES (7) Pneumonia Code(s): J18.9 - PNEUMONIA, UNSPECIFIED ORGANISM (8) COPD (chronic obstructive pulmonary disease) Code(s): J44.9 - CHRONIC OBSTRUCTIVE PULMONARY DISEASE, UNSPECIFIED (9) Hyponatremia Code(s): E87.1 - HYPO-OSMOLALITY AND HYPONATREMIA (10) Hypercarbia Code(s): R06.89 - OTHER ABNORMALITIES OF BREATHING (11) Hypothyroidism Code(s): E03.9 - HYPOTHYROIDISM, UNSPECIFIED (12) Pulmonary infiltrate in left lung on chest x-ray Code(s): R91.8 - OTHER NONSPECIFIC ABNORMAL FINDING OF LUNG FIELD Assessment/Plan Acute on Chronic Hypoxic and Hypercapneic Respiratory Failure improved Acute COPD Exacerbation Acute on Chronic Diastolic Heart Failure Pulmonary HTN Acute Kidney Injury HTN DM h/o DVT - NIPPV was adjusted - diuretics - monitor urine output, creatinine - daily weights - O2 to keep SpO2 >90% - s/p steroids - inhaled bronchodilators - rehab/PT Dr Penaloza
--- NOTE | 2020-06-05 14:52 | PN ---
Progress Note, Physician History of Present Illness: Pt seen and examined at bedside. She is awake and alert. She denies shortness of breath. - Current Medication List Current Medications: Active Medications Acetaminophen (Tylenol -) 650 mg PO Q6H PRN PRN Reason: PAIN LEVEL 4 - 6 Last Admin: 06/05/20 12:51 Dose: 650 mg Documented by: Albuterol Sulfate (Ventolin Hfa Inhaler -) 2 puff IH Q4H PRN PRN Reason: SHORT OF BREATH/WHEEZING Amlodipine Besylate (Norvasc -) 5 mg PO DAILY [facility] Last Admin: 06/05/20 10:27 Dose: 5 mg Documented by: Apixaban (Eliquis -) 5 mg PO BID [facility] Last Admin: 06/05/20 10:26 Dose: 5 mg Documented by: Docusate Sodium (Colace -) 100 mg PO BID PRN PRN Reason: CONSTIPATION Last Admin: 06/04/20 21:29 Dose: 100 mg Documented by: Insulin Aspart (Novolog Vial Sliding Scale -) 1 vial SQ [facility]; Protocol Last Admin: 06/05/20 11:29 Dose: 1 units Documented by: Levothyroxine Sodium (Synthroid -) 125 mcg PO DAILY@0700 [facility] Last Admin: 06/05/20 06:30 Dose: 125 mcg Documented by: Polyethylene Glycol (Miralax (For Daily Use) -) 17 gm PO DAILY [facility] Last Admin: 06/05/20 10:26 Dose: 17 gm Documented by: Senna (Senna -) 2 tab PO HS PRN PRN Reason: CONSTIPATION Tiotropium [place] (Spiriva Respimat) 2 puff IH DAILY [facility] Last Admin: 06/05/20 10:27 Dose: 2 puff Documented by: Torsemide (Demadex -) 40 mg PO DAILY [facility] Last Admin: 06/05/20 10:26 Dose: 40 mg Documented by: - Objective Vital Signs: Vital Signs Temperature 99 F 06/05/20 08:30 Pulse Rate 78 06/05/20 08:30 Respiratory Rate 20 06/05/20 08:30 Blood Pressure 103/49 L 06/05/20 08:30 O2 Sat by Pulse Oximetry (%) 94 L 06/05/20 09:00 Constitutional: Yes: Calm Eyes: Yes: Conjunctiva Clear HENT: Yes: Atraumatic Neck: Yes: Supple Cardiovascular: Yes: S1, S2 Respiratory: Yes: CTA Bilaterally Gastrointestinal: Yes: Normal Bowel Sounds, Soft Genitourinary: Yes: WNL Musculoskeletal: Yes: WNL Edema: No Neurological: Yes: Oriented Psychiatric: Yes: Oriented Labs: CBC, BMP 06/02/20 05:40 06/05/20 09:09 INR, PTT INR 1.06 (0.83-1.09) 05/28/20 14:45 Assessment/Plan Current Medications Generic Name Dose Route Start Last Admin Trade Name Freq PRN Reason Stop Dose Admin Acetaminophen 650 mg 06/03/20 22:07 06/05/20 12:51 Tylenol - PO 650 mg Q6H PRN Administration PAIN LEVEL 4 - 6 Albuterol Sulfate 2 puff 06/02/20 15:16 Ventolin Hfa Inhaler - IH Q4H PRN SHORT OF BREATH/WHEEZING Amlodipine Besylate 5 mg 06/03/20 10:00 06/05/20 10:27 Norvasc - PO 5 mg DAILY [facility] Administration Apixaban 5 mg 06/02/20 22:00 06/05/20 10:26 Eliquis - PO 5 mg BID [facility] Administration Docusate Sodium 100 mg 06/03/20 22:08 06/04/20 21:29 Colace - PO 100 mg BID PRN Administration CONSTIPATION Insulin Aspart 1 vial 06/02/20 16:30 06/05/20 11:29 Novolog Vial Sliding Scale - SQ 1 units ACHS [facility]N Administration Protocol Levothyroxine Sodium 125 mcg 06/03/20 07:00 06/05/20 06:30 Synthroid - PO 125 mcg DAILY@0700 [facility] Administration Polyethylene Glycol 17 gm 06/04/20 10:00 06/05/20 10:26 Miralax (For Daily Use) - PO 17 gm DAILY [facility] Administration Senna 2 tab 06/05/20 22:00 Senna - PO HS PRN CONSTIPATION Tiotropium [place] 2 puff 06/03/20 10:00 06/05/20 10:27 Spiriva Respimat IH 2 puff DAILY [facility] Administration Torsemide 40 mg 06/04/20 10:00 06/05/20 10:26 Demadex - PO 40 mg DAILY [facility] Administration 1. hypervolemic hyponatremia 2. Hypoxic respiratory failure 3. Hyperkalemia 4. ELIZABETH 5. COPD 6. DM 7. RLE DVT 8. chf Plan - renal function improving - bicarb improved - cont torsemide 40 mg - bowel regimen for constipation - will need outpt follow up - cont bipap as needed
[2020-06-05] MEDS ORDERED: SENNOSIDES 8.6MG TABLET (FP) PO PRN (22:00)
[2020-06-06] MEDS: INSULIN SLIDING SCALE (NOVOLOG) 1 VIAL SQ SCH ×3 (06:28→17:42)
[2020-06-06] MEDS: LEVOTHYROXINE NA 125 MCG TABLET (FP) PO SCH (06:28)
--- NOTE | 2020-06-06 07:48 | DS ---
Physical Examination Vital Signs: Vital Signs Temperature 98.3 F 06/06/20 06:00 Pulse Rate 70 06/06/20 06:00 Respiratory Rate 20 06/06/20 06:00 Blood Pressure 137/76 06/06/20 06:00 O2 Sat by Pulse Oximetry (%) 100 06/06/20 06:00 Constitutional: Yes: No Distress Cardiovascular: Yes: Regular Rate and Rhythm Respiratory: Yes: On BiPap Gastrointestinal: Yes: Soft Labs: CBC, BMP 06/02/20 05:40 06/05/20 09:09 Discharge Summary Problems reviewed: Yes Reason For Visit: HYPONATREMIA ELEVATED C-REACTIVE PROTEIN Current Active Problems Acute respiratory failure with hypoxia and hypercarbia (Acute) Acute respiratory insufficiency (Acute) CHF (congestive heart failure) (Acute) Elevated C-reactive protein (CRP) (Acute) Elevated LDH (Acute) History of DVT (deep vein thrombosis) (Acute) Hypercarbia (Acute) Hyperkalemia (Acute) Hyponatremia (Acute) Hypoxia (Acute) Pneumonia (Acute) Suspected 2019-nCoV infection (Acute) Procedures: Principal: CT SCAN/LABS Hospital Course: - Problems (1) Acute respiratory failure with hypoxia and hypercarbia Assessment/Plan: due to copd-chf increase decadron 6 qid lasix 80 iv--change to demadex 40 po bipap Code(s): J96.01 - ACUTE RESPIRATORY FAILURE WITH HYPOXIA; J96.02 - ACUTE RESPIRATORY FAILURE WITH HYPERCAPNIA (2) Hyperkalemia Assessment/Plan: Treat and monitor Laboratory Tests 05/29/20 05/29/20 05/30/20 08:13 17:08 00:15 Potassium 5.8 H 5.6 H 5.3 H 05/30/20 05/31/20 06:00 05:40 Potassium 5.1 5.5 H Laboratory Tests 05/31/20 06/01/20 19:05 05:20 Potassium 4.5 4.9 Code(s): E87.5 - HYPERKALEMIA (3) ELIZABETH (acute kidney injury) Assessment/Plan: Improving Laboratory Tests 05/29/20 05/30/20 05/31/20 08:13 00:15 05:40 BUN 19.8 H 26.7 H 36.5 H Creatinine 1.5 H 1.5 H 1.3 Abnormal Lab Results 05/31/20 06/01/2020 19:05 05:20 05:20 RBC 5.46 H Hct 45.6 H MCH 25.6 L MCHC 30.7 L RDW 17.5 H Sodium 134 L 134 L Chloride 89 L 88 L Carbon Dioxide 39 H 43 H Anion Gap 7 L 3 L BUN 42.4 H 48.5 H Creatinine 1.5 H 1.4 H Random Glucose 179 H 131 H AST 6 L Albumin 3.0 L Code(s): N17.9 - ACUTE KIDNEY FAILURE, UNSPECIFIED (4) COPD (chronic obstructive pulmonary disease) Assessment/Plan: bipap per pulm Code(s): J44.9 - CHRONIC OBSTRUCTIVE PULMONARY DISEASE, UNSPECIFIED (5) DVT (deep venous thrombosis) Assessment/Plan: on eliquis Code(s): I82.409 - ACUTE EMBOLISM AND THOMBOS UNSP DEEP VN UNSP LOWER EXTREMITY Qualifiers: DVT location: lower extremity Chronicity: unspecified Laterality: right (6) Diabetes Assessment/Plan: bgm Laboratory Tests 05/29/20 05/30/20 05/30/20 17:08 00:15 06:00 POC Glucometer Random Glucose 132 H 109 H 97 05/30/20 06:07 POC Glucometer 106 Random Glucose Code(s): E11.9 - TYPE 2 DIABETES MELLITUS WITHOUT COMPLICATIONS (7) CHF (congestive heart failure) Assessment/Plan: lasix 80 iv--change to demadex 80 po Code(s): I50.9 - HEART FAILURE, UNSPECIFIED DC PLANNING--SNF PT AGREES WITH [facility] Goals: PULMONARY WORKUP/SNF PLACEMENT Condition: Improved - Instructions Diet, Activity, Other Instructions: BMP ON SATURDAY THEN TWICE A WEEK DEMADEX TO 40 Referrals: aPm Triplett MD [Primary Care Provider] - Disposition: SNF FACILITY - Home Medications Comprehensive Discharge Medication List: Ambulatory Orders Amlodipine Besylate [Norvasc -] 5 mg PO DAILY 10/05/19 Ferrous Sulfate [Feosol] 325 mg PO DAILY 10/05/19 Ipratropium/Albuterol Sulfate [Iprat-Albut 0.5-3(2.5) mg/3 ml] 3 ml IH QID PRN 10/05/19 Levothyroxine [Synthroid -] 125 mcg PO DAILY 10/05/19 Multivitamin [Multiple Vitamins] 1 each PO DAILY 10/05/19 Apixaban [Eliquis -] 5 mg PO BID tablet 06/03/20 Insulin Sliding Scale [Novolog Vial Sliding Scale -] 1 vial SQ ACHS units 06/03/20 Sodium Zirconium Cyclosilicate [Lokelma] 5 gm PO 1400 packet 06/03/20 Tiotropium [place] [Spiriva Respimat] 2 puff IH DAILY inhaler 06/03/20 Torsemide [Demadex -] 80 mg PO DAILY tablet 06/03/20 Docusate Sodium [Colace -] 100 mg PO BID PRN capsule 06/06/20 Torsemide [Demadex -] 40 mg PO DAILY tablet 06/06/20
[2020-06-06] MEDS ORDERED: PT OWN MED DRAWER 7, Y5N ONE (10:34)
[2020-06-06] MEDS: TORSEMIDE 20 MG TABLET (FP) PO SCH (10:41)
[2020-06-06] MEDS: APIXABAN 5 MG TABLET PO SCH (10:42)
[2020-06-06] MEDS: amLODIPine BESYLATE 5 MG TABLET (FP) PO SCH (10:42)
[2020-06-06] MEDS: TIOTROPIUM BROMIDE 2.5 MCG (SPIRIVA) RESPIMAT INHALER IH SCH (10:43)
[2020-06-06] MEDS: POLYETHYLENE GLYCOL 3350 119 GM BTL PO SCH (10:47)
--- NOTE | 2020-06-06 13:58 | PN ---
Progress Note (short form) - Note Progress Note: Feels overall better. Lower NIPPV settings felt better last night. Intake & Output 06/03/20 06/04/20 06/05/20 06/06/20 23:59 23:59 23:59 23:59 Intake Total 540 1020 1140 0 Output Total 800 200 Balance 540 220 940 0 Weight 253 lb 8 oz 252 lb 1.6 oz 253 lb 9.6 oz 256 lb 1.6 oz Last Vital Signs Temp Pulse Resp BP Pulse Ox 98.3 F 75 20 137/76 95 06/06/20 06:00 06/06/20 11:25 06/06/20 06:00 06/06/20 06:00 06/06/20 11:25 Active Medications Acetaminophen (Tylenol -) 650 mg PO Q6H PRN PRN Reason: PAIN LEVEL 4 - 6 Last Admin: 06/05/20 12:51 Dose: 650 mg Documented by: Albuterol Sulfate (Ventolin Hfa Inhaler -) 2 puff IH Q4H PRN PRN Reason: SHORT OF BREATH/WHEEZING Amlodipine Besylate (Norvasc -) 5 mg PO DAILY [facility] Last Admin: 06/06/20 10:42 Dose: 5 mg Documented by: Apixaban (Eliquis -) 5 mg PO BID [facility] Last Admin: 06/06/20 10:42 Dose: 5 mg Documented by: Docusate Sodium (Colace -) 100 mg PO BID PRN PRN Reason: CONSTIPATION Last Admin: 06/04/20 21:29 Dose: 100 mg Documented by: Insulin Aspart (Novolog Vial Sliding Scale -) 1 vial SQ [facility]; Protocol Last Admin: 06/06/20 11:35 Dose: 1 units Documented by: Levothyroxine Sodium (Synthroid -) 125 mcg PO DAILY@0700 [facility] Last Admin: 06/06/20 06:28 Dose: 125 mcg Documented by: Polyethylene Glycol (Miralax (For Daily Use) -) 17 gm PO DAILY [facility] Last Admin: 06/06/20 10:47 Dose: 17 gm Documented by: Senna (Senna -) 2 tab PO HS PRN PRN Reason: CONSTIPATION Tiotropium [place] (Spiriva Respimat) 2 puff IH DAILY [facility] Last Admin: 06/06/20 10:43 Dose: 2 puff Documented by: Torsemide (Demadex -) 40 mg PO DAILY [facility] Last Admin: 06/06/20 10:41 Dose: 40 mg Documented by: Constitutional: Yes: Well Nourished, Calm, Obese Eyes: Yes: WNL HENT: Yes: WNL Neck: Yes: WNL Cardiovascular: Yes: Regular Rate and Rhythm, S1, S2 Respiratory: Yes: Diminished, Tachypnea Gastrointestinal: Yes: Normal Bowel Sounds, Soft Extremities: Yes: WNL Edema: Yes Labs: Laboratory Results - last 24 hr 06/05/20 06/05/20 06/06/20 16:23 21:45 06:26 POC Glucometer 125 161 142 06/06/20 11:33 POC Glucometer 165 Problem List - Problems (1) Acute respiratory failure with hypoxia and hypercarbia Code(s): J96.01 - ACUTE RESPIRATORY FAILURE WITH HYPOXIA; J96.02 - ACUTE RESPIRATORY FAILURE WITH HYPERCAPNIA (2) Elevated C-reactive protein (CRP) Code(s): R79.82 - ELEVATED C-REACTIVE PROTEIN (CRP) (3) DVT (deep venous thrombosis) Code(s): I82.409 - ACUTE EMBOLISM AND THOMBOS UNSP DEEP VN UNSP LOWER EXTREMITY Qualifiers: DVT location: lower extremity Chronicity: unspecified Laterality: right (4) Diabetes Code(s): E11.9 - TYPE 2 DIABETES MELLITUS WITHOUT COMPLICATIONS (5) HTN (hypertension) Code(s): I10 - ESSENTIAL (PRIMARY) HYPERTENSION (6) Suspected 2019-nCoV infection Code(s): Z20.828 - CONTACT W AND EXPOSURE TO OTH VIRAL COMMUNICABLE DISEASES (7) Pneumonia Code(s): J18.9 - PNEUMONIA, UNSPECIFIED ORGANISM (8) COPD (chronic obstructive pulmonary disease) Code(s): J44.9 - CHRONIC OBSTRUCTIVE PULMONARY DISEASE, UNSPECIFIED (9) Hyponatremia Code(s): E87.1 - HYPO-OSMOLALITY AND HYPONATREMIA (10) Hypercarbia Code(s): R06.89 - OTHER ABNORMALITIES OF BREATHING (11) Hypothyroidism Code(s): E03.9 - HYPOTHYROIDISM, UNSPECIFIED (12) Pulmonary infiltrate in left lung on chest x-ray Code(s): R91.8 - OTHER NONSPECIFIC ABNORMAL FINDING OF LUNG FIELD Assessment/Plan Acute on Chronic Hypoxic and Hypercapneic Respiratory Failure improved Acute COPD Exacerbation Acute on Chronic Diastolic Heart Failure Pulmonary HTN Acute Kidney Injury HTN DM h/o DVT Probable OSAS - NIPPV - diuretics - O2 to keep SpO2 >90% - s/p steroids - inhaled bronchodilators - DC planning / rehab / PT Dr Penaloza
[2020-06-06 14:10] VITALS: BP 129/76; PULSE 83; TEMP 98.8
--- NOTE | 2020-06-06 14:46 | PN ---
Progress Note, Physician History of Present Illness: Pt seen and examined at bedside. She denies shortness of breath. - Current Medication List Current Medications: Active Medications Acetaminophen (Tylenol -) 650 mg PO Q6H PRN PRN Reason: PAIN LEVEL 4 - 6 Last Admin: 06/05/20 12:51 Dose: 650 mg Documented by: Albuterol Sulfate (Ventolin Hfa Inhaler -) 2 puff IH Q4H PRN PRN Reason: SHORT OF BREATH/WHEEZING Amlodipine Besylate (Norvasc -) 5 mg PO DAILY [facility] Last Admin: 06/06/20 10:42 Dose: 5 mg Documented by: Apixaban (Eliquis -) 5 mg PO BID [facility] Last Admin: 06/06/20 10:42 Dose: 5 mg Documented by: Docusate Sodium (Colace -) 100 mg PO BID PRN PRN Reason: CONSTIPATION Last Admin: 06/04/20 21:29 Dose: 100 mg Documented by: Insulin Aspart (Novolog Vial Sliding Scale -) [address] [facility]; Protocol Last Admin: 06/06/20 11:35 Dose: 1 units Documented by: Levothyroxine Sodium (Synthroid -) 125 mcg PO DAILY@0700 [facility] Last Admin: 06/06/20 06:28 Dose: 125 mcg Documented by: Polyethylene Glycol (Miralax (For Daily Use) -) 17 gm PO DAILY [facility] Last Admin: 06/06/20 10:47 Dose: 17 gm Documented by: Senna (Senna -) 2 tab PO HS PRN PRN Reason: CONSTIPATION Tiotropium [place] (Spiriva Respimat) 2 puff IH DAILY [facility] Last Admin: 06/06/20 10:43 Dose: 2 puff Documented by: Torsemide (Demadex -) 40 mg PO DAILY [facility] Last Admin: 06/06/20 10:41 Dose: 40 mg Documented by: - Objective Vital Signs: Vital Signs Temperature 98.8 F 06/06/20 14:09 Pulse Rate 83 06/06/20 14:09 Respiratory Rate 20 06/06/20 14:09 Blood Pressure 129/76 06/06/20 14:09 O2 Sat by Pulse Oximetry (%) 98 06/06/20 14:09 Constitutional: Yes: Calm Eyes: Yes: Conjunctiva Clear HENT: Yes: Atraumatic Neck: Yes: Supple Cardiovascular: Yes: S1, S2 Respiratory: Yes: CTA Bilaterally Gastrointestinal: Yes: Normal Bowel Sounds, Soft Genitourinary: Yes: WNL Musculoskeletal: Yes: WNL Edema: LLE: Trace, RLE: Trace Neurological: Yes: Oriented Psychiatric: Yes: Oriented Labs: CBC, BMP 06/02/20 05:40 06/05/20 09:09 INR, PTT INR 1.06 (0.83-1.09) 05/28/20 14:45 Assessment/Plan Current Medications Generic Name Dose Route Start Last Admin Trade Name Freq PRN Reason Stop Dose Admin Acetaminophen 650 mg 06/03/20 22:07 06/05/20 12:51 Tylenol - PO 650 mg Q6H PRN Administration PAIN LEVEL 4 - 6 Albuterol Sulfate 2 puff 06/02/20 15:16 Ventolin Hfa Inhaler - IH Q4H PRN SHORT OF BREATH/WHEEZING Amlodipine Besylate 5 mg 06/03/20 10:00 06/06/20 10:42 Norvasc - PO 5 mg DAILY [facility] Administration Apixaban 5 mg 06/02/20 22:00 06/06/20 10:42 Eliquis - PO 5 mg BID [facility] Administration Docusate Sodium 100 mg 06/03/20 22:08 06/04/20 21:29 Colace - PO 100 mg BID PRN Administration CONSTIPATION Insulin Aspart 1 vial 06/02/20 16:30 06/06/20 11:35 Novolog Vial Sliding Scale - SQ 1 units ACHS [facility] Administration Protocol Levothyroxine Sodium 125 mcg 06/03/20 07:00 06/06/20 06:28 Synthroid - PO 125 mcg DAILY@0700 [facility] Administration Polyethylene Glycol 17 gm 06/04/20 10:00 06/06/20 10:47 Miralax (For Daily Use) - PO 17 gm DAILY [facility] Administration Senna 2 tab 06/05/20 22:00 Senna - PO HS PRN CONSTIPATION Tiotropium [place] 2 puff 06/03/20 10:00 06/06/20 10:43 Spiriva Respimat IH 2 puff DAILY [facility] Administration Torsemide 40 mg 06/04/20 10:00 06/06/20 10:41 Demadex - PO 40 mg DAILY [facility] Administration 1. hypervolemic hyponatremia 2. Hypoxic respiratory failure 3. Hyperkalemia 4. ELIZABETH 5. COPD 6. DM 7. RLE DVT 8. chf Plan - cont torsemide - will need outpt follow up - no new labs today - will need to check bmp in office - bowel regimen for constipation - cont bipap as needed
== END 2020-06-06 19:08 | DRG 189 ==
LOC: JER 13:48 → JERBED 15:36 → J4W 21:15 → JICU 05-29 12:19 → J8W 06-02 15:29
PROVIDERS: ADMIT Internal Medicine; ATTEND Family Medicine
PROC: 5A09557 Assistance with Respiratory Ventilation, Greater than 96 Consecutive Hours, Continuous Positive Airway Pressure (ICD-10-PCS; principal; 2020-05-28)
DX: J96.21 Acute and chronic respiratory failure with hypoxia (principal); J18.9 Pneumonia, unspecified organism; I50.33 Acute on chronic diastolic (congestive) heart failure; N17.9 Acute kidney failure, unspecified; E87.1 Hypo-osmolality and hyponatremia; J44.1 Chronic obstructive pulmonary disease with (acute) exacerbation; Z68.41 Body mass index [BMI] 40.0-44.9, adult; J96.22 Acute and chronic respiratory failure with hypercapnia; E87.5 Hyperkalemia; E03.9 Hypothyroidism, unspecified; E11.9 Type 2 diabetes mellitus without complications; I27.20 Pulmonary hypertension, unspecified; I11.0 Hypertensive heart disease with heart failure; E66.9 Obesity, unspecified; K59.00 Constipation, unspecified; K21.9 Gastro-esophageal reflux disease without esophagitis
CPT/HCPCS: 36415; 36600; 71045-TC-FY; 80048; 80053; 81003; 82248; 82550; 82565; 82728; 82803; 82962; 83036; 83605; 83615; 83735; 83880; 83930; 83935; 84100; 84156; 84300; 84443; 84484; 84540; 85025; 85027; 85379; 85610; 85730; 86140; 87040; 87086; 87205; 93005; 93010; 93306-TC; 94660; 97116-GP; 97161-GP; 99291; J1100; U0003

== ENCOUNTER 2021-02-18 10:57 | Inpatient (IN) | payer OTHER ==
[2021-02-18] MEDS ORDERED: MAG HYDROX/AL HYDROX/SIMETH 30 ML UNIT-DOSE CUP PO ONE (11:50)
[2021-02-18] MEDS ORDERED: FAMOTIDINE 20 MG/50 ML IVPB 20 MG/50 ML MG IVPB ONE ×2 (11:50→12:14)
[2021-02-18] MEDS ORDERED: MAG HYDROX/AL HYDROX/SIMETH 30 ML UNIT-DOSE CUP ONE (12:14)
[2021-02-18 13:02] LABS: BASO % 0.8 % (0-2.0); EOS % 0.9 % (0-4.5); HEMATOCRIT 42.3 % (32.4-45.2); HEMOGLOBIN 13.7 GM/dL (10.7-15.3); LYMPH % 7.3 % (8-40); MCHC 32.3 g/dl (32.0-36.0); MEAN CELL VOLUME 83.8 fl (80-96); MEAN PLT VOLUME 8.8 fl (7.5-11.1); MONO % 4.5 % (3.8-10.2); NEUT % 86.5 % (42.8-82.8); PLATELET COUNT 305 K/MM3 (134-434); RBC 5.05 M/mm3 (3.60-5.2); RDW 15.9 % (11.6-15.6); WHITE BLOOD COUNT 13.5 K/mm3 (4.0-10.0)
[2021-02-18 13:16] LABS: ALBUMIN 3.4 g/dl (3.4-5.0); BLOOD UREA NITROGEN 21.5 mg/dL (7-18); CALCIUM 8.5 mg/dL (8.5-10.1)
[2021-02-18 13:19] LABS: CREATININE 1.5 mg/dL (0.55-1.3)
[2021-02-18 13:21] LABS: BILIRUBIN,TOTAL 0.6 mg/dL (0.2-1); TOT PROT 7.6 g/dl (6.4-8.2)
[2021-02-18] MEDS ORDERED: SODIUM CHLORIDE 0.9% 500 ML INFUS.BAG IV ONE (13:21)
[2021-02-18 13:51] LABS: LACTIC ACID 2.1 mmol/L (0.4-2.0)
[2021-02-18 15:44] LABS: EPI CELLS 3 /uL (0-25.1); HYALINE CASTS 0 /uL (0-3.1); PH,URINE 5.5 (5.0-8.0); URINE APPEARANCE CLEAR; URINE BACTERIA 704 /uL (0-1359); URINE BILIRUBIN NEGATIVE (NEGATIVE); URINE COLOR YELLOW; URINE GLUCOSE (UA) NEGATIVE (NEGATIVE); URINE KETONE NEGATIVE (NEGATIVE); URINE LEUK ESTERASE TRACE (NEGATIVE); URINE NITRITE NEGATIVE (NEGATIVE); URINE PROTEIN 1+ (NEGATIVE); URINE RBC 7 /uL (0-23.9); URINE UROBILINOGEN 0.2 mg/dL (0.2-1.0); URINE WBC 54 /uL (0-25.8)
[2021-02-18] MEDS ORDERED: SODIUM CHLORIDE 1,000 ML IV SCH ×2 (16:45→19:02)
[2021-02-18 18:42] LABS: INR 1.39 (0.83-1.09); PROTHROMBIN TIME (PATIENT) 16.7 SEC (9.7-13.0)
[2021-02-18 18:45] LABS: ACTIVATED PTT 29.6 SECONDS (25.2-36.5)
[2021-02-18] MEDS ORDERED: ALBUTEROL SO4 2.5/IPRATROPIUM 0.5 INH SOL 3 ML VIAL.NEB. NEB PRN (18:59)
[2021-02-18] MEDS ORDERED: ONDANSETRON 4 MG/2 ML VIAL IVPUSH PRN (19:03)
[2021-02-18] MEDS ORDERED: morphine SULFATE 4 MG/ML VIAL IVPUSH PRN (19:03)
[2021-02-18] MEDS: APIXABAN 5 MG TABLET PO SCH (22:12)
[2021-02-18] MEDS: INSULIN SLIDING SCALE (NOVOLOG) 1 VIAL SQ SCH (22:12)
[2021-02-19] MEDS: MORPHINE SULFATE 2 MG/ML VIAL IVPUSH PRN ×2 (04:40→21:35)
[2021-02-19] MEDS: INSULIN SLIDING SCALE (NOVOLOG) 1 VIAL SQ SCH ×4 (06:33→21:37)
[2021-02-19] MEDS: amLODIPine BESYLATE 5 MG TABLET (FP) PO SCH (09:33)
[2021-02-19] MEDS: APIXABAN 5 MG TABLET PO SCH ×2 (09:33→21:37)
[2021-02-19] MEDS: LEVOTHYROXINE SODIUM 100 MCG VIAL IVPUSH SCH (09:34)
[2021-02-19] MEDS: PANTOPRAZOLE SODIUM 40 MG VIAL IVPUSH SCH (09:34)
[2021-02-19 09:58] LABS: BASO % 0.3 % (0-2.0); EOS % 2.6 % (0-4.5); HEMATOCRIT 39.9 % (32.4-45.2); HEMOGLOBIN 12.8 GM/dL (10.7-15.3); LYMPH % 12.3 % (8-40); MCH 27.3 pg (25.7-33.7); MCHC 32.1 g/dl (32.0-36.0); MEAN PLT VOLUME 8.2 fl (7.5-11.1); MONO % 8.1 % (3.8-10.2); NEUT % 76.7 % (42.8-82.8); PLATELET COUNT 275 K/MM3 (134-434); RDW 15.9 % (11.6-15.6); WHITE BLOOD COUNT 11.7 K/mm3 (4.0-10.0)
[2021-02-19 10:21] LABS: CALCIUM 8.2 mg/dL (8.5-10.1)
[2021-02-19 10:22] LABS: MAGNESIUM 2.1 mg/dL (1.8-2.4)
[2021-02-19 10:24] LABS: BILIRUBIN,TOTAL 0.4 mg/dL (0.2-1); BLOOD UREA NITROGEN 16.9 mg/dL (7-18); TOT PROT 6.7 g/dl (6.4-8.2)
[2021-02-19 10:25] LABS: CREATININE 1.2 mg/dL (0.55-1.3)
[2021-02-19] MEDS: TIOTROPIUM BROMIDE 2.5 MCG (SPIRIVA) RESPIMAT INHALER IH SCH (10:25)
[2021-02-19 10:27] LABS: PHOSPHOROUS 3.8 mg/dL (2.5-4.9)
[2021-02-19] MEDS ORDERED: DEXTROSE 5%-0.45% SALINE 1,000 ML IV SCH (12:30)
[2021-02-19] MEDS ORDERED: SODIUM ZIRCONIUM CYCLOSILICATE (LOKELMA) 5 GM PACKET PO SCH (14:00)
[2021-02-20] MEDS: INSULIN SLIDING SCALE (NOVOLOG) 1 VIAL SQ SCH ×4 (06:01→21:27)
[2021-02-20 09:17] LABS: CALCIUM 8.7 mg/dL (8.5-10.1)
[2021-02-20 09:18] LABS: BLOOD UREA NITROGEN 14.7 mg/dL (7-18)
[2021-02-20 09:21] LABS: BILIRUBIN,TOTAL 0.6 mg/dL (0.2-1); TOT PROT 6.7 g/dl (6.4-8.2)
[2021-02-20] MEDS: TIOTROPIUM BROMIDE 2.5 MCG (SPIRIVA) RESPIMAT INHALER IH SCH (10:24)
[2021-02-20] MEDS: LEVOTHYROXINE SODIUM 100 MCG VIAL IVPUSH SCH (10:24)
[2021-02-20] MEDS: PANTOPRAZOLE SODIUM 40 MG VIAL IVPUSH SCH (10:24)
[2021-02-20] MEDS: amLODIPine BESYLATE 5 MG TABLET (FP) PO SCH (10:24)
[2021-02-20] MEDS: APIXABAN 5 MG TABLET PO SCH ×2 (10:24→21:27)
[2021-02-20] MEDS: DEXTROSE 5%-0.45% SALINE 1,000 ML IV SCH (14:50)
[2021-02-20] MEDS: ACETAMINOPHEN 325 MG TABLET (FP) PO PRN (14:50)
[2021-02-21] MEDS: ACETAMINOPHEN 325 MG TABLET (FP) PO PRN ×2 (02:29→10:09)
[2021-02-21] MEDS: INSULIN SLIDING SCALE (NOVOLOG) 1 VIAL SQ SCH ×4 (06:04→21:04)
[2021-02-21 08:25] LABS: HEMATOCRIT 39.8 % (32.4-45.2); HEMOGLOBIN 12.8 GM/dL (10.7-15.3); MCH 27.4 pg (25.7-33.7); MCHC 32.1 g/dl (32.0-36.0); MEAN CELL VOLUME 85.5 fl (80-96); PLATELET COUNT 260 K/MM3 (134-434); RBC 4.65 M/mm3 (3.60-5.2); RDW 15.5 % (11.6-15.6)
[2021-02-21 08:50] LABS: CALCIUM 8.5 mg/dL (8.5-10.1)
[2021-02-21 08:51] LABS: BLOOD UREA NITROGEN 12.2 mg/dL (7-18)
[2021-02-21 08:54] LABS: CREATININE 1.1 mg/dL (0.55-1.3)
[2021-02-21 08:56] LABS: BILIRUBIN,TOTAL 0.5 mg/dL (0.2-1); TOT PROT 6.8 g/dl (6.4-8.2)
[2021-02-21] MEDS: APIXABAN 5 MG TABLET PO SCH ×2 (10:09→21:03)
[2021-02-21] MEDS: LEVOTHYROXINE SODIUM 100 MCG VIAL IVPUSH SCH (10:09)
[2021-02-21] MEDS: PANTOPRAZOLE SODIUM 40 MG VIAL IVPUSH SCH (10:09)
[2021-02-21] MEDS: amLODIPine BESYLATE 5 MG TABLET (FP) PO SCH (10:10)
[2021-02-21] MEDS ORDERED: PT OWN MED DRAWER 7, Y5N ONE ×2 (10:11→12:08)
[2021-02-21] MEDS: TIOTROPIUM BROMIDE 2.5 MCG (SPIRIVA) RESPIMAT INHALER IH SCH (12:30)
[2021-02-21] MEDS: DEXTROSE 5%-0.45% SALINE 1,000 ML IV SCH (21:04)
[2021-02-22] MEDS: INSULIN SLIDING SCALE (NOVOLOG) 1 VIAL SQ SCH ×4 (06:00→22:14)
[2021-02-22 09:25] LABS: CALCIUM 8.7 mg/dL (8.5-10.1)
[2021-02-22 09:26] LABS: ALBUMIN 3.3 g/dl (3.4-5.0); BLOOD UREA NITROGEN 11.7 mg/dL (7-18)
[2021-02-22 09:29] LABS: CREATININE 1.1 mg/dL (0.55-1.3)
[2021-02-22 09:32] LABS: BILIRUBIN,TOTAL 0.6 mg/dL (0.2-1)
[2021-02-22] MEDS: amLODIPine BESYLATE 5 MG TABLET (FP) PO SCH (13:43)
[2021-02-22] MEDS: LEVOTHYROXINE SODIUM 100 MCG VIAL IVPUSH SCH (13:43)
[2021-02-22] MEDS: APIXABAN 5 MG TABLET PO SCH ×2 (13:43→22:17)
[2021-02-22] MEDS: TIOTROPIUM BROMIDE 2.5 MCG (SPIRIVA) RESPIMAT INHALER IH SCH (13:43)
[2021-02-22] MEDS: PANTOPRAZOLE SODIUM 40 MG VIAL IVPUSH SCH (13:43)
[2021-02-22] MEDS: DEXTROSE 5%-0.45% SALINE 1,000 ML IV SCH (17:03)
[2021-02-23] MEDS: DEXTROSE 5%-0.45% SALINE 1,000 ML IV SCH (03:13)
[2021-02-23] MEDS: INSULIN SLIDING SCALE (NOVOLOG) 1 VIAL SQ SCH ×4 (07:19→21:31)
[2021-02-23 08:57] LABS: ALBUMIN 3.2 g/dl (3.4-5.0); BLOOD UREA NITROGEN 16.3 mg/dL (7-18); CALCIUM 8.4 mg/dL (8.5-10.1)
[2021-02-23 09:02] LABS: BILIRUBIN,TOTAL 0.6 mg/dL (0.2-1); TOT PROT 6.8 g/dl (6.4-8.2)
[2021-02-23] MEDS: APIXABAN 5 MG TABLET PO SCH ×2 (10:06→21:28)
[2021-02-23] MEDS: amLODIPine BESYLATE 5 MG TABLET (FP) PO SCH (10:06)
[2021-02-23] MEDS: LEVOTHYROXINE SODIUM 100 MCG VIAL IVPUSH SCH (10:06)
[2021-02-23] MEDS: PANTOPRAZOLE SODIUM 40 MG VIAL IVPUSH SCH (10:06)
[2021-02-23] MEDS: TIOTROPIUM BROMIDE 2.5 MCG (SPIRIVA) RESPIMAT INHALER IH SCH (10:07)
[2021-02-23] MEDS ORDERED: ONDANSETRON *ODT* 4 MG TABLET SL PRN (10:53)
[2021-02-23 12:11] VITALS: BMI 40.5
[2021-02-23 16:12] LABS: SARS COV-2 MOLECULAR Negative (Negative)
[2021-02-24] MEDS: INSULIN SLIDING SCALE (NOVOLOG) 1 VIAL SQ SCH ×3 (06:14→17:05)
[2021-02-24] MEDS ORDERED: LEVOTHYROXINE NA 75 MCG TABLET (FP) PO SCH (07:00)
[2021-02-24 08:08] LABS: SARS-CoV-2 NAA Not Detected (Not Detected)
[2021-02-24] MEDS ORDERED: PANTOPRAZOLE 40 MG TABLET PO SCH (10:00)
[2021-02-24] MEDS ORDERED: TORSEMIDE 20 MG TABLET (FP) PO SCH (10:00)
[2021-02-24] MEDS: amLODIPine BESYLATE 5 MG TABLET (FP) PO SCH (10:41)
[2021-02-24] MEDS ORDERED: PT OWN MED DRAWER 7, Y5N ONE (10:41)
[2021-02-24] MEDS: APIXABAN 5 MG TABLET PO SCH (10:42)
[2021-02-24] MEDS: TIOTROPIUM BROMIDE 2.5 MCG (SPIRIVA) RESPIMAT INHALER IH SCH (10:42)
[2021-02-24 15:07] VITALS: BP 109/52; PULSE 78; TEMP 99
== END 2021-02-24 18:31 | DRG 389 ==
LOC: JER 10:57 → JERBED 16:40 → J6S 22:06
PROVIDERS: ADMIT Internal Medicine; ATTEND Family Medicine
PROC: 0D9670Z Drainage of Stomach with Drainage Device, Via Natural or Artificial Opening (ICD-10-PCS; principal; 2021-02-18)
DX: K56.600 Partial intestinal obstruction, unspecified as to cause (principal); N17.9 Acute kidney failure, unspecified; I50.32 Chronic diastolic (congestive) heart failure; I13.0 Hypertensive heart and chronic kidney disease with heart failure and stage 1 through stage 4 chronic kidney disease, or unspecified chronic kidney disease; Z68.41 Body mass index [BMI] 40.0-44.9, adult; E11.9 Type 2 diabetes mellitus without complications; E78.5 Hyperlipidemia, unspecified; R11.2 Nausea with vomiting, unspecified; E87.5 Hyperkalemia; J44.9 Chronic obstructive pulmonary disease, unspecified; E66.01 Morbid (severe) obesity due to excess calories; D64.9 Anemia, unspecified; K21.9 Gastro-esophageal reflux disease without esophagitis; K46.9 Unspecified abdominal hernia without obstruction or gangrene; E11.22 Type 2 diabetes mellitus with diabetic chronic kidney disease; N18.9 Chronic kidney disease, unspecified; Z86.718 Personal history of other venous thrombosis and embolism; Z99.81 Dependence on supplemental oxygen
CPT/HCPCS: 36415; 71045-TC-FY; 74019-TC-FY; 74176-TC; 74250-TC-FY; 80053; 81003; 82962; 83605; 83690; 83735; 84100; 85025; 85027; 85610; 85730; 87086; 93005; 93010; 97116-GP; 97162-GP; 99285-25; C9803; U0003; U0005

== ENCOUNTER 2021-10-09 18:28 | Inpatient (IN) | payer OTHER ==
[2021-10-09] MEDS ORDERED: SODIUM CHLORIDE 0.9% 500 ML INFUS.BAG IV ONE (19:20)
[2021-10-09] MEDS ORDERED: ACETAMINOPHEN 1000 MG/100 ML BAG IVPB ONE (19:20)
[2021-10-09] MEDS ORDERED: ACETAMINOPHEN INJECTION 100 ML IVPB ONE (19:48)
[2021-10-09 21:07] LABS: BASO % 0.6 % (0-2.0); EOS % 0.6 % (0-4.5); HEMATOCRIT 42.4 % (32.4-45.2); HEMOGLOBIN 13.4 GM/dL (10.7-15.3); LYMPH % 7.5 % (8-40); MCH 26.5 pg (25.7-33.7); MCHC 31.7 g/dl (32.0-36.0); MEAN CELL VOLUME 83.7 fl (80-96); MEAN PLT VOLUME 8.4 fl (7.5-11.1); MONO % 5.7 % (3.8-10.2); NEUT % 85.6 % (42.8-82.8); PLATELET COUNT 307 10^3/uL (134-434); RBC 5.07 M/mm3 (3.60-5.2); RDW 15.7 % (11.6-15.6); WHITE BLOOD COUNT 12.4 K/mm3 (4.0-10.0)
[2021-10-09 21:13] LABS: INR 1.06 (0.83-1.09); PROTHROMBIN TIME (PATIENT) 12.4 SEC (9.7-13.0)
[2021-10-09 21:16] LABS: ACTIVATED PTT 33.3 SECONDS (25.2-36.5)
[2021-10-09 21:31] LABS: CHLORIDE 96 mmol/L (98-107); SODIUM 136 mmol/L (136-145)
[2021-10-09 21:34] LABS: ALBUMIN 3.4 g/dl (3.4-5.0); ANION GAP 8 MMOL/L (8-16); BLOOD UREA NITROGEN 22.9 mg/dL (7-18); CALCIUM 9.4 mg/dL (8.5-10.1); CO2 32 mmol/L (21-32); GLUCOSE,RANDOM 152 mg/dL (74-106)
[2021-10-09 21:35] LABS: LIPASE 297 U/L (73-393)
[2021-10-09 21:37] LABS: CREATININE 1.3 mg/dL (0.55-1.3); SGOT/AST 15 U/L (15-37); SGPT/ALT 19 U/L (13-61)
[2021-10-09 21:38] LABS: PHOSPHOROUS 3.6 mg/dL (2.5-4.9)
[2021-10-09 21:39] LABS: BILIRUBIN,TOTAL 0.3 mg/dL (0.2-1); TOT PROT 7.5 g/dl (6.4-8.2)
[2021-10-09 21:40] LABS: ALK PHOS 71 U/L (45-117); N-TERMINAL BNP 263.8 pg/ml (5-125)
[2021-10-09 22:13] LABS: LACTIC ACID 2.7 mmol/L (0.4-2.0)
[2021-10-09] MEDS ORDERED: ONDANSETRON 4 MG/2 ML VIAL IVPB ONE (23:42)
[2021-10-09] MEDS ORDERED: ONDANSETRON 4 MG/2 ML VIAL ONE (23:47)
[2021-10-10 00:44] LABS: EPI CELLS 7 /uL (0-25.1); HYALINE CASTS 4 /uL (0-3.1); URINE APPEARANCE CLEAR; URINE BACTERIA 7 /uL (0-1359); URINE BILIRUBIN NEGATIVE (NEGATIVE); URINE COLOR YELLOW; URINE GLUCOSE (UA) NEGATIVE (NEGATIVE); URINE KETONE TRACE (NEGATIVE); URINE LEUK ESTERASE NEGATIVE (NEGATIVE); URINE NITRITE NEGATIVE (NEGATIVE); URINE PROTEIN 3+ (NEGATIVE); URINE RBC 19 /uL (0-23.9); URINE UROBILINOGEN 0.2 mg/dL (0.2-1.0); URINE WBC 12 /uL (0-25.8)
[2021-10-10] MEDS ORDERED: ACETAMINOPHEN 1000 MG/100 ML BAG IVPB PRN (02:00)
[2021-10-10] MEDS: DEXTROSE 5%-0.45% SALINE 1,000 ML IV SCH (04:34)
[2021-10-10 05:02] VITALS: BMI 40.1
[2021-10-10] MEDS: HEPARIN NA (PORCINE) 5,000 UNITS/ML 1ML VIAL SQ SCH ×2 (10:22→22:33)
[2021-10-10] MEDS ORDERED: PIPERACILLIN/TAZOBACTAM 3.375 GM VIAL IVPB ONE (17:24)
[2021-10-10] MEDS ORDERED: DEXTROSE 5%-WATER - 50 ML IVPB ONE (17:25)
[2021-10-10] MEDS: PIPERACILLIN/TAZOB 3.375 GM 3.375 GM in DEXTROSE 5%-WATER - 50 ML IVPB SCH ×2 (17:36)
[2021-10-10 19:34] LABS: BASO % 0.4 % (0-2.0); EOS % 1.7 % (0-4.5); HEMATOCRIT 37.8 % (32.4-45.2); HEMOGLOBIN 11.9 GM/dL (10.7-15.3); MCH 26.5 pg (25.7-33.7); MCHC 31.3 g/dl (32.0-36.0); MEAN CELL VOLUME 84.6 fl (80-96); MEAN PLT VOLUME 8.3 fl (7.5-11.1); MONO % 4.1 % (3.8-10.2); NEUT % 83.8 % (42.8-82.8); PLATELET COUNT 280 10^3/uL (134-434); RBC 4.47 M/mm3 (3.60-5.2); RDW 15.9 % (11.6-15.6); WHITE BLOOD COUNT 10.8 K/mm3 (4.0-10.0)
[2021-10-10 20:37] LABS: BLOOD UREA NITROGEN 30.3 mg/dL (7-18); CREATININE 1.3 mg/dL (0.55-1.3)
[2021-10-10 20:38] LABS: ALBUMIN 2.7 g/dl (3.4-5.0); BILIRUBIN,TOTAL 0.4 mg/dL (0.2-1); CALCIUM 8.2 mg/dL (8.5-10.1); TOT PROT 6.1 g/dl (6.4-8.2)
[2021-10-11] MEDS ORDERED: PIPERACILLIN/TAZOBACTAM 3.375 GM VIAL IVPB ONE ×3 (01:55→17:41)
[2021-10-11] MEDS ORDERED: DEXTROSE 5%-WATER - 50 ML IVPB ONE ×3 (01:55→17:41)
[2021-10-11] MEDS: PIPERACILLIN/TAZOB 3.375 GM 3.375 GM in DEXTROSE 5%-WATER - 50 ML IVPB SCH ×3 (02:23→17:48)
[2021-10-11] MEDS: DEXTROSE 5%-0.45% SALINE 1,000 ML IV SCH (02:23)
[2021-10-11] MEDS ORDERED: PT OWN MED DRAWER 7, Y5N ONE (09:10)
[2021-10-11] MEDS: LEVOTHYROXINE SODIUM 100 MCG VIAL IVPUSH SCH (09:16)
[2021-10-11] MEDS: HEPARIN NA (PORCINE) 5,000 UNITS/ML 1ML VIAL SQ SCH ×2 (09:16→21:15)
[2021-10-11] MEDS: SODIUM CHLORIDE 0.45% 1,000 ML IV SCH (12:43)
[2021-10-12] MEDS ORDERED: DEXTROSE 5%-WATER - 50 ML IVPB ONE ×3 (00:42→17:05)
[2021-10-12] MEDS ORDERED: PIPERACILLIN/TAZOBACTAM 3.375 GM VIAL IVPB ONE ×3 (00:42→17:05)
[2021-10-12] MEDS: PIPERACILLIN/TAZOB 3.375 GM 3.375 GM in DEXTROSE 5%-WATER - 50 ML IVPB SCH ×3 (01:07→17:15)
[2021-10-12] MEDS: SODIUM CHLORIDE 0.45% 1,000 ML IV SCH ×3 (01:08→15:18)
[2021-10-12] MEDS ORDERED: PT OWN MED DRAWER 7, Y5N ONE (10:37)
[2021-10-12] MEDS: LEVOTHYROXINE SODIUM 100 MCG VIAL IVPUSH SCH (10:45)
[2021-10-12] MEDS: HEPARIN NA (PORCINE) 5,000 UNITS/ML 1ML VIAL SQ SCH ×2 (10:46→21:01)
[2021-10-12 13:22] LABS: ALBUMIN 2.8 g/dl (3.4-5.0); BLOOD UREA NITROGEN 16.6 mg/dL (7-18); CALCIUM 8.6 mg/dL (8.5-10.1)
[2021-10-12 13:25] LABS: CREATININE 1.1 mg/dL (0.55-1.3)
[2021-10-12 13:27] LABS: BILIRUBIN,TOTAL 0.3 mg/dL (0.2-1); TOT PROT 6.6 g/dl (6.4-8.2)
[2021-10-13] MEDS ORDERED: PIPERACILLIN/TAZOBACTAM 3.375 GM VIAL IVPB ONE ×2 (00:53→09:09)
[2021-10-13] MEDS ORDERED: DEXTROSE 5%-WATER - 50 ML IVPB ONE ×2 (00:54→09:10)
[2021-10-13] MEDS: PIPERACILLIN/TAZOB 3.375 GM 3.375 GM in DEXTROSE 5%-WATER - 50 ML IVPB SCH ×2 (01:10→09:18)
[2021-10-13] MEDS: SODIUM CHLORIDE 0.45% 1,000 ML IV SCH (01:10)
[2021-10-13] MEDS ORDERED: PT OWN MED DRAWER 7, Y5N ONE (09:09)
[2021-10-13] MEDS: HEPARIN NA (PORCINE) 5,000 UNITS/ML 1ML VIAL SQ SCH ×2 (09:18→22:18)
[2021-10-13] MEDS: LEVOTHYROXINE SODIUM 100 MCG VIAL IVPUSH SCH (09:18)
[2021-10-13 10:32] LABS: HEMATOCRIT 38.3 % (32.4-45.2); MCH 26.8 pg (25.7-33.7); MCHC 31.4 g/dl (32.0-36.0); MEAN CELL VOLUME 85.3 fl (80-96); MEAN PLT VOLUME 8.7 fl (7.5-11.1); PLATELET COUNT 283 10^3/uL (134-434); RDW 15.7 % (11.6-15.6); WHITE BLOOD COUNT 7.2 K/mm3 (4.0-10.0)
[2021-10-13 10:59] LABS: ALBUMIN 2.9 g/dl (3.4-5.0); BLOOD UREA NITROGEN 11.5 mg/dL (7-18); CALCIUM 8.6 mg/dL (8.5-10.1)
[2021-10-13 11:02] LABS: CREATININE 1.1 mg/dL (0.55-1.3)
[2021-10-13 11:04] LABS: BILIRUBIN,TOTAL 0.3 mg/dL (0.2-1); TOT PROT 6.7 g/dl (6.4-8.2)
[2021-10-14] MEDS ORDERED: PT OWN MED DRAWER 7, Y5N ONE (09:38)
[2021-10-14] MEDS: HEPARIN NA (PORCINE) 5,000 UNITS/ML 1ML VIAL SQ SCH ×2 (09:44→22:04)
[2021-10-14] MEDS: LEVOTHYROXINE SODIUM 100 MCG VIAL IVPUSH SCH (09:45)
[2021-10-14] MEDS ORDERED: MELATONIN 5 MG TABLETS PO PRN (19:01)
[2021-10-15] MEDS: HEPARIN NA (PORCINE) 5,000 UNITS/ML 1ML VIAL SQ SCH ×2 (10:24→21:07)
[2021-10-15] MEDS: LEVOTHYROXINE SODIUM 100 MCG VIAL IVPUSH SCH (10:24)
[2021-10-16] MEDS: LEVOTHYROXINE NA 100 MCG TABLET (FP) PO SCH (06:42)
[2021-10-16] MEDS: HEPARIN NA (PORCINE) 5,000 UNITS/ML 1ML VIAL SQ SCH ×2 (11:21→21:27)
[2021-10-16] MEDS ORDERED: INSULIN (NOVOLOG) ASPART 100 UNITS/ML 10ML VIAL ONE (18:20)
[2021-10-17] MEDS: LEVOTHYROXINE NA 100 MCG TABLET (FP) PO SCH (06:07)
[2021-10-17] MEDS: HEPARIN NA (PORCINE) 5,000 UNITS/ML 1ML VIAL SQ SCH (09:10)
[2021-10-17 15:41] VITALS: BP 125/61; PULSE 83; TEMP 98.5
== END 2021-10-17 15:41 | disposition home health service (06) | DRG 389 ==
LOC: JER 18:28 → JERBED 23:58 → J8W 10-10 04:07
PROVIDERS: ADMIT Internal Medicine; ATTEND Family Medicine
DX: K56.609 Unspecified intestinal obstruction, unspecified as to partial versus complete obstruction (principal); I50.32 Chronic diastolic (congestive) heart failure; Z68.41 Body mass index [BMI] 40.0-44.9, adult; E87.2 Acidosis; E66.9 Obesity, unspecified; E11.9 Type 2 diabetes mellitus without complications; D72.829 Elevated white blood cell count, unspecified; K21.9 Gastro-esophageal reflux disease without esophagitis; E03.9 Hypothyroidism, unspecified
CPT/HCPCS: 36415; 71045-TC-FY; 74018-TC-FY; 74019-TC-FY; 74177-TC; 80053; 81003; 82550; 82962; 83605; 83690; 83735; 83880; 84100; 84484; 85025; 85027; 85610; 85730; 87040; 87086; 93005; 93010; 97116-GP; 97161-GP; 99285-25; C9803; J0131; J1644; U0003; U0005

== ENCOUNTER 2021-10-22 11:33 | Observation (INO) | payer OTHER ==
[2021-10-22] MEDS ORDERED: ONDANSETRON 4 MG/2 ML VIAL IVPUSH ONE (13:40)
[2021-10-22] MEDS ORDERED: ACETAMINOPHEN 1000 MG/100 ML BAG IVPB ONE (13:40)
[2021-10-22] MEDS ORDERED: LACTATED RINGERS SOLUTION 1,000 ML/1,000 ML INFUS.BAG IV SCH (13:45)
[2021-10-22] MEDS ORDERED: ONDANSETRON 4 MG/2 ML VIAL ONE (15:12)
[2021-10-22] MEDS ORDERED: ACETAMINOPHEN INJECTION 100 ML IVPB ONE (15:33)
[2021-10-22 16:19] LABS: BASO % 0.8 % (0-2.0); EOS % 1.4 % (0-4.5); HEMATOCRIT 37.9 % (32.4-45.2); HEMOGLOBIN 11.9 GM/dL (10.7-15.3); LYMPH % 13.3 % (8-40); MCHC 31.3 g/dl (32.0-36.0); MEAN CELL VOLUME 83.3 fl (80-96); MEAN PLT VOLUME 9.2 fl (7.5-11.1); MONO % 6.6 % (3.8-10.2); NEUT % 77.9 % (42.8-82.8); PLATELET COUNT 356 10^3/uL (134-434); RBC 4.56 M/mm3 (3.60-5.2); WHITE BLOOD COUNT 9.8 K/mm3 (4.0-10.0)
[2021-10-22 16:26] LABS: INR 1.13 (0.83-1.09); PROTHROMBIN TIME (PATIENT) 12.7 SEC (9.7-13.0)
[2021-10-22 16:28] LABS: ACTIVATED PTT 30.8 SECONDS (25.2-36.5)
[2021-10-22 16:32] LABS: CALCIUM 8.8 mg/dL (8.5-10.1)
[2021-10-22 16:33] LABS: ALBUMIN 3.1 g/dl (3.4-5.0); BLOOD UREA NITROGEN 15.5 mg/dL (7-18); CO2 31 mmol/L (21-32); GLUCOSE,RANDOM 89 mg/dL (74-106); LIPASE 58 U/L (73-393)
[2021-10-22 16:34] LABS: ANION GAP 9 MMOL/L (8-16); CHLORIDE 89 mmol/L (98-107); SODIUM 129 mmol/L (136-145)
[2021-10-22 16:37] LABS: CREATININE 1.2 mg/dL (0.55-1.3); SGOT/AST 20 U/L (15-37); SGPT/ALT 19 U/L (13-61); TOT PROT 7.4 g/dl (6.4-8.2)
[2021-10-22 16:38] LABS: BILIRUBIN,TOTAL 0.5 mg/dL (0.2-1)
[2021-10-22 16:39] LABS: ALK PHOS 59 U/L (45-117)
[2021-10-22 18:08] LABS: BLOOD UREA NITROGEN 15.8 mg/dL (7-18); CALCIUM 8.3 mg/dL (8.5-10.1)
[2021-10-22 18:11] LABS: CREATININE 1.1 mg/dL (0.55-1.3)
[2021-10-22 19:37] LABS: BLOOD UREA NITROGEN 14.8 mg/dL (7-18); CALCIUM 8.2 mg/dL (8.5-10.1)
[2021-10-22 19:41] LABS: CREATININE 1.1 mg/dL (0.55-1.3)
[2021-10-23 03:06] LABS: EPI CELLS 12 /uL (0-25.1); HYALINE CASTS 1 /uL (0-3.1); URINE APPEARANCE CLEAR; URINE BACTERIA 11 /uL (0-1359); URINE BILIRUBIN NEGATIVE (NEGATIVE); URINE COLOR YELLOW; URINE GLUCOSE (UA) NEGATIVE (NEGATIVE); URINE KETONE NEGATIVE (NEGATIVE); URINE LEUK ESTERASE TRACE (NEGATIVE); URINE NITRITE NEGATIVE (NEGATIVE); URINE PROTEIN 1+ (NEGATIVE); URINE RBC 7 /uL (0-23.9); URINE UROBILINOGEN 0.2 mg/dL (0.2-1.0); URINE WBC 34 /uL (0-25.8)
[2021-10-23] MEDS ORDERED: PT OWN MED DRAWER 7, Y5N ONE ×3 (07:21→09:46)
[2021-10-23] MEDS: LEVOTHYROXINE NA 125 MCG TABLET (FP) PO SCH (09:11)
[2021-10-23] MEDS ORDERED: PANTOPRAZOLE 40 MG TABLET ONE (09:44)
[2021-10-23] MEDS ORDERED: amLODIPine BESYLATE 5 MG TABLET (FP) ONE (09:45)
[2021-10-23] MEDS ORDERED: FERROUS SO4 325 MG TABLET (FP) ONE (09:45)
[2021-10-23] MEDS ORDERED: APIXABAN 5 MG TABLET ONE (09:45)
[2021-10-23] MEDS: amLODIPine BESYLATE 5 MG TABLET (FP) PO SCH (09:51)
[2021-10-23] MEDS: FERROUS SO4 325 MG TABLET (FP) PO SCH (09:51)
[2021-10-23] MEDS: APIXABAN 5 MG TABLET PO SCH ×2 (09:51→21:50)
[2021-10-23] MEDS: PANTOPRAZOLE 40 MG TABLET PO SCH (09:52)
[2021-10-23] MEDS ORDERED: MULTIVITAMINS (DAILY MVI) TABLET (FP) ONE (09:59)
[2021-10-23 10:21] LABS: BASO % 0.5 % (0-2.0); HEMATOCRIT 37.2 % (32.4-45.2); HEMOGLOBIN 11.7 GM/dL (10.7-15.3); LYMPH % 11.4 % (8-40); MCH 26.5 pg (25.7-33.7); MCHC 31.4 g/dl (32.0-36.0); MEAN CELL VOLUME 84.3 fl (80-96); MEAN PLT VOLUME 8.8 fl (7.5-11.1); MONO % 8.2 % (3.8-10.2); NEUT % 78.9 % (42.8-82.8); PLATELET COUNT 320 10^3/uL (134-434); RBC 4.41 M/mm3 (3.60-5.2); RDW 15.6 % (11.6-15.6); WHITE BLOOD COUNT 12.1 K/mm3 (4.0-10.0)
[2021-10-23] MEDS: MULTIVITAMINS (DAILY MVI) TABLET (FP) PO SCH (10:30)
[2021-10-23] MEDS: TIOTROPIUM BROMIDE 2.5 MCG (SPIRIVA) RESPIMAT INHALER IH SCH (10:31)
[2021-10-23 10:44] LABS: CALCIUM 8.4 mg/dL (8.5-10.1)
[2021-10-23 10:45] LABS: ALBUMIN 3.2 g/dl (3.4-5.0); BLOOD UREA NITROGEN 15.5 mg/dL (7-18); MAGNESIUM 2.1 mg/dL (1.8-2.4)
[2021-10-23 10:49] LABS: CREATININE 1.2 mg/dL (0.55-1.3)
[2021-10-23 10:50] LABS: BILIRUBIN,TOTAL 0.5 mg/dL (0.2-1); TOT PROT 6.6 g/dl (6.4-8.2)
[2021-10-23 14:33] VITALS: BMI 24.6
[2021-10-23] MEDS: SODIUM CHLORIDE 1,000 ML IV SCH (14:40)
[2021-10-24] MEDS: LEVOTHYROXINE NA 125 MCG TABLET (FP) PO SCH (06:34)
[2021-10-24] MEDS: MULTIVITAMINS (DAILY MVI) TABLET (FP) PO SCH (09:37)
[2021-10-24] MEDS: PANTOPRAZOLE 40 MG TABLET PO SCH (09:37)
[2021-10-24] MEDS: APIXABAN 5 MG TABLET PO SCH ×2 (09:37→21:51)
[2021-10-24] MEDS: amLODIPine BESYLATE 5 MG TABLET (FP) PO SCH (09:37)
[2021-10-24] MEDS: FERROUS SO4 325 MG TABLET (FP) PO SCH (09:37)
[2021-10-24] MEDS: TIOTROPIUM BROMIDE 2.5 MCG (SPIRIVA) RESPIMAT INHALER IH SCH (09:39)
[2021-10-24 11:26] LABS: BASO % 0.7 % (0-2.0); EOS % 2.9 % (0-4.5); HEMATOCRIT 38.9 % (32.4-45.2); HEMOGLOBIN 12.1 GM/dL (10.7-15.3); LYMPH % 9.9 % (8-40); MCH 26.6 pg (25.7-33.7); MCHC 31.2 g/dl (32.0-36.0); MEAN CELL VOLUME 85.3 fl (80-96); MEAN PLT VOLUME 9.3 fl (7.5-11.1); MONO % 7.1 % (3.8-10.2); NEUT % 79.4 % (42.8-82.8); PLATELET COUNT 323 10^3/uL (134-434); RBC 4.56 M/mm3 (3.60-5.2); WHITE BLOOD COUNT 10.6 K/mm3 (4.0-10.0)
[2021-10-24 11:55] LABS: BLOOD UREA NITROGEN 9.6 mg/dL (7-18); CALCIUM 8.2 mg/dL (8.5-10.1)
[2021-10-24 11:56] LABS: ALBUMIN 3.1 g/dl (3.4-5.0)
[2021-10-24 11:59] LABS: CREATININE 1.2 mg/dL (0.55-1.3)
[2021-10-24 12:00] LABS: BILIRUBIN,TOTAL 0.4 mg/dL (0.2-1)
[2021-10-24] MEDS: SODIUM CHLORIDE 1,000 ML IV SCH (16:25)
[2021-10-24 17:54] LABS: BLOOD UREA NITROGEN 12.1 mg/dL (7-18); CALCIUM 8.3 mg/dL (8.5-10.1)
[2021-10-24 17:58] LABS: CREATININE 1.2 mg/dL (0.55-1.3)
[2021-10-24] MEDS ORDERED: ACETAMINOPHEN 325 MG TABLET (FP) PO PRN (22:53)
[2021-10-25] MEDS: LEVOTHYROXINE NA 125 MCG TABLET (FP) PO SCH (06:08)
[2021-10-25] MEDS: PANTOPRAZOLE 40 MG TABLET PO SCH (10:29)
[2021-10-25] MEDS: amLODIPine BESYLATE 5 MG TABLET (FP) PO SCH (10:29)
[2021-10-25] MEDS: FERROUS SO4 325 MG TABLET (FP) PO SCH (10:29)
[2021-10-25] MEDS: TIOTROPIUM BROMIDE 2.5 MCG (SPIRIVA) RESPIMAT INHALER IH SCH (10:29)
[2021-10-25] MEDS: MULTIVITAMINS (DAILY MVI) TABLET (FP) PO SCH (10:29)
[2021-10-25] MEDS: APIXABAN 5 MG TABLET PO SCH (10:29)
[2021-10-25 11:42] LABS: HEMATOCRIT 37.5 % (32.4-45.2); HEMOGLOBIN 11.7 GM/dL (10.7-15.3); MCH 26.4 pg (25.7-33.7); MCHC 31.2 g/dl (32.0-36.0); MEAN CELL VOLUME 84.6 fl (80-96); MEAN PLT VOLUME 8.9 fl (7.5-11.1); PLATELET COUNT 345 10^3/uL (134-434); RBC 4.43 M/mm3 (3.60-5.2); RDW 15.8 % (11.6-15.6); WHITE BLOOD COUNT 9.9 K/mm3 (4.0-10.0)
[2021-10-25 11:53] LABS: NEUT % 77.4 % (42.8-82.8)
[2021-10-25 11:54] LABS: BASO % 0.9 % (0-2.0); EOS % 1.9 % (0-4.5); LYMPH % 13.1 % (8-40); MONO % 6.7 % (3.8-10.2)
[2021-10-25 12:13] LABS: BLOOD UREA NITROGEN 11.8 mg/dL (7-18)
[2021-10-25 12:14] LABS: CALCIUM 8.7 mg/dL (8.5-10.1); MAGNESIUM 2.1 mg/dL (1.8-2.4)
[2021-10-25 12:15] LABS: ALBUMIN 2.8 g/dl (3.4-5.0)
[2021-10-25 12:17] LABS: CREATININE 1.1 mg/dL (0.55-1.3)
[2021-10-25 12:18] LABS: BILIRUBIN,TOTAL 0.2 mg/dL (0.2-1); TOT PROT 6.7 g/dl (6.4-8.2)
[2021-10-25 14:22] VITALS: BP 160/73; PULSE 80; TEMP 98.4
== END 2021-10-25 18:37 | disposition home or self-care (01) ==
LOC: JER 11:33 → INTOOBSV 21:14 → UNDOADMOB 21:14 → JERBED 21:14 → J6S 10-23 12:02 → JERBED 10-23 12:02 → J6S 10-24 09:29 → JERBED 10-24 09:29
PROVIDERS: ADMIT Internal Medicine; ATTEND Family Medicine
DX: R14.0 Abdominal distension (gaseous) (principal); K46.9 Unspecified abdominal hernia without obstruction or gangrene; I11.0 Hypertensive heart disease with heart failure; J44.9 Chronic obstructive pulmonary disease, unspecified; R19.7 Diarrhea, unspecified; I50.30 Unspecified diastolic (congestive) heart failure; E87.1 Hypo-osmolality and hyponatremia; N17.9 Acute kidney failure, unspecified; K57.90 Diverticulosis of intestine, part unspecified, without perforation or abscess without bleeding; R63.0 Anorexia; K56.609 Unspecified intestinal obstruction, unspecified as to partial versus complete obstruction; R53.81 Other malaise; Z29.9 Encounter for prophylactic measures, unspecified; E11.9 Type 2 diabetes mellitus without complications; Z87.891 Personal history of nicotine dependence; Z79.01 Long term (current) use of anticoagulants
CPT/HCPCS: 36415; 71046-TC-FY; 74019-TC-FY; 74177-TC; 80048; 80053; 81003; 82962; 83605; 83690; 83735; 84443; 84484; 85025; 85610; 85730; 86140; 87040; 87086; 87186; 93005; 93010; 96361; 96374; 96375; 97116-GP; 97162-GP; 99285-25; C9803-CS; G0378; Q9967; U0003; U0005

== ENCOUNTER 2021-10-29 06:57 | Observation (INO) | payer OTHER ==
[2021-10-29] MEDS ORDERED: ACETAMINOPHEN 1000 MG/100 ML BAG IVPB ONE (08:46)
[2021-10-29] MEDS ORDERED: ONDANSETRON 4 MG/2 ML VIAL IVPUSH ONE (08:46)
[2021-10-29] MEDS ORDERED: LACTATED RINGERS SOLUTION 1000 ML INFUS.BAG IV ONE (08:46)
[2021-10-29] MEDS ORDERED: ONDANSETRON 4 MG/2 ML VIAL ONE (10:09)
[2021-10-29] MEDS ORDERED: ACETAMINOPHEN INJECTION 100 ML IVPB ONE (10:09)
[2021-10-29 10:25] LABS: BASO % 1.1 % (0-2.0); EOS % 1.2 % (0-4.5); HEMATOCRIT 36.8 % (32.4-45.2); HEMOGLOBIN 11.7 GM/dL (10.7-15.3); LYMPH % 13.1 % (8-40); MCH 26.5 pg (25.7-33.7); MCHC 31.8 g/dl (32.0-36.0); MEAN CELL VOLUME 83.6 fl (80-96); MEAN PLT VOLUME 9.1 fl (7.5-11.1); MONO % 4.6 % (3.8-10.2); PLATELET COUNT 365 10^3/uL (134-434); RDW 16.6 % (11.6-15.6); WHITE BLOOD COUNT 10.9 K/mm3 (4.0-10.0)
[2021-10-29 10:36] LABS: CHLORIDE 94 mmol/L (98-107); SODIUM 133 mmol/L (136-145)
[2021-10-29 10:39] LABS: ALBUMIN 3.2 g/dl (3.4-5.0); CALCIUM 8.8 mg/dL (8.5-10.1); LIPASE 81 U/L (73-393)
[2021-10-29 10:40] LABS: ANION GAP 7 MMOL/L (8-16); BLOOD UREA NITROGEN 26.8 mg/dL (7-18); CO2 33 mmol/L (21-32); GLUCOSE,RANDOM 88 mg/dL (74-106); MAGNESIUM 1.9 mg/dL (1.8-2.4)
[2021-10-29 10:42] LABS: CREATININE 1.1 mg/dL (0.55-1.3); SGOT/AST 17 U/L (15-37); SGPT/ALT 16 U/L (13-61)
[2021-10-29 10:44] LABS: BILIRUBIN,TOTAL 0.2 mg/dL (0.2-1); TOT PROT 6.9 g/dl (6.4-8.2)
[2021-10-29 10:45] LABS: ALK PHOS 58 U/L (45-117)
[2021-10-29] MEDS ORDERED: ONDANSETRON 4 MG/2 ML VIAL IVPUSH PRN (14:11)
[2021-10-29] MEDS ORDERED: APIXABAN 5 MG TABLET ONE (20:27)
[2021-10-29] MEDS: DEXTROSE 5%-0.45% SALINE 1,000 ML IV SCH (20:37)
[2021-10-29] MEDS: APIXABAN 5 MG TABLET PO SCH (21:07)
[2021-10-30 06:01] VITALS: BMI 38.8
[2021-10-30] MEDS: LEVOTHYROXINE NA 125 MCG TABLET (FP) PO SCH (06:26)
[2021-10-30] MEDS ORDERED: PT OWN MED DRAWER 7, Y5N ONE (09:09)
[2021-10-30] MEDS: FERROUS SO4 325 MG TABLET (FP) PO SCH (09:25)
[2021-10-30] MEDS: APIXABAN 5 MG TABLET PO SCH ×2 (09:25→21:46)
[2021-10-30] MEDS: PANTOPRAZOLE 40 MG TABLET PO SCH (09:25)
[2021-10-30] MEDS: amLODIPine BESYLATE 5 MG TABLET (FP) PO SCH (09:25)
[2021-10-30] MEDS: TIOTROPIUM BROMIDE 2.5 MCG (SPIRIVA) RESPIMAT INHALER IH SCH (11:23)
[2021-10-30 12:42] LABS: BASO % 0.8 % (0-2.0); EOS % 2.3 % (0-4.5); HEMATOCRIT 36.7 % (32.4-45.2); HEMOGLOBIN 11.6 GM/dL (10.7-15.3); LYMPH % 12.5 % (8-40); MCH 26.7 pg (25.7-33.7); MCHC 31.6 g/dl (32.0-36.0); MEAN CELL VOLUME 84.3 fl (80-96); MEAN PLT VOLUME 8.2 fl (7.5-11.1); MONO % 6.7 % (3.8-10.2); NEUT % 77.7 % (42.8-82.8); PLATELET COUNT 299 10^3/uL (134-434); RBC 4.36 M/mm3 (3.60-5.2); RDW 16.1 % (11.6-15.6); WHITE BLOOD COUNT 7.7 K/mm3 (4.0-10.0)
[2021-10-30 13:04] LABS: CALCIUM 8.7 mg/dL (8.5-10.1)
[2021-10-30 13:05] LABS: ALBUMIN 3.2 g/dl (3.4-5.0); BLOOD UREA NITROGEN 18.6 mg/dL (7-18)
[2021-10-30 13:10] LABS: BILIRUBIN,TOTAL 0.4 mg/dL (0.2-1); TOT PROT 6.7 g/dl (6.4-8.2)
[2021-10-30] MEDS: SODIUM ZIRCONIUM CYCLOSILICATE (LOKELMA) 5 GM PACKET PO SCH (15:19)
[2021-10-30] MEDS: DEXTROSE 5%-0.45% SALINE 1,000 ML IV SCH (15:24)
[2021-10-30 17:03] LABS: CALCIUM 8.9 mg/dL (8.5-10.1)
[2021-10-30 17:04] LABS: BLOOD UREA NITROGEN 17.4 mg/dL (7-18); MAGNESIUM 1.9 mg/dL (1.8-2.4)
[2021-10-30 17:07] LABS: CREATININE 1.1 mg/dL (0.55-1.3)
[2021-10-31] MEDS: ACETAMINOPHEN 325 MG TABLET (FP) PO PRN ×2 (01:05→20:53)
[2021-10-31] MEDS: LEVOTHYROXINE NA 125 MCG TABLET (FP) PO SCH (06:26)
[2021-10-31] MEDS: APIXABAN 5 MG TABLET PO SCH ×2 (09:02→21:01)
[2021-10-31] MEDS: FERROUS SO4 325 MG TABLET (FP) PO SCH (09:02)
[2021-10-31] MEDS: PANTOPRAZOLE 40 MG TABLET PO SCH (09:02)
[2021-10-31] MEDS: amLODIPine BESYLATE 5 MG TABLET (FP) PO SCH (09:02)
[2021-10-31] MEDS: TIOTROPIUM BROMIDE 2.5 MCG (SPIRIVA) RESPIMAT INHALER IH SCH (09:03)
[2021-10-31] MEDS: SODIUM ZIRCONIUM CYCLOSILICATE (LOKELMA) 5 GM PACKET PO SCH (13:09)
[2021-10-31] MEDS: DEXTROSE 5%-0.45% SALINE 1,000 ML IV SCH ×2 (13:11→15:55)
[2021-11-01] MEDS: LEVOTHYROXINE NA 125 MCG TABLET (FP) PO SCH (06:45)
[2021-11-01] MEDS: amLODIPine BESYLATE 5 MG TABLET (FP) PO SCH (09:21)
[2021-11-01] MEDS: TIOTROPIUM BROMIDE 2.5 MCG (SPIRIVA) RESPIMAT INHALER IH SCH (09:21)
[2021-11-01] MEDS: PANTOPRAZOLE 40 MG TABLET PO SCH (09:21)
[2021-11-01] MEDS: FERROUS SO4 325 MG TABLET (FP) PO SCH (09:21)
[2021-11-01] MEDS: APIXABAN 5 MG TABLET PO SCH (09:21)
[2021-11-01] MEDS: SODIUM ZIRCONIUM CYCLOSILICATE (LOKELMA) 5 GM PACKET PO SCH (13:28)
[2021-11-01 13:44] VITALS: BP 148/73; PULSE 80; TEMP 98.4
== END 2021-11-01 14:41 ==
LOC: JER 06:57 → JERBED 13:07 → J7W 10-30 05:18
PROVIDERS: ADMIT Family Medicine; ATTEND Family Medicine
PROC: 3E033NZ Introduction of Analgesics, Hypnotics, Sedatives into Peripheral Vein, Percutaneous Approach (ICD-10-PCS; principal; 2021-10-29)
PROC: 3E0337Z Introduction of Electrolytic and Water Balance Substance into Peripheral Vein, Percutaneous Approach (ICD-10-PCS; 2021-10-29)
PROC: 3E033GC Introduction of Other Therapeutic Substance into Peripheral Vein, Percutaneous Approach (ICD-10-PCS; 2021-10-29)
DX: R10.33 Periumbilical pain (principal); R19.7 Diarrhea, unspecified; E66.9 Obesity, unspecified; Z68.38 Body mass index [BMI] 38.0-38.9, adult; R11.2 Nausea with vomiting, unspecified; E11.9 Type 2 diabetes mellitus without complications; I10 Essential (primary) hypertension; J44.9 Chronic obstructive pulmonary disease, unspecified; E03.9 Hypothyroidism, unspecified; Z86.718 Personal history of other venous thrombosis and embolism; Z79.01 Long term (current) use of anticoagulants; K80.20 Calculus of gallbladder without cholecystitis without obstruction; K42.9 Umbilical hernia without obstruction or gangrene; R11.10 Vomiting, unspecified
CPT/HCPCS: 36415; 71045-TC-FY; 74018-TC-FY; 74177-TC; 80048; 80053; 82962; 83690; 83735; 84443; 84484; 85025; 93005; 93010; 96361; 96374; 96375; 97116-GP; 97161-GP; 99285-25; C9803; G0378; J0131; Q9967; U0003; U0005

== ENCOUNTER 2022-05-14 07:22 | Inpatient (IN) | payer OTHER ==
[2022-05-14] MEDS ORDERED: ACETAMINOPHEN 1000 MG/100 ML BAG IVPB ONE (08:07)
[2022-05-14] MEDS ORDERED: MAG HYDROX/AL HYDROX/SIMETH 30 ML UNIT-DOSE CUP PO ONE (08:09)
[2022-05-14] MEDS ORDERED: FAMOTIDINE 20 MG/50 ML IVPB 20 MG/50 ML MG IVPB ONE ×2 (08:09→08:24)
[2022-05-14] MEDS ORDERED: ACETAMINOPHEN INJECTION 100 ML IVPB ONE (08:24)
[2022-05-14] MEDS ORDERED: MAG HYDROX/AL HYDROX/SIMETH 30 ML UNIT-DOSE CUP ONE (08:24)
[2022-05-14 08:40] LABS: BASO % 0.7 % (0-2.0); EOS % 2.1 % (0-4.5); HEMATOCRIT 31.6 % (32.4-45.2); HEMOGLOBIN 9.7 GM/dL (10.7-15.3); LYMPH % 11.2 % (8-40); MCH 25.4 pg (25.7-33.7); MCHC 30.6 g/dl (32.0-36.0); MEAN PLT VOLUME 8.9 fl (7.5-11.1); MONO % 8.4 % (3.8-10.2); NEUT % 77.6 % (42.8-82.8); PLATELET COUNT 277 10^3/uL (134-434); RBC 3.81 M/mm3 (3.60-5.2); RDW 15.9 % (11.6-15.6); WHITE BLOOD COUNT 11.1 K/mm3 (4.0-10.0)
[2022-05-14 08:52] LABS: INR 1.02 (0.83-1.09); PROTHROMBIN TIME (PATIENT) 11.7 SEC (9.7-13.0)
[2022-05-14 08:55] LABS: ACTIVATED PTT 28.3 SECONDS (25.2-36.5)
[2022-05-14 08:59] LABS: CALCIUM 9.1 mg/dL (8.5-10.1)
[2022-05-14 09:00] LABS: ALBUMIN 3.5 g/dl (3.4-5.0)
[2022-05-14 09:01] VITALS: BMI 42.4
[2022-05-14 09:03] LABS: CREATININE 1.7 mg/dL (0.55-1.3)
[2022-05-14 09:04] LABS: TOT PROT 7.6 g/dl (6.4-8.2)
[2022-05-14 09:05] LABS: BILIRUBIN,TOTAL 0.3 mg/dL (0.2-1)
[2022-05-14] MEDS ORDERED: LACTATED RINGERS SOLUTION 1000 ML INFUS.BAG IV ONE (09:14)
[2022-05-14] MEDS ORDERED: PANTOPRAZOLE SODIUM 40 MG VIAL ONE ×2 (14:30→21:37)
[2022-05-14] MEDS: LACTATED RINGERS SOLUTION 1,000 ML IV SCH (14:45)
[2022-05-14] MEDS: PANTOPRAZOLE SODIUM 40 MG VIAL IVPUSH SCH ×2 (14:45→21:41)
[2022-05-14 15:46] LABS: RETICULOCYTES 1.46 % (0.5-1.5)
[2022-05-14] MEDS: INSULIN SLIDING SCALE (NOVOLOG) 1 VIAL SQ SCH ×2 (18:13→21:41)
[2022-05-15 00:32] LABS: EPI CELLS 29 /uL (0-25.1); HYALINE CASTS 12 /uL (0-3.1); URINE APPEARANCE TURBID; URINE BACTERIA 6833 /uL (0-1359); URINE BILIRUBIN NEGATIVE (NEGATIVE); URINE COLOR YELLOW; URINE GLUCOSE (UA) NEGATIVE (NEGATIVE); URINE KETONE NEGATIVE (NEGATIVE); URINE LEUK ESTERASE 3+ (NEGATIVE); URINE NITRITE NEGATIVE (NEGATIVE); URINE PROTEIN 1+ (NEGATIVE); URINE RBC 26 /uL (0-23.9); URINE UROBILINOGEN 0.2 mg/dL (0.2-1.0); URINE WBC 5300 /uL (0-25.8)
[2022-05-15 00:54] LABS: HEMATOCRIT 32.8 % (32.4-45.2); HEMOGLOBIN 9.9 GM/dL (10.7-15.3); MCH 25.4 pg (25.7-33.7); MCHC 30.2 g/dl (32.0-36.0); MEAN CELL VOLUME 84.2 fl (80-96); MEAN PLT VOLUME 9.1 fl (7.5-11.1); PLATELET COUNT 266 10^3/uL (134-434); WHITE BLOOD COUNT 13.6 K/mm3 (4.0-10.0)
[2022-05-15] MEDS: LACTATED RINGERS SOLUTION 1,000 ML IV SCH ×2 (06:29→17:08)
[2022-05-15] MEDS: LEVOTHYROXINE NA 125 MCG TABLET (FP) PO SCH (06:29)
[2022-05-15] MEDS: INSULIN SLIDING SCALE (NOVOLOG) 1 VIAL SQ SCH ×4 (06:30→21:53)
[2022-05-15] MEDS ORDERED: INSULIN (NOVOLOG) ASPART 100 UNITS/ML 10ML VIAL ONE ×2 (06:49→21:51)
[2022-05-15] MEDS: PANTOPRAZOLE SODIUM 40 MG VIAL IVPUSH SCH ×2 (10:07→21:54)
[2022-05-15 18:55] LABS: HEMATOCRIT 28.5 % (32.4-45.2); HEMOGLOBIN 8.5 GM/dL (10.7-15.3); MCH 25.5 pg (25.7-33.7); MCHC 29.9 g/dl (32.0-36.0); MEAN CELL VOLUME 85.1 fl (80-96); MEAN PLT VOLUME 8.9 fl (7.5-11.1); PLATELET COUNT 254 10^3/uL (134-434); RBC 3.35 M/mm3 (3.60-5.2); RDW 16.2 % (11.6-15.6)
[2022-05-15 19:17] LABS: CALCIUM 8.4 mg/dL (8.5-10.1); MAGNESIUM 2.8 mg/dL (1.8-2.4)
[2022-05-15 19:20] LABS: CREATININE 1.6 mg/dL (0.55-1.3); PHOSPHOROUS 3.1 mg/dL (2.5-4.9)
[2022-05-15 19:21] LABS: TOT PROT 6.7 g/dl (6.4-8.2)
[2022-05-15 19:22] LABS: BILIRUBIN,TOTAL 0.3 mg/dL (0.2-1)
[2022-05-15 19:23] LABS: BLOOD UREA NITROGEN 59.8 mg/dL (7-18)
[2022-05-15] MEDS: ATORVASTATIN CA 40 MG TABLET (FP) PO SCH (21:53)
[2022-05-16] MEDS: LEVOTHYROXINE NA 125 MCG TABLET (FP) PO SCH (06:36)
[2022-05-16] MEDS: INSULIN SLIDING SCALE (NOVOLOG) 1 VIAL SQ SCH ×4 (06:36→22:44)
[2022-05-16 09:19] LABS: BASO % 0.4 % (0-2.0); EOS % 2.2 % (0-4.5); HEMATOCRIT 29.3 % (32.4-45.2); LYMPH % 12.5 % (8-40); MCHC 30.7 g/dl (32.0-36.0); MEAN CELL VOLUME 84.8 fl (80-96); MONO % 7.5 % (3.8-10.2); NEUT % 77.4 % (42.8-82.8); PLATELET COUNT 233 10^3/uL (134-434); RBC 3.46 M/mm3 (3.60-5.2); RDW 16.2 % (11.6-15.6); WHITE BLOOD COUNT 10.5 K/mm3 (4.0-10.0)
[2022-05-16 09:29] LABS: CALCIUM 8.5 mg/dL (8.5-10.1)
[2022-05-16 09:30] LABS: ALBUMIN 3.2 g/dl (3.4-5.0); BLOOD UREA NITROGEN 45.6 mg/dL (7-18); MAGNESIUM 2.9 mg/dL (1.8-2.4)
[2022-05-16 09:33] LABS: CREATININE 1.2 mg/dL (0.55-1.3)
[2022-05-16 09:34] LABS: BILIRUBIN,TOTAL 0.4 mg/dL (0.2-1); TOT PROT 6.9 g/dl (6.4-8.2)
[2022-05-16] MEDS: PANTOPRAZOLE SODIUM 40 MG VIAL IVPUSH SCH ×2 (09:36→22:35)
[2022-05-16] MEDS: LACTATED RINGERS SOLUTION 1,000 ML IV SCH ×2 (18:01→20:11)
[2022-05-16] MEDS: ATORVASTATIN CA 40 MG TABLET (FP) PO SCH (22:35)
[2022-05-17] MEDS: INSULIN SLIDING SCALE (NOVOLOG) 1 VIAL SQ SCH ×4 (06:26→22:28)
[2022-05-17] MEDS: LEVOTHYROXINE NA 125 MCG TABLET (FP) PO SCH (06:29)
[2022-05-17] MEDS: PANTOPRAZOLE SODIUM 40 MG VIAL IVPUSH SCH ×2 (09:58→22:27)
[2022-05-17] MEDS: LACTATED RINGERS SOLUTION 1,000 ML IV SCH ×2 (09:58→18:30)
[2022-05-17 15:12] LABS: BASO % 0.6 % (0-2.0); EOS % 3.4 % (0-4.5); HEMATOCRIT 27.6 % (32.4-45.2); HEMOGLOBIN 8.4 GM/dL (10.7-15.3); MCH 25.7 pg (25.7-33.7); MCHC 30.5 g/dl (32.0-36.0); MEAN CELL VOLUME 84.3 fl (80-96); MEAN PLT VOLUME 8.9 fl (7.5-11.1); MONO % 8.8 % (3.8-10.2); NEUT % 76.2 % (42.8-82.8); PLATELET COUNT 217 10^3/uL (134-434); RBC 3.28 M/mm3 (3.60-5.2); RDW 15.6 % (11.6-15.6); WHITE BLOOD COUNT 9.5 K/mm3 (4.0-10.0)
[2022-05-17] MEDS ORDERED: IRON SUCROSE INJECTION 200 MG in SODIUM CHLORIDE 90 ML IVPB ONE (15:22)
[2022-05-17 15:33] LABS: ALBUMIN 2.8 g/dl (3.4-5.0); BLOOD UREA NITROGEN 23.8 mg/dL (7-18); CALCIUM 8.4 mg/dL (8.5-10.1)
[2022-05-17 15:38] LABS: BILIRUBIN,TOTAL 0.4 mg/dL (0.2-1); TOT PROT 6.4 g/dl (6.4-8.2)
[2022-05-17] MEDS: ATORVASTATIN CA 40 MG TABLET (FP) PO SCH (22:27)
[2022-05-17 23:43] VITALS: RESP 20
[2022-05-18] MEDS: INSULIN SLIDING SCALE (NOVOLOG) 1 VIAL SQ SCH ×4 (06:09→21:23)
[2022-05-18] MEDS: LEVOTHYROXINE NA 125 MCG TABLET (FP) PO SCH (06:09)
[2022-05-18] MEDS: amLODIPine BESYLATE 5 MG TABLET (FP) PO SCH (10:08)
[2022-05-18] MEDS: PANTOPRAZOLE SODIUM 40 MG VIAL IVPUSH SCH (10:08)
[2022-05-18 13:46] LABS: BASO % 0.6 % (0-2.0); EOS % 3.4 % (0-4.5); HEMATOCRIT 26.6 % (32.4-45.2); HEMOGLOBIN 8.1 GM/dL (10.7-15.3); LYMPH % 12.3 % (8-40); MCH 25.7 pg (25.7-33.7); MCHC 30.5 g/dl (32.0-36.0); MEAN CELL VOLUME 84.2 fl (80-96); MEAN PLT VOLUME 9.1 fl (7.5-11.1); MONO % 7.7 % (3.8-10.2); PLATELET COUNT 212 10^3/uL (134-434); RBC 3.16 M/mm3 (3.60-5.2); RDW 15.4 % (11.6-15.6); WHITE BLOOD COUNT 9.7 K/mm3 (4.0-10.0)
[2022-05-18 14:18] LABS: CALCIUM 8.3 mg/dL (8.5-10.1)
[2022-05-18 14:19] LABS: BLOOD UREA NITROGEN 18.7 mg/dL (7-18)
[2022-05-18] MEDS: ATORVASTATIN CA 40 MG TABLET (FP) PO SCH (21:22)
[2022-05-19] MEDS: LEVOTHYROXINE NA 125 MCG TABLET (FP) PO SCH (06:09)
[2022-05-19] MEDS: INSULIN SLIDING SCALE (NOVOLOG) 1 VIAL SQ SCH ×4 (06:10→21:33)
[2022-05-19 08:17] LABS: HEMATOCRIT 26.8 % (32.4-45.2); HEMOGLOBIN 8.2 GM/dL (10.7-15.3); MCH 25.8 pg (25.7-33.7); MCHC 30.6 g/dl (32.0-36.0); MEAN CELL VOLUME 84.3 fl (80-96); MEAN PLT VOLUME 8.7 fl (7.5-11.1); PLATELET COUNT 210 10^3/uL (134-434); RBC 3.18 M/mm3 (3.60-5.2); RDW 15.3 % (11.6-15.6); WHITE BLOOD COUNT 11.2 K/mm3 (4.0-10.0)
[2022-05-19 08:29] LABS: CALCIUM 8.1 mg/dL (8.5-10.1)
[2022-05-19 08:30] LABS: ALBUMIN 2.7 g/dl (3.4-5.0); BLOOD UREA NITROGEN 20.7 mg/dL (7-18)
[2022-05-19 08:35] LABS: BILIRUBIN,TOTAL 0.2 mg/dL (0.2-1); TOT PROT 6.3 g/dl (6.4-8.2)
[2022-05-19] MEDS: PANTOPRAZOLE 40 MG TABLET PO SCH (10:08)
[2022-05-19] MEDS: amLODIPine BESYLATE 5 MG TABLET (FP) PO SCH (10:08)
[2022-05-19] MEDS: ATORVASTATIN CA 40 MG TABLET (FP) PO SCH (21:32)
[2022-05-20] MEDS ORDERED: INSULIN (NOVOLOG) ASPART 100 UNITS/ML 10ML VIAL ONE (06:21)
[2022-05-20] MEDS: LEVOTHYROXINE NA 125 MCG TABLET (FP) PO SCH (06:26)
[2022-05-20] MEDS: INSULIN SLIDING SCALE (NOVOLOG) 1 VIAL SQ SCH ×4 (06:27→22:17)
[2022-05-20 08:47] LABS: HEMATOCRIT 28.2 % (32.4-45.2); HEMOGLOBIN 8.8 GM/dL (10.7-15.3); MCH 26.1 pg (25.7-33.7); MCHC 31.2 g/dl (32.0-36.0); MEAN CELL VOLUME 83.7 fl (80-96); MEAN PLT VOLUME 8.5 fl (7.5-11.1); PLATELET COUNT 227 10^3/uL (134-434); RBC 3.37 M/mm3 (3.60-5.2); RDW 15.5 % (11.6-15.6); WHITE BLOOD COUNT 10.6 K/mm3 (4.0-10.0)
[2022-05-20 09:15] LABS: CALCIUM 8.3 mg/dL (8.5-10.1)
[2022-05-20 09:16] LABS: BLOOD UREA NITROGEN 24.6 mg/dL (7-18)
[2022-05-20 09:19] LABS: CREATININE 1.1 mg/dL (0.55-1.3)
[2022-05-20 09:20] LABS: BILIRUBIN,TOTAL 0.4 mg/dL (0.2-1); TOT PROT 6.7 g/dl (6.4-8.2)
[2022-05-20] MEDS: LOSARTAN POTASSIUM 50 MG TABLET PO SCH (09:42)
[2022-05-20] MEDS: TORSEMIDE 100 MG TABLET PO SCH (09:42)
[2022-05-20] MEDS: PANTOPRAZOLE 40 MG TABLET PO SCH (09:42)
[2022-05-20] MEDS: ATORVASTATIN CA 40 MG TABLET (FP) PO SCH (22:17)
[2022-05-21] MEDS: LEVOTHYROXINE NA 125 MCG TABLET (FP) PO SCH (06:28)
[2022-05-21] MEDS: INSULIN SLIDING SCALE (NOVOLOG) 1 VIAL SQ SCH ×4 (06:28→21:48)
[2022-05-21 08:58] LABS: HEMATOCRIT 28.1 % (32.4-45.2); HEMOGLOBIN 8.7 GM/dL (10.7-15.3); MCH 25.9 pg (25.7-33.7); MCHC 31.1 g/dl (32.0-36.0); MEAN CELL VOLUME 83.3 fl (80-96); MEAN PLT VOLUME 8.6 fl (7.5-11.1); PLATELET COUNT 239 10^3/uL (134-434); RBC 3.37 M/mm3 (3.60-5.2); RDW 15.5 % (11.6-15.6); WHITE BLOOD COUNT 11.2 K/mm3 (4.0-10.0)
[2022-05-21 09:09] LABS: CALCIUM 8.2 mg/dL (8.5-10.1)
[2022-05-21 09:11] LABS: BLOOD UREA NITROGEN 33.9 mg/dL (7-18); MAGNESIUM 1.9 mg/dL (1.8-2.4)
[2022-05-21 09:14] LABS: CREATININE 1.3 mg/dL (0.55-1.3); PHOSPHOROUS 3.8 mg/dL (2.5-4.9)
[2022-05-21] MEDS: PANTOPRAZOLE 40 MG TABLET PO SCH (09:14)
[2022-05-21] MEDS: TORSEMIDE 100 MG TABLET PO SCH (09:14)
[2022-05-21] MEDS: LOSARTAN POTASSIUM 50 MG TABLET PO SCH (09:14)
[2022-05-21 09:15] LABS: BILIRUBIN,TOTAL 0.3 mg/dL (0.2-1); TOT PROT 6.8 g/dl (6.4-8.2)
[2022-05-21] MEDS: POLYETHYLENE GLYCOL (HEALTHYLAX) 3350 17 GM PACKET PO SCH ×2 (12:12→21:47)
[2022-05-21] MEDS ORDERED: INSULIN (NOVOLOG) ASPART 100 UNITS/ML 10ML VIAL ONE (21:43)
[2022-05-21] MEDS: ATORVASTATIN CA 40 MG TABLET (FP) PO SCH (21:48)
[2022-05-22] MEDS: LEVOTHYROXINE NA 125 MCG TABLET (FP) PO SCH (07:32)
[2022-05-22] MEDS: INSULIN SLIDING SCALE (NOVOLOG) 1 VIAL SQ SCH ×2 (07:33→11:21)
[2022-05-22 08:33] LABS: HEMATOCRIT 27.9 % (32.4-45.2); HEMOGLOBIN 8.7 GM/dL (10.7-15.3); MCH 25.8 pg (25.7-33.7); MCHC 31.1 g/dl (32.0-36.0); MEAN CELL VOLUME 82.8 fl (80-96); MEAN PLT VOLUME 8.9 fl (7.5-11.1); PLATELET COUNT 239 10^3/uL (134-434); RBC 3.37 M/mm3 (3.60-5.2); RDW 15.3 % (11.6-15.6); WHITE BLOOD COUNT 10.3 K/mm3 (4.0-10.0)
[2022-05-22 08:50] LABS: CALCIUM 8.4 mg/dL (8.5-10.1)
[2022-05-22 08:51] LABS: ALBUMIN 3.1 g/dl (3.4-5.0)
[2022-05-22 08:54] LABS: CREATININE 1.3 mg/dL (0.55-1.3)
[2022-05-22 08:55] LABS: BILIRUBIN,TOTAL 0.3 mg/dL (0.2-1); TOT PROT 6.8 g/dl (6.4-8.2)
[2022-05-22] MEDS: TORSEMIDE 100 MG TABLET PO SCH (09:59)
[2022-05-22] MEDS: LOSARTAN POTASSIUM 50 MG TABLET PO SCH (09:59)
[2022-05-22] MEDS: PANTOPRAZOLE 40 MG TABLET PO SCH (10:00)
[2022-05-22] MEDS: POLYETHYLENE GLYCOL (HEALTHYLAX) 3350 17 GM PACKET PO SCH (10:00)
[2022-05-22 11:14] VITALS: PULSE 106
[2022-05-22 13:11] VITALS: BP 148/79; TEMP 97.7
== END 2022-05-22 13:52 | DRG 394 ==
LOC: JER 07:22 → JERBED 12:06 → J8W 05-15 01:05
PROVIDERS: ADMIT Internal Medicine; ATTEND Internal Medicine
DX: K64.8 Other hemorrhoids (principal); Z68.41 Body mass index [BMI] 40.0-44.9, adult; I50.32 Chronic diastolic (congestive) heart failure; N17.9 Acute kidney failure, unspecified; I11.0 Hypertensive heart disease with heart failure; E11.9 Type 2 diabetes mellitus without complications; E03.9 Hypothyroidism, unspecified; E78.5 Hyperlipidemia, unspecified; J44.9 Chronic obstructive pulmonary disease, unspecified; E66.01 Morbid (severe) obesity due to excess calories; I25.2 Old myocardial infarction; K64.4 Residual hemorrhoidal skin tags; K80.20 Calculus of gallbladder without cholecystitis without obstruction; K57.30 Diverticulosis of large intestine without perforation or abscess without bleeding; D25.9 Leiomyoma of uterus, unspecified; D72.829 Elevated white blood cell count, unspecified; K21.9 Gastro-esophageal reflux disease without esophagitis; K44.9 Diaphragmatic hernia without obstruction or gangrene; D64.9 Anemia, unspecified; Z86.718 Personal history of other venous thrombosis and embolism
CPT/HCPCS: 36415; 71045-TC-FY; 74177-TC; 80048; 80053; 81003; 82272; 82570; 82728; 82962; 83540; 83550; 83690; 83735; 84100; 84484; 84540; 85025; 85027; 85045; 85610; 85730; 86850; 86900; 86901; 93005; 93010; 94761; 97116-GP; 97161-GP; 99285-25; C9803-CS; J1756; Q9967; U0003; U0005

== ENCOUNTER 2023-02-19 18:36 | Inpatient (IN) | payer OTHER ==
[2023-02-19 21:00] LABS: BASO % 0.3 % (0-2.0); EOS % 0.5 % (0-4.5); HEMOGLOBIN 9.8 GM/dL (10.7-15.3); LYMPH % 9.4 % (8-40); MCHC 29.8 g/dl (32.0-36.0); MEAN CELL VOLUME 77.2 fl (80-96); MEAN PLT VOLUME 8.3 fl (7.5-11.1); MONO % 7.6 % (3.8-10.2); NEUT % 82.2 % (42.8-82.8); PLATELET COUNT 367 10^3/uL (134-434); RBC 4.27 M/mm3 (3.60-5.2); WHITE BLOOD COUNT 11.9 K/mm3 (4.0-10.0)
[2023-02-19 21:15] LABS: POTASSIUM 5.1 mmol/L (3.5-5.1)
[2023-02-19 21:17] LABS: CALCIUM 9.1 mg/dL (8.5-10.1)
[2023-02-19 21:19] LABS: ALBUMIN 3.2 g/dl (3.4-5.0); BLOOD UREA NITROGEN 81.6 mg/dL (7-18)
[2023-02-19 21:22] LABS: CREATININE 2.4 mg/dL (0.55-1.3)
[2023-02-19 21:23] LABS: BILIRUBIN,TOTAL 0.2 mg/dL (0.2-1); TOT PROT 7.8 g/dl (6.4-8.2)
[2023-02-19 22:42] LABS: EPI CELLS 21 /uL (0-25.1); HYALINE CASTS 0 /uL (0-3.1); URINE APPEARANCE CLEAR; URINE BACTERIA >9,000 /uL (0-1359); URINE BILIRUBIN NEGATIVE (NEGATIVE); URINE COLOR YELLOW; URINE GLUCOSE (UA) NEGATIVE (NEGATIVE); URINE KETONE NEGATIVE (NEGATIVE); URINE LEUK ESTERASE 2+ (NEGATIVE); URINE NITRITE POSITIVE (NEGATIVE); URINE PROTEIN TRACE (NEGATIVE); URINE RBC 3 /uL (0-23.9); URINE UROBILINOGEN 0.2 mg/dL (0.2-1.0); URINE WBC 61 /uL (0-25.8)
[2023-02-19] MEDS ORDERED: CEFTRIAXONE 1 GM/50 ML BAG ONE (22:53)
[2023-02-19] MEDS ORDERED: SODIUM CHLORIDE 500 ML IV STA (23:52)
[2023-02-19] MEDS ORDERED: CEFTRIAXONE 1,000 MG in DEXTROSE 5%-WATER - 50 ML IVPB ONE (23:55)
[2023-02-20] MEDS: SODIUM CHLORIDE 1,000 ML IV SCH (03:02)
[2023-02-20 03:34] VITALS: BMI 41.4
[2023-02-20] MEDS: INSULIN SLIDING SCALE (NOVOLOG) 1 VIAL SQ SCH ×4 (06:37→21:40)
[2023-02-20 08:41] LABS: BASO % 0.5 % (0-2.0); EOS % 1.5 % (0-4.5); HEMATOCRIT 31.8 % (32.4-45.2); HEMOGLOBIN 9.9 GM/dL (10.7-15.3); LYMPH % 15.3 % (8-40); MCH 24.1 pg (25.7-33.7); MCHC 31.1 g/dl (32.0-36.0); MEAN CELL VOLUME 77.3 fl (80-96); MEAN PLT VOLUME 8.5 fl (7.5-11.1); MONO % 8.2 % (3.8-10.2); NEUT % 74.5 % (42.8-82.8); PLATELET COUNT 372 10^3/uL (134-434); RBC 4.11 M/mm3 (3.60-5.2); RDW 18.7 % (11.6-15.6); WHITE BLOOD COUNT 9.7 K/mm3 (4.0-10.0)
[2023-02-20 08:50] LABS: INR 1.15 (0.83-1.09); PROTHROMBIN TIME (PATIENT) 13.3 SEC (9.7-13.0)
[2023-02-20 08:52] LABS: ACTIVATED PTT 31.5 SECONDS (25.2-36.5)
[2023-02-20 09:00] LABS: POTASSIUM 4.4 mmol/L (3.5-5.1)
[2023-02-20 09:02] LABS: BLOOD UREA NITROGEN 75.3 mg/dL (7-18); CALCIUM 8.8 mg/dL (8.5-10.1); MAGNESIUM 2.6 mg/dL (1.8-2.4)
[2023-02-20 09:06] LABS: PHOSPHOROUS 4.7 mg/dL (2.5-4.9)
[2023-02-20] MEDS: HEPARIN NA (PORCINE) 5,000 UNITS/ML 1ML VIAL SQ SCH ×2 (14:19→21:14)
[2023-02-20] MEDS: AMPICILLIN NA/SULBACTAM NA 1.5 GM in SODIUM CHLORIDE 100 ML IVPB SCH ×2 (14:19→17:38)
[2023-02-20 15:12] LABS: ARTERIAL BLD GAS O2 SATURATION 95.5 % (95-98); ARTERIAL BLOOD GAS BASE EXCESS 9.9 mmol/L (-2-2); ARTERIAL BLOOD GAS PO2 86.8 mmHg (80-100); ARTERIAL BLOOD GAS pH 7.324 (7.350-7.450)
[2023-02-20 15:13] LABS: ALLENS TEST POSITIVE
[2023-02-20] MEDS: ATORVASTATIN CA 40 MG TABLET (FP) PO SCH (21:14)
[2023-02-21] MEDS: SODIUM CHLORIDE 1,000 ML IV SCH ×3 (01:22→14:26)
[2023-02-21] MEDS: AMPICILLIN NA/SULBACTAM NA 1.5 GM in SODIUM CHLORIDE 100 ML IVPB SCH ×3 (01:23→17:49)
[2023-02-21] MEDS: HEPARIN NA (PORCINE) 5,000 UNITS/ML 1ML VIAL SQ SCH ×3 (05:29→21:06)
[2023-02-21] MEDS: INSULIN SLIDING SCALE (NOVOLOG) 1 VIAL SQ SCH ×4 (06:02→21:12)
[2023-02-21] MEDS: LEVOTHYROXINE NA 125 MCG TABLET (FP) PO SCH (06:03)
[2023-02-21 08:22] LABS: BASO % 0.7 % (0-2.0); EOS % 2.5 % (0-4.5); HEMATOCRIT 29.9 % (32.4-45.2); LYMPH % 15.8 % (8-40); MCH 23.4 pg (25.7-33.7); MCHC 30.2 g/dl (32.0-36.0); MEAN CELL VOLUME 77.4 fl (80-96); MEAN PLT VOLUME 8.6 fl (7.5-11.1); PLATELET COUNT 337 10^3/uL (134-434); RBC 3.87 M/mm3 (3.60-5.2); RDW 18.9 % (11.6-15.6); WHITE BLOOD COUNT 8.3 K/mm3 (4.0-10.0)
[2023-02-21 08:43] LABS: POTASSIUM 4.7 mmol/L (3.5-5.1)
[2023-02-21 08:44] LABS: CALCIUM 8.3 mg/dL (8.5-10.1)
[2023-02-21 08:45] LABS: ALBUMIN 2.7 g/dl (3.4-5.0)
[2023-02-21 08:48] LABS: CREATININE 1.4 mg/dL (0.55-1.3)
[2023-02-21 08:50] LABS: BILIRUBIN,TOTAL 0.2 mg/dL (0.2-1); TOT PROT 6.6 g/dl (6.4-8.2)
[2023-02-21 09:01] LABS: BLOOD UREA NITROGEN 49.2 mg/dL (7-18)
[2023-02-21] MEDS: amLODIPine BESYLATE 5 MG TABLET (FP) PO SCH (09:44)
[2023-02-21] MEDS: ALBUTEROL SO4 2.5/IPRATROPIUM 0.5 INH SOL 3 ML VIAL.NEB. NEB SCH ×2 (14:48→21:00)
[2023-02-21] MEDS: ATORVASTATIN CA 40 MG TABLET (FP) PO SCH (21:05)
[2023-02-22] MEDS: AMPICILLIN NA/SULBACTAM NA 1.5 GM in SODIUM CHLORIDE 100 ML IVPB SCH ×2 (01:15→10:28)
[2023-02-22] MEDS: HEPARIN NA (PORCINE) 5,000 UNITS/ML 1ML VIAL SQ SCH ×3 (06:01→22:03)
[2023-02-22] MEDS: LEVOTHYROXINE NA 125 MCG TABLET (FP) PO SCH (06:01)
[2023-02-22] MEDS: INSULIN SLIDING SCALE (NOVOLOG) 1 VIAL SQ SCH ×4 (06:03→22:04)
[2023-02-22] MEDS: ALBUTEROL SO4 2.5/IPRATROPIUM 0.5 INH SOL 3 ML VIAL.NEB. NEB SCH ×3 (07:38→20:05)
[2023-02-22] MEDS: amLODIPine BESYLATE 5 MG TABLET (FP) PO SCH (10:28)
[2023-02-22] MEDS: POLYETHYLENE GLYCOL (HEALTHYLAX) 3350 17 GM PACKET PO SCH (11:48)
[2023-02-22] MEDS: ATORVASTATIN CA 40 MG TABLET (FP) PO SCH (22:03)
[2023-02-23] MEDS: INSULIN SLIDING SCALE (NOVOLOG) 1 VIAL SQ SCH ×4 (06:15→22:22)
[2023-02-23] MEDS: LEVOTHYROXINE NA 125 MCG TABLET (FP) PO SCH (06:16)
[2023-02-23] MEDS: HEPARIN NA (PORCINE) 5,000 UNITS/ML 1ML VIAL SQ SCH ×3 (06:16→21:09)
[2023-02-23] MEDS: ALBUTEROL SO4 2.5/IPRATROPIUM 0.5 INH SOL 3 ML VIAL.NEB. NEB SCH ×3 (08:17→20:34)
[2023-02-23] MEDS: amLODIPine BESYLATE 5 MG TABLET (FP) PO SCH (09:58)
[2023-02-23] MEDS: POLYETHYLENE GLYCOL (HEALTHYLAX) 3350 17 GM PACKET PO SCH (09:58)
[2023-02-23] MEDS: CEFTRIAXONE 1 GM in DEXTROSE 5%-WATER - 50 ML IVPB SCH (09:58)
[2023-02-23] MEDS ORDERED: INSULIN SLIDING SCALE (NOVOLOG) 1 VIAL SQ ONE ×2 (11:20→18:48)
[2023-02-23] MEDS: ATORVASTATIN CA 40 MG TABLET (FP) PO SCH (21:08)
[2023-02-24] MEDS: HEPARIN NA (PORCINE) 5,000 UNITS/ML 1ML VIAL SQ SCH ×3 (05:29→21:01)
[2023-02-24] MEDS: INSULIN SLIDING SCALE (NOVOLOG) 1 VIAL SQ SCH ×4 (06:01→21:37)
[2023-02-24] MEDS: LEVOTHYROXINE NA 125 MCG TABLET (FP) PO SCH (06:01)
[2023-02-24] MEDS: ALBUTEROL SO4 2.5/IPRATROPIUM 0.5 INH SOL 3 ML VIAL.NEB. NEB SCH ×3 (07:20→20:54)
[2023-02-24] MEDS: amLODIPine BESYLATE 5 MG TABLET (FP) PO SCH (09:42)
[2023-02-24] MEDS: CEFTRIAXONE 1 GM in DEXTROSE 5%-WATER - 50 ML IVPB SCH (09:46)
[2023-02-24] MEDS: POLYETHYLENE GLYCOL (HEALTHYLAX) 3350 17 GM PACKET PO SCH (09:54)
[2023-02-24 18:25] VITALS: RESP 18
[2023-02-24] MEDS: ATORVASTATIN CA 40 MG TABLET (FP) PO SCH (21:01)
[2023-02-25] MEDS: HEPARIN NA (PORCINE) 5,000 UNITS/ML 1ML VIAL SQ SCH ×3 (05:45→21:16)
[2023-02-25] MEDS: INSULIN SLIDING SCALE (NOVOLOG) 1 VIAL SQ SCH ×4 (06:00→21:15)
[2023-02-25] MEDS: LEVOTHYROXINE NA 125 MCG TABLET (FP) PO SCH (06:01)
[2023-02-25] MEDS: ALBUTEROL SO4 2.5/IPRATROPIUM 0.5 INH SOL 3 ML VIAL.NEB. NEB SCH ×3 (08:51→20:28)
[2023-02-25] MEDS: CEFTRIAXONE 1 GM in DEXTROSE 5%-WATER - 50 ML IVPB SCH (10:49)
[2023-02-25] MEDS: POLYETHYLENE GLYCOL (HEALTHYLAX) 3350 17 GM PACKET PO SCH (10:51)
[2023-02-25] MEDS: amLODIPine BESYLATE 5 MG TABLET (FP) PO SCH (11:02)
[2023-02-25] MEDS ORDERED: INSULIN SLIDING SCALE (NOVOLOG) 1 VIAL SQ ONE (18:15)
[2023-02-25] MEDS: ATORVASTATIN CA 40 MG TABLET (FP) PO SCH (21:16)
[2023-02-25] MEDS ORDERED: ACETAMINOPHEN 325 MG TABLET (FP) PO ONE (22:59)
[2023-02-26] MEDS: HEPARIN NA (PORCINE) 5,000 UNITS/ML 1ML VIAL SQ SCH (06:07)
[2023-02-26] MEDS: LEVOTHYROXINE NA 125 MCG TABLET (FP) PO SCH (06:07)
[2023-02-26] MEDS: INSULIN SLIDING SCALE (NOVOLOG) 1 VIAL SQ SCH (06:15)
[2023-02-26 06:16] VITALS: BP 119/54; TEMP 97.7
[2023-02-26] MEDS: ALBUTEROL SO4 2.5/IPRATROPIUM 0.5 INH SOL 3 ML VIAL.NEB. NEB SCH (07:35)
[2023-02-26 08:07] VITALS: PULSE 76
[2023-02-26] MEDS: POLYETHYLENE GLYCOL (HEALTHYLAX) 3350 17 GM PACKET PO SCH (09:42)
[2023-02-26] MEDS: amLODIPine BESYLATE 5 MG TABLET (FP) PO SCH (09:42)
[2023-02-26] MEDS: CEFTRIAXONE 1 GM in DEXTROSE 5%-WATER - 50 ML IVPB SCH (09:42)
== END 2023-02-26 12:17 | DRG 689 ==
LOC: JER 18:36 → JERBED 23:26 → J5S 02-20 02:10
PROVIDERS: ADMIT Internal Medicine; ATTEND Internal Medicine
DX: N39.0 Urinary tract infection, site not specified (principal); G93.41 Metabolic encephalopathy; J96.21 Acute and chronic respiratory failure with hypoxia; J96.22 Acute and chronic respiratory failure with hypercapnia; I50.32 Chronic diastolic (congestive) heart failure; N17.9 Acute kidney failure, unspecified; Z68.42 Body mass index [BMI] 45.0-49.9, adult; E03.9 Hypothyroidism, unspecified; E78.5 Hyperlipidemia, unspecified; Z86.718 Personal history of other venous thrombosis and embolism; E66.01 Morbid (severe) obesity due to excess calories; I11.0 Hypertensive heart disease with heart failure; E11.9 Type 2 diabetes mellitus without complications; J44.9 Chronic obstructive pulmonary disease, unspecified; K21.9 Gastro-esophageal reflux disease without esophagitis; B96.4 Proteus (mirabilis) (morganii) as the cause of diseases classified elsewhere; K44.9 Diaphragmatic hernia without obstruction or gangrene; K64.8 Other hemorrhoids
CPT/HCPCS: 36415; 36600; 70450-TC; 71045-TC-FY; 71250-TC; 72125-TC; 80048; 80053; 81003; 82010; 82140; 82803; 82962; 83036; 83605; 83735; 84100; 84439; 84443; 84484; 85025; 85610; 85730; 87040; 87086; 87186; 93005; 93010; 94640; 94660; 97116-GP; 97162-GP; 99285-25; C9803-CS; J1644; U0003; U0005